=== PATIENT | male | born 1945 | race Caucasian/White ===

== ENCOUNTER → 2019-10-04 11:53 | Outpatient (BNVA) | payer OTHER, MEDICARE, SELFPAY | PROVIDERS: PCP Nurse Practitioner Family; Visit Provider Urology | DX: N39.3 Stress incontinence (female) (male) (principal); N52.31 Erectile dysfunction following radical prostatectomy | CPT/HCPCS: 81001 ==

== ENCOUNTER 2020-01-21 10:50 | Observation (INO) | payer OTHER, MEDICARE, SELFPAY ==
[2020-01-16 08:36] VITALS: BMI 35.4
--- NOTE | 2020-01-16 12:04 | ANES.PREANE2 ---
Pre-Anesthetic Assessment Pre-Anesthetic Assessment: Height/Weight: Height 1.7 m Weight 102.512 kg Preop Diagnosis: DJD right knee Proposed Procedure: Operation Date: 01/21/20 07:00 Proposed Procedures p Total Knee Arthroplasty w/ imageless computer navagation [id number] M17.0(Right) - Rocael Hinton DO Social: Social History: No alcohol and No tobacco Exam: Pre-Anes Outpt Exam: alert, oriented x 3, clear to auscultation bilaterally and regular rate & rhythm Airway: Submandibular: WNL Cervical ROM: WNL MP: 3 Dentition: Partials History/ROS: No significant history except as noted Pulmonary: Pulmonary: None reported CV/HEM: CV/HEM: HTN : : None reported Hepatic: Hepatic: None reported GI: GI: GERD Metabolic: Metabolic: DM Comments: borderline Musc/skel: Musc/skel: Lower Back Pain and OA/DJD Neuropsych: Neuropsych: None reported Anesthetic Plan: ASA status: 2 Anesthesia: Anesthesia Evaluation, Eval. for regional block, General and Regional (specify below) (adductor canal block) Risk of > 500 ml blood loss (7ml/kg in children): Yes, adequate IV access and fluids planned PFSH Anesthesia PFSH: Medical History (Updated 11/30/19 @ 14:36 by Rocael Hinton DO) Bladder neck stricture Erectile dysfunction Gross hematuria Male urinary stress incontinence Osteoarthritis of knees, bilateral Personal history of malignant neoplasm of prostate Surgical History H/O prostatectomy History of appendectomy History of carpal tunnel surgery BILATERAL History of lumbar laminectomy Social History Smoking and tobacco status: never smoked Alcohol intake: never Adopted: No Caregiver/support person: No Lives independently: No Household members: spouse Marital status: Current occupational status: retired Data Anesthesia Cardiac Studies: No Data to Display
[2020-01-16 13:05] LABS: Add Urine Microscopic? NO
[2020-01-16 13:08] LABS: Basophils % 0.5 %; Eosinophils # 0.2 10^3/uL (0.0-0.8); Eosinophils % 3.1 %; Hematocrit 39.6 % (42.0-52.0); Hemoglobin 12.9 g/dL (11.7-16.6); Lymphocytes % 16.9 %; Mean Corpuscular HGB Conc 32.6 g/dL (30.0-36.0); Mean Corpuscular Hemoglobin 30.7 pg (28.0-34.0); Mean Corpuscular Volume 94.3 fL (80-94); Mean Platelet Volume 10.2 fL (7.4-10.4); Monocytes # 0.5 10^3/uL (0.2-0.9); Monocytes % 8.3 %; Neutrophils # 4.3 10^3/uL (1.8-7.7); Neutrophils % 70.5 %; Nucleated Red Blood Cells % 0 %; Platelet Count 229 10^3/cmm (130-400); Red Cell Distribution Width 14.3 % (12.1-15.1); White Blood Count 6.2 10^3/uL (4.0-10.0)
[2020-01-16 13:24] LABS: Anion Gap 15.1 (5-19); Blood Urea Nitrogen 21 mg/dL (8-23); Calcium 9.1 mg/dL (8.5-10.5); Carbon Dioxide 25 mmol/L (22-29); Chloride 104 mmol/L (98-107); Creatinine Clr Calc Pharmacy 65.1837; Glucose 151 mg/dL (65-115); Osmolality Calculated 290 mOsm/kg (285-295); Potassium 4.1 mmol/L (3.5-5.1); Sodium 140 mmol/L (136-145)
[2020-01-16 13:28] LABS: Bilirubin Urine Neg (NEGATIVE); Blood Urine Neg (Negative); Glucose Urine UA Norm (Normal); Ketones Urine Negative (Negative); Leukocyte Esterase Urine Negative (Negative); Nitrate Urine Negative (Negative); Protein Urine Neg (Negative); Urine Appearance Clear (CLEAR); Urine Color Yellow (Yellow); Urobilinogen Urine Norm (Negative); pH Urine 5 (5-7)
[2020-01-21] VITALS (18 sets, daily range): BP systolic 89–172; BP diastolic 55–97; PULSE 70–80; RESP 14–19; TEMP 36.3–36.7; O2SAT 93–99
--- NOTE | 2020-01-21 05:44 | ECG_ITS ---
Measurements Intervals [place] Rate: 76 P: 64 NH: 179 QRS: 23 QRSD: 117 T: 36 QT: 401 QTc: 453 SINUS RHYTHM MODERATE INTRAVENTRICULAR CONDUCTION DELAY [110+ ms QRS DURATION] No previous ECG available for comparison Electronically Signed On 01-21-2020 19:47:50 CDT by Apirl Mcneil M.D. [email or web address]
[2020-01-21 06:09] LABS: Glucose Point of Care 144 mg/dL (70-110)
[2020-01-21] MEDS: gabapentin 300 mg Capsule PO ×3 (06:20→16:55)
[2020-01-21] MEDS: CELEcoxib 200 mg Capsule 400 MG PO (06:20)
[2020-01-21] MEDS: acetaminophen 500 mg Tablet 1000 MG PO ×3 (06:21→18:21)
[2020-01-21] MEDS: sodium chloride 0.9% 1,000 ML 30 ML IV (06:25)
--- NOTE | 2020-01-21 06:48 | W.PM.OPSUD ---
Surgery/Procedure H&P Update DATE OF PROCEDURE: January 21, 2020 DATE H&P PERFORMED: 01/16/20 H&P UPDATE INFORMATION: I have reviewed H&P completed within last 30 days, I have examined patient prior to procedure and No changes to prior documentation PREOP DIAGNOSIS: DJD right knee PRIMARY INDICATION FOR PROCEDURE: as above PLANNED PROCEDURE: Operation Date: 01/21/20 07:00 Proposed Procedures p Total Knee Arthroplasty w/ imageless computer navagation [id number] M17.0(Right) - Rocael Hinton DO
--- NOTE | 2020-01-21 06:49 | P.OP_ITS ---
Operative Report Date of procedure: January 21, 2020 Pre-op Diagnosis: DJD right knee Post-op diagnosis: same Procedure Done: Right total knee arthroplasty Imageless computer-assisted navigation Implants: [place] tri[employer]lon Specimens removed/disposition: Bone and cartilage right knee Surgeon: Rocael Hinton Anesthesia: General and Nerve Block (Preoperative single shot adductor canal block) Estimated blood loss (mL): 50 Tourniquet time (min): 120 IV fluids (mL): 1,500 Complications: No apparent complications Findings: Tricompartmental DJD Condition: stable Disposition: PACU Brief History: 74-year-old white male with progressive disabling right knee pain due to degenerative arthritis. At this time he's failed conservative treatment. He has attended the [facility] joint class. All of his questions and concerns were answered. He is aware of the risks of total knee arthroplasty surgery include aren't limited to: Infection, loosening about prosthesis, failure to relieve all pain, nerve/blood vessel/tendon injury, potential for fractures about the prosthesis that could lead to need for revision surgery. Medical complications can include blood clots, heart attack, stroke risks up to including . All questions are answered and the patient is agreeable to proceed with surgery Procedure: Patient identified. Surgical site signed. Surgical permit signed. Patient received 1.5 g of Vancomycin and 2 g of Ancef for antimicrobial prophylaxis. Anesthesia team performed an adductor canal block in the preoperative holding area. He was taken to the operating room. He was placed under general anesthesia. A gel bump was placed under the ipsilateral buttock. A tourniquet was placed about the upper aspect of the operative left limb. The operative limb was then sterilely prepped and draped usual fashion. The patient received 1 g of TXA IV prior to incision. The operative limb was exsanguinated using an Esmarch bandage and the tourniquet inflated to 300 mm Hg pressure. A 20 cm midline incision was made with a skin knife. Full-thickness skin flaps were made. Skin edge bleeders were coagulated with electrocautery. Using a second knife we perform a medial parapatellar arthrotomy. Soft tissues were released off the anteromedial aspect of the tibia to the posterior medial corner of the tibia with second knife and [place]gron elevator. The anterior horns of the medial and lateral menisci were released and resected. Partial fat pad resection was performed with sharp dissection. The anterior posterior cruciate ligaments were divided sharply. Using electrocautery the lateral patellofemoral ligament was divided. The knee was placed in full extension. The patella was everted. Marginal osteophytes were removed. Electrocautery was taken around the periphery of the patella. The patella measured 26 mm in thickness. I elected to resurface the patella. The patellar reamer was used to ream the patella to a residual thickness of 16 mm. The patella sized for a 35 mm oblong patella. We drilled the peg holes for the patellar button. The trial patellar button sat nicely on the parents surface. A partial lateral facetectomy was performed with an oscillating saw. The knee was flexed to 60?. A guidepin for the Contextbroker navigation device was inserted on the distal femur on Whitesides line. We measured for the anterior posterior offset and input the number. We attached the anterior reference unit. We entered the offset-3. We maneuvered the leg to register the femur. We then set the resection plane at 0? of varus/valgus from the mechanical axis and flexion at 4? for the femoral component. We set the distal femoral resection guide for 10 mm. Using an oscillating saw we performed the distal femoral cut. We then secured the tibial cutting jig on the tibia and held in place with a rubberized strap. The guide was put in place and the medial one third of the tibial tubercle and was secured with 3 pins. Tibial registration was performed by first reading and then adjust the distal offset to match 1.5 to the midline probe offset. The side levers were unlocked and we extended the distal probe to match offsets. We then registered the lateral followed by the medial malleolus. We set the varus/valgus angle to 0? and set the posterior slope to 0 degrees. We used the 2 mm stylus set our depth for tibial resection. We then used the oscillating saw to perform our proximal tibial cut. We now at checked our extension space and we were able to put a size 11 spacer and with good stability and to full extension. We sized the femur for a size 6 using the anterior referencing guide. Rotation was set at 3? of external rotation. The 4-in-1 cutting guide was put into place and an marielena wing was placed through the anterior cutting guide to assess for the potential of anterior notching. The marielena wing passed anterior to the femoral cortex. The 4-in-1 cutting block was pinned into place and the anterior and posterior as well as the chamfer cuts were then performed. The PS cutting block was pinned into place and the box cut was made with an oscillating saw. Lug holes were drilled. A size 6 femoral box cut component was then put on the distal femur. Box cut was then made with reciprocating saw. The knee was flexed to 110? and a PCL retractor was used to subluxate the tibia anteriorly with respect to the femur.The tibia was sized for a size6. With a 11 mm trial posterior stabilized tibial bearing surface in place the knee was placed through a range of motion the knee could flex to 105 degrees the knee came to near full extension. . We set the rotation by putting the knee through a range of motion and using electrocautery to carlos rotation on the tibia.The size 6 tibial plate was held in place using headed pins.We then drilled for the stem and punch for the keel. A trial reduction was performed with an 11 mm trial articular surface the knee was able to come to near full extension with a mild degree of effort flexion 110?. The patella tracked nicely with a no touch technique. All trial components were removed from the knee. The knee was irrigated with pulsatile lavage containing antibiotic solution and the joint was dried. We then mixed 2 bags of low viscosity cement with Tobramycin. Tobramycin for additional antimicrobial prophylaxis. The patellar component was cemented and held in place with a clamp. The Size 6 posterior stabilized femoral component component was cemented. Excess cement was removed using a [place] elevator. The size 6 tibial universal baseplate was cemented and was then impacted into place and the knee was reduced. The cement was allowed to harden. The actual size 6 x11 mm thickness posterior stabilized tibial articular surface was inserted and impacted into place. Components were reduced into position. The knee came to near full extension flexion easily to 110?. The knee was stable to varus valgus stress. The patella tracked nicely with a no touch technique. The knee was then irrigated with Betadine-containing saline solution and antibiotic containing saline solution. The knee tendons and capsular structures and joint line were injected with 120 mL of a solution containing Exparel 0.25% Marcaine and sterile saline.FloSeal was then placed in the wound for additional hemostasis within the joint was dried. Vancomycin powder was placed and ca psular closure was performed with permanent as well as absorbable barbed suture. The subcutaneous layer was irrigated with Betadine-containing saline solution and antibiotic containing saline solution. Vancomycin powder was also placed in this layer. The patient received 1 g of Tranexamic acid intravenously for additional hemostasis prior to closure The wound was then closed in layers with sharyn on skin. Skin glue was placed over the sharyn. Sterile dressings were then applied. A compressive Timmy wrap was applied from ankle to groin. The patient was aroused from general anesthesia. Patient was taken to recovery room. Patient tolerated the procedure well. All counts were correct.
[2020-01-21] MEDS: fentaNYL 50 mcg/mL INJ 2mL 100 MCG IVP (06:59)
[2020-01-21] MEDS: midazolam 1 mg/mL INJ 5 ML 5 MG IVP (06:59)
--- NOTE | 2020-01-21 07:14 | ANES.PROC ---
Anesthesia Procedures Procedure/Date: 01/21/20 Nerve Block ^: Nerve Block 1: Main Anesthesia: general anesthesia Time Out Performed: Yes Consent: requested by attending/covering physician, risks and benefits reviewed and patient agrees to proceed Nerve block location: adductor canal (right) Anesthesia monitors applied: pulse oximetry, EKG, BP cuff and oxygen Nerve block position: supine Anesthetic Used: ropivicaine 0.5% (30 ml) and with decadron (4mg) Amount of anesthesia used (mL): 30 Ultrasound used to: recognize landmarks Nerve Stimulator Used?: No Interscalene/Femoral BLK: 4 stimuplex 21 g needle used for position and inplane approach, visualize local anesthetic spread and no vascular puncture identified Injection: neg aspiration of heme and paresthesia +/- (neg) Patient Tolerated Procedure: well and no complications Complications: none
[2020-01-21] MEDS: vancomycin 1,000 MG SDV 1000 MG XX (07:48)
--- NOTE | 2020-01-21 07:51 | SUR.OPER ---
Family Notified Of Patient's Status Via Phone.
--- NOTE | 2020-01-21 09:00 | SUR.OPER ---
Family Notified Of Patient's Status Via Phone.
--- NOTE | 2020-01-21 10:39 | SUR.PHASEI ---
1039- ORAL AIRWAY OUT, SIMPLE MASK IN PLACE AT 6LPM, SAT 98%
--- NOTE | 2020-01-21 10:58 | XR_ITS ---
WS: [id number] RIGHT KNEE 2 VIEWS AP and cross table lateral imaging is submitted. HISTORY: POST OP. COMPARISON: 05/29/2019 Total knee replacement prosthetic devices are in good position and alignment. Normal position of the patella. Posterior patella resurfacing changes. Numerous postsurgical sutures are noted over the ant erior knee and there are normal postoperative changes in the soft tissues consistent with air, blood and edema. No complications are evident. XR/XR knee RT 1-2V 82431 IMPRESSION: Satisfactory appearance of the recent RIGHT knee arthroplasty.
[2020-01-21 11:50] LABS: Glucose Point of Care 201 mg/dL (70-110)
[2020-01-21] MEDS: calcium carbonate 500 mg Chew Tablet 1000 MG PO ×2 (12:51→16:54)
[2020-01-21] MEDS: montelukast sodium 10 mg Tablet PO (12:52)
[2020-01-21] MEDS: oxybutynin 5 mg Tablet 10 MG PO (12:52)
[2020-01-21] MEDS: multivitamin therapeutic Tablet 1 TAB PO (12:53)
[2020-01-21] MEDS: sennosides-docusate Tablet 2 TAB PO ×2 (12:53→16:56)
[2020-01-21] MEDS: TRAMadol 50 mg Tablet PO (12:53)
[2020-01-21] MEDS: cholecalciferol (vitamin D3) 1,000 unit Tablet 1000 UNIT PO (12:53)
[2020-01-21] MEDS: allopurinol 300 mg Tablet PO (12:55)
[2020-01-21] MEDS: FUROsemide 40 mg Tablet PO (12:55)
[2020-01-21] MEDS: pantoprazole DR 40 mg Tablet PO (12:55)
[2020-01-21] MEDS: iron polysaccharide complex 150 mg Capsule PO ×2 (12:56→16:55)
[2020-01-21] MEDS: chlorhexidine gluconate 0.12% Btl 473 mL 30 ML MUCOUS MEM ×3 (12:56→21:00)
[2020-01-21] MEDS: atorvastatin 40 mg Tablet 20 MG PO (12:56)
[2020-01-21] MEDS: sodium chloride 0.9% 1,000 ML 100 ML IV ×2 (12:56→23:36)
[2020-01-21] MEDS: ondansetron 2 mg/ML SDV 2 mL 4 MG IVP (12:57)
--- NOTE | 2020-01-21 13:44 | PC.SOCIAL ---
Patient received [employer] recipient letter from Medicare. Signed copy is in the chart.
[2020-01-21 16:59] LABS: Glucose Point of Care 287 mg/dL (70-110)
--- NOTE | 2020-01-21 18:11 | PM.CONSULT ---
Providers/Reason For Consult Consulting Physican/Specialty*: Frase/Hospitalist Reason for Consult*: diabetes, hypertension, other medical management Requesting Physcian: Dr Hinton Attending Physician: Rocael Hinton DO Primary Care Provider: Cary Sanders History of Present Illness History of Present Illness Ludwig Malloy JR is a 74 year old male who presented to [facility] for an elective total knee replacement on the day of admission. Postoperatively, he reports doing well. Pain is controlled currently with a block. He can move both of his feet. Denies chest pain, nausea, vomiting, shortness of breath. No significant issues perioperatively reported. Case was reviewed with Dr. Hinton. Hospitalists have been consulted for management of patient's diabetes, hypertension and other medical issues. Patient currently without questions or acute concerns. Review of Systems Const: Denies: fever, chills or change in appetite Eyes: Denies: change in vision ENMT: Denies: throat pain, dry mouth or nasal congestion Card: Denies: chest pain, palpitations or edema Resp: Denies: shortness of breath, productive cough or non-productive cough GI: Denies: abdominal pain, nausea, vomiting, diarrhea or constipation : Denies: difficulty urinating Musc: Reports: extremity pain Skin/Breast: Denies: rash or itching Neuro: Denies: headache, numbness in extremities, weakness in extremities or dizziness Psych: Denies: anxiety or depression George/Lymph: Denies: easy bruising or easy bleeding Meds/Allergies Home Medications and Allergies Home Medications Medication Instructions Recorded Confirmed Last Taken Type acetaminophen 500 mg tablet 500 mg PO BID tab 10/04/19 01/17/20 01/20/20 History allopurinol 300 mg tablet 300 mg PO DAILY 10/04/19 01/17/20 01/20/20 History amlodipine 10 mg tablet 10 mg PO DAILY 10/04/19 01/17/20 01/21/20 05:00 History dulaglutide 1.5 mg/0.5 mL 1.5 mg SUBCUT Q7D 10/04/19 01/17/20 01/15/20 History subcutaneous pen injector furosemide 40 mg tablet 40 mg PO DAILY 10/04/19 01/17/20 01/20/20 History gabapentin 300 mg capsule 300 mg PO BID 10/04/19 01/17/20 01/20/20 History lisinopril 40 mg tablet 40 mg PO DAILY 10/04/19 01/17/20 01/20/20 History meloxicam 15 mg tablet 15 mg PO DAILY 10/04/19 01/17/20 01/20/20 History metformin 500 mg tablet,extended 500 mg PO BID 10/04/19 01/17/20 01/20/20 History release 24 hr metoprolol succinate 100 mg 100 mg PO DAILY 10/04/19 01/17/20 01/21/20 05:00 History tablet,extended release 24 hr montelukast 10 mg tablet 10 mg PO DAILY 10/04/19 01/17/20 01/20/20 History omeprazole 20 mg capsule,delayed 20 mg PO DAILY 10/04/19 01/17/20 01/20/20 History release oxybutynin chloride 10 mg 10 mg PO DAILY 10/04/19 01/17/20 01/20/20 History tablet,extended release 24 hr simvastatin 40 mg tablet 40 mg PO DAILY 10/04/19 01/17/20 01/20/20 History tadalafil 20 mg PO DAILY PRN 01/16/20 01/17/20 Unknown History Allergies Allergy/AdvReac Type Severity Reaction Status Date / Time No Known Allergies Allergy Verified 01/17/20 08:00 Current Medications Current Medications Generic Name Dose Route Start Last Admin Trade Name Freq PRN Reason Stop Dose Admin Acetaminophen 1,000 mg 01/21/20 11:16 01/21/20 12:54 Tylenol PO 1,000 mg Q8H AUDREY Administration Allopurinol 300 mg 01/21/20 11:16 01/21/20 12:55 Zyloprim PO 300 mg DAILY ADUREY Administration Atorvastatin Calcium 20 mg 01/21/20 12:00 01/21/20 12:56 Lipitor PO 20 mg DAILY AUDREY Administration Calcium Carbonate 1,000 mg 01/21/20 11:16 01/21/20 16:54 Tums PO 1,000 mg BID AUDREY Administration Chlorhexidine Gluconate 30 ml 01/21/20 11:16 01/21/20 16:50 Perigard MUCOUS MEM 30 ml QID AUDREY Administration Furosemide 40 mg 01/21/20 11:16 01/21/20 12:55 Lasix PO 40 mg DAILY AUDREY Administration Gabapentin 300 mg 01/21/20 11:16 01/21/20 16:55 Neurontin PO 300 mg BID AUDREY Administration Sodium Chloride 1,000 mls @ 100 mls/hr 01/21/20 11:16 01/21/20 12:56 Sodium Chloride 0.9% IV 100 mls/hr .Q10H AUDREY Administration Cefazolin Sodium/Dextrose 2 gm in 50 mls @ 100 mls/hr 01/21/20 15:00 01/21/20 17:19 Kefzol IV 01/22/20 07:29 Infused Q8H AUDREY Infusion Protocol Insulin Aspart 0 unit 01/21/20 12:00 01/21/20 17:29 Novolog SUBCUT 8 unit TIDWM AUDREY Administration Protocol Metoprolol Succinate 100 mg 01/21/20 11:16 01/21/20 12:55 Toprol Xl PO Not Given DAILY AUDREY Montelukast Sodium 10 mg 01/21/20 11:16 01/21/20 12:52 Singulair PO 10 mg DAILY AUDREY Administration Multivitamins Therapeutic 1 tab 01/21/20 11:16 01/21/20 12:53 Multivitamin Tab PO 1 tab DAILY AUDREY Administration Mupirocin 1 applic 01/21/20 11:16 01/21/20 16:55 Bactroban NASAL 01/26/20 11:15 Not Given BID [facility] Protocol Ondansetron HCl 4 mg 01/21/20 11:16 01/21/20 12:57 Zofran IVP 4 mg Q6H PRN Administration NAUSEA AND VOMITING Oxybutynin Chloride 10 mg 01/21/20 12:00 01/21/20 12:52 Ditropan PO 10 mg DAILY AUDREY Administration Pantoprazole Sodium 40 mg 01/21/20 12:00 01/21/20 12:55 Protonix PO 40 mg DAILY AUDREY Administration Polysaccharide Iron Complex 150 mg 01/21/20 11:16 01/21/20 16:55 Ferrex PO 150 mg BIDWM AUDREY Administration Senna/Docusate Sodium 2 tab 01/21/20 11:16 01/21/20 16:56 Senna-S PO 2 tab BID AUDREY Administration Tramadol HCl 50 mg 01/21/20 11:16 01/21/20 12:53 Ultram PO 50 mg Q4H PRN Administration MILD TO MODERATE PAIN Vitamin D 1,000 unit 01/21/20 11:16 01/21/20 12:53 Vitamin D3 PO 1,000 unit DAILY AUDREY Administration PFSH Acute PFSH: Medical History (Updated 01/21/20 @ 20:38 by Catrachita Weathers MD) Bladder neck stricture Erectile dysfunction Gout Gross hematuria Hyperlipidemia Hypertension Male urinary stress incontinence Osteoarthritis of knees, bilateral Personal history of malignant neoplasm of prostate treated with radiation in 2010 Type 2 diabetes mellitus Surgical History (Updated 01/21/20 @ 18:20 by Catrachita Weathers MD) H/O nasal septoplasty H/O prostatectomy History of appendectomy History of carpal tunnel surgery BILATERAL History of lumbar laminectomy History of sinus surgery Family History Family/Other Cancer Lung disease Hypertension CAD (coronary artery disease) Stroke Social History Smoking and tobacco status: never smoked Alcohol intake: never Adopted: No Caregiver/support person: No Lives independently: No Household members: spouse Marital status: Current occupational status: retired Vitals/I&O/Wt Last Vital Signs Temp 97.8 F 01/21/20 16:00 Pulse 76 01/21/20 17:15 Resp 17 01/21/20 16:00 BP 149/73 01/21/20 17:15 Pulse Ox 94 01/21/20 17:15 01/21/20 01/21/20 01/21/20 06:59 14:59 22:59 Intake Total 2150 / 2150 50 / 2200 Output Total 50 / 50 100 / 150 Balance 2099 / 2099 -2049 Physical Exam Const: OTHER: Alert, oriented x3, cooperative HENMT: OTHER: Normocephalic atraumatic, moist mucus membranes Eye: OTHER: Pupils equally round and reactive to light Neck/C-Spine: OTHER: Supple Resp: OTHER: Clear to auscultation bilaterally no rales rhonchi or wheezes noted, no accessory muscle use noted Cardio: OTHER: Regular rate and rhythm, no murmurs gallops or rubs. Pulses euqal throughout. GI: OTHER: Abdomen soft, nontender, nondistended with positive bowel sounds : OTHER: Deferred Extremity: NARRATIVE EXTREMITY EXAM: Right lower extremity with postoperative dressings and ice pack in place Neuro: OTHER: Face symmetric, speech clear, moves toes of both feet Psych: OTHER: Normal affect Skin: OTHER: Skin without any lesions or rashes noted A&P Assessment and plan (1) Type 2 diabetes mellitus: Status: Acute Qualifiers: Diabetes mellitus complication status: without complication Diabetes mellitus custodial insulin use: without custodial use Qualified Code(s): E11.9 - Type 2 diabetes mellitus without complications (2) Hypertension: Status: Acute Qualifiers: Hypertension type: essential hypertension Qualified Code(s): I10 - Essential (primary) hypertension (3) Hyperlipidemia: Status: Acute Qualifiers: Hyperlipidemia type: unspecified Qualified Code(s): E78.5 - Hyperlipidemia, unspecified (4) Male urinary stress incontinence: Status: Chronic (5) Gout: Status: Chronic Qualifiers: Gout site: unspecified site Gout etiology: unspecified cause Chronicity: chronic Presence of tophus: without tophus Qualified Code(s): M1A.9XX0 - Chronic gout, unspecified, without tophus (tophi) (6) Status post total right knee replacement: POD zero Status: Acute Additional A&P Information Appreciate consultation Added sliding scale insulin as well as long-acting Held oral hypoglycemic agents as well as Trulicity Continue home metoprolol, amlodipine as well as Lasix for now but held lisinopril Continue home statin therapy Held home NSAIDs On home gabapentin Has laxative therapy Eliquis ordered providing DVT prophylaxis Continue oxybutynin there will need to watch for any evidence of retention Continue allopurinol Other care as per Dr. Hinton We will follow along while patient is here and address acute medical issues should they arise My participation in patient's care was discussed with him and he was given an opportunity to ask questions Full code Coding Level of Care Code Acute Jacquard Lace Weaver for Teres[facility] Fwd Diagnoses Type 2 diabetes mellitus E11.9 Diabetes mellitus complication status: without complication Diabetes mellitus custodial insulin use: without custodial use Hypertension I10 Hypertension type: essential hypertension Hyperlipidemia E78.5 Hyperlipidemia type: unspecified Male urinary stress incontinence N39.3 Gout M1A.9XX0 Gout site: unspecified site Gout etiology: unspecified cause Chronicity: chronic Presence of tophus: without tophus Status post total right knee replacement Z96.651
[2020-01-21] MEDS: apixaban 5 mg Tablet 2.5 MG PO (18:21)
[2020-01-21 21:16] LABS: Glucose Point of Care 282 mg/dL (70-110)
[2020-01-22] VITALS: BP 147/85; PULSE 82; RESP 20; TEMP 36.3; O2SAT 96
[2020-01-22 02:14] LABS: Basophils % 0.1 %; Hematocrit 36.1 % (42.0-52.0); Hemoglobin 11.4 g/dL (11.7-16.6); Lymphocytes # 0.6 10^3/uL (0.8-4.8); Lymphocytes % 4.6 %; Mean Corpuscular HGB Conc 31.6 g/dL (30.0-36.0); Mean Corpuscular Hemoglobin 29.5 pg (28.0-34.0); Mean Corpuscular Volume 93.5 fL (80-94); Monocytes # 0.9 10^3/uL (0.2-0.9); Monocytes % 7.3 %; Neutrophils # 11.1 10^3/uL (1.8-7.7); Neutrophils % 87.3 %; Nucleated Red Blood Cells % 0 %; Platelet Count 213 10^3/cmm (130-400); Red Blood Count 3.86 10^6/uL (4.1-5.3); White Blood Count 12.7 10^3/uL (4.0-10.0)
[2020-01-22 02:32] LABS: Anion Gap 15.4 (5-19); Blood Urea Nitrogen 27 mg/dL (8-23); Calcium 8.3 mg/dL (8.5-10.5); Carbon Dioxide 23 mmol/L (22-29); Chloride 104 mmol/L (98-107); Creatinine Clr Calc Pharmacy 59.7517; Glucose 257 mg/dL (65-115); Osmolality Calculated 292 mOsm/kg (285-295); Potassium 4.4 mmol/L (3.5-5.1); Sodium 138 mmol/L (136-145)
[2020-01-22] MEDS: acetaminophen 500 mg Tablet 1000 MG PO ×2 (02:53→11:48)
[2020-01-22 04:00] VITALS: BP 151/81; PULSE 80; RESP 20; TEMP 36.4; O2SAT 95
[2020-01-22 06:47] LABS: Glucose Point of Care 213 mg/dL (70-110)
[2020-01-22 08:00] VITALS: BP 141/82; PULSE 80; RESP 20; TEMP 36.6; O2SAT 96
[2020-01-22] MEDS: calcium carbonate 500 mg Chew Tablet 1000 MG PO ×2 (08:26→17:23)
[2020-01-22] MEDS: allopurinol 300 mg Tablet PO (08:26)
[2020-01-22] MEDS: gabapentin 300 mg Capsule PO ×2 (08:26→17:24)
[2020-01-22] MEDS: sennosides-docusate Tablet 2 TAB PO ×2 (08:27→17:26)
[2020-01-22] MEDS: cholecalciferol (vitamin D3) 1,000 unit Tablet 1000 UNIT PO (08:27)
[2020-01-22] MEDS: oxybutynin 5 mg Tablet 10 MG PO (08:27)
[2020-01-22] MEDS: amlodipine 10 mg Tablet PO (08:27)
[2020-01-22] MEDS: montelukast sodium 10 mg Tablet PO (08:27)
[2020-01-22] MEDS: iron polysaccharide complex 150 mg Capsule PO ×2 (08:28→17:24)
[2020-01-22] MEDS: apixaban 5 mg Tablet 2.5 MG PO ×2 (08:28→17:24)
[2020-01-22] MEDS: FUROsemide 40 mg Tablet PO (08:28)
[2020-01-22] MEDS: metoprolol succinate ER (24 HR) 100 mg Tablet PO (08:28)
[2020-01-22] MEDS: atorvastatin 40 mg Tablet 20 MG PO (08:28)
[2020-01-22] MEDS: multivitamin therapeutic Tablet 1 TAB PO (08:29)
[2020-01-22] MEDS: pantoprazole DR 40 mg Tablet PO (08:29)
[2020-01-22] MEDS: vancomycin 1,000 MG in sodium chloride 0.9% 250 ML 250 MG IV (09:14)
[2020-01-22] MEDS: mupirocin oint 22 gm 1 APPLIC NASAL (09:15)
[2020-01-22] MEDS: chlorhexidine gluconate 0.12% Btl 473 mL 30 ML MUCOUS MEM ×2 (09:15→13:37)
--- NOTE | 2020-01-22 10:14 | PC.CHAP ---
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 [] Patient/Family/Request visit [] Outpatient visit [] Follow-up visit [] Physician referral [] Code/Alert [x] Routine visit [] Staff referral [] Actively dying [] Patient sleeping [] Family support [] [] Out of room [] Palliative care [] [] Receiving care in room [] Pre-surgical visit [] Trauma [] Long length of stay [] ICU visit [] Other: Relational/Emotional Strength [] Patient feels connected with others/family/visitors/staff [] Distress [] Loneliness/isolation [] Abandonment Spirituality of Patient [] Person of Aleja [] Attends Synagogue of their Aleja [] Believes in Prayer [] Reads Bible or Pentecostalism materials [] There are Spiritual issues to be addressed Property Technician Interventions [x] Prayer [] Active listening [] Non-anxious presence [] Spiritual/emotional support [] Crisis/trauma care [] Spiritual counseling [] Bereavement support [] Provided bereavement packet [] Provided Bible/devotional materials [] Provided toy/stuffed animal, coloring book to patient or family member [] Provided Communion [] Anointing/[place] [] Salvation [x] Completed spiritual assessment [] Other: Impact on Illness or Injury [] Angry [] Fearful [] Anxious [] Often cries [] Exhaustion [] Unable to work [] Unable to attend scientologist [] Unable to walk/stand [] Unable to read [] Unable to drive [] Unable to eat/drink [] Unable to sleep [] Unable to be with family [] Patient intubated [] Other: Summary Patient finished breakfast, setting up in chair. Patient feeling much stronger Time spent with patient 10 min
[2020-01-22 11:02] LABS: Glucose Point of Care 317 mg/dL (70-110)
[2020-01-22 12:00] VITALS: BP 133/83; PULSE 85; RESP 18; TEMP 36.7; O2SAT 96
--- NOTE | 2020-01-22 13:33 | P.DS_ITS ---
Discharge Providers Date of Admission: 01/21/20 10:50 Date of Discharge: January 22, 2020 Attending Provider at Admission: Rocael Hinton DO Attending Provider at Discharge: Rocael Hinton DO Primary Care Provider: Cary Sanders Diagnoses at Discharge Discharge Diagnosis (1) Status post total right knee replacement: Status: Acute (2) Type 2 diabetes mellitus: Status: Chronic Qualifiers: Diabetes mellitus complication status: without complication Diabetes mellitus long term care pharmacist insulin use: without long term care pharmacist use Qualified Code(s): E11.9 - Type 2 diabetes mellitus without complications (3) Hypertension: Status: Chronic Qualifiers: Hypertension type: essential hypertension Qualified Code(s): I10 - Essential (primary) hypertension (4) Hyperlipidemia: Status: Chronic Qualifiers: Hyperlipidemia type: unspecified Qualified Code(s): E78.5 - Hyperlipidemia, unspecified (5) Male urinary stress incontinence: Status: Chronic (6) Gout: Status: Chronic Qualifiers: Chronicity: chronic Gout etiology: unspecified cause Gout site: unspecified site Presence of tophus: without tophus Qualified Code(s): M1A.9XX0 - Chronic gout, unspecified, without tophus (tophi) Reason for Visit Reason for Visit: Reason For Visit: Primary osteoarthritis of bilateral knee Brief History: 74-year-old white male with progressive disabling right knee pain due to degenerative arthritis. At this time he's failed conservative treatment. He has attended the [facility] joint class. All of his questions and concerns were answered. He is aware of the risks of total knee arthroplasty surgery include aren't limited to: Infection, loosening about prosthesis, failure to relieve all pain, nerve/blood vessel/tendon injury, potential for fractures about the prosthesis that could lead to need for revision surgery. Medical complications can include blood clots, heart attack, stroke risks up to including . All questions are answered and the patient is agreeable to proceed with surgery Hospital Course Hospital Course: The patient underwent right total knee arthroplasty under general anesthetic with preoperative single shot adductor canal block. He received antibiotic prophylaxis using Ancef and vancomycin. He was started on Eliquis for VTE prophylaxis. SCDs and mobilization were used also for VTE prophylaxisSurgery went well without any intraoperative complications. Postoperative x-ray show satisfactory placement of implants. No Watts catheter was placed because of his previous history of prostate surgery and concern for having voiding complications. The patient did exceptionally well following surgery. On postoperative day 1 the had minimal complaints of pain and was doing well with physical therapy. He was doing so well that he wanted to be discharged home. His postoperative dressing was clean and dry without any strikethrough. No calf tenderness bilaterally he was ambulating weightbearing as tolerated using walker. His pain was controlled oral pain medication Physical Exam Narrative: EXAM NARRATIVE: 74-year-old white male in no acute distress. He is alert and cooperative. His lungs are clear to auscultation. His heart is regular rate and rhythm abdomen soft nontender his right lower extremity dressing is clean dry and intact. He has no calf tenderness bilaterally. Discharge Data Data Completed and Pending: Completed Studies During Hospitalization Category Date Time Status XR knee RT 1-2V 7 3560 Routine Exams 01/21/20 10:58 Completed Pathology: Surgic al [PTH] Routine Pth 01/21/20 10:21 Completed Pending at discharge Category Date Time Status Complete Blood Co unt w/Auto AM LABS Lab 01/23/20 04:00 Ordered Complete Blood Co unt w/Auto AM LABS Lab 01/24/20 04:00 Ordered Labs from last 24 hours 01/22/20 01/22/20 01/22/20 10:58 06:23 01:50 WBC RBC Hgb Hct MCV MCH MCHC RDW Plt Count MPV Neut % (Auto) Lymph % (Auto) [place] % (Auto) Eos % (Auto) Baso % (Auto) Neut # (Auto) Lymph # (Auto) [place] # (Auto) Eos # (Auto) Baso # (Auto) Nucleated RBC % (a uto) Nucleated RBCs # Sodium 138 Potassium 4.4 Chloride 104 Carbon Dioxide 23 Anion Gap 15.4 BUN 27 H Creatinine 1.2 Glucose 257 H POC Glucose 317 213 Calculated Osmolal ity 292 Calcium 8.3 L 01/22/20 01/21/20 01/21/20 01:50 20:49 16:01 WBC 12.7 H RBC 3.86 L Hgb 11.4 L Hct 36.1 L MCV 93.5 MCH 29.5 MCHC 31.6 RDW 14.0 Plt Count 213 MPV 10.0 Neut % (Auto) 87.3 Lymph % (Auto) 4.6 [place] % (Auto) 7.3 Eos % (Auto) 0.0 Baso % (Auto) 0.1 Neut # (Auto) 11.1 H Lymph # (Auto) 0.6 L [place] # (Auto) 0.9 Eos # (Auto) 0.0 Baso # (Auto) 0.0 Nucleated RBC % (a uto) 0 Nucleated RBCs # 0.0 Sodium Potassium Chloride Carbon Dioxide Anion Gap BUN Creatinine Glucose POC Glucose 282 287 Calculated Osmolal ity Calcium Vitals: Last Vital Signs Temp 97.9 F 01/22/20 08:00 Pulse 80 01/22/20 08:00 Resp 20 H 01/22/20 08:00 BP 141/82 01/22/20 08:00 Pulse Ox 96 01/22/20 08:00 Discharge Plan Discharge Patient Disposition: Home Health Service Condition: Stable Prescriptions: New oxycodone-acetaminophen 5-325 mg tablet 1 tab PO Q4H PRN (Reason: pain) Qty: 40 RF: 0 cefuroxime axetil 500 mg tablet 500 mg PO BID 7 Days Qty: 14 RF: 0 Eliquis 2.5 mg tablet 2.5 mg PO Q12H Qty: 30 RF: 0 Continued gabapentin 300 mg capsule 300 mg PO BID RF: 0 acetaminophen [Tylenol Extra Strength] 500 mg tablet 500 mg PO BID RF: 0 omeprazole 20 mg capsule,delayed release(DR/EC) 20 mg PO DAILY RF: 0 Trulicity 1.5 mg/0.5 mL pen injector 1.5 mg SUBCUT Q7D RF: 0 furosemide 40 mg tablet 40 mg PO DAILY RF: 0 montelukast 10 mg tablet 10 mg PO DAILY RF: 0 meloxicam 15 mg tablet 15 mg PO DAILY RF: 0 metoprolol succinate 100 mg tablet extended release 24 hr 100 mg PO DAILY RF: 0 lisinopril 40 mg tablet 40 mg PO DAILY RF: 0 amlodipine 10 mg tablet 10 mg PO DAILY RF: 0 metformin 500 mg tablet extended release 24 hr 500 mg PO BID RF: 0 oxybutynin chloride 10 mg tablet extended release 24hr 10 mg PO DAILY RF: 0 simvastatin 40 mg tablet 40 mg PO DAILY RF: 0 allopurinol 300 mg tablet 300 mg PO DAILY RF: 0 tadalafil 20 mg tablet 20 mg PO DAILY PRN (Reason: sexual activity) RF: 0 Discharge Orders: Discharge Order (Routine); Ordered 01/22/20 Ordered By: Rocael Hinton Referrals: [facility] ([facility]) [Outside] Rocael Hinton DO [Physician] - 02/05/20 8:30 am Discharge Diet: Diabetic Discharge Activity: Limit activity as instructed and Use walker/crutches as instructed Patient Instructions: Cefuroxime (By mouth), Oxycodone/Acetaminophen (By mouth), Apixaban (By mouth), Revision Total Joint Arthroplasty (DC) Activity Restrictions/Additional Instructions: Weightbearing as tolerated on right knee Apply ice to right knee to decrease pain and swelling 20 minutes on 20 minutes off May take off Timmy wrap tomorrow May leave Tegaderm dressing in place and shower. Remove Tegaderm dressing on Monday leaving sharyn in place. Home nursing may apply Telfa island dressing. May coordinate with visiting nurse to remove your dressing and they can apply a new dressing as they do a wound check (Telfa island dressing) Home physical therapy total knee orders gait and transfer training begin with walker may progress to cane as tolerated Quad sets, active and passive range of motion. Do not attempt to progress beyond 90 degrees of flexion so as not to disrupt wound ankle pumps, calf/thigh isometrics and gluteal squeezes--25 reps 3-4 sets per day stairclimbing when appropriate Discharge Date/Time: 01/22/20 19:12 Discharge Attestations Time Spent in Discharge Care*: less than 30 min Specific Discharge Activities: Specific discharge activities: educating patient and documenting/other paperwork Quality Metrics Clinical Quality Measures During this hospital stay, did patient experience: None Coding Level of Care Code Established Pt Acute Digital Marketing Strategist for Ladan Fwd Patient Type Established Diagnoses Status post total right knee replacement Z96.651 Type 2 diabetes mellitus E11.9 Diabetes mellitus complication status: without complication Diabetes mellitus long term care pharmacist insulin use: without long term care pharmacist use Hypertension I10 Hypertension type: essential hypertension Hyperlipidemia E78.5 Hyperlipidemia type: unspecified Male urinary stress incontinence N39.3 Gout M1A.9XX0 Chronicity: chronic Gout etiology: unspecified cause Gout site: unspecified site Presence of tophus: without tophus
[2020-01-22 15:52] VITALS: BP 131/75; PULSE 79; RESP 18; TEMP 37.1; O2SAT 97
--- NOTE | 2020-01-22 16:03 | PM.PN ---
Subjective Subjective: Interval history: Patient seen earlier this morning walking with therapy and again earlier this afternoon. He looks great. He has done well throughout the day today also. Plan is for him to be discharged today I believe. He has no questions. Vitals/I&O/Wt Last Vital Signs Temp 98.7 F 01/22/20 15:52 Pulse 79 01/22/20 15:52 Resp 18 01/22/20 15:52 BP 131/75 01/22/20 15:52 Pulse Ox 97 01/22/20 15:52 01/22/20 01/22/20 01/22/20 06:59 14:59 22:59 Intake Total 150 / 3350 1010 / 1010 Output Total 400 / 1000 700 / 700 Balance -250 / 2350 310 / 310 Physical Exam Const: OTHER: Alert, oriented x3, cooperative, eager Resp: OTHER: Clear to auscultation bilaterally Cardio: OTHER: Regular Extremity: NARRATIVE EXTREMITY EXAM: Appropriate postoperative changes Neuro: OTHER: Face symmetric, speech clear, moves all extremities Data : 01/22/20 01:50 01/22/20 01:50 A&P Assessment and plan (1) Type 2 diabetes mellitus: Status: Chronic Qualifiers: Diabetes mellitus senior care insulin use: without senior care use Diabetes mellitus complication status: without complication Qualified Code(s): E11.9 - Type 2 diabetes mellitus without complications (2) Hypertension: Status: Chronic Qualifiers: Hypertension type: essential hypertension Qualified Code(s): I10 - Essential (primary) hypertension (3) Hyperlipidemia: Status: Chronic Qualifiers: Hyperlipidemia type: unspecified Qualified Code(s): E78.5 - Hyperlipidemia, unspecified (4) Male urinary stress incontinence: Status: Chronic (5) Gout: Status: Chronic Qualifiers: Gout site: unspecified site Gout etiology: unspecified cause Chronicity: chronic Presence of tophus: without tophus Qualified Code(s): M1A.9XX0 - Chronic gout, unspecified, without tophus (tophi) (6) Status post total right knee replacement: Status: Acute Additional A&P Information From discharge standpoint, patient can continue usual home medications. Eliquis is being utilized for DVT prophylaxis. Pain seems to be well controlled and he is doing well with therapy. Recommend follow-up with PCP as needed and monitoring for any issues with blood pressure, blood sugars incontinence or development of acute gout. 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
[2020-01-22 17:06] LABS: Glucose Point of Care 342 mg/dL (70-110)
[2020-01-22] MEDS: oxyCODONE 5 mg IR Tab/Cap PO (17:24)
[2020-01-22 19:12] VITALS: BP 131/75; PULSE 79; RESP 18; TEMP 37.1; O2SAT 97
== END 2020-01-22 19:12 | disposition home health service (06) ==
LOC: MEDSURG 20:58
PROVIDERS: Admitting Provider Orthopaedic Surgery; PCP Nurse Practitioner Family; Visit Provider Orthopaedic Surgery
PROC: (CPT 27447; principal; 2020-01-21 07:00)
DX: M17.11 Unilateral primary osteoarthritis, right knee (principal); E11.9 Type 2 diabetes mellitus without complications; I10 Essential (primary) hypertension; N39.3 Stress incontinence (female) (male); M1A.9XX0 Chronic gout, unspecified, without tophus (tophi); E78.5 Hyperlipidemia, unspecified; Z79.84 Long term (current) use of oral hypoglycemic drugs; Z82.49 Family history of ischemic heart disease and other diseases of the circulatory system; K21.9 Gastro-esophageal reflux disease without esophagitis
CPT/HCPCS: 27447; 12345; 36415; 36416; 73560; 80048; 81003; 82962; 85025; 86850; 86900; 88304; 93005; 96361; 96365; 96366; 96372; 96374; 96375; 97110; 97116; 97161; 97165; 97530; C1776; C9290; G0378; J0690; J1100; J1580; J1815; J1885; J2001; J2250; J2370; J2405; J2704; J2710; J2795; J3010; J3370; J3490; J7030; J7050

== ENCOUNTER 2020-01-23 11:13 | Outpatient (CLI) | payer OTHER, MEDICARE, SELFPAY ==
[2020-01-23 11:24] LABS: Basophils % 0.4 %; Eosinophils # 0.1 10^3/uL (0.0-0.8); Eosinophils % 1.3 %; Hematocrit 34.9 % (42.0-52.0); Hemoglobin 10.9 g/dL (11.7-16.6); Lymphocytes % 11.3 %; Mean Corpuscular HGB Conc 31.2 g/dL (30.0-36.0); Mean Corpuscular Hemoglobin 29.8 pg (28.0-34.0); Mean Corpuscular Volume 95.4 fL (80-94); Mean Platelet Volume 10.5 fL (7.4-10.4); Monocytes % 11.6 %; Neutrophils # 6.4 10^3/uL (1.8-7.7); Neutrophils % 74.5 %; Nucleated Red Blood Cells % 0 %; Platelet Count 196 10^3/cmm (130-400); Red Blood Count 3.66 10^6/uL (4.1-5.3); Red Cell Distribution Width 14.6 % (12.1-15.1); White Blood Count 8.6 10^3/uL (4.0-10.0)
[2020-01-23 11:38] LABS: Anion Gap 16.1 (5-19); Blood Urea Nitrogen 17 mg/dL (8-23); Calcium 8.8 mg/dL (8.5-10.5); Carbon Dioxide 26 mmol/L (22-29); Chloride 100 mmol/L (98-107); Glucose 236 mg/dL (65-115); Osmolality Calculated 290 mOsm/kg (285-295); Potassium 4.1 mmol/L (3.5-5.1); Sodium 138 mmol/L (136-145)
== END 2020-01-23 11:14 | disposition home or self-care (01) ==
LOC: LAB 11:14
PROVIDERS: PCP Nurse Practitioner Family; Visit Provider Orthopaedic Surgery
DX: M17.0 Bilateral primary osteoarthritis of knee (principal)
CPT/HCPCS: 80048; 85025

== ENCOUNTER 2020-01-29 12:45 | Outpatient (CLI) | payer OTHER, MEDICARE, SELFPAY ==
[2020-01-29 13:17] LABS: Basophils # 0.1 10^3/uL (0.0-0.1); Basophils % 0.6 %; Eosinophils # 0.3 10^3/uL (0.0-0.8); Eosinophils % 3.1 %; Hematocrit 37.3 % (42.0-52.0); Hemoglobin 11.5 g/dL (11.7-16.6); Lymphocytes % 12.3 %; Mean Corpuscular HGB Conc 30.8 g/dL (30.0-36.0); Mean Corpuscular Hemoglobin 29.9 pg (28.0-34.0); Mean Corpuscular Volume 96.9 fL (80-94); Mean Platelet Volume 10.3 fL (7.4-10.4); Monocytes # 0.7 10^3/uL (0.2-0.9); Monocytes % 8.5 %; Neutrophils # 6.1 10^3/uL (1.8-7.7); Neutrophils % 73.6 %; Nucleated Red Blood Cells % 0 %; Platelet Count 279 10^3/cmm (130-400); Red Blood Count 3.85 10^6/uL (4.1-5.3); Red Cell Distribution Width 14.5 % (12.1-15.1); White Blood Count 8.3 10^3/uL (4.0-10.0)
[2020-01-29 13:33] LABS: Anion Gap 18.5 (5-19); Blood Urea Nitrogen 36 mg/dL (8-23); Calcium 9.5 mg/dL (8.5-10.5); Carbon Dioxide 25 mmol/L (22-29); Chloride 102 mmol/L (98-107); Glucose 167 mg/dL (65-115); Osmolality Calculated 293 mOsm/kg (285-295); Potassium 4.5 mmol/L (3.5-5.1); Sodium 141 mmol/L (136-145)
== END 2020-01-29 12:46 | disposition home or self-care (01) ==
LOC: LAB 12:50
PROVIDERS: Visit Provider Orthopaedic Surgery
DX: Z47.1 Aftercare following joint replacement surgery (principal)
CPT/HCPCS: 80048; 85025

== ENCOUNTER 2020-02-05 09:36 | Outpatient (CLI) | payer OTHER, MEDICARE, SELFPAY ==
--- NOTE | 2020-02-05 10:15 | USCV_ITS ---
Ludwig Malloy Age: 74 Gender: M : 1945 Exam Date: 02/05/2020 10:08 Ordering Phys: Rocael Hinton DO Technologist: Niko Monaco Exam Location: [facility] [place] Indication: POST RT KNEE REPLACEMENT RT KNEE PAIN HISTORY: Lower extremity edema. Lower extremity pain. PROCEDURES: Venous duplex imaging was performed in only the right lower extremity. The following venous structures were evaluated: common femoral vein, profunda vein, proximal portion of the greater saphenous vein, superficial femoral vein, and the popliteal vein. In addition, the posterior tibial and peroneal trunk were evaluated. FINDINGS: Normal 2-D Doppler and augmentation and compressibility throughout the lower extremity venous structures. Additional imaging through the proximal calf veins also reveals no thrombus. Limited evaluation of the greater saphenous vein is patent with no thrombus. CONCLUSIONS No DVT right lower extremity. Dr. Norma Allred DO (Electronically Signed) Final Date: 06 Feb 2020 07:52 S
== END 2020-02-05 09:37 | disposition home or self-care (01) ==
LOC: RAD 09:44
PROVIDERS: PCP Nurse Practitioner Family; Visit Provider Orthopaedic Surgery
DX: Z96.651 Presence of right artificial knee joint (principal); M25.561 Pain in right knee
CPT/HCPCS: 93971

== ENCOUNTER 2020-02-13 06:00 | Outpatient (RCR) | payer OTHER, MEDICARE, SELFPAY | END 2020-03-05 13:36 | disposition home or self-care (01) | LOC: SPT 06:00 | PROVIDERS: PCP Nurse Practitioner Family; Referring Provider Orthopaedic Surgery; Visit Provider Orthopaedic Surgery | DX: Z47.1 Aftercare following joint replacement surgery (principal); Z96.651 Presence of right artificial knee joint | CPT/HCPCS: 97110; 97161 ==

== ENCOUNTER → 2020-04-01 08:03 | Outpatient (BNVA) | payer OTHER, MEDICARE, SELFPAY | PROVIDERS: PCP Nurse Practitioner Family; Visit Provider Orthopaedic Surgery | DX: Z96.651 Presence of right artificial knee joint (principal) | CPT/HCPCS: 73560; 73565 ==

== ENCOUNTER → 2020-04-09 13:07 | Outpatient (BNVA) | payer OTHER, MEDICARE, SELFPAY | PROVIDERS: PCP Nurse Practitioner Family; Visit Provider Dermatology | DX: L57.0 Actinic keratosis (principal); L82.1 Other seborrheic keratosis; D22.9 Melanocytic nevi, unspecified | CPT/HCPCS: 17000; 17003; 99203 ==

== ENCOUNTER → 2020-04-24 14:06 | Outpatient (BNVA) | payer OTHER, MEDICARE, SELFPAY | PROVIDERS: PCP Nurse Practitioner Family; Visit Provider Internal Medicine | DX: Z11.59 Encounter for screening for other viral diseases (principal) | CPT/HCPCS: 87635 ==

== ENCOUNTER 2020-04-27 09:12 | Observation (INO) | payer OTHER, MEDICARE, SELFPAY ==
--- NOTE | 2020-04-20 11:43 | ECG_ITS ---
[facility] Test Date: 2020-04-20 Pat Name: Ludwig Malloy Department: Room: Gender: Male Front Desk Admin: : 1945 Requested By: Phylicia Lobato Order Number: [id number] Riki MD: Dee Carney M.D. Measurements Intervals [place] Rate: 75 P: 5 MD: 165 QRS: -2 QRSD: 103 T: 18 QT: 373 QTc: 418 Interpretive Statements SINUS RHYTHM Compared to ECG 01/21/2020 06:30:02 Intraventricular conduction delay no longer present Electronically Signed On 04-20-2020 16:36:36 CDT by Dee Carney M.D. [id number]
[2020-04-20 12:26] LABS: Anion Gap 12.7 (5-19); Blood Urea Nitrogen 25 mg/dL (8-23); Calcium 8.8 mg/dL (8.5-10.5); Carbon Dioxide 24 mmol/L (22-29); Chloride 105 mmol/L (98-107); Glucose 159 mg/dL (65-115); Osmolality Calculated 284 mOsm/kg (285-295); Potassium 4.7 mmol/L (3.5-5.1); Sodium 137 mmol/L (136-145)
--- NOTE | 2020-04-20 12:44 | P.ANESASSM_ITS ---
Pre-Anesthetic Assessment Pre-Anesthetic Assessment: Height/Weight: Height 1.73 m Weight 100.698 kg Preop Diagnosis: Osteoarthritis left knee Proposed Procedure: Operation Date: 04/27/20 13:50 Proposed Procedures p Total Knee Arthroplasty 02798 M17.11(Left) - Luigi Yoder MD Social: Social History: No tobacco Exam: Pre-Anes Outpt Exam: oriented x 3, clear to auscultation bilaterally and regular rate & rhythm Airway: Submandibular: WNL Cervical ROM: WNL MP: 1 Pulmonary: Pulmonary: Sleep apnea CV/HEM: CV/HEM: HTN Anesthetic Plan: ASA status: 3 Other: does not use his CPAP PFSH Anesthesia PFSH: Medical History Bladder neck stricture Erectile dysfunction Gout Gross hematuria Hyperlipidemia Hypertension Male urinary stress incontinence Osteoarthritis of knees, bilateral Personal history of malignant neoplasm of prostate treated with radiation in 2010 Type 2 diabetes mellitus Surgical History H/O nasal septoplasty H/O prostatectomy History of appendectomy History of carpal tunnel surgery BILATERAL History of lumbar laminectomy History of sinus surgery Family History Family/Other Cancer Lung disease Hypertension CAD (coronary artery disease) Stroke Denies family history of Diabetes Social History Smoking and tobacco status: never smoked Alcohol intake: never Adopted: No Caregiver/support person: No Lives independently: No Household members: spouse Marital status: Current occupational status: retired History of recent travel: Yes (lives in [facility]) Data Anesthesia CBC & Chem 7: 04/20/20 11:55 Other Labs: Laboratory Results - last 48 hr 04/20/20 11:55 Sodium 137 Potassium 4.7 Chloride 105 Carbon Dioxide 24 Anion Gap 12.7 BUN 25 H Creatinine 1.1 GFR Calculation Not Reportable Glucose 159 H Calculated Osmolality 284 L Calcium 8.8 Cardiac Studies: No Data to Display
[2020-04-22 11:12] LABS: Coronavirus Lab Test PTC Negative
[2020-04-27] VITALS (20 sets, daily range): BP systolic 111–163; BP diastolic 65–89; PULSE 78–96; RESP 13–24; TEMP 36.3–37.3; O2SAT 94–98
[2020-04-27 05:58] LABS: Glucose Point of Care 128 mg/dL (70-110)
[2020-04-27] MEDS: sodium chloride 0.9% 1,000 ML 30 ML IV (06:03)
[2020-04-27] MEDS: midazolam 1 mg/mL INJ 2 mL 2 MG IVP (06:38)
--- NOTE | 2020-04-27 06:39 | ANES.PROC ---
Anesthesia Procedures Procedure/Date: 04/27/20 Nerve Block ^: Nerve Block 1: Main Anesthesia: general anesthesia Time Out Performed: Yes Consent: requested by attending/covering physician and risks and benefits reviewed Nerve block location: adductor canal (L) Anesthesia monitors applied: pulse oximetry and oxygen Nerve block position: supine Anesthetic Used: ropivicaine 0.5% and with decadron (4 mg) Amount of anesthesia used (mL): 30 Ultrasound used to: recognize landmarks Nerve Stimulator Used?: No Interscalene/Femoral BLK: 4 stimuplex 21 g needle used for position and inplane approach, visualize local anesthetic spread and no vascular puncture identified Injection: neg aspiration of heme Patient Tolerated Procedure: well and no complications Complications: none
--- NOTE | 2020-04-27 06:57 | P.HP_ITS ---
Same Day Surgery H&P Indication for Procedure/HPI DATE OF PROCEDURE: April 27, 2020 CHIEF COMPLAINT/INDICATIONFOR SURGICAL PROCEDURE: Left knee pain attributable to arthritis. Here for elective left total knee arthroplasty PREOP DIAGNOSIS: Osteoarthritis left knee PLANNED PROCEDRUE: Operation Date: 04/27/20 07:00 Proposed Procedures p Total Knee Arthroplasty 62035 M17.11(Left) - Luigi Yoder MD Medications/Allergies* Home Medications Medication Instructions Recorded Confirmed Type acetaminophen 500 mg tablet 500 mg PO BID tab 10/04/19 04/27/20 History allopurinol 300 mg tablet 300 mg PO DAILY 10/04/19 04/27/20 History amlodipine 10 mg tablet 10 mg PO DAILY 10/04/19 04/27/20 History dulaglutide 1.5 mg/0.5 mL 1.5 mg SUBCUT Q7D 10/04/19 04/27/20 History subcutaneous pen injector furosemide 40 mg tablet 60 mg PO DAILY 10/04/19 04/27/20 History gabapentin 300 mg capsule 300 mg PO BID 10/04/19 04/27/20 History lisinopril 40 mg tablet 40 mg PO DAILY 10/04/19 04/27/20 History meloxicam 15 mg tablet 15 mg PO DAILY 10/04/19 04/27/20 History metformin 500 mg tablet,extended 500 mg PO BID 10/04/19 04/27/20 History release 24 hr metoprolol succinate 100 mg 100 mg PO DAILY 10/04/19 04/27/20 History tablet,extended release 24 hr montelukast 10 mg tablet 10 mg PO DAILY 10/04/19 04/27/20 History omeprazole 20 mg capsule,delayed 20 mg PO DAILY 10/04/19 04/27/20 History release oxybutynin chloride 10 mg 10 mg PO DAILY 10/04/19 04/27/20 History tablet,extended release 24 hr simvastatin 40 mg tablet 40 mg PO DAILY 10/04/19 04/27/20 History Allergies/Adverse Reactions Allergy/AdvReac Type Severity Reaction Status Date / Time No Known Allergies Allergy Verified 04/27/20 05:49 Current Medications: Generic Name Dose Route Start Last Admin Trade Name Freq PRN Reason Stop Dose Admin Sodium Chloride 1,000 mls @ 30 mls/hr 04/27/20 05:45 04/27/20 06:03 Sodium Chloride 0.9% IV 04/28/20 05:44 30 mls/hr .Q24H AUDREY Administration Midazolam HCl 2 mg 04/27/20 05:31 04/27/20 06:38 Versed IVP 1 mg Q5M PRN Administration Preop Anxiety Pertinent History/Comorbid Conditions* Medical History (Updated 01/22/20 @ 16:11 by Catrachita Weathers MD) Bladder neck stricture Erectile dysfunction Gout Gross hematuria Hyperlipidemia Hypertension Male urinary stress incontinence Osteoarthritis of knees, bilateral Personal history of malignant neoplasm of prostate treated with radiation in 2010 Type 2 diabetes mellitus Surgical History (Updated 01/21/20 @ 18:20 by Catrachita Weathers MD) H/O nasal septoplasty H/O prostatectomy History of appendectomy History of carpal tunnel surgery BILATERAL History of lumbar laminectomy History of sinus surgery Family History (Updated 04/09/20 @ 13:36 by Maria G Bland LPN) CAD (coronary artery disease) Family/Other Lung disease Family/Other Cancer Family/Other Hypertension Family/Other Stroke Family/Other Denies family history of Diabetes Social History Smoking and tobacco status: never smoked Alcohol intake: never Adopted: No Caregiver/support person: No Lives independently: No Household members: spouse Marital status: Current occupational status: retired History of recent travel: Yes (lives in [facility]) Pertinent Exam Findings alert, oriented x 3, clear to auscultation bilaterally and regular rate & rhythm Recommendations Surgery/Procedure today Coding Level of Care Code Acute Factory Expert for Ladan De Jesus
--- NOTE | 2020-04-27 07:40 | SUR.OPER ---
Geovanni, pt's son, notified of surgery start via his cell phone
[2020-04-27] MEDS: ketorolac 30 mg/mL INJ XX (08:43)
[2020-04-27] MEDS: EPINEPHrine 1 mg/mL INJ XX (08:43)
[2020-04-27] MEDS: tranexamic acid 1,000 mg/10mL SDV 1000 MG IRRIGATION (08:45)
--- NOTE | 2020-04-27 08:48 | SUR.OPER ---
Geovanni updated on surgery progress and pt status
--- NOTE | 2020-04-27 09:26 | PM.OP ---
Operative Report Date of procedure: April 27, 2020 Pre-op Diagnosis: Osteoarthritis left knee Post-op diagnosis: same Post-op Findings: Same Procedure Done: Left total knee arthroplasty Implants: Karlie total knee arthroplasty components were used includin) Size 5 triathalon cruciate retaining femoral component 2) Size 5 Tritanium tibial component 3) 35 mm /10 mm thickness Tritanium asymetric patella 4) Size 5/9 mm thickness CR tibial bearing insert Pathology: none sent Anesthesia: General and Nerve Block (adductor canal) Estimated blood loss (mL): 150 Complications: None Findings: The patient had severe tricompartmental osteoarthritis of the left knee with large loose bodies in the suprapatellar pouch Condition: stable Disposition: PACU Procedure: The patient was taken to the operating room. Patient was given 1 g of tranexamic acid . The above anesthesia provided by the anesthesia service. A timeout was performed. The patient was prepped and draped in the usual fashion with the lower extremity exposed. A anterior incision was made, midline, from a point proximal to the patella to the distal tibial tubercle. The knee was entered through a medial parapatellar approach. The patella could be displaced laterally and the knee flexed. The patellar fat pad was resected to provide better visibility. Retractors were placed medially and laterally adjacent to the tibial plateau. The femoral canal was drilled in line with the longitudinal axis of the femur. Intramedullary femoral guide for used to make a distal femoral cut in 5 degrees of valgus, resecting 8 mm from the more prominent condyle. Next the extra medullary tibial guide was placed in alignment with the longitudinal axis of the tibia. The cutting guides were set to remove just over 9 mm from the high tibial plateau. The proximal tibia was then cut. The femoral measuring guide was then placed over the distal femur. Rotation was verified checking the relationship of the guide to the condyle and the trochlear groove. The femur was measured and cut for the desired femoral component. The desired tibial baseplate was then chosen. A trial reduction with the femur tibial baseplate and polyethylene was done, assuring that the knee was stable throughout full motion. Ligament balancing release the deep medial collateral ligament and removal of medial tibial osteophytes.The tibia was prepared for the tibial baseplate. Patellar thickness was then measured. The patella was cut removing articular cartilage and prepared for appropriate size patellar button. All surfaces were cleaned with pulsatile lavage. The femur tibia and patella were then press-fit into place. The posterior capsule and collateral ligaments were then injected with a solution of 100 mL of 0.2% ropivacaine, 1 mL of a 1:1000 epinephrine solution, and 30 mg of Toradol. Final polyethylene component was then snapped into place into the tibia. 2 grams of tranexamic acid were applied to the wound. The tourniquet was deflated. The tranxanemic acid was left contact with the knee for 5 minutes before the knee was irrigated with saline. The extensor retinaculum was closed with 1 Ethibond. The subcutaneous tissues were closed with 2-0 Vicryl and the skin was closed with skin sharyn. A compressive dressing was applied. The patient was taken to recovery room in stable condition.
--- NOTE | 2020-04-27 09:45 | XR_ITS ---
WS: [id number] EXAM: LEFT KNEE: 2 VIEWS DATE OF EXAMINATION: 04/27/2020, 0953 hours COMPARISON: Left knee examination from 04/01/2020 and 05/29/2019. HISTORY: Patient is 74 years old with new left knee arthroplasty FINDINGS: Since the earlier examination there has been interval placement of a 3 component noncemented knee art hroplasty. No hardware complication or bony malalignment. Overall bone density is decreased. Air in t he soft tissues correlates with open procedure. Skin sharyn seen anteriorly. XR/XR knee LT 1-2V 19683 IMPRESSION: New 3 component noncemented left knee arthroplasty without acute abnormality.
--- NOTE | 2020-04-27 09:54 | PM.PACU ---
PACU note PACU note: VSS, good pain control. Post-Anesthesia Exam: awake Disposition: admitted
[2020-04-27 10:56] LABS: Glucose Point of Care 219 mg/dL (70-110)
[2020-04-27] MEDS: sodium chloride 0.9% 1,000 ML 100 ML IV ×2 (11:07→21:20)
[2020-04-27] MEDS: CELEcoxib 200 mg Capsule PO ×2 (11:07→21:21)
[2020-04-27] MEDS: morphine 4 mg/mL SDV 1 mL 2 MG IVP (11:19)
[2020-04-27 11:44] LABS: Hemoglobin 11.7 g/dL (11.7-16.6)
[2020-04-27] MEDS: chlorhexidine gluconate 0.12% Btl 473 mL 30 ML MUCOUS MEM ×3 (13:15→21:19)
[2020-04-27 16:50] LABS: Glucose Point of Care 285 mg/dL (70-110)
[2020-04-27] MEDS: sennosides-docusate Tablet 2 TAB PO (17:03)
[2020-04-27] MEDS: mupirocin oint 22 gm 1 APPLIC NASAL (17:03)
[2020-04-27] MEDS: gabapentin 300 mg Capsule PO (17:03)
[2020-04-27] MEDS: acetaminophen 500 mg Tablet PO (17:03)
[2020-04-27 21:23] LABS: Glucose Point of Care 264 mg/dL (70-110)
[2020-04-28 04:00] VITALS: BP 131/62; PULSE 81; RESP 20; TEMP 36.7; O2SAT 94
[2020-04-28 05:03] LABS: Hematocrit 33.7 % (42.0-52.0); Hemoglobin 10.8 g/dL (11.7-16.6)
[2020-04-28 05:25] LABS: Anion Gap 14.5 (5-19); Blood Urea Nitrogen 27 mg/dL (8-23); Calcium 8.2 mg/dL (8.5-10.5); Carbon Dioxide 22 mmol/L (22-29); Chloride 107 mmol/L (98-107); Glucose 195 mg/dL (65-115); Osmolality Calculated 290 mOsm/kg (285-295); Potassium 4.5 mmol/L (3.5-5.1); Sodium 139 mmol/L (136-145)
[2020-04-28 06:34] LABS: Glucose Point of Care 183 mg/dL (70-110)
[2020-04-28 07:45] VITALS: BP 152/75; PULSE 79; RESP 16; TEMP 36.7; O2SAT 95
[2020-04-28] MEDS: sodium chloride 0.9% 1,000 ML 100 ML IV (07:47)
[2020-04-28] MEDS: sennosides-docusate Tablet 2 TAB PO ×2 (09:24→17:18)
[2020-04-28] MEDS: atorvastatin 40 mg Tablet 20 MG PO (09:24)
[2020-04-28] MEDS: amlodipine 10 mg Tablet PO (09:25)
[2020-04-28] MEDS: CELEcoxib 200 mg Capsule PO (09:25)
[2020-04-28] MEDS: oxybutynin chloride XL 5 MG TABLET 10 MG PO (09:25)
[2020-04-28] MEDS: FUROsemide 40 mg Tablet 60 MG PO (09:25)
[2020-04-28] MEDS: montelukast sodium 10 mg Tablet PO (09:25)
[2020-04-28] MEDS: lisinopril 20 mg Tablet 40 MG PO (09:25)
[2020-04-28] MEDS: gabapentin 300 mg Capsule PO ×2 (09:25→17:17)
[2020-04-28] MEDS: acetaminophen 500 mg Tablet PO ×2 (09:26→17:17)
[2020-04-28] MEDS: pantoprazole DR 40 mg Tablet PO (09:26)
[2020-04-28] MEDS: metoprolol succinate ER (24 HR) 100 mg Tablet PO (09:26)
[2020-04-28] MEDS: apixaban 5 mg Tablet 2.5 MG PO ×2 (09:26→17:16)
[2020-04-28] MEDS: allopurinol 300 mg Tablet PO (09:26)
[2020-04-28] MEDS: chlorhexidine gluconate 0.12% Btl 473 mL 30 ML MUCOUS MEM (09:27)
--- NOTE | 2020-04-28 11:11 | PC.CHAP ---
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 [] Patient/Family/Request visit [] Outpatient visit [] Follow-up visit [] Physician referral [] Code/Alert [x] Routine visit [] Staff referral [] Actively dying [] Patient sleeping [] Family support [] [] Out of room [] Palliative care [] [x] Receiving care in room [] Pre-surgical visit [] Trauma [] Long length of stay [] ICU visit [] Other: Relational/Emotional Strength [x] Patient feels connected with others/family/visitors/staff [] Distress [] Loneliness/isolation [] Abandonment Spirituality of Patient [x] Person of Aleja [] Attends Catholic of their Aleja [x] Believes in Prayer [] Reads Bible or Buddhism materials [] There are Spiritual issues to be addressed Cloth B[employer] Header Interventions [x] Prayer [x] Active listening [x] Non-anxious presence [x] Spiritual/emotional support [] Crisis/trauma care [x] Spiritual counseling [] Bereavement support [] Provided bereavement packet [] Provided Bible/devotional materials [] Provided toy/stuffed animal, coloring book to patient or family member [] Provided Communion [] Anointing/Redmon [] Salvation [x] Completed spiritual assessment [] Other: Impact on Illness or Injury [] Angry [] Fearful [] Anxious [] Often cries [] Exhaustion [] Unable to work [] Unable to attend scientology [] Unable to walk/stand [] Unable to read [] Unable to drive [] Unable to eat/drink [] Unable to sleep [] Unable to be with family [] Patient intubated [] Other: Summary Had surgery went well going home for recovery, feels good has a good attitude Time spent with patient 10 mins
[2020-04-28 11:19] VITALS: BP 121/74; PULSE 84; RESP 16; TEMP 36.7; O2SAT 95
[2020-04-28 11:24] LABS: Glucose Point of Care 272 mg/dL (70-110)
--- NOTE | 2020-04-28 12:55 | ANE.PACU2 ---
Inpatient post-anesthesia follow up: Airway intact: Yes Vital signs: Temperature 98.1 F Pulse Rate 84 Respiratory Rate 16 Blood Pressure 121/74 Pulse Oximetry 95 Oxygen Delivery Me thod Room Air Oxygen Flow Rate 2 Fraction of Inspir ed Oxygen Hydration adequate: Yes Nausea and vomiting: No Pain level: 1 Mental status: Baseline
--- NOTE | 2020-04-28 13:12 | P.DS_ITS ---
Discharge Providers Date of Admission: 04/27/20 09:12 Date of Discharge: April 28, 2020 Attending Provider at Admission: Luigi Yoder MD Attending Provider at Discharge: Luigi Yoder MD Primary Care Provider: LIZZETH Stoll Diagnoses at Discharge Discharge Diagnosis (1) Status post total left knee replacement: Status: Acute (2) Osteoarthritis of knees, bilateral: Status: Resolved Qualifiers: Osteoarthritis type: primary Qualified Code(s): M17.0 - Bilateral primary osteoarthritis of knee Reason for Visit Reason for Visit: primary osteoarthritis of left knee Hospital Course Hospital Course: Mr. Malloy underwent left total knee arthroplasty and tolerated the procedure well. By the first postoperative day he had little pain. He was independent with his walker and progressing with his range of motion of his knee. He was managed with foot pumps and Eliquis for DVT prophylaxis. By the first postoperative day he had adequate mobility and control of pain and was thought stable for discharge Physical Exam Narrative: EXAM NARRATIVE: On the day of discharge his incision was clean and free of drainage. He had minimal swelling peer Urinary Catheter Management^: Watts: Cath Placed During This Visit: yes Urinary Catheter Date of Insertion: 04/27/20 Urinary Catheter Time of Insertion: 07:20 Discharge Data Data Completed and Pending: Completed Studies During Hospitalization Category Date Time Status XR knee LT 1-2V 7 [id number] Routine Exams 04/27/20 09:45 Completed Labs from last 24 hours 04/28/20 04/28/20 04/28/20 11:20 06:28 03:50 Hgb Hct Sodium 139 Potassium 4.5 Chloride 107 Carbon Dioxide 22 Anion Gap 14.5 BUN 27 H Creatinine 1.1 GFR Calculation Not Reportable Glucose 195 H POC Glucose 272 183 Calculated Osmolal ity 290 Calcium 8.2 L 04/28/20 04/27/20 04/27/20 03:50 20:37 16:44 Hgb 10.8 L Hct 33.7 L Sodium Potassium Chloride Carbon Dioxide Anion Gap BUN Creatinine GFR Calculation Glucose POC Glucose 264 285 Calculated Osmolal ity Calcium Vitals: Last Vital Signs Temp 98.1 F 04/28/20 11:19 Pulse 84 04/28/20 11:19 Resp 16 04/28/20 11:19 BP 121/74 04/28/20 11:19 Pulse Ox 95 04/28/20 11:19 Discharge Plan Discharge Patient Disposition: Home Condition: Stable Prescriptions: New oxycodone 5 mg Tablet 5 mg PO Q4H PRN (Reason: Moderate Pain) 7 Days Qty: 30 RF: 0 celecoxib 200 mg Capsule 200 mg PO Q12H 15 Days Qty: 30 RF: 0 Eliquis 5 mg Tablet 2.5 mg PO BID Qty: 20 RF: 0 Continued gabapentin 300 mg capsule 300 mg PO BID RF: 0 acetaminophen [Tylenol Extra Strength] 500 mg tablet 500 mg PO BID RF: 0 omeprazole 20 mg capsule,delayed release(DR/EC) 20 mg PO DAILY RF: 0 Trulicity 1.5 mg/0.5 mL pen injector 1.5 mg SUBCUT Q7D RF: 0 furosemide 40 mg tablet 60 mg PO DAILY RF: 0 montelukast 10 mg tablet 10 mg PO DAILY RF: 0 metoprolol succinate 100 mg tablet extended release 24 hr 100 mg PO DAILY RF: 0 lisinopril 40 mg tablet 40 mg PO DAILY RF: 0 amlodipine 10 mg tablet 10 mg PO DAILY RF: 0 metformin 500 mg tablet extended release 24 hr 500 mg PO BID RF: 0 oxybutynin chloride 10 mg tablet extended release 24hr 10 mg PO DAILY RF: 0 simvastatin 40 mg tablet 40 mg PO DAILY RF: 0 allopurinol 300 mg tablet 300 mg PO DAILY RF: 0 Held meloxicam 15 mg tablet 15 mg PO DAILY RF: 0 Hold Instructions: Resume on 05/13/20. Discharge Orders: Discharge Order (Routine); Ordered 04/28/20 Ordered By: Luigi Yoder Referrals: [facility] [place] [facility] ([facility]) [Outside] Luigi Yoder MD [Physician] - 05/12/20 3:15 pm Discharge Diet: Advance as tolerated Discharge Activity: Limit activity as instructed Activity Restrictions/Additional Instructions: May shower once incisions completely free of drainage. Discontinue knee dressing in 24-48 hours. Replaced dressings as needed. Take Celebrex twice a day for the next 15 days for pain , discontinue other anti-inflammatories take oxycodone for breakthrough pain. Exercises per physical therapy. 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
[2020-04-28 14:23] VITALS: BP 121/74; PULSE 84; RESP 16; TEMP 36.7; O2SAT 95
[2020-04-28 15:40] VITALS: BP 130/79; PULSE 73; RESP 18; TEMP 36.6; O2SAT 97
[2020-04-28 17:48] LABS: Glucose Point of Care 274 mg/dL (70-110)
== END 2020-04-28 18:01 | disposition home or self-care (01) ==
LOC: MEDSURG 09:13
PROVIDERS: Anesthesiology; Admitting Provider Orthopaedic Surgery; PCP Nurse Practitioner Family; Visit Provider Orthopaedic Surgery
PROC: (CPT 27447; principal; 2020-04-27 07:00)
DX: M17.12 Unilateral primary osteoarthritis, left knee (principal); M23.42 Loose body in knee, left knee; I10 Essential (primary) hypertension; E78.5 Hyperlipidemia, unspecified; E11.9 Type 2 diabetes mellitus without complications; G47.30 Sleep apnea, unspecified; Z79.84 Long term (current) use of oral hypoglycemic drugs
CPT/HCPCS: 27447; 12345; 36415; 36416; 36592; 51702; 73560; 80048; 82962; 85014; 85018; 87635; 93005; 96361; 96365; 96366; 96372; 96375; 97116; 97161; 97165; 97530; C1776; G0378; J0171; J0690; J1100; J1580; J1815; J1885; J2250; J2270; J2704; J2795; J3010; J3490; J7030

== ENCOUNTER 2020-05-12 22:17 | Inpatient (IN) | payer OTHER, MEDICARE, SELFPAY ==
[2020-05-12 22:22] VITALS: BP 126/74; PULSE 123; RESP 19; TEMP 39.6; O2SAT 94; BMI 34.2
--- NOTE | 2020-05-12 22:45 | ECG_ITS ---
[facility] Test Date: 2020-05-12 Pat Name: Ludwig Malloy Department: Room: Gender: Male Chassis Wirer: : 1945 Requested By: Thom Barrera Order Number: [id number] Riki MD: April Mcneil M.D. Measurements Intervals [place] Rate: 116 P: 48 MN: 170 QRS: 14 QRSD: 109 T: 41 QT: 311 QTc: 434 Interpretive Statements SINUS TACHYCARDIA ABNORMAL RHYTHM ECG Compared to ECG 04/20/2020 12:10:43 Sinus rhythm no longer present Electronically Signed On 05-13-2020 18:50:02 CDT by April Mcneil M.D. [id number]
--- NOTE | 2020-05-12 22:45 | XRR_ITS ---
PROCEDURE INFORMATION: Exam: XR Chest, 1 View Exam date and time: 05/12/2020 11:00 PM Age: 74 years old Clinical indication: Fever and shortness of breath; Patient HX: C/O shortness of breath, fever, dizziness TECHNIQUE: Imaging protocol: XR of the chest Views: 1 view. COMPARISON: CR Chest 2 views* [id number] 02/24/2015 2:53 PM FINDINGS: Lungs: Lungs are well aerated without a focal area of consolidation. Subtle opacity in the right suprahilar region likely summation of structures. Follow-up two view chest suggested. Pleural space: Unremarkable. No pleural effusion. No pneumothorax. Heart/Mediastinum: The cardiac silhouette appears enlarged, some of which is magnification related to the AP projection. Bones/joints: Unremarkable. XR/XR chest 1V portable [id number] IMPRESSION: 1. Lungs are well aerated without a focal area of consolidation. 2. Subtle opacity in the right suprahilar region likely summation of structures. Follow-up two view chest suggested.
--- NOTE | 2020-05-12 22:51 | W.ED.FALL ---
HPI - Fall General: Chief Complaint: Fall Stated Complaint: dizzy/sob Time Seen by Provider: 05/12/20 22:46 Source: patient and family Mode of arrival: ambulatory Limitations: no limitations History of Present Illness: HPI Narrative: 74-year-old male who had a left knee replacement 2 weeks ago. Patient's family here states that he has had erythema that knee is very warm to touch with drainage for the last 2 days and has had a fever of 102 today. Patient has had confusion today as well. Patient here is able answer my questions and is febrile. He states he had pain in that knee. Associated symptoms-after fall: Reports confusion; Denies abdominal pain, chest pain or neck pain Review of Systems Const: Reports: fever(s) Eyes: Denies: blurry vision or eye discomfort ENMT: Denies: throat pain or dental pain Card: Denies: chest pain Resp: Denies: dyspnea GI: Denies: abdominal pain, nausea, vomiting or diarrhea : Denies: dysuria Musc: Denies: neck pain or back pain Skin/Breast: Denies: rash Neuro: Reports: confusion Psych: Denies: depression George/Lymph: Denies: easy bruising All/Imm: Denies: urticaria PFSH ED PFSH: Medical History Bladder neck stricture Erectile dysfunction Gout Gross hematuria Hyperlipidemia Hypertension Male urinary stress incontinence Osteoarthritis of knees, bilateral Personal history of malignant neoplasm of prostate treated with radiation in 2010 Type 2 diabetes mellitus Surgical History H/O nasal septoplasty H/O prostatectomy History of appendectomy History of carpal tunnel surgery BILATERAL History of lumbar laminectomy History of sinus surgery Family History Family/Other Cancer Lung disease Hypertension CAD (coronary artery disease) Stroke Denies family history of Diabetes Social History Smoking and tobacco status: never smoked Alcohol intake: never Adopted: No Caregiver/support person: No Lives independently: No Household members: spouse Marital status: Current occupational status: retired History of recent travel: Yes (lives in [facility]) Physical Exam Const: COMMON NORMALS: no acute distress, patient oriented x3 and healthy appearing HENMT: COMMON NORMALS: normocephalic and atraumatic HEAD & SCALP: normocephalic and atraumatic Eye: COMMON NORMALS: Equal, round and reactive pupils present and EOMs intact bilaterally PUPIL: Yes Equal, round and reactive pupils present Neck/C-Spine: COMMON NORMALS: full ROM and supple Chest: COMMONS NORMALS: normal inspection of the chest and normal palpation of entire chest wall Resp: COMMON NORMALS: normal respiratory effort, No retractions, No use of accessory muscles and clear to auscultation bilaterally AUSCULTATION: clear to auscultation bilaterally Cardio: COMMON NORMALS: regular rate, regular rhythm and No murmurs present (Cardio) RATE: regular rate and tachycardic RHYTHM: regular rhythm GI: COMMON NORMALS: Normal to inspection, nondistended, normoactive bowel sounds present, Soft to palpation, non-tender and no masses PALPATION: Yes Soft to palpation Extremity: COMMON NORMALS: normal to inspection and full ROM Neuro: COMMON NORMALS: patient oriented x3, moves all extremities and no focal motor deficits Psych: COMMON NORMALS: mental status grossly normal, Normal thought process present and cooperative THOUGHT PROCESS: Normal thought process present Skin: COMMON NORMALS: no wounds NARRATIVE SKIN EXAM: erythema very warm to touch over left knee with cellulitis Course Vital Signs: Vital signs: Vital Signs Temperature 99.3 F 05/13/20 01:12 Pulse Rate 110 H 05/13/20 01:12 Respiratory Rate 16 05/13/20 01:12 Blood Pressure 151/72 05/13/20 01:12 Pulse Oximetry 92 05/13/20 01:12 MDM - Fall MDM Narrative: Medical decision making narrative: Patient presents here with cellulitis to his left knee is quite warm to touch. Patient was febrile here and had elevated white count consistent with sepsis. Patient's blood pressures here been stable. I spoke to orthopedic surgeon who is consulted and I spoke to hospitalist as well. Patient given IV antibiotics in the ER. And will admit at this time. Patient has been stable while in the ER. Lab Data: Labs: Lab Results 05/12/20 05/12/20 05/12/20 Range/Units 23:20 23:20 23:20 WBC 16.6 H (4.0-10.0) 10^3/ uL RBC 3.84 L (4.1-5.3) 10^6/u L Hgb 11.3 L (11.7-16.6) g/dL Hct 36.4 L (42.0-52.0) % MCV 94.8 H (80-94) fL MCH 29.4 (28.0-34.0) pg MCHC 31.0 (30.0-36.0) g/dL RDW 14.3 (12.1-15.1) % Plt Count 380 (130-400) 10^3/c mm MPV 9.6 (7.4-10.4) fL Neut % (Auto) 89.0 % Lymph % (Auto) 2.5 % [place] % (Auto) 7.4 % Eos % (Auto) 0.1 % Baso % (Auto) 0.2 % Neut # (Auto) 14.74 H (1.8-7.7) 10^3/u L Lymph # (Auto) 0.4 L (0.8-4.8) 10^3/u L [place] # (Auto) 1.2 H (0.2-0.9) 10^3/u L Eos # (Auto) 0.0 (0.0-0.8) 10^3/u L Baso # (Auto) 0.0 (0.0-0.1) 10^3/u L Nucleated RBC % (a uto) 0 % Nucleated RBCs # 0.0 /100WBC PT 13.90 (12.1-14.9) SECO NDS INR 1.04 (0.8-1.2) Sodium 138 (136-145) mmol/L Potassium 4.7 (3.5-5.1) mmol/L Chloride 101 (98-107) mmol/L Carbon Dioxide 22 (22-29) mmol/L Anion Gap 19.7 H (5-19) BUN 27 H (8-23) mg/dL Creatinine 1.4 H (0.7-1.2) mg/dL GFR Calculation Not Reportable Glucose 218 H (65-115) mg/dL Calculated Osmolal ity 290 (285-295) mOsm/k g Lactate (0.5-2.2) mmol/L Calcium 8.8 (8.5-10.5) mg/dL Total Bilirubin 0.4 (0.15-1.2) mg/dL AST 17 (0-40) U/L ALT 11 (0-41) U/L Alkaline Phosphata se 123 (40-130) IU/L C-Reactive Protein 79.6 H (0.0-4.9) mg/L Total Protein 7.3 (6.6-8.7) g/dL Albumin 4.2 (3.5-5.2) g/dL Globulin 3.1 (1.3-4.6) g/dL Urine Color (Yellow) Urine Appearance (CLEAR) Urine pH (5-7) Ur Specific Gravit y (1.005-1.030) Urine Protein (Negative) Urine Glucose (UA) (Normal) Urine Ketones (Negative) Urine Blood (Negative) Urine Nitrate (Negative) Urine Bilirubin (NEGATIVE) Urine Urobilinogen (Negative) mg/dL Ur Leukocyte Yohana ase (Negative) SARS-CoV-2 Ag (Rap id) (Negative) 05/12/20 05/13/20 05/13/20 Range/Units 23:20 00:45 01:00 WBC (4.0-10.0) 10^3/ uL RBC (4.1-5.3) 10^6/u L Hgb (11.7-16.6) g/dL Hct (42.0-52.0) % MCV (80-94) fL MCH (28.0-34.0) pg MCHC (30.0-36.0) g/dL RDW (12.1-15.1) % Plt Count (130-400) 10^3/c mm MPV (7.4-10.4) fL Neut % (Auto) % Lymph % (Auto) % [place] % (Auto) % Eos % (Auto) % Baso % (Auto) % Neut # (Auto) (1.8-7.7) 10^3/u L Lymph # (Auto) (0.8-4.8) 10^3/u L [place] # (Auto) (0.2-0.9) 10^3/u L Eos # (Auto) (0.0-0.8) 10^3/u L Baso # (Auto) (0.0-0.1) 10^3/u L Nucleated RBC % (a uto) % Nucleated RBCs # /100WBC PT (12.1-14.9) SECO NDS INR (0.8-1.2) Sodium (136-145) mmol/L Potassium (3.5-5.1) mmol/L Chloride (98-107) mmol/L Carbon Dioxide (22-29) mmol/L Anion Gap (5-19) BUN (8-23) mg/dL Creatinine (0.7-1.2) mg/dL GFR Calculation Glucose (65-115) mg/dL Calculated Osmolal ity (285-295) mOsm/k g Lactate 1.9 (0.5-2.2) mmol/L Calcium (8.5-10.5) mg/dL Total Bilirubin (0.15-1.2) mg/dL AST (0-40) U/L ALT (0-41) U/L Alkaline Phosphata se (40-130) IU/L C-Reactive Protein (0.0-4.9) mg/L Total Protein (6.6-8.7) g/dL Albumin (3.5-5.2) g/dL Globulin (1.3-4.6) g/dL Urine Color Yellow (Yellow) Urine Appearance Clear (CLEAR) Urine pH 7 (5-7) Ur Specific Gravit y 1.005 (1.005-1.030) Urine Protein Neg (Negative) Urine Glucose (UA) Norm (Normal) Urine Ketones Negative (Negative) Urine Blood Neg (Negative) Urine Nitrate Negative (Negative) Urine Bilirubin Neg (NEGATIVE) Urine Urobilinogen Norm (Negative) mg/dL Ur Leukocyte Yohana ase Negative (Negative) SARS-CoV-2 Ag (Rap id) Negative (Negative) Imaging Data^: CXR: Attestation: I personally reviewed and interpreted this imaging study as follows: My impression: no pneumonia EKG Data^: EKG 1: Attestation: I personally reviewed and interpreted this EKG as follows: EKG interpretation date: 05/12/20 EKG interpretation time: 23:11 Interpretation: sinus tach hr [address] or t wave abnormalities qrs 109 qtc 380 Discharge Plan Discharge Patient Disposition: Admitted As Inpatient Admit Provider: Kush Castañeda Clinical Impression: Cellulitis Qualifiers: Site of cellulitis: extremity Site of cellulitis of extremity: lower extremity Laterality: left Qualified Code(s): L03.116 - Cellulitis of left lower limb Sepsis Qualifiers: Sepsis type: sepsis due to unspecified organism Severe sepsis acute organ dysfunction type: unspecified Severe sepsis shock status: without septic shock Condition: Stable Coding Level of Care Code ED General Manager Land [employer] for Ladan Fwd Exam Comprehensive
[2020-05-12] MEDS: acetaminophen 325 mg Tablet 650 MG PO (23:21)
[2020-05-12] MEDS: vancomycin 1,000 MG in sodium chloride 0.9% 250 ML 250 MG IV (23:21)
[2020-05-12] MEDS: sodium chloride 0.9% 1,000 ML 999 ML IV (23:22)
--- NOTE | 2020-05-12 23:22 | XRR_ITS ---
PROCEDURE INFORMATION: Exam: XR Left Knee Exam date and time: 05/12/2020 11:51 PM Age: 74 years old Clinical indication: Edema and other: Fever, drainage; Location not specified; Prior surgery; Surgery date: <1 month; Surgery type: Knee replacement 2 weeks ago; Patient HX: C/O pain left knee , erythema and drainage x 2 days TECHNIQUE: Imaging protocol: XR Left knee. Views: 3 views. COMPARISON: CR XR knee LT 1-2V [id number] 04/27/2020 9:52 AM FINDINGS: Bones/joints: Patient is status post knee arthroplasty with near anatomical alignment of the prosthesis. No paralleling lucencies about the femoral or tibial component to suggest loosening. No acute fracture or dislocation. 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 Other findings: Spacer. XR/XR knee LT 3V* [id number] IMPRESSION: 1. Status post knee arthroplasty. 2. No paralleling lucencies about the femoral or tibial component to suggest loosening. 3. No acute fracture or dislocation.
[2020-05-12 23:39] LABS: Basophils % 0.2 %; Eosinophils % 0.1 %; Hematocrit 36.4 % (42.0-52.0); Hemoglobin 11.3 g/dL (11.7-16.6); Lymphocytes # 0.4 10^3/uL (0.8-4.8); Lymphocytes % 2.5 %; Mean Corpuscular Hemoglobin 29.4 pg (28.0-34.0); Mean Corpuscular Volume 94.8 fL (80-94); Mean Platelet Volume 9.6 fL (7.4-10.4); Monocytes # 1.2 10^3/uL (0.2-0.9); Monocytes % 7.4 %; Neutrophils # 14.74 10^3/uL (1.8-7.7); Nucleated Red Blood Cells % 0 %; Platelet Count 380 10^3/cmm (130-400); Red Blood Count 3.84 10^6/uL (4.1-5.3); Red Cell Distribution Width 14.3 % (12.1-15.1); White Blood Count 16.6 10^3/uL (4.0-10.0)
[2020-05-12 23:46] LABS: INR 1.04 (0.8-1.2)
[2020-05-12 23:50] LABS: Lactate (Lactic Acid level) 1.9 mmol/L (0.5-2.2)
[2020-05-12 23:51] LABS: Alanine Aminotransferase 11 U/L (0-41); Albumin Level 4.2 g/dL (3.5-5.2); Alkaline Phosphatase 123 IU/L (40-130); Anion Gap 19.7 (5-19); Aspartate Amino Transferase 17 U/L (0-40); Blood Urea Nitrogen 27 mg/dL (8-23); C Reactive Protein 79.6 mg/L (0.0-4.9); Calcium 8.8 mg/dL (8.5-10.5); Carbon Dioxide 22 mmol/L (22-29); Chloride 101 mmol/L (98-107); Creatinine Clr Calc Pharmacy 51.9766; Globulin 3.1 g/dL (1.3-4.6); Glucose 218 mg/dL (65-115); Osmolality Calculated 290 mOsm/kg (285-295); Potassium 4.7 mmol/L (3.5-5.1); Sodium 138 mmol/L (136-145); Total Bilirubin 0.4 mg/dL (0.15-1.2); Total Protein 7.3 g/dL (6.6-8.7)
[2020-05-13] VITALS (25 sets, daily range): BP systolic 116–183; BP diastolic 66–118; PULSE 70–111; RESP 14–26; TEMP 36.7–39.2; O2SAT 90–100
[2020-05-13 01:17] LABS: Add Urine Microscopic? NO
[2020-05-13 01:26] LABS: Bilirubin Urine Neg (NEGATIVE); Blood Urine Neg (Negative); Glucose Urine UA Norm (Normal); Ketones Urine Negative (Negative); Leukocyte Esterase Urine Negative (Negative); Nitrate Urine Negative (Negative); Protein Urine Neg (Negative); Specific Gravity, Urine 1.005 (1.005-1.030); Urine Appearance Clear (CLEAR); Urine Color Yellow (Yellow); Urobilinogen Urine Norm (Negative); pH Urine 7 (5-7)
[2020-05-13 01:41] LABS: SARS Covid-2 Antigen Negative (Negative)
--- NOTE | 2020-05-13 02:10 | PM.HP ---
Providers/Chief Complaint Primary Care Provider: LIZZETH Stoll Chief Complaint: dizzy/sob History of Present Illness Ludwig Malloy JR is a 74 year old male that presents to the emergency department with fever, confusion, and his left knee draining. He recently had a left knee replacement for degenerative joint disease on April 27. He initially did well, had early mobility, and was able to go home. For the last 5 days or so he has had some temperature elevations and fever although family cannot be specific about the temperature. was concerned about the appearance of his incision site secondary to erythema and drainage. She reports she went into the clinic, and part of the sharyn were removed. She reports she did not see the physician. She reports that since that time he was seen in clinic 4 to 5 days ago the left knee appearance has worsened and become more erythematous, with significant drainage. The patient reports pain has been significant in the lower portion of his incision area. He also cannot walk on the leg as well as he could and mobility has been significantly reduced. In the emergency department tonight, his temperature was 103.3, and abnormal vital signs of tachycardia were noted that were concerning for sepsis. Patient also reports that he fell today. reports he was confused earlier, which is not his baseline, fell and spent about 40 minutes before he was found. She reports he is acting normal currently, and she does not believe he hit his head. He does not have a headache, nausea or vomiting. He was on Eliquis postoperative for DVT prevention but stopped this about a week ago after he completed his course. Review of Systems General: Reports: 10 or more systems reviewed and unremarkable except in HPI and below Const: Reports: fever(s), chills and malaise Eyes: Denies: change in vision ENMT: Denies: throat pain Card: Denies: chest pain Resp: Denies: dyspnea GI: Denies: abdominal pain : Denies: flank pain Musc: Reports: extremity pain, extremity swelling, joint pain, joint swelling, joint redness, joint warmth, joint stiffness and limited range of motion; Denies: neck pain Skin/Breast: Reports: rash Neuro: Reports: confusion; Denies: headache(s) Psych: Denies: anxiety Endo: Denies: polyuria George/Lymph: Denies: easy bruising All/Imm: Denies: urticaria Medications/Allergies Home Medications Medication Instructions Recorded Confirmed Last Taken Type acetaminophen 500 mg tablet 500 mg PO BID tab 10/04/19 04/27/20 04/26/20 History allopurinol 300 mg tablet 300 mg PO DAILY 10/04/19 04/27/20 04/26/20 History amlodipine 10 mg tablet 10 mg PO DAILY 10/04/19 04/27/20 04/27/20 History dulaglutide 1.5 mg/0.5 mL 1.5 mg SUBCUT Q7D 10/04/19 04/27/20 04/22/20 History subcutaneous pen injector furosemide 40 mg tablet 60 mg PO DAILY 10/04/19 04/27/20 04/26/20 History gabapentin 300 mg capsule 300 mg PO BID 10/04/19 04/27/20 04/26/20 History lisinopril 40 mg tablet 40 mg PO DAILY 10/04/19 04/27/20 04/26/20 History meloxicam 15 mg tablet 15 mg PO DAILY 10/04/19 04/27/20 04/26/20 History metformin 500 mg tablet,extended 500 mg PO BID 10/04/19 04/27/20 04/26/20 History release 24 hr metoprolol succinate 100 mg 100 mg PO DAILY 10/04/19 04/27/20 04/27/20 05:00 History tablet,extended release 24 hr montelukast 10 mg tablet 10 mg PO DAILY 10/04/19 04/27/20 04/26/20 History omeprazole 20 mg capsule,delayed 20 mg PO DAILY 10/04/19 04/27/20 04/26/20 History release oxybutynin chloride 10 mg 10 mg PO DAILY 10/04/19 04/27/20 04/26/20 History tablet,extended release 24 hr simvastatin 40 mg tablet 40 mg PO DAILY 10/04/19 04/27/20 04/26/20 History apixaban [Eliquis] 2.5 mg PO BID #20 tab 04/28/20 Unknown Rx celecoxib 200 mg PO Q12H 15 Days #30 cap 04/28/20 Unknown Rx Allergies Allergy/AdvReac Type Severity Reaction Status Date / Time No Known Allergies Allergy Verified 05/12/20 22:26 PFSH Acute PFSH: Medical History (Updated 05/13/20 @ 02:21 by Kush Castañeda MD) Bladder neck stricture Erectile dysfunction GERD (gastroesophageal reflux disease) Gout Gross hematuria Hyperlipidemia Hypertension Male urinary stress incontinence Osteoarthritis of knees, bilateral Personal history of malignant neoplasm of prostate treated with radiation in 2010 Type 2 diabetes mellitus Surgical History H/O nasal septoplasty H/O prostatectomy History of appendectomy History of carpal tunnel surgery BILATERAL History of lumbar laminectomy History of sinus surgery Family History Family/Other Cancer Lung disease Hypertension CAD (coronary artery disease) Stroke Denies family history of Diabetes Social History Smoking and tobacco status: never smoked Alcohol intake: never Adopted: No Caregiver/support person: No Lives independently: No Household members: spouse Marital status: Current occupational status: retired History of recent travel: Yes (lives in [facility]) Vitals/I&O/Wt Last Vital Signs Temp 99.3 F 05/13/20 01:12 Pulse 110 H 05/13/20 01:12 Resp 16 05/13/20 01:12 BP 151/72 05/13/20 01:12 Pulse Ox 92 05/13/20 01:12 Weight last 48 hrs Weight 102.058 kg Physical Exam Narrative: EXAM NARRATIVE: General exam is a white male, who appears somewhat uncomfortable, who can converse and reports he is back to his normal baseline mental status. He is noted to be tachycardic. HEENT: Pupils equally round. Oropharynx clear. Neck is supple no lymphadenopathy or thyromegaly Cardiovascular tachycardia without murmur. No S3 or S4 Lungs clear no wheezing or crackles Abdomen is soft nontender with positive bowel sounds. was deferred Extremities no cyanosis or clubbing. Left leg edema is noted. Significant erythema noted overlying incision site for left knee replacement, most significant inferior portion of wound with blood-tinged drainage. Distal pulses intact. Significant increase in warmth is noted and pain to his lower extremity, inferior portion of his incision site. Neuro no obvious focal deficits Skin see findings above Data : 05/12/20 23:20 05/12/20 23:20 Micro: Microbiology 05/12/20 23:25 Blood Culture - Preliminary Blood SPECIMEN COLLECTED 09/01/20 23:20 Blood Culture - Preliminary Blood SPECIMEN COLLECTED Other data: CRP 79.6 Urinalysis negative Rapid COVID negative Liver function tests normal Chest x-ray by my read no obvious infiltrate. Old granulomatous disease is noted. Overall poor inspiration. Knee x-ray hardware noted but no obvious free air. A&P Assessment and plan (1) Cellulitis: IV antibiotics consisting of vancomycin and Zosyn Blood cultures Surgical consult secondary to recent left total knee arthroplasty CRP elevated. Check sedimentation rate as well Venous duplex left lower extremity Status: Acute Qualifiers: Laterality: left Site of cellulitis: extremity Site of cellulitis of extremity: lower extremity Qualified Code(s): L03.116 - Cellulitis of left lower limb (2) Sepsis: IV antibiotics as noted above Await cultures Continue fluids Status: Acute Qualifiers: Sepsis type: sepsis due to unspecified organism Severe sepsis acute organ dysfunction type: unspecified Severe sepsis shock status: without septic shock (3) Acute kidney injury: Check CK, secondary to fall Hydration Avoid anti-inflammatories, renal toxic medication Status: Acute Additional A&P Information Hypertension Hyperlipidemia. Continue home medications, unless CK elevated Type 2 diabetes. Sliding scale insulin History of prostate cancer History of gout. Check uric acid level Obesity Full code Heparin for DVT prophylaxis Attestations Medical Necessity Statement*: Will need greater than 2 midnight stay for evaluation and treatment of sepsis, left lower extremity cellulitis. 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
--- NOTE | 2020-05-13 02:29 | USCV_ITS ---
Gama [place] Age: 74 Gender: M : 1945 Exam Date: 05/13/2020 06:15 Ordering Phys: Kush Castañeda MD Technologist: Peri Cornejo Exam Location: [facility] Indication: Swelling HISTORY: Lower extremity swelling. PROCEDURES: Venous duplex imaging was performed in only the left lower extremity. The following venous structures were evaluated: common femoral vein, profunda vein, proximal portion of the greater saphenous vein, superficial femoral vein, and the popliteal vein. In addition, the posterior tibial and peroneal trunk were evaluated. Serial compression, augmentation maneuvers, and spectral Doppler flow evaluation were performed. FINDINGS: Normal 2-D Doppler and augmentation and compressibility throughout the lower extremity venous structures. Additional imaging through the proximal calf veins also reveals no thrombus. Limited evaluation of the greater saphenous vein is patent with no thrombus. CONCLUSIONS No DVT left lower extremity. Dr. Norma Allred DO (Electronically Signed) Final Date: 13 May 2020 08:36 S
[2020-05-13 02:50] LABS: Creatine Phosphokinase 204 U/L (39-308); Uric Acid 5.7 mg/dL (3.4-7.0)
[2020-05-13 03:49] LABS: Erythrocyte Sedimentation Rate 57 mm/hr (0-10)
[2020-05-13] MEDS: piperacillin-tazobactam 3.375 GM in sodium chloride 0.9% (plus) 50 ML IV ×3 (03:54→19:38)
[2020-05-13] MEDS: heparin 5,000 unit/mL INJ 1 mL 5000 UNIT SUBCUT ×2 (03:54→16:27)
[2020-05-13] MEDS: sodium chloride 0.9% 1,000 ML 100 ML IV ×4 (03:54→19:41)
[2020-05-13 07:00] LABS: Glucose Point of Care 196 mg/dL (70-110)
[2020-05-13 07:13] LABS: Basophils % 0.2 %; Hematocrit 31.6 % (42.0-52.0); Lymphocytes # 0.6 10^3/uL (0.8-4.8); Lymphocytes % 3.4 %; Mean Corpuscular HGB Conc 31.6 g/dL (30.0-36.0); Mean Corpuscular Hemoglobin 29.4 pg (28.0-34.0); Mean Corpuscular Volume 92.9 fL (80-94); Mean Platelet Volume 9.5 fL (7.4-10.4); Monocytes # 1.7 10^3/uL (0.2-0.9); Monocytes % 8.9 %; Neutrophils # 16.21 10^3/uL (1.8-7.7); Neutrophils % 86.6 %; Nucleated Red Blood Cells % 0 %; Platelet Count 336 10^3/cmm (130-400); Red Cell Distribution Width 14.4 % (12.1-15.1); White Blood Count 18.7 10^3/uL (4.0-10.0)
--- NOTE | 2020-05-13 07:34 | PM.CONSULT ---
Providers/Reason For Consult Consulting Physican/Specialty*: Luigi Yoder MD orthopedic surgery Reason for Consult*: Deep infection left knee Attending Physician: Alicia Ocampo DO Primary Care Provider: LIZZETH Stoll History of Present Illness History of Present Illness Ludwig Malloy JR is a 74 year old male known to me after an elective left total knee replacement on 04/27/2020. He progressed very well postoperatively and was discharged after a routine overnight stay. Apparently he was doing quite well. He states he was able to get out of the house and care for his chickens. He stated over the past 5 days he may have had some slight fevers although the family is not specific. He apparently seen in my clinic on Monday by my nurse and stitches were removed. The patient reports that yesterday he fell over when outside going down the incline and laid in his yard for several hours before he was taken to the emergency room. The family notes progressive a worsening appearance of his knee incision and increasing pain. Seen in the emergency room with a temperature of 103.3 and tachycardia and concerns were raised with for a sepsis. He was given vancomycin but unfortunately no aspiration of the knee was attempted. They did obtain blood cultures. He is admitted to medicine for a possible deep infection of his knee. Meds/Allergies Home Medications and Allergies Home Medications Medication Instructions Recorded Confirmed Last Taken Type acetaminophen 500 mg tablet 500 mg PO BID tab 10/04/19 04/27/20 04/26/20 History allopurinol 300 mg tablet 300 mg PO DAILY 10/04/19 04/27/20 04/26/20 History amlodipine 10 mg tablet 10 mg PO DAILY 10/04/19 04/27/20 04/27/20 History dulaglutide 1.5 mg/0.5 mL 1.5 mg SUBCUT Q7D 10/04/19 04/27/20 04/22/20 History subcutaneous pen injector furosemide 40 mg tablet 60 mg PO DAILY 10/04/19 04/27/20 04/26/20 History gabapentin 300 mg capsule 300 mg PO BID 10/04/19 04/27/20 04/26/20 History lisinopril 40 mg tablet 40 mg PO DAILY 10/04/19 04/27/20 04/26/20 History meloxicam 15 mg tablet 15 mg PO DAILY 10/04/19 04/27/20 04/26/20 History metformin 500 mg tablet,extended 500 mg PO BID 10/04/19 04/27/20 04/26/20 History release 24 hr metoprolol succinate 100 mg 100 mg PO DAILY 10/04/19 04/27/20 04/27/20 05:00 History tablet,extended release 24 hr montelukast 10 mg tablet 10 mg PO DAILY 10/04/19 04/27/20 04/26/20 History omeprazole 20 mg capsule,delayed 20 mg PO DAILY 10/04/19 04/27/20 04/26/20 History release oxybutynin chloride 10 mg 10 mg PO DAILY 10/04/19 04/27/20 04/26/20 History tablet,extended release 24 hr simvastatin 40 mg tablet 40 mg PO DAILY 10/04/19 04/27/20 04/26/20 History apixaban [Eliquis] 2.5 mg PO BID #20 tab 04/28/20 Unknown Rx celecoxib 200 mg PO Q12H 15 Days #30 cap 04/28/20 Unknown Rx Allergies Allergy/AdvReac Type Severity Reaction Status Date / Time No Known Allergies Allergy Verified 05/12/20 22:26 Current Medications Current Medications Generic Name Dose Route Start Last Admin Trade Name Freq PRN Reason Stop Dose Admin Heparin Sodium (Beef Lung) 5,000 unit 05/13/20 04:00 05/13/20 03:54 Heparin SUBCUT 5,000 unit Q12H AUDREY Administration Sodium Chloride 1,000 mls @ 100 mls/hr 05/13/20 03:01 05/13/20 03:54 Sodium Chloride 0.9% IV 100 mls/hr .Q10H AUDREY Administration Piperacillin Sod/Tazobactam 50 mls @ 12.5 mls/hr 05/13/20 04:00 05/13/20 07:02 Sod 3.375 gm/ Sodium Chloride IV Infused Q8H AUDREY Infusion Protocol As Directed PFSH Acute PFSH: Medical History (Updated 05/13/20 @ 07:39 by Luigi Yoder MD) Bladder neck stricture Erectile dysfunction GERD (gastroesophageal reflux disease) Gout Gross hematuria Hyperlipidemia Hypertension Male urinary stress incontinence Osteoarthritis of knees, bilateral Personal history of malignant neoplasm of prostate treated with radiation in 2010 Type 2 diabetes mellitus Surgical History H/O nasal septoplasty H/O prostatectomy History of appendectomy History of carpal tunnel surgery BILATERAL History of lumbar laminectomy History of sinus surgery Family History Family/Other Cancer Lung disease Hypertension CAD (coronary artery disease) Stroke Denies family history of Diabetes Social History Smoking and tobacco status: never smoked Alcohol intake: never Adopted: No Caregiver/support person: No Lives independently: No Household members: spouse Marital status: Current occupational status: retired History of recent travel: Yes (lives in [facility]) Vitals/I&O/Wt Last Vital Signs Temp 99.6 F 05/13/20 03:06 Pulse 88 05/13/20 05:39 Resp 24 H 05/13/20 03:06 BP 149/71 05/13/20 03:06 Pulse Ox 94 05/13/20 05:39 05/12/20 05/13/20 05/13/20 22:59 06:59 14:59 Intake Total 50 / 50 Balance 50 / 50 Weight last 48 hrs Weight 225 lb Physical Exam Narrative: EXAM NARRATIVE: On examination of patient's left knee there is a small dehiscence about the inferior portion of the incision that is draining small amount of purulent fluid. There is surrounding erythema about that area and some swelling extending into his leg. There is only modest proximal swelling about the left knee. He is unable to perform a straight leg raise. He holds his knee bent 15 degrees and will not allow me to bend it past 45 degrees. He has a palpable right dorsalis pedis pulse. Flexes extend his toes and his ankle without any motor deficits. Data Micro: Micro: Microbiology 05/12/20 23:25 Blood Culture - Pr eliminary Blood SPECIMEN [facility] 05/12/20 23:20 Blood Culture - Pr eliminary Blood SPECIMEN [facility] Imaging^: Xray Ortho: My impression: The patient has a press-fit total knee arthroplasty in excellent position. There is no evidence of loosening or destructive processes at the bone prosthesis interface. There is no free gas I can appreciate. A&P Assessment and plan (1) Infection of total left knee replacement: I told the patient I concerns about infection in the left the. I discussed options with him. I think a aspiration is vital to rule out deep infection in the knee. I certainly have concerns that IV vancomycin was given before the aspiration. Hopefully if an infection is present we can still grow an organism. The left knee was prepped laterally with Betadine. A 14-gauge spinal needle was introduced and approximately 6 cc of a purulent fluid aspirated from the knee joint. This was sent for routine culture. I told the patient that the appearance is highly consistent with a deep infection. Fortunately her only just over 2 weeks since surgery. I think there is some opportunity for salvage in the knee with aggressive irrigation and debridement. We will proceed to the operating room today for aggressive irrigation debridement of the knee. I would dissipate 6 weeks of IV antibiotics and possibly long-term suppressive antibiotics. I told the patient that even with aggressive early treatment there is still a chance of failure that could result in loss of the knee replacement and multiple subsequent procedures. They understand that and agree to proceed. Status: Acute Coding Level of Care Code Acute Print Color Operator for [facility] Diagnoses Infection of total left knee replacement T84.54XA
[2020-05-13 07:43] LABS: Alanine Aminotransferase 10 U/L (0-41); Albumin Level 3.5 g/dL (3.5-5.2); Alkaline Phosphatase 111 IU/L (40-130); Anion Gap 16.6 (5-19); Aspartate Amino Transferase 19 U/L (0-40); Blood Urea Nitrogen 21 mg/dL (8-23); Calcium 8.4 mg/dL (8.5-10.5); Carbon Dioxide 23 mmol/L (22-29); Chloride 106 mmol/L (98-107); Globulin 2.6 g/dL (1.3-4.6); Glucose 201 mg/dL (65-115); Osmolality Calculated 294 mOsm/kg (285-295); Potassium 4.6 mmol/L (3.5-5.1); Sodium 141 mmol/L (136-145); Total Bilirubin 0.5 mg/dL (0.15-1.2); Total Protein 6.1 g/dL (6.6-8.7)
[2020-05-13] MEDS: metoprolol succinate ER (24 HR) 100 mg Tablet PO (09:58)
[2020-05-13] MEDS: sodium chloride 0.9% 1,000 ML 30 ML IV (11:21)
--- NOTE | 2020-05-13 11:29 | ANES.PREANE2 ---
Pre-Anesthetic Assessment Pre-Anesthetic Assessment: Height/Weight: Height 1.73 m Weight 102.058 kg Temp Pulse Resp BP Pulse Ox 102.6 F H 111 H 18 183/98 95 05/13/20 11:04 05/13/20 11:04 05/13/20 11:04 05/13/20 11:04 05/13/20 11:04 Preop Diagnosis: Osteoarthritis left knee Proposed Procedure: Operation Date: 05/13/20 12:15 Proposed Procedures p Incision & Drainage left knee with polyethylene exchange(Left) - Luigi Yoder MD Familial anesthetic complications: None Was Beta Blayne taken within 24 hours: N/A Last intake: NPO > 8 hrs Social: Social History: No alcohol and No tobacco Exam: Pre-Anes Outpt Exam: alert, oriented x 3, clear to auscultation bilaterally and regular rate & rhythm Additional Exam Findings (including area of procedure): sinus tachy Airway: Cervical ROM: WNL MP: 2 Dentition: False and Partials Additional comments: large neck and tongue dry mouth Hx nasal septoplasty Pulmonary: Pulmonary: Sleep apnea CV/HEM: CV/HEM: HTN Metabolic: Metabolic: DM and Morbid obesity Anesthetic Plan: ASA status: 3 Anesthesia: General Risk of > 500 ml blood loss (7ml/kg in children): No Meds/Allergies Current Medications: Current Medications Generic Name Dose Route Start Last Admin Trade Name Freq PRN Reason Stop Dose Admin Allopurinol 300 mg 05/13/20 09:00 05/13/20 09:48 Zyloprim PO Not Given DAILY AUDREY Atorvastatin Calci um 20 mg 05/13/20 09:00 05/13/20 09:48 Lipitor PO Not Given DAILY AUDREY Heparin Sodium (Be ef Lung) 5,000 unit 05/13/20 04:00 05/13/20 03:54 Heparin SUBCUT 5,000 unit Q12H AUDREY Administration Sodium Chloride 1,000 mls @ 100 m ls/hr 05/13/20 03:01 05/13/20 11:19 Sodium Chloride 0.9% IV Infused .Q10H AUDREY Infusion Piperacillin Sod/T azobactam 50 mls @ 12.5 mls /hr 05/13/20 04:00 05/13/20 10:40 Sod 3.375 gm/ So dium Chloride IV 12.5 mls/hr Q8H AUDREY Administration Protocol As Directed Sodium Chloride 1,000 mls @ 30 ml s/hr 05/13/20 11:15 05/13/20 11:21 Sodium Chloride 0.9% IV 05/14/20 11:14 30 mls/hr .Q24H AUDREY Administration Insulin Aspart 0 unit 05/13/20 08:00 05/13/20 07:44 Novolog SUBCUT 4 unit WM&BEDTIME AUDREY Administration Protocol Metoprolol Succina te 100 mg 05/13/20 09:00 05/13/20 09:58 Toprol Xl PO 100 mg DAILY AUDREY Administration Pantoprazole Sodiu m 40 mg 05/13/20 09:00 05/13/20 09:48 Protonix PO Not Given DAILY AUDREY PFSH Anesthesia PFSH: Medical History (Updated 05/13/20 @ 07:39 by Luigi Yoder MD) Bladder neck stricture Erectile dysfunction GERD (gastroesophageal reflux disease) Gout Gross hematuria Hyperlipidemia Hypertension Male urinary stress incontinence Osteoarthritis of knees, bilateral Personal history of malignant neoplasm of prostate treated with radiation in 2010 Type 2 diabetes mellitus Surgical History H/O nasal septoplasty H/O prostatectomy History of appendectomy History of carpal tunnel surgery BILATERAL History of lumbar laminectomy History of sinus surgery Family History Family/Other Cancer Lung disease Hypertension CAD (coronary artery disease) Stroke Denies family history of Diabetes Social History Smoking and tobacco status: never smoked Alcohol intake: never Adopted: No Caregiver/support person: No Lives independently: No Household members: spouse Marital status: Current occupational status: retired History of recent travel: Yes (lives in [facility]) Data Anesthesia CBC & Chem 7: 05/13/20 06:49 05/13/20 06:49 Other Labs: Laboratory Results - last 48 hr 05/12/20 05/12/20 05/12/20 23:20 23:20 23:20 WBC 16.6 H RBC 3.84 L Hgb 11.3 L Hct 36.4 L MCV 94.8 H MCH 29.4 MCHC 31.0 RDW 14.3 Plt Count 380 MPV 9.6 Neut % (Auto) 89.0 Lymph % (Auto) 2.5 [place] % (Auto) 7.4 Eos % (Auto) 0.1 Baso % (Auto) 0.2 Neut # (Auto) 14.74 H Lymph # (Auto) 0.4 L [place] # (Auto) 1.2 H Eos # (Auto) 0.0 Baso # (Auto) 0.0 Nucleated RBC % (auto) 0 Nucleated RBCs # 0.0 ESR PT 13.90 INR 1.04 Sodium 138 Potassium 4.7 Chloride 101 Carbon Dioxide 22 Anion Gap 19.7 H BUN 27 H Creatinine 1.4 H GFR Calculation Not Reportable Glucose 218 H POC Glucose Calculated Osmolality 290 Lactate Uric Acid Calcium 8.8 Total Bilirubin 0.4 AST 17 ALT 11 Alkaline Phosphatase 123 Creatine Kinase C-Reactive Protein 79.6 H Total Protein 7.3 Albumin 4.2 Globulin 3.1 Urine Color Urine Appearance Urine pH Ur Specific [place] Urine Protein Urine Glucose (UA) Urine Ketones Urine Blood Urine Nitrate Urine Bilirubin Urine Urobilinogen Ur Leukocyte Esterase SARS-CoV-2 Ag (Rapid) 05/12/20 05/12/20 05/12/20 23:20 23:20 23:20 WBC RBC Hgb Hct MCV MCH MCHC RDW Plt Count MPV Neut % (Auto) Lymph % (Auto) [place] % (Auto) Eos % (Auto) Baso % (Auto) Neut # (Auto) Lymph # (Auto) [place] # (Auto) Eos # (Auto) Baso # (Auto) Nucleated RBC % (auto) Nucleated RBCs # ESR PT INR Sodium Potassium Chloride Carbon Dioxide Anion Gap BUN Creatinine GFR Calculation Glucose POC Glucose Calculated Osmolality Lactate 1.9 Uric Acid 5.7 Calcium Total Bilirubin AST ALT Alkaline Phosphatase Creatine Kinase 204 C-Reactive Protein Total Protein Albumin Globulin Urine Color Urine Appearance Urine pH Ur Specific [place] Urine Protein Urine Glucose (UA) Urine Ketones Urine Blood Urine Nitrate Urine Bilirubin Urine Urobilinogen Ur Leukocyte Esterase SARS-CoV-2 Ag (Rapid) 05/13/20 05/13/20 05/13/20 00:45 01:00 02:21 WBC RBC Hgb Hct MCV MCH MCHC RDW Plt Count MPV Neut % (Auto) Lymph % (Auto) [place] % (Auto) Eos % (Auto) Baso % (Auto) Neut # (Auto) Lymph # (Auto) [place] # (Auto) Eos # (Auto) Baso # (Auto) Nucleated RBC % (auto) Nucleated RBCs # ESR 57 H PT INR Sodium Potassium Chloride Carbon Dioxide Anion Gap BUN Creatinine GFR Calculation Glucose POC Glucose Calculated Osmolality Lactate Uric Acid Calcium Total Bilirubin AST ALT Alkaline Phosphatase Creatine Kinase C-Reactive Protein Total Protein Albumin Globulin Urine Color Yellow Urine Appearance Clear Urine pH 7 Ur Specific [place] 1.005 Urine Protein Neg Urine Glucose (UA) Norm Urine Ketones Negative Urine Blood Neg Urine Nitrate Negative Urine Bilirubin Neg Urine Urobilinogen Norm Ur Leukocyte Esterase Negative SARS-CoV-2 Ag (Rapid) Negative 05/13/20 05/13/20 05/13/20 06:45 06:49 06:49 WBC 18.7 H RBC 3.40 L Hgb 10.0 L Hct 31.6 L MCV 92.9 MCH 29.4 MCHC 31.6 RDW 14.4 Plt Count 336 MPV 9.5 Neut % (Auto) 86.6 Lymph % (Auto) 3.4 [place] % (Auto) 8.9 Eos % (Auto) 0.0 Baso % (Auto) 0.2 Neut # (Auto) 16.21 H Lymph # (Auto) 0.6 L [place] # (Auto) 1.7 H Eos # (Auto) 0.0 Baso # (Auto) 0.0 Nucleated RBC % (auto) 0 Nucleated RBCs # 0.0 ESR PT INR Sodium 141 Potassium 4.6 Chloride 106 Carbon Dioxide 23 Anion Gap 16.6 BUN 21 Creatinine 1.5 H GFR Calculation Not Reportable Glucose 201 H POC Glucose 196 Calculated Osmolality 294 Lactate Uric Acid Calcium 8.4 L Total Bilirubin 0.5 AST 19 ALT 10 Alkaline Phosphatase 111 Creatine Kinase C-Reactive Protein Total Protein 6.1 L Albumin 3.5 Globulin 2.6 Urine Color Urine Appearance Urine pH Ur Specific [place] Urine Protein Urine Glucose (UA) Urine Ketones Urine Blood Urine Nitrate Urine Bilirubin Urine Urobilinogen Ur Leukocyte Esterase SARS-CoV-2 Ag (Rapid) Micro: Microbiology 05/12/20 23:25 Blood Culture - Preliminary Blood SPECIMEN COLLECTED 05/12/20 23:20 Blood Culture - Preliminary Blood SPECIMEN COLLECTED Cardiac Studies: No Data to Display
--- NOTE | 2020-05-13 12:59 | PC.RESP ---
PATIENT DOES NOT HAVE A QUALIFYING HX OF LUNG DISEASE AND DOES NOT QUALIFY FOR PULMONARY REHAB AT THIS TIME.
--- NOTE | 2020-05-13 14:06 | SUR.OPER ---
1320 - Pt's Carlie notified of surgery start.
--- NOTE | 2020-05-13 14:48 | P.OP_ITS ---
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 Components appeared well fixed. No necrotic material bony destruction was identified Condition: stable Disposition: PACU Procedure: The patient was taken to the operating room and given a general anest hesia. No antibiotics were given other than the vancomycin and Rocephin he was previously receiving. He was prepped and draped in the supine position with a tourniquet on the left thigh. Initially the previous skin incision was excised and dissection carried down to the extensor retinaculum. Previously placed sutures were removed and the patella displaced laterally. Swabs of purulent fluid were sent for routine and anaerobic culture.. Next aggressive debridement was accomplished to remove all abnormal appearing capsule. Beginning proximally in the suprapatellar pouch with a scalpel and rondure capsular and fibronecrotic tissue were removed. Dissection was carried out into the medial and lateral gutters. Next tibial insert was removed allowing better exploration of the gutters and access to the posterior knee which was debrided with a rondure. The knee was then irrigated with 6 L of saline and a gentamicin antibiotic. A new 9mm tibial insert was placed. A Hemovac drain was placed exiting the suprapatellar pouch medially running tubing into the lateral gutter. The extensor retinaculum was closed with 1 Vicryl. The skin incisions were closed with interrupted 1 and 0 Prolene suture. Xeroflo gauze, 4 x 4's, web roll were applied. The tourniquet was deflated after 60 minutes. The patient was taken to recovery room in stable condition..
[2020-05-13] MEDS: morphine 4 mg/mL SDV 1 mL 2 MG IVP ×3 (14:51→22:54)
[2020-05-13] MEDS: ondansetron 2 mg/ML SDV 2 mL 4 MG IVP (14:57)
--- NOTE | 2020-05-13 15:06 | PM.PACU ---
PACU note PACU note: Patient disoriented to place - states he's struthers. Able answer who is president and who was prior president Post-Anesthesia Exam: awake and vital signs stable Disposition: back to floor
--- NOTE | 2020-05-13 15:49 | SUR.PHASEI ---
1511 PT TO FLOOR PER BED PT ON 3LNC SATS 97% PT CONFUSED TO ALL BUT NAME AND PRESIDENT, PT PLEASANT AND FOLLOWS COMMANDS LT KNEE DRESSING D/I JESUS DRAIN COMPRESSSED WITH SMALL AMT RED DRAINAGE TO DRAIN, DISTAL FOOT PINK WARM WITH STRONG REGULAR PULSE NOTED . PT RESTLESS VSS DR MAGDALENO AT BEDSIDE SEE EARLIER MEDS GIVEN PT FOR C/O OF PAIN OFF AND ON AND NAUSEA. PT DENIES PAIN AND NAUSEA NOW BUT ON ARRIVAL TO FLOOR PT MOVED TO BED PT ALERT TALKATIVE WITH STAFF AND AT BEDSIDE, PT NOW C/O OF (LITTLE BIT ) PAIN TO LT KNEE. BP 141/86, HRE 96 , RESP 18, SATS 97%
[2020-05-13] MEDS: sennosides-docusate Tablet 2 TAB PO (16:26)
[2020-05-13] MEDS: calcium carbonate 500 mg Chew Tablet 1000 MG PO (16:27)
[2020-05-13] MEDS: chlorhexidine gluconate 0.12% Btl 473 mL 30 ML MUCOUS MEM ×2 (16:27→21:36)
[2020-05-13] MEDS: iron polysaccharide complex 150 mg Capsule PO (16:27)
[2020-05-13] MEDS: oxyCODONE 5 mg IR Tab/Cap PO ×2 (16:36→21:48)
--- NOTE | 2020-05-13 16:49 | PM.PN ---
Subjective Subjective: Interval history: Patient seen this afternoon in the postoperative setting. Somewhat sleepy due to anesthesia. He denied any chest pain or shortness of breath at time of exam. RN and at bedside during exam Vitals/I&O/Wt Last Vital Signs Temp 99.6 F 05/13/20 14:36 Pulse 84 05/13/20 15:41 Resp 18 05/13/20 16:36 BP 152/76 05/13/20 15:00 Pulse Ox 97 05/13/20 16:36 05/13/20 05/13/20 05/13/20 06:59 14:59 22:59 Intake Total 2326.667 / 2326.667 109.5 / 2436.167 Output Total 600 / 600 Balance 1726.667 / 1726.667 109.5 / 1836.167 Weight last 48 hrs Weight 102.058 kg Physical Exam Const: COMMON NORMALS: alert GENERAL APPEARANCE: cooperative ORIENTATION/CONSCIOUSNESS: Yes awake, Yes oriented to person, Yes oriented to place and Yes oriented to time HENMT: COMMON NORMALS: normocephalic and atraumatic HEAD & SCALP: normocephalic and atraumatic Eye: COMMON NORMALS: Equal, round and reactive pupils present PUPIL: Yes Equal, round and reactive pupils present Neck/C-Spine: COMMON NORMALS: supple GENERAL: Yes normal visual inspection Resp: COMMON NORMALS: normal respiratory effort and clear to auscultation bilaterally EFFORT & INSPECTION: Yes able to speak in complete sentences AUSCULTATION: clear to auscultation bilaterally, no rhonchi and no wheezes Cardio: COMMON NORMALS: regular rate, regular rhythm and No murmurs present (Cardio) RATE: regular rate RHYTHM: regular rhythm GI: COMMON NORMALS: Soft to palpation and non-tender INSPECTION: No abdominal distension AUSCULTATION: Yes normoactive bowel sounds PALPATION: Yes Soft to palpation Extremity: NARRATIVE EXTREMITY EXAM: Postoperative dressing in place in the left lower extremity Neuro: COMMON NORMALS: CN's II-XII intact bilaterally, moves all extremities and no focal motor deficits SENSORIUM/ORIENTATION: Yes alert, Yes oriented to person, Yes oriented to place and Yes oriented to time SPEECH: speech normal Psych: COMMON NORMALS: mental status grossly normal and cooperative Skin: NARRATIVE SKIN EXAM: Postoperative dressing in place in the left lower extremity Urinary Catheter Management^: Watts: Cath Placed During This Visit: yes Urinary Catheter Date of Insertion: 05/13/20 Urinary Catheter Time of Insertion: 13:00 Data : 05/13/20 06:49 05/13/20 06:49 Micro: Microbiology 05/13/20 13:20 Gram Stain - Final Knee - #1 05/13/20 07:35 Gram Stain - Final Knee - Aspirate 05/12/20 23:25 Blood Culture - Preliminary Blood SPECIMEN COLLECTED 05/12/20 23:20 Blood Culture - Preliminary Blood SPECIMEN COLLECTED A&P Assessment and plan (1) Cellulitis: Continue with broad-spectrum IV antibiotics vancomycin and Zosyn Orthopedic surgeon, Dr. Yoder consulted, patient taken to the OR today for irrigation of the left knee due to recent total knee arthroplasty Cultures ordered and pending Will likely require 6 weeks of IV antibiotics Status: Acute Qualifiers: Laterality: left Site of cellulitis: extremity Site of cellulitis of extremity: lower extremity Qualified Code(s): L03.116 - Cellulitis of left lower limb (2) Sepsis: Secondary to cellulitis and infected left total knee arthroplasty status post irrigation debridement Continue with broad-spectrum IV antibiotics Status: Acute Qualifiers: Sepsis type: sepsis due to unspecified organism Severe sepsis acute organ dysfunction type: unspecified Severe sepsis shock status: without septic shock (3) Acute kidney injury: Continue to avoid any nephrotoxic agents Likely secondary to sepsis BUN improved today, creatinine appears stable from admission, will continue to monitor closely Status: Acute Additional A&P Information Hypertension Hyperlipidemia. Continue statin Type 2 diabetes. Sliding scale insulin as needed History of prostate cancer History of gout. 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
[2020-05-13 17:15] LABS: Glucose Point of Care 185 mg/dL (70-110)
[2020-05-13 21:15] LABS: Glucose Point of Care 162 mg/dL (70-110)
[2020-05-13] MEDS: acetaminophen 325 mg Tablet 650 MG PO (21:48)
[2020-05-14] VITALS (13 sets, daily range): BP systolic 112–136; BP diastolic 67–80; PULSE 75–102; RESP 16–18; TEMP 37.1–37.6; O2SAT 91–97
[2020-05-14] MEDS: sodium chloride 0.9% 1,000 ML 100 ML IV ×3 (00:03→20:49)
[2020-05-14] MEDS: heparin 5,000 unit/mL INJ 1 mL 5000 UNIT SUBCUT ×2 (03:50→16:18)
[2020-05-14] MEDS: piperacillin-tazobactam 3.375 GM in sodium chloride 0.9% (plus) 50 ML IV ×3 (03:50→20:55)
[2020-05-14] MEDS: oxyCODONE 5 mg IR Tab/Cap PO ×3 (03:52→11:42)
[2020-05-14 04:59] LABS: Basophils % 0.3 %; Eosinophils % 0.1 %; Hematocrit 31.1 % (42.0-52.0); Hemoglobin 9.3 g/dL (11.7-16.6); Lymphocytes # 0.7 10^3/uL (0.8-4.8); Lymphocytes % 5.6 %; Mean Corpuscular HGB Conc 29.9 g/dL (30.0-36.0); Mean Corpuscular Hemoglobin 29.2 pg (28.0-34.0); Mean Corpuscular Volume 97.8 fL (80-94); Monocytes # 0.9 10^3/uL (0.2-0.9); Neutrophils # 10.61 10^3/uL (1.8-7.7); Neutrophils % 86.7 %; Nucleated Red Blood Cells % 0 %; Platelet Count 268 10^3/cmm (130-400); Red Blood Count 3.18 10^6/uL (4.1-5.3); Red Cell Distribution Width 14.8 % (12.1-15.1); White Blood Count 12.3 10^3/uL (4.0-10.0)
[2020-05-14 05:29] LABS: Anion Gap 14.4 (5-19); Blood Urea Nitrogen 16 mg/dL (8-23); Calcium 8.1 mg/dL (8.5-10.5); Carbon Dioxide 23 mmol/L (22-29); Chloride 108 mmol/L (98-107); Creatinine Clr Calc Pharmacy 51.9766; Glucose 168 mg/dL (65-115); Osmolality Calculated 292 mOsm/kg (285-295); Potassium 4.4 mmol/L (3.5-5.1); Sodium 141 mmol/L (136-145)
[2020-05-14] MEDS: morphine 4 mg/mL SDV 1 mL 2 MG IVP (05:51)
--- NOTE | 2020-05-14 06:00 | XR_ITS ---
WS: [id number] Chest AP and lateral views, 05/14/2020 Clinical Data: SOB Comparison: Portable chest, 05/12/2020. Findings: No nodules, masses or effusions are seen. The heart is enlarged The pulmonary vascularity i s not increased. No pneumonia or pneumothorax is seen. There is a density in the right suprahilar reg ion which may represent soft tissue or a lesion of the medial superior right scapula. Monitor leads a re on the chest wall. XR/XR chest 2V* [id number] Impression: 1. Cardiomegaly. 2. Recommend right scapula x-ray to evaluate soft tissue density in right supra clavicular region.
[2020-05-14 07:31] LABS: Glucose Point of Care 181 mg/dL (70-110)
[2020-05-14] MEDS: iron polysaccharide complex 150 mg Capsule PO ×2 (07:39→17:20)
--- NOTE | 2020-05-14 08:21 | ANE.PACU2 ---
Inpatient post-anesthesia follow up: Airway intact: Yes Vital signs: Temperature 98.9 F Pulse Rate [Monito r] 123 Pulse Rate 97 Respiratory Rate 18 Blood Pressure [Le ft Arm] 126/74 Blood Pressure 132/72 Pulse Oximetry 95 Oxygen Delivery Me thod [ Nasal Cannula Current Rate & Del gayla] Oxygen Delivery Me thod Nasal Cannula Oxygen Flow Rate [ Current Rate 2 & Delivery] Oxygen Flow Rate 2 Fraction of Inspir ed Oxygen Hydration adequate: Yes Nausea and vomiting: No Pain level: 2 Mental status: Baseline
[2020-05-14] MEDS: multivitamin therapeutic Tablet 1 TAB PO (08:27)
[2020-05-14] MEDS: sennosides-docusate Tablet 2 TAB PO ×2 (08:27→17:19)
[2020-05-14] MEDS: calcium carbonate 500 mg Chew Tablet 1000 MG PO ×2 (08:27→17:20)
[2020-05-14] MEDS: allopurinol 300 mg Tablet PO (08:27)
[2020-05-14] MEDS: atorvastatin 40 mg Tablet 20 MG PO (08:27)
[2020-05-14] MEDS: cholecalciferol (vitamin D3) 1,000 unit Tablet 1000 UNIT PO (08:27)
[2020-05-14] MEDS: metoprolol succinate ER (24 HR) 100 mg Tablet PO (08:28)
[2020-05-14] MEDS: pantoprazole DR 40 mg Tablet PO (08:28)
[2020-05-14] MEDS: mupirocin oint 22 gm 1 APPLIC NASAL ×2 (08:32→17:20)
[2020-05-14] MEDS: chlorhexidine gluconate 0.12% Btl 473 mL 30 ML MUCOUS MEM ×4 (08:32→20:48)
[2020-05-14] MEDS: TRAMadol 50 mg Tablet PO ×2 (10:03→23:35)
--- NOTE | 2020-05-14 10:04 | PM.PN ---
Subjective Subjective: Interval history: Patient awake working with occupational therapy at time of exam today. Sitting at the side of the bed reported that he continues to have some pain in the left knee. He denies any chest pain or shortness of breath. Reports no fevers or chills since last night. Discussed with patient plan for long-term IV antibiotics but will need to await PICC line placement until blood cultures return negative, he verbalized understanding and agreed with plan. Vitals/I&O/Wt Last Vital Signs Temp 98.9 F 05/14/20 07:38 Pulse 97 05/14/20 07:38 Resp 18 05/14/20 07:39 BP 132/72 05/14/20 07:38 Pulse Ox 95 05/14/20 07:39 05/13/20 05/14/20 05/14/20 22:59 06:59 14:59 Intake Total 169.5 / 2546.167 290 / 2836.167 2160 / 2160 Output Total 190 / 790 815 / 1605 Balance -20.5 / 1756.167 -525 / 5167.991 9174 / 2160 Weight last 48 hrs Weight 102.058 kg Physical Exam Const: COMMON NORMALS: alert GENERAL APPEARANCE: cooperative ORIENTATION/CONSCIOUSNESS: Yes awake, Yes oriented to person, Yes oriented to place and Yes oriented to time HENMT: COMMON NORMALS: normocephalic and atraumatic HEAD & SCALP: normocephalic and atraumatic Eye: COMMON NORMALS: Equal, round and reactive pupils present PUPIL: Yes Equal, round and reactive pupils present Neck/C-Spine: COMMON NORMALS: supple GENERAL: Yes normal visual inspection Resp: COMMON NORMALS: normal respiratory effort and clear to auscultation bilaterally EFFORT & INSPECTION: Yes able to speak in complete sentences AUSCULTATION: clear to auscultation bilaterally, no rhonchi and no wheezes Cardio: COMMON NORMALS: regular rate, regular rhythm and No murmurs present (Cardio) RATE: regular rate RHYTHM: regular rhythm Extremity: NARRATIVE EXTREMITY EXAM: Postoperative dressing in place in the left lower extremity Neuro: COMMON NORMALS: CN's II-XII intact bilaterally, moves all extremities and no focal motor deficits SENSORIUM/ORIENTATION: Yes alert, Yes oriented to person, Yes oriented to place and Yes oriented to time SPEECH: speech normal Psych: COMMON NORMALS: mental status grossly normal and cooperative Skin: NARRATIVE SKIN EXAM: Postoperative dressing in place in the left lower extremity Urinary Catheter Management^: Watts: Cath Placed During This Visit: yes, but has since been removed by the nurse Reason for Continuing Indwelling Catheter: Decision to DC Catheter Urinary Catheter Date of Insertion: 05/13/20 Urinary Catheter Time of Insertion: 13:00 Date Urinary Catheter Removed: 05/14/20 Time Urinary Catheter Discontinued: 06:00 Data : 05/14/20 04:20 05/14/20 04:20 Micro: Microbiology 05/14/20 08:41 Blood Culture - Preliminary Blood SPECIMEN COLLECTED 05/14/20 08:41 Blood Culture - Preliminary Blood SPECIMEN COLLECTED 05/12/20 23:25 Blood Culture - Preliminary Blood Gram positive cocci 05/12/20 23:20 Blood Culture - Preliminary Blood Gram positive cocci 05/13/20 13:20 Gram Stain - Final Knee - #1 05/13/20 07:35 Gram Stain - Final Knee - Aspirate A&P Assessment and plan (1) Cellulitis: Continue with broad-spectrum IV antibiotics vancomycin and Zosyn Orthopedic surgeon, Dr. Yoder consulted, patient taken to the OR today for irrigation of the left knee due to recent total knee arthroplasty Cultures ordered and pending Blood cultures returned overnight with gram-positive cocci, repeat blood cultures ordered and pending Will await PICC line placement until blood cultures returned with no growth Will require 6 weeks of IV antibiotics Status: Acute Qualifiers: Laterality: left Site of cellulitis: extremity Site of cellulitis of extremity: lower extremity Qualified Code(s): L03.116 - Cellulitis of left lower limb (2) Sepsis: Secondary to cellulitis and infected left total knee arthroplasty status post irrigation debridement Continue with broad-spectrum IV antibiotics Status: Acute Qualifiers: Sepsis type: sepsis due to unspecified organism Severe sepsis acute organ dysfunction type: unspecified Severe sepsis shock status: without septic shock (3) Acute kidney injury: Hold nephrotoxic agents Likely secondary to sepsis BUN and creatinine improving Status: Acute Additional A&P Information Bacteremia: Patient's blood cultures returned with gram-positive cocci in clusters, likely secondary to septic arthritis with recent joint prosthesis. Plan for long-term IV antibiotics for 6 weeks. Awaiting repeat blood cultures then will place PICC line. Hypertension: Blood pressure improved today, will continue to monitor closely Hyperlipidemia. Continue statin Type 2 diabetes. Sliding scale insulin as needed History of prostate cancer History of gout. 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
--- NOTE | 2020-05-14 10:08 | XR_ITS ---
WS: [id number] Right scapula, 3 views, 05/14/2020 Clinical Data: R soft tissue density in R supraclavicular region Comparison: Portable chest, 05/14/2020 Findings: The supraclavicular density on the right appears to be the superior border of the medial clavicle. Th is superior border is intact with no evidence of any abnormalities. No soft tissue masses are seen. XR/[place] [id number] Impression: Negative right scapula and no abnormal right supraclavicular masses are seen.
[2020-05-14 11:32] LABS: Glucose Point of Care 199 mg/dL (70-110)
--- NOTE | 2020-05-14 12:40 | P.PN_ITS ---
Subjective Subjective: Interval history: Some pain but controlled with medications. Feeling much better. Vitals/I&O/Wt Last Vital Signs Temp 98.9 F 05/14/20 07:38 Pulse 92 05/14/20 11:00 Resp 16 05/14/20 11:42 BP 120/76 05/14/20 11:00 Pulse Ox 94 05/14/20 11:42 05/13/20 05/14/20 05/14/20 22:59 06:59 14:59 Intake Total 169.5 / 2546.167 290 / 2836.167 3520 / 3520 Output Total 190 / 790 815 / 1605 Balance -20.5 / 1756.167 -525 / 6820.572 7917 / 3520 Weight last 48 hrs Weight 225 lb Physical Exam Narrative: EXAM NARRATIVE: Right knee dressing clean and dry. Drain patent. Only 65 cc of drainage last 24 hours Urinary Catheter Management^: Watts: Cath Placed During This Visit: yes, but has since been removed by the nurse Reason for Continuing Indwelling Catheter: Decision to DC Catheter Urinary Catheter Date of Insertion: 05/13/20 Urinary Catheter Time of Insertion: 13:00 Date Urinary Catheter Removed: 05/14/20 Time Urinary Catheter Discontinued: 06:00 Data : 05/14/20 04:20 05/14/20 04:20 Micro: Microbiology 05/13/20 07:35 Gram Stain - Final Knee - Aspirate Wound Culture - Preliminary Staphylococcus aureus 05/13/20 13:20 Gram Stain - Final Knee - #1 Wound Culture - Preliminary Staphylococcus aureus 05/13/20 01:00 Urine Culture - Preliminary Urine,Clean Catch 05/14/20 08:41 Blood Culture - Preliminary Blood SPECIMEN COLLECTED 05/14/20 08:41 Blood Culture - Preliminary Blood SPECIMEN COLLECTED 05/12/20 23:25 Blood Culture - Preliminary Blood Gram positive cocci 05/12/20 23:20 Blood Culture - Preliminary Blood Gram positive cocci A&P Assessment and plan (1) Infection of total left knee replacement: Limited cultures with staph aureus. Memory antibiotic coverage reasonable. To be defined by medicine once sensitivities available. I discussed the outcome with the patient. This will need 6 weeks of IV antibiotics and ideally I would like to keep him on a oral suppressive antibiotics. I told him that even with aggressive debridement and appropriate antibiotics there is still a possibility of losing his knee components. His is very supportive and available to help him through the postoperative process. Hopefully we can arrange outpatient antibiotics where he can be discharged home. 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
--- NOTE | 2020-05-14 16:00 | USCV_ITS ---
Ludwig Malloy Age: 74 Gender: M : 1945 Exam Date: 05/14/2020 15:47 Ordering Phys: Alicia Ocampo DO Technologist: Peri Cornejo Exam Location: [facility] [place] Indication: BACTEREMIA BP: 142 / 74 HR: 90 Rhythm: Sinus Technical Quality: TDS MEASUREMENTS (Male / Female) Normal Values 2D ECHO LV Diastolic Diameter PLAX 3.9 cm 4.2 - 5.9 / 3.9 - 5.3 cm LV Systolic Diameter PLAX 2.7 cm LV Chamber Size 4.2 cm IVS Diastolic Thickness 1.4 cm 0.6 - 1.0 / 0.6 - 0.9 cm IVS Systolic Thickness 2.0 cm LVPW Diastolic Thickness 1.3 cm 0.6 - 1.0 / 0.6 - 0.9 cm LVPW Systolic Thickness 1.5 cm RV Chamber Size 4.2 cm LVOT Diameter 2.0 cm LV Ejection Fraction 2D Teich 59.4 % LV Ejection Fraction MOD 2C 56.5 % LV Ejection Fraction 2C AL 55.8 % LA Diameter 3.9 cm LA Width 3.4 cm LA Height 3.7 cm RA Width 3.7 cm RA Height 4.2 cm Aorta at Sinotubular Diameter 3.1 cm M-MODE LV Diastolic Diameter MM 4.9 cm 4.2 - 5.9 / 3.9 - 5.3 cm LV Systolic Diameter MM 2.9 cm LV Ejection Fraction MM Teich 70.2 % IVS Diastolic Thickness MM 1.3 cm 0.6 - 1.0 / 0.6 - 0.9 cm IVS Systolic Thickness MM 1.9 cm LVPW Diastolic Thickness MM 1.3 cm 0.6 - 1.0 / 0.6 - 0.9 cm LVPW Systolic Thickness MM 1.7 cm RV Diastolic Diameter MM 1.5 cm Aortic Annulus Diameter 3.4 cm LA Ao Ratio MM 1.1 MV E Point Septal Separation 0.4 cm DOPPLER AV Peak Velocity 184.0 cm/s LVOT Peak Velocity 111.0 cm/s AV Area Cont Eq vti 2.3 cm squared AV Area Cont Eq pk 1.9 cm squared MV Area PHT 5.0 cm squared Mitral E to A Ratio 1.0 MV E' Velocity 6.0 cm/s Mitral E to MV E' Ratio 16.5 Mitral E to LV E' Lateral Ratio 16.5 Mitral E to LV E' Septal Ratio 16.7 TR Peak Velocity 133.3 cm/s TR Peak Gradient 7.1 mmHg TR Mean Velocity 88.0 cm/s TR Mean Gradient 3.5 mmHg TR Velocity Time Integral 27.5 cm TV Peak E Velocity 76.0 cm/s Right Atrial Pressure 3.0 mmHg Pulmonary Artery Systolic Pressu 10.1 mmHg PV Peak Velocity 78.0 cm/s FINDINGS Left Ventricle Normal left ventricular cavity size. Normal left ventricular systolic function. Left ventricular ejection fraction is estimated at 65 %. Grade I/IV diastolic dysfunction (abnormal relaxation filling pattern), normal to mildly elevated filling pressures. Right Ventricle The right ventricle is normal in size and function. Right Atrium The right atrium is normal in size. Left Atrium The left atrium is normal in size. Mitral Valve Moderately thickened mitral valve. Severe mitral annular calcification. No mitral valve stenosis. No mitral valve regurgitation. Aortic Valve Moderate aortic valve calcification. No aortic valve stenosis. No aortic valve regurgitation. Tricuspid Valve Structurally normal tricuspid valve without significant stenosis or regurgitation. Pulmonary artery systolic pressure is normal. Pulmonic Valve Structurally normal pulmonic valve without significant stenosis. There is no pulmonic regurgitation. Pericardium Normal pericardium without effusion. Aorta Normal ascending aorta dimension. CONCLUSIONS 1-Normal left ventricular cavity size. Normal left ventricular systolic function. Left ventricular ejection fraction is estimated at 65 %. Grade I/IV diastolic dysfunction (abnormal relaxation filling pattern), normal to mildly elevated filling pressures. 2-Moderately thickened mitral valve. Severe mitral annular calcification. No mitral valve stenosis. No mitral valve regurgitation. 3-Moderate aortic valve calcification. No aortic valve stenosis. No aortic valve regurgitation. 4-There is no pericardial effusion. 5-Pulmonary artery systolic pressure is within normal limits. 6-Right atrial pressure is around 5 mm of mercury. 7-If clinically indicated transesophageal echocardiogram may be better modality to assess vegetation or source for bacteremia 8-There are no prior echocardiogram studies to compare. April Mcneil MD (Electronically Signed) Final Date: 15 May 2020 16:47 S
[2020-05-14 17:02] LABS: Glucose Point of Care 146 mg/dL (70-110)
--- NOTE | 2020-05-14 18:20 | PC.NURSE ---
END OF SHIFT SUMMARY pt able to take morning po meds well. after gonzalez removal of evening or night nurse supervisor nurse, pt has not voided. got an order from Dr. Ocampo to bladder scan and straight cath. bladder scan showed around 500mL and after straight cath, 500mL of clear, dark yellow urine was charted. pt has been able to rest well all throughout the day and his pain has been controlled well with oxy IR and tramodol.
[2020-05-14 20:33] LABS: Glucose Point of Care 180 mg/dL (70-110)
[2020-05-15] VITALS (8 sets, daily range): BP systolic 144–170; BP diastolic 74–82; PULSE 77–102; RESP 18–20; TEMP 36.8–37.7; O2SAT 90–94
[2020-05-15] MEDS: piperacillin-tazobactam 3.375 GM in sodium chloride 0.9% (plus) 50 ML IV ×3 (04:00→20:48)
[2020-05-15] MEDS: TRAMadol 50 mg Tablet PO ×2 (04:00→08:12)
[2020-05-15] MEDS: heparin 5,000 unit/mL INJ 1 mL 5000 UNIT SUBCUT ×2 (04:00→16:55)
[2020-05-15 05:25] LABS: Basophils % 0.4 %; Eosinophils # 0.1 10^3/uL (0.0-0.8); Eosinophils % 1.2 %; Hematocrit 28.8 % (42.0-52.0); Hemoglobin 8.6 g/dL (11.7-16.6); Lymphocytes # 0.7 10^3/uL (0.8-4.8); Lymphocytes % 7.1 %; Mean Corpuscular HGB Conc 29.9 g/dL (30.0-36.0); Mean Platelet Volume 10.4 fL (7.4-10.4); Monocytes # 0.5 10^3/uL (0.2-0.9); Monocytes % 4.8 %; Neutrophils # 8.71 10^3/uL (1.8-7.7); Nucleated Red Blood Cells % 0 %; Platelet Count 260 10^3/cmm (130-400); Red Blood Count 2.97 10^6/uL (4.1-5.3); Red Cell Distribution Width 14.5 % (12.1-15.1); White Blood Count 10.1 10^3/uL (4.0-10.0)
[2020-05-15 05:42] LABS: Anion Gap 14.2 (5-19); Blood Urea Nitrogen 18 mg/dL (8-23); Carbon Dioxide 22 mmol/L (22-29); Chloride 107 mmol/L (98-107); Creatinine Clr Calc Pharmacy 60.6394; Glucose 148 mg/dL (65-115); Osmolality Calculated 287 mOsm/kg (285-295); Potassium 4.2 mmol/L (3.5-5.1); Sodium 139 mmol/L (136-145)
[2020-05-15 06:45] LABS: Glucose Point of Care 138 mg/dL (70-110)
[2020-05-15] MEDS: sodium chloride 0.9% 1,000 ML 100 ML IV ×2 (08:12→18:00)
[2020-05-15] MEDS: calcium carbonate 500 mg Chew Tablet 1000 MG PO ×2 (08:14→17:08)
[2020-05-15] MEDS: chlorhexidine gluconate 0.12% Btl 473 mL 30 ML MUCOUS MEM ×4 (08:14→20:48)
[2020-05-15] MEDS: multivitamin therapeutic Tablet 1 TAB PO (08:14)
[2020-05-15] MEDS: mupirocin oint 22 gm 1 APPLIC NASAL ×2 (08:14→17:08)
[2020-05-15] MEDS: atorvastatin 40 mg Tablet 20 MG PO (08:15)
[2020-05-15] MEDS: allopurinol 300 mg Tablet PO (08:15)
[2020-05-15] MEDS: cholecalciferol (vitamin D3) 1,000 unit Tablet 1000 UNIT PO (08:15)
[2020-05-15] MEDS: metoprolol succinate ER (24 HR) 100 mg Tablet PO (08:16)
[2020-05-15] MEDS: pantoprazole DR 40 mg Tablet PO (08:16)
[2020-05-15] MEDS: iron polysaccharide complex 150 mg Capsule PO ×2 (08:16→17:08)
[2020-05-15] MEDS: sennosides-docusate Tablet 2 TAB PO ×2 (08:16→17:07)
[2020-05-15] MEDS: ondansetron 2 mg/ML SDV 2 mL 4 MG IVP (09:26)
[2020-05-15] MEDS: oxyCODONE 5 mg IR Tab/Cap PO ×2 (11:51→17:07)
[2020-05-15 12:08] LABS: Glucose Point of Care 187 mg/dL (70-110)
[2020-05-15] MEDS: polyethylene glycol 3350 Pkt 17 gm PO (14:24)
--- NOTE | 2020-05-15 14:24 | P.PN_ITS ---
Subjective Subjective: Interval history: Patient awake and sitting in the chair at time of exam this morning. He reported that he continues to have some occasional sharp pain in his left knee. He denies any chest pain, no shortness of breath. Discussed with patient need for 6 weeks of IV antibiotics, he verbalizes understanding Vitals/I&O/Wt Last Vital Signs Temp 98.3 F 05/15/20 11:44 Pulse 77 05/15/20 11:44 Resp 18 05/15/20 11:51 BP 144/74 05/15/20 11:44 Pulse Ox 94 05/15/20 11:44 05/14/20 05/15/20 05/15/20 22:59 06:59 14:59 Intake Total 1256.667 / 5016.667 1850 / 6866.667 770 / 770 Output Total 740 / 740 400 / 1140 625 / 625 Balance 516.667 / 4276.667 1450 / 5726.667 145 / 145 Physical Exam Const: COMMON NORMALS: alert GENERAL APPEARANCE: cooperative ORIENTATION/CONSCIOUSNESS: Yes awake, Yes oriented to person, Yes oriented to place and Yes oriented to time HENMT: COMMON NORMALS: normocephalic and atraumatic HEAD & SCALP: normocephalic and atraumatic Eye: COMMON NORMALS: Equal, round and reactive pupils present PUPIL: Yes Equal, round and reactive pupils present Neck/C-Spine: COMMON NORMALS: supple GENERAL: Yes normal visual inspection Resp: COMMON NORMALS: normal respiratory effort and clear to auscultation bilaterally EFFORT & INSPECTION: Yes able to speak in complete sentences AUSCULTATION: clear to auscultation bilaterally, no rhonchi and no wheezes Cardio: COMMON NORMALS: regular rate, regular rhythm and No murmurs present (Cardio) RATE: regular rate RHYTHM: regular rhythm GI: COMMON NORMALS: Soft to palpation and non-tender INSPECTION: No abdominal distension AUSCULTATION: Yes normoactive bowel sounds PALPATION: Yes Soft to palpation Extremity: NARRATIVE EXTREMITY EXAM: Postoperative dressing in place in the left lower extremity Neuro: COMMON NORMALS: CN's II-XII intact bilaterally, moves all extremities and no focal motor deficits SENSORIUM/ORIENTATION: Yes alert, Yes oriented to person, Yes oriented to place and Yes oriented to time SPEECH: speech normal Psych: COMMON NORMALS: mental status grossly normal and cooperative Skin: NARRATIVE SKIN EXAM: Postoperative dressing in place in the left lower extremity Urinary Catheter Management^: Watts: Cath Placed During This Visit: yes, but has since been removed by the nurse Reason for Continuing Indwelling Catheter: Decision to DC Catheter Urinary Catheter Date of Insertion: 05/13/20 Urinary Catheter Time of Insertion: 13:00 Date Urinary Catheter Removed: 05/14/20 Time Urinary Catheter Discontinued: 06:00 Data : 05/15/20 04:25 05/15/20 04:25 Micro: Microbiology 05/13/20 01:00 Urine Culture - Final Urine,Clean Catch 05/14/20 08:41 Blood Culture - Preliminary Blood NEGATIVE TO DATE 05/14/20 08:41 Blood Culture - Preliminary Blood NEGATIVE TO DATE 05/13/20 13:20 Gram Stain - Final Knee - #1 Anaerobic Culture - Preliminary Wound Culture - Preliminary Staphylococcus aureus 05/13/20 07:35 Anaerobic Culture - Preliminary Aspirate 05/13/20 07:35 Gram Stain - Final Knee - Aspirate Wound Culture - Preliminary Staphylococcus aureus A&P Assessment and plan (1) Cellulitis: Continue with broad-spectrum IV antibiotics vancomycin and Zosyn Orthopedic surgeon, Dr. Yoder consulted Culture showing staph aureus, no further sensitivities available at this time therefore we will continue on broad-spectrum antibiotics Will require 6 weeks of IV antibiotics Status: Acute Qualifiers: Laterality: left Site of cellulitis: extremity Site of cellulitis of extremity: lower extremity Qualified Code(s): L03.116 - Cellulitis of left lower limb (2) Sepsis: Secondary to cellulitis and infected left total knee arthroplasty status post irrigation debridement Continue with broad-spectrum IV antibiotics Status: Acute Qualifiers: Sepsis type: sepsis due to unspecified organism Severe sepsis acute organ dysfunction type: unspecified Severe sepsis shock status: without septic shock (3) Acute kidney injury: Resolved Status: Acute Additional A&P Information Staph bacteremia: Blood culture showing staph aureus, further susceptibilities pending. Once blood cultures returned with no growth to date will need PICC line placement and 6 weeks of IV antibiotics Hypertension: Blood pressure improved today, will continue to monitor closely Hyperlipidemia. Continue statin Type 2 diabetes. Sliding scale insulin as needed History of prostate cancer History of gout. Uric acid level at 5.7 Obesity Disposition planning: Plan for discharge to home with home health with 6 weeks of IV antibiotics Full code [facility] for D[facility] Patient requires further hospitalization due to septic arthritis with bacteremia Coding Level of Care Code Acute Power Plant Manager for g Fwd Diagnoses Cellulitis L03.116 Laterality: left Site of cellulitis: extremity Site of cellulitis of extremity: lower extremity Sepsis A41.9 Sepsis type: sepsis due to unspecified organism Severe sepsis acute organ dysfunction type: unspecified Severe sepsis shock status: without septic shock Acute kidney injury N17.9
[2020-05-15 17:16] LABS: Glucose Point of Care 153 mg/dL (70-110)
--- NOTE | 2020-05-15 18:15 | P.PN_ITS ---
Subjective Subjective: Interval history: Pain better. Feeling better. Vitals/I&O/Wt Last Vital Signs Temp 98.3 F 05/15/20 15:44 Pulse 84 05/15/20 15:44 Resp 18 05/15/20 17:07 BP 158/77 05/15/20 15:44 Pulse Ox 93 05/15/20 15:44 05/15/20 05/15/20 05/15/20 06:59 14:59 22:59 Intake Total 1850 / 6866.667 770 / 770 50 / 820 Output Total 400 / 1140 625 / 625 Balance 1450 / 5726.667 145 / 145 50 / 195 Physical Exam Narrative: EXAM NARRATIVE: Left knee dressing discontinued. No drainage. 40 cc drainage Hemovac since midnight Urinary Catheter Management^: Watts: Cath Placed During This Visit: yes, but has since been removed by the nurse Reason for Continuing Indwelling Catheter: Decision to DC Catheter Urinary Catheter Date of Insertion: 05/13/20 Urinary Catheter Time of Insertion: 13:00 Date Urinary Catheter Removed: 05/14/20 Time Urinary Catheter Discontinued: 06:00 Data : 05/15/20 04:25 05/15/20 04:25 Micro: Microbiology 05/13/20 13:20 Gram Stain - Final Knee - #1 Anaerobic Culture - Preliminary Wound Culture - Final Staphylococcus aureus 05/13/20 07:35 Anaerobic Culture - Preliminary Aspirate 05/13/20 07:35 Gram Stain - Final Knee - Aspirate Wound Culture - Final Staphylococcus aureus 05/12/20 23:20 Blood Culture - Preliminary Blood Staphylococcus aureus 05/12/20 23:25 Blood Culture - Preliminary Blood Staphylococcus aureus 05/13/20 01:00 Urine Culture - Final Urine,Clean Catch 05/14/20 08:41 Blood Culture - Preliminary Blood NEGATIVE TO DATE 05/14/20 08:41 Blood Culture - Preliminary Blood NEGATIVE TO DATE A&P Assessment and plan (1) Infection of total left knee replacement: Incision clinically looks good. Will need 6 weeks of IV antibiotics per internal medicine and I would like to see him placed on chronic suppressive therapy thereafter with Bactrim DS. Tick placement and antibiotics per medicine. Status: Acute Attestations Medical Necessity Statement*: As per medicine Coding Level of Care Code Acute Administrative Nursing Supervisor for [facility] De [facility] Diagnoses Infection of total left knee replacement T84.54XA
[2020-05-15 21:55] LABS: Glucose Point of Care 135 mg/dL (70-110)
[2020-05-16] VITALS (7 sets, daily range): BP systolic 144–177; BP diastolic 78–89; PULSE 86–98; RESP 18; TEMP 37.1–37.8; O2SAT 92–95
[2020-05-16] MEDS: oxyCODONE 5 mg IR Tab/Cap PO (00:24)
[2020-05-16] MEDS: sodium chloride 0.9% 1,000 ML 100 ML IV (03:50)
[2020-05-16] MEDS: heparin 5,000 unit/mL INJ 1 mL 5000 UNIT SUBCUT ×3 (03:50→17:38)
[2020-05-16] MEDS: piperacillin-tazobactam 3.375 GM in sodium chloride 0.9% (plus) 50 ML IV ×2 (03:50→12:26)
[2020-05-16 04:34] LABS: Basophils % 0.3 %; Eosinophils # 0.2 10^3/uL (0.0-0.8); Eosinophils % 1.7 %; Hematocrit 29.7 % (42.0-52.0); Hemoglobin 9.3 g/dL (11.7-16.6); Lymphocytes # 0.8 10^3/uL (0.8-4.8); Lymphocytes % 8.4 %; Mean Corpuscular HGB Conc 31.3 g/dL (30.0-36.0); Mean Corpuscular Hemoglobin 29.6 pg (28.0-34.0); Mean Corpuscular Volume 94.6 fL (80-94); Mean Platelet Volume 9.9 fL (7.4-10.4); Monocytes # 0.6 10^3/uL (0.2-0.9); Monocytes % 6.5 %; Neutrophils # 7.34 10^3/uL (1.8-7.7); Neutrophils % 81.9 %; Nucleated Red Blood Cells % 0 %; Platelet Count 269 10^3/cmm (130-400); Red Blood Count 3.14 10^6/uL (4.1-5.3); Red Cell Distribution Width 14.5 % (12.1-15.1)
[2020-05-16 04:58] LABS: Anion Gap 14.1 (5-19); Blood Urea Nitrogen 14 mg/dL (8-23); Calcium 8.4 mg/dL (8.5-10.5); Carbon Dioxide 23 mmol/L (22-29); Chloride 105 mmol/L (98-107); Glucose 145 mg/dL (65-115); Osmolality Calculated 285 mOsm/kg (285-295); Potassium 4.1 mmol/L (3.5-5.1); Sodium 138 mmol/L (136-145)
[2020-05-16] MEDS: acetaminophen 325 mg Tablet 650 MG PO ×2 (05:44→12:25)
[2020-05-16 07:08] LABS: Glucose Point of Care 137 mg/dL (70-110)
[2020-05-16] MEDS: polyethylene glycol 3350 Pkt 17 gm PO (08:51)
[2020-05-16] MEDS: calcium carbonate 500 mg Chew Tablet 1000 MG PO ×2 (08:52→17:37)
[2020-05-16] MEDS: atorvastatin 40 mg Tablet 20 MG PO (08:52)
[2020-05-16] MEDS: cholecalciferol (vitamin D3) 1,000 unit Tablet 1000 UNIT PO (08:52)
[2020-05-16] MEDS: metoprolol succinate ER (24 HR) 100 mg Tablet PO (08:52)
[2020-05-16] MEDS: multivitamin therapeutic Tablet 1 TAB PO (08:52)
[2020-05-16] MEDS: iron polysaccharide complex 150 mg Capsule PO ×2 (08:52→17:38)
[2020-05-16] MEDS: allopurinol 300 mg Tablet PO (08:52)
[2020-05-16] MEDS: sennosides-docusate Tablet 2 TAB PO ×2 (08:52→17:38)
[2020-05-16] MEDS: chlorhexidine gluconate 0.12% Btl 473 mL 30 ML MUCOUS MEM ×4 (08:53→22:00)
[2020-05-16] MEDS: pantoprazole DR 40 mg Tablet PO (08:55)
--- NOTE | 2020-05-16 09:00 | PM.PN ---
Subjective Subjective: Interval history: Patient a bit confused last night. Still complains of some pain relief with p.o. meds Vitals/I&O/Wt Last Vital Signs Temp 98.7 F 05/16/20 07:37 Pulse 92 05/16/20 07:37 Resp 18 05/16/20 07:37 BP 177/84 05/16/20 07:37 Pulse Ox 94 05/16/20 07:37 05/15/20 05/16/20 05/16/20 22:59 06:59 14:59 Intake Total 1430 / 2200 1033.333 / 3233.333 250 / 250 Output Total 375 / 1000 550 / 550 Balance 1430 / 1575 658.333 / 2233.333 -300 / -300 Physical Exam Narrative: EXAM NARRATIVE: Left knee dressing with slight sanguinous staining. Decreasing erythema left knee. Expected swelling left calf and thigh Urinary Catheter Management^: Watts: Cath Placed During This Visit: yes, but has since been removed by the nurse Reason for Continuing Indwelling Catheter: Decision to DC Catheter Urinary Catheter Date of Insertion: 05/13/20 Urinary Catheter Time of Insertion: 13:00 Date Urinary Catheter Removed: 05/14/20 Time Urinary Catheter Discontinued: 06:00 Data : 05/16/20 03:52 05/16/20 03:52 Micro: Microbiology 05/13/20 13:20 Gram Stain - Final Knee - #1 Anaerobic Culture - Preliminary Wound Culture - Final Staphylococcus aureus 05/13/20 07:35 Anaerobic Culture - Preliminary Aspirate 05/13/20 07:35 Gram Stain - Final Knee - Aspirate Wound Culture - Final Staphylococcus aureus 05/12/20 23:20 Blood Culture - Preliminary Blood Staphylococcus aureus 05/12/20 23:25 Blood Culture - Preliminary Blood Staphylococcus aureus 05/13/20 01:00 Urine Culture - Final Urine,Clean Catch 05/14/20 08:41 Blood Culture - Preliminary Blood NEGATIVE TO DATE 05/14/20 08:41 Blood Culture - Preliminary Blood NEGATIVE TO DATE A&P Assessment and plan (1) Infection of total left knee replacement: White blood cell count decreasing and wound appearance improved. Appears to be responding to aggressive debridement and antibiotics. Will need PICC line and 6 weeks targeted IV antibiotics before converted to oral suppressive therapy. Status: Acute Attestations Medical Necessity Statement*: As per medicine Coding Level of Care Code Acute Executive Talent Acquisition Consultant for [facility] Fwd Diagnoses Infection of total left knee replacement T84.54XA
[2020-05-16] MEDS: TRAMadol 50 mg Tablet PO ×2 (09:20→17:50)
[2020-05-16 10:53] LABS: Glucose Point of Care 203 mg/dL (70-110)
--- NOTE | 2020-05-16 11:41 | PC.SOCIAL ---
Pg 2 IMM. Explained to pt Pg 2 IMM. Provided pt a copy. Pt verbally understands. No questions voiced. Signed, dated, & timed a copy & placed in chart.
--- NOTE | 2020-05-16 13:51 | P.PN_ITS ---
Subjective Subjective: Interval history: Hospital stay and labs reviewed. Reportedly mildly confused last night. Denies having any nausea, vomiting and sitting comfortably in bed on examination. Have a complete conversation and is AO x3 at present. States pain is well controlled. He denies any chest pain, no shortness of breath. Vitals/I&O/Wt Last Vital Signs Temp 99.0 F 05/16/20 11:22 Pulse 90 05/16/20 11:22 Resp 18 05/16/20 11:22 BP 175/86 05/16/20 11:22 Pulse Ox 93 05/16/20 11:22 05/15/20 05/16/20 05/16/20 22:59 06:59 14:59 Intake Total 1430 / 2200 1033.333 / 3233.333 540 / 540 Output Total 375 / 1000 550 / 550 Balance 1430 / 1575 658.333 / 2233.333 -10 / -10 Physical Exam Narrative: EXAM NARRATIVE: General exam is a white male, who appears somewhat uncomfortable, who can converse and reports he is back to his normal baseline mental status. He is noted to be tachycardic. HEENT: Pupils equally round. Oropharynx clear. Neck is supple no lymphadenopathy or thyromegaly Cardiovascular tachycardia without murmur. No S3 or S4 Lungs clear no wheezing or crackles Abdomen is soft nontender with positive bowel sounds. was deferred Extremities no cyanosis or clubbing. Surgical dressing present on the left knee. Clean, without any soakage. Distal pulses intact. Neuro no obvious focal deficits Skin see findings above Urinary Catheter Management^: Watts: Cath Placed During This Visit: yes, but has since been removed by the nurse Reason for Continuing Indwelling Catheter: Decision to DC Catheter Urinary Catheter Date of Insertion: 05/13/20 Urinary Catheter Time of Insertion: 13:00 Date Urinary Catheter Removed: 05/14/20 Time Urinary Catheter Discontinued: 06:00 Data : 05/16/20 03:52 05/16/20 03:52 Micro: Microbiology 05/12/20 23:20 Blood Culture - Preliminary Blood Staphylococcus aureus 05/12/20 23:25 Blood Culture - Preliminary Blood Staphylococcus aureus 05/13/20 07:35 Anaerobic Culture - Preliminary Aspirate 05/13/20 13:20 Gram Stain - Final Knee - #1 Anaerobic Culture - Preliminary Wound Culture - Final Staphylococcus aureus 05/13/20 07:35 Gram Stain - Final Knee - Aspirate Wound Culture - Final Staphylococcus aureus 05/13/20 01:00 Urine Culture - Final Urine,Clean Catch A&P Assessment and plan (1) Staphylococcus aureus bacteremia: Status: Acute (2) Status post total left knee replacement: Status: Acute (3) Sepsis: Secondary to cellulitis and infected left total knee arthroplasty status post irrigation debridement Continue with broad-spectrum IV antibiotics Status: Acute Qualifiers: Sepsis type: sepsis due to unspecified organism Severe sepsis acute organ dysfunction type: unspecified Severe sepsis shock status: without septic shock (4) Acute kidney injury: Resolved Status: Acute (5) Infection of total left knee replacement: Status: Acute Additional A&P Information Sepsis: Infection of hardware of total knee replacement. Status post knee replacement 3 weeks ago. Staph bacteremia: Blood culture showing staph aureus from the day of admission. Repeat blood cultures have remained negative. We will change Zosyn to ceftriaxone as per the culture results. Once repeat blood cultures continue to remain negative patient will most likely require PICC line and antibiotics for 6 weeks. We will consult ID as patient wi ll most likely need to follow-up with ID as an outpatient. Hypertension: Blood pressure elevated. Will start on home dose of amlodipine, lisinopril. Continue home dose of metoprolol. Goal blood pressure less than 140/90 mmHg. Hyperlipidemia. Continue statin Type 2 diabetes. Sliding scale insulin as needed. Sugars well controlled. History of prostate cancer History of gout. Uric acid level at 5.7 Obesity Disposition planning: Plan for discharge to home with home health with 6 weeks of IV antibiotics Full code Heparin for DVT prophylaxis. As the kidney functions have resolved will i ncrease the dose to 5000 every 8 hourly. Patient was mildly confused last night after pain medications. Will avoid narcotics. Tramadol and Tylenol for pain. Attestations Medical Necessity Statement*: Staph bacteremia, knee hardware infection. Time Spent in Patient Care: Greater than 35 minutes (>than 50% of time spent in counselling and/or direct pt care on unit) . Coding Level of Care Code Acute Informatics Nurse for [facility] Fwd Diagnoses Staphylococcus aureus bacteremia R78.81; B95.61 Status post total left knee replacement Z96.652 Sepsis A41.9 Sepsis type: sepsis due to unspecified organism Severe sepsis acute organ dysfunction type: unspecified Severe sepsis shock status: without septic shock Acute kidney injury N17.9 Infection of total left knee replacement T84.54XA
[2020-05-16] MEDS: lisinopril 20 mg Tablet 40 MG PO (14:11)
[2020-05-16] MEDS: amlodipine 10 mg Tablet PO (14:12)
[2020-05-16] MEDS: cefTRIAXone 1,000 MG in sodium chloride 0.9% (plus) 50 ML 100 MG IV (14:13)
--- NOTE | 2020-05-16 14:46 | PC.CHAP ---
Pastoral Care Encounter/Spiritual Assessment Type of Contact [] Declined continuous drier operator visit [] Patient/Family/Request visit [] Outpatient visit [] Follow-up visit [] Physician referral [] Code/Alert [] Routine visit [] Staff referral [] Actively dying [xx] Patient sleeping [] Family support [] [] Out of room [] Palliative care [] [] Receiving care in room [] Pre-surgical visit [] Trauma [] Long length of stay [] ICU visit [] Other: Relational/Emotional Strength [] Patient feels connected with others/family/visitors/staff [] Distress [] Loneliness/isolation [] Abandonment Spirituality of Patient [] Person of Aleja [] Attends Hoahaoism of their Aleja [] Believes in Prayer [] Reads Bible or Buddhism materials [] There are Spiritual issues to be addressed Podiatric Surgeon Interventions [] Prayer [] Active listening [] Non-anxious presence [] Spiritual/emotional support [] Crisis/trauma care [] Spiritual counseling [] Bereavement support [] Provided bereavement packet [] Provided Bible/devotional materials [] Provided toy/stuffed animal, coloring book to patient or family member [] Provided Communion [] Anointing/Yachats [] Salvation [] Completed spiritual assessment [] Other: Impact on Illness or Injury [] Angry [] Fearful [] Anxious [] Often cries [] Exhaustion [] Unable to work [] Unable to attend yarsanism [] Unable to walk/stand [] Unable to read [] Unable to drive [] Unable to eat/drink [] Unable to sleep [] Unable to be with family [] Patient intubated [] Other: Summary Time spent with patient
[2020-05-16 16:44] LABS: Glucose Point of Care 188 mg/dL (70-110)
--- NOTE | 2020-05-16 18:45 | PC.NURSE ---
SHIFT SUMMARY PT HAS HAD MODERATE PAIN THROUGHOUT THE DAY. PAIN HAS BEEN CONTROLLED WELL WITH TYLENOL, TRAMADOL GIVEN X1. PT IS UP WITH ASSIST, WEIGHT BEARING TOLERATED. PT HAS BEEN UP TO THE BEDSIDE CHAIR MULTIPLE TIMES THROUGHOUT THE DAY. TOLERATED WELL. NO DRAINAGE AT INCISION SITE. B/P ELEVATED. DR. CORLEY ORDERED NEW B/P MEDICATIONS. B/P DECREASED. ABX CHANGED TO ROCEPHIN. CONTINUE TO MONITOR.
[2020-05-16 21:25] LABS: Glucose Point of Care 155 mg/dL (70-110)
[2020-05-17] VITALS (7 sets, daily range): BP systolic 122–166; BP diastolic 73–82; PULSE 66–95; RESP 17–24; TEMP 36.6–37.4; O2SAT 91–97
[2020-05-17] MEDS: TRAMadol 50 mg Tablet PO ×3 (01:03→23:04)
[2020-05-17] MEDS: heparin 5,000 unit/mL INJ 1 mL 5000 UNIT SUBCUT ×3 (01:03→18:17)
[2020-05-17 04:24] LABS: Basophils % 0.4 %; Eosinophils # 0.1 10^3/uL (0.0-0.8); Eosinophils % 1.1 %; Hematocrit 29.8 % (42.0-52.0); Hemoglobin 9.2 g/dL (11.7-16.6); Lymphocytes # 0.8 10^3/uL (0.8-4.8); Lymphocytes % 7.9 %; Mean Corpuscular HGB Conc 30.9 g/dL (30.0-36.0); Mean Corpuscular Hemoglobin 28.7 pg (28.0-34.0); Mean Corpuscular Volume 92.8 fL (80-94); Monocytes # 0.9 10^3/uL (0.2-0.9); Monocytes % 9.3 %; Neutrophils # 7.95 10^3/uL (1.8-7.7); Neutrophils % 78.7 %; Nucleated Red Blood Cells % 0 %; Platelet Count 265 10^3/cmm (130-400); Red Blood Count 3.21 10^6/uL (4.1-5.3); Red Cell Distribution Width 14.2 % (12.1-15.1); White Blood Count 10.1 10^3/uL (4.0-10.0)
[2020-05-17 04:46] LABS: Alanine Aminotransferase 22 U/L (0-41); Alkaline Phosphatase 109 IU/L (40-130); Anion Gap 13.8 (5-19); Aspartate Amino Transferase 15 U/L (0-40); Blood Urea Nitrogen 9 mg/dL (8-23); Calcium 8.5 mg/dL (8.5-10.5); Carbon Dioxide 23 mmol/L (22-29); Chloride 103 mmol/L (98-107); Globulin 3.1 g/dL (1.3-4.6); Glucose 148 mg/dL (65-115); Osmolality Calculated 281 mOsm/kg (285-295); Potassium 3.8 mmol/L (3.5-5.1); Sodium 136 mmol/L (136-145); Total Bilirubin 0.3 mg/dL (0.15-1.2); Total Protein 6.1 g/dL (6.6-8.7)
[2020-05-17 06:57] LABS: Glucose Point of Care 133 mg/dL (70-110)
[2020-05-17] MEDS: calcium carbonate 500 mg Chew Tablet 1000 MG PO ×2 (09:13→18:17)
[2020-05-17] MEDS: sennosides-docusate Tablet 2 TAB PO (09:14)
[2020-05-17] MEDS: atorvastatin 40 mg Tablet 20 MG PO (09:14)
[2020-05-17] MEDS: lisinopril 20 mg Tablet 40 MG PO (09:14)
[2020-05-17] MEDS: pantoprazole DR 40 mg Tablet PO (09:15)
[2020-05-17] MEDS: iron polysaccharide complex 150 mg Capsule PO ×2 (09:15→18:17)
[2020-05-17] MEDS: allopurinol 300 mg Tablet PO (09:15)
[2020-05-17] MEDS: metoprolol succinate ER (24 HR) 100 mg Tablet PO (09:15)
[2020-05-17] MEDS: amlodipine 10 mg Tablet PO (09:15)
[2020-05-17] MEDS: cholecalciferol (vitamin D3) 1,000 unit Tablet 1000 UNIT PO (09:15)
[2020-05-17] MEDS: mupirocin oint 22 gm 1 APPLIC NASAL ×2 (09:25→18:18)
[2020-05-17] MEDS: multivitamin therapeutic Tablet 1 TAB PO (09:25)
[2020-05-17] MEDS: chlorhexidine gluconate 0.12% Btl 473 mL 30 ML MUCOUS MEM ×4 (09:26→21:27)
[2020-05-17] MEDS: polyethylene glycol 3350 Pkt 17 gm PO (09:27)
[2020-05-17 10:47] LABS: Glucose Point of Care 225 mg/dL (70-110)
--- NOTE | 2020-05-17 12:55 | PM.PN ---
Subjective Subjective: Interval history: No acute events overnight. Denies of any nausea, vomiting, headache, dizziness. Patient on examination sitting comfortably in bed having his food. Apparently patient was fairly weak while working with physical therapy today morning. He is in fair pain during the physical therapy as well. Vitals/I&O/Wt Last Vital Signs Temp 97.9 F 05/17/20 12:00 Pulse 66 05/17/20 12:00 Resp 18 05/17/20 12:00 BP 122/76 05/17/20 12:00 Pulse Ox 97 05/17/20 12:00 05/16/20 05/17/20 05/17/20 22:59 06:59 14:59 Intake Total 120 / 660 340 / 1000 360 / 360 Output Total 160 / 710 Balance 120 / 110 180 / 290 360 / 360 Physical Exam Narrative: EXAM NARRATIVE: General exam is a white male, who appears somewhat uncomfortable, who can converse and reports he is back to his normal baseline mental status. He is noted to be tachycardic. HEENT: Pupils equally round. Oropharynx clear. Neck is supple no lymphadenopathy or thyromegaly Cardiovascular tachycardia without murmur. No S3 or S4 Lungs clear no wheezing or crackles Abdomen is soft nontender with positive bowel sounds. was deferred Extremities no cyanosis or clubbing. Surgical dressing present on the left knee. Clean, without any soakage. Distal pulses intact. Neuro no obvious focal deficits Skin see findings above Urinary Catheter Management^: Watts: Cath Placed During This Visit: yes, but has since been removed by the nurse Reason for Continuing Indwelling Catheter: Decision to DC Catheter Urinary Catheter Date of Insertion: 05/13/20 Urinary Catheter Time of Insertion: 13:00 Date Urinary Catheter Removed: 05/14/20 Time Urinary Catheter Discontinued: 06:00 Data : 05/17/20 04:05 05/17/20 04:05 Micro: Microbiology 05/12/20 23:20 Blood Culture - Preliminary Blood Staphylococcus aureus 05/12/20 23:25 Blood Culture - Preliminary Blood Staphylococcus aureus 05/13/20 07:35 Anaerobic Culture - Preliminary Aspirate 05/13/20 13:20 Gram Stain - Final Knee - #1 Anaerobic Culture - Preliminary Wound Culture - Final Staphylococcus aureus A&P Assessment and plan (1) Staphylococcus aureus bacteremia: Status: Acute (2) Status post total left knee replacement: Status: Acute (3) Sepsis: Secondary to cellulitis and infected left total knee arthroplasty status post irrigation debridement Continue with broad-spectrum IV antibiotics Status: Acute Qualifiers: Sepsis type: sepsis due to unspecified organism Severe sepsis acute organ dysfunction type: unspecified Severe sepsis shock status: without septic shock (4) Acute kidney injury: Resolved Status: Acute (5) Infection of total left knee replacement: Status: Acute Additional A&P Information Sepsis: Infection of hardware of total knee replacement. Status post knee replacement 3 weeks ago. Staph bacteremia: Blood culture showing staph aureus from the day of admission. Repeat blood cultures have remained negative. Discussed with ID. Plan to change antibiotics to cefazolin which will be better coverage for MSSA. Patient would most likely need to follow-up with ID as an outpatient for chronic suppression as prosthesis has not been changed. PICC line insertion antibiotics for next 6 weeks. Tramadol for pain. Hypertension: Blood pressures better now. Continue home dose of amlodipine, lisinopril, metoprolol. Goal blood pressure less than 140/90 allergy. Hyperlipidemia. Continue statin Type 2 diabetes. Sliding scale insulin as needed. Sugars well controlled. History of prostate cancer History of gout. Uric acid level at 5.7 Obesity Disposition planning: Plan for discharge to home with home health with 6 weeks of IV antibiotics Full code Heparin for DVT prophylaxis. As the kidney functions have resolved will increase the dose to 5000 every 8 hourly. Patient was mildly confused last night after pain medications. Will avoid narcotics. Tramadol and Tylenol for pain. Attestations Medical Necessity Statement*: MSSA bacteremia, MSSA prosthetic infection. Coding Level of Care Code Acute Carbon Paper Interleafer for [facility] Richard Diagnoses Staphylococcus aureus bacteremia R78.81; B95.61 Status post total left knee replacement Z96.652 Sepsis A41.9 Sepsis type: sepsis due to unspecified organism Severe sepsis acute organ dysfunction type: unspecified Severe sepsis shock status: without septic shock Acute kidney injury N17.9 Infection of total left knee replacement T84.54XA
--- NOTE | 2020-05-17 15:44 | P.CONIM_ITS ---
Providers/Reason For Consult Consulting Physican/Specialty*: Rosalba Shell MD Reason for Consult*: prosthetic joint infection Attending Physician: Bryson Horn MD Primary Care Provider: LIZZETH Stoll History of Present Illness History of Present Illness Ludwig Malloy JR is a 74 year old male with a past medical history of osteoarthritis, prostate cancer status post radiation 2010, type 2 diabetes mellitus, hypertension who underwent a left total knee arthroplasty on April [id number] electively for severe osteoarthritis. He has a prior total knee replacement on the right side in January of this year. Proximately 5-10 days after the surgery, he states that staple site started to look a little inflamed with some puslike discharge. Eventually he presented to the ER on the second with fever confusion and drainage from the left knee. Noted to be grossly swollen in appearance at the time. His T-max upon arrival was 103.3 tachycardia and signs of sepsis. Irrigation debridement of the nail insert exchange noted presence of bloody purulent fluid in the left knee joint. No surrounding necrotic material or bony destruction. His tibial insert was also exchange for a new one at this time. the femoral insert is still in place. Since this is still an early infection, plan is to salvage the knee prosthesis. significant culture results include blood culture positive for staph aureus, identified as MSSA on May 12. Follow-up blood culture from May 14 is negative to date. OR cultures have also returned with presence of MSSA. Transthoracic echocardiogram performed on 05 14 shows normal LVEF grade 1 diastolic dysfunction, moderately thickened mitral valve, no evidence of vegetation. He was initially on treatment with Zosyn and vancomycin, changed to IV cefazolin today per my recommendation after recovery of MSSA. Review of Systems General: Reports: 10 or more systems reviewed and unremarkable except in HPI and below Const: Denies: fever(s), chills or body aches Eyes: Denies: change in vision, blurry vision or photophobia ENMT: Reports: hoarseness; Denies: throat pain, enlarged tonsils, odynophagia or nasal congestion Card: Denies: chest pain, palpitations, irregular heart rhythm, edema, swelling of feet/ankles, lightheadedness, pre-syncope, dyspnea on exertion or orthopnea Resp: Denies: dyspnea, productive cough, non-productive cough, wheezing, stridor, pain on inspiration, change in phlegm color, hemoptysis or chest congestion GI: Denies: abdominal pain, nausea, vomiting, hematemesis, coffee ground emesis, dysphagia, heartburn, diarrhea, constipation, GI cramping, change in stool character, hematochezia or melena : Denies: flank pain, dysuria, urinary frequency, urinary urgency, urinary hesitancy or hematuria Musc: Denies: neck pain, back pain, extremity pain, joint swelling, joint warmth or deformity Neuro: Denies: headache(s), numbness in extremities, weakness in extremities, sensory changes, difficulty walking, frequent falls, dizziness, vertigo, behavioral changes, Slurred speech present or seizure-like activity Psych: Denies: anxiety, depression, suicidal ideation or homicidal ideation Endo: Denies: polyuria, polydipsia, tired all the time, cold intolerance or hot flashes George/Lymph: Denies: easy bruising or easy bleeding Meds/Allergies Home Medications and Allergies Home Medications Medication Instructions Recorded Confirmed Last Taken Type allopurinol 300 mg tablet 300 mg PO DAILY 10/04/19 05/13/20 04/26/20 History amlodipine 10 mg tablet 10 mg PO DAILY 10/04/19 05/13/20 04/27/20 History dulaglutide 1.5 mg/0.5 mL 1.5 mg SUBCUT Q7D 10/04/19 05/13/20 04/22/20 History subcutaneous pen injector furosemide 40 mg tablet 40 mg PO DAILY 10/04/19 05/13/20 04/26/20 History gabapentin 300 mg capsule 300 mg PO BID 10/04/19 05/13/20 04/26/20 History lisinopril 40 mg tablet 40 mg PO DAILY 10/04/19 05/13/20 04/26/20 History meloxicam 15 mg tablet 15 mg PO DAILY 10/04/19 05/13/20 04/26/20 History metoprolol succinate 100 mg 100 mg PO DAILY 10/04/19 05/13/20 04/27/20 05:00 History tablet,extended release 24 hr montelukast 10 mg tablet 10 mg PO DAILY 10/04/19 05/13/20 04/26/20 History omeprazole 20 mg capsule,delayed 20 mg PO DAILY 10/04/19 05/13/20 04/26/20 History release oxybutynin chloride 10 mg 10 mg PO DAILY 10/04/19 05/13/20 04/26/20 History tablet,extended release 24 hr simvastatin 40 mg tablet 40 mg PO DAILY 10/04/19 05/13/20 04/26/20 History apixaban [Eliquis] 2.5 mg PO BID #20 tab 04/28/20 05/13/20 Unknown Rx celecoxib 200 mg PO Q12H 15 Days #30 cap 04/28/20 05/13/20 Unknown Rx metformin 500 mg PO BID 05/13/20 05/13/20 Unknown History oxycodone 5 mg PO Q4H PRN 05/13/20 05/13/20 Unknown History Allergies Allergy/AdvReac Type Severity Reaction Status Date / Time No Known Allergies Allergy Verified 05/12/20 22:26 Current Medications Current Medications Generic Name Dose Route Start Last Admin Trade Name Freq PRN Reason Stop Dose Admin Acetaminophen 650 mg 05/13/20 03:01 05/16/20 12:25 Tylenol PO 650 mg Q6H PRN Administration Mild/Mod Pain Or Temp >/= 101 Allopurinol 300 mg 05/13/20 09:00 05/17/20 09:15 Zyloprim PO 300 mg DAILY AUDREY Administration Amlodipine Besylate 10 mg 05/16/20 13:50 05/17/20 09:15 Norvasc PO 10 mg DAILY AUDREY Administration Atorvastatin Calcium 20 mg 05/13/20 09:00 05/17/20 09:14 Lipitor PO 20 mg DAILY AUDREY Administration Calcium Carbonate 1,000 mg 05/13/20 18:00 05/17/20 09:13 Tums PO 1,000 mg BID AUDREY Administration Chlorhexidine Gluconate 30 ml 05/13/20 17:00 05/17/20 12:55 Perigard MUCOUS MEM 30 ml QID AUDREY Administration Heparin Sodium (Beef Lung) 5,000 unit 05/16/20 09:30 05/17/20 09:13 Heparin SUBCUT 5,000 unit Q8H AUDREY Administration Cefazolin Sodium/Dextrose 2 gm in 50 mls @ 100 mls/hr 05/17/20 13:30 05/17/20 14:55 Kefzol IV 100 mls/hr Q8H AUDREY Administration Protocol Insulin Aspart 0 unit 05/13/20 08:00 05/17/20 12:55 Novolog SUBCUT 6 unit WM&BEDTIME AUDREY Administration Protocol Lisinopril 40 mg 05/16/20 14:00 05/17/20 09:14 Prinivil PO 40 mg DAILY AUDREY Administration Metoprolol Succinate 100 mg 05/13/20 09:00 05/17/20 09:15 Toprol Xl PO 100 mg DAILY AUDREY Administration Multivitamins Therapeutic 1 tab 05/14/20 09:00 05/17/20 09:25 Multivitamin Tab PO 1 tab DAILY AUDREY Administration Mupirocin 1 applic 05/13/20 18:00 05/17/20 09:25 Bactroban NASAL 05/18/20 17:59 1 applic BID AUDREY Administration Protocol Ondansetron HCl 4 mg 05/13/20 03:01 05/15/20 09:26 Zofran IVP 4 mg Q6H PRN Administration vomiting, or N/V if npo Pantoprazole Sodium 40 mg 05/13/20 09:00 05/17/20 09:15 Protonix PO 40 mg DAILY AUDREY Administration Polyethylene Glycol 17 gm 05/15/20 13:25 05/17/20 09:27 Miralax PO 17 gm DAILY AUDREY Administration Polysaccharide Iron Complex 150 mg 05/13/20 18:00 05/17/20 09:15 Ferrex PO 150 mg BIDWM AUDREY Administration Senna/Docusate Sodium 2 tab 05/13/20 18:00 05/17/20 09:14 Senna-S PO 2 tab BID AUDREY Administration Tramadol HCl 50 mg 05/16/20 14:00 05/17/20 09:13 Ultram PO 50 mg Q6H PRN Administration MODERATE PAIN Vitamin D 1,000 unit 05/14/20 09:00 05/17/20 09:15 Vitamin D3 PO 1,000 unit DAILY AUDREY Administration PFSH Acute PFSH: Medical History Bladder neck stricture Erectile dysfunction GERD (gastroesophageal reflux disease) Gout Gross hematuria Hyperlipidemia Hypertension Male urinary stress incontinence Osteoarthritis of knees, bilateral Personal history of malignant neoplasm of prostate treated with radiation in 2010 Type 2 diabetes mellitus Surgical History H/O nasal septoplasty H/O prostatectomy History of appendectomy History of carpal tunnel surgery BILATERAL History of lumbar laminectomy History of sinus surgery Family History Family/Other Cancer Lung disease Hypertension CAD (coronary artery disease) Stroke Denies family history of Diabetes Social History Smoking and tobacco status: never smoked Alcohol intake: never Adopted: No Caregiver/support person: No Lives independently: No Household members: spouse Marital status: Current occupational status: retired History of recent travel: Yes (lives in [facility]) Vitals/I&O/Wt Last Vital Signs Temp 97.9 F 05/17/20 12:00 Pulse 66 05/17/20 12:00 Resp 18 05/17/20 12:00 BP 122/76 05/17/20 12:00 Pulse Ox 97 05/17/20 12:00 05/17/20 05/17/20 05/17/20 06:59 14:59 22:59 Intake Total 340 / 1000 360 / 360 Output Total 160 / 710 Balance 180 / 290 360 / 360 Physical Exam Narrative: EXAM NARRATIVE: General exam is a white male, who appears somewhat uncomfortable, who can converse and reports he is back to his normal baseline mental status. He is noted to be tachycardic. HEENT: Pupils equally round. Oropharynx clear. Neck is supple no lymphadenopathy or thyromegaly Cardiovascular tachycardia without murmur. No S3 or S4 Lungs clear no wheezing or crackles Abdomen is soft nontender with positive bowel sounds. was deferred Extremities no cyanosis or clubbing. Surgical dressing present on the left knee. Clean, without any soakage. Distal pulses intact. Neuro no obvious focal deficits Skin see findings above Urinary Catheter Management^: Watts: Cath Placed During This Visit: yes, but has since been removed by the nurse Reason for Continuing Indwelling Catheter: Decision to DC Catheter Urinary Catheter Date of Insertion: 05/13/20 Urinary Catheter Time of Insertion: 13:00 Date Urinary Catheter Removed: 05/14/20 Time Urinary Catheter Discontinued: 06:00 Data Micro: Micro: Microbiology 05/12/20 23:20 Blood Culture - Pr eliminary Blood Staphylococcus aureus 05/12/20 23:25 Blood Culture - Pr eliminary Blood Staphylococcus aureus 05/13/20 07:35 Anaerobic Culture - Preliminary Aspirate 05/13/20 13:20 Gram Stain - Final Knee - #1 Anaerobic Culture - Preliminary Wound Culture - Fi nal Staphylococcus aureus A&P Assessment and plan (1) Staphylococcus aureus bacteremia: Status: Acute (2) Infection of total left knee replacement: Status: Acute (3) Acute kidney injury: Status: Acute (4) Sepsis: Status: Acute Qualifiers: Sepsis type: sepsis due to unspecified organism Severe sepsis acute organ dysfunction type: unspecified Severe sepsis shock status: without septic shock (5) Status post total left knee replacement: Status: Acute (6) Hyperlipidemia: Status: Chronic Qualifiers: Hyperlipidemia type: unspecified Qualified Code(s): E78.5 - Hyperlipidemia, unspecified (7) Hypertension: Status: Chronic Qualifiers: Hypertension type: essential hypertension Qualified Code(s): I10 - Essential (primary) hypertension (8) Type 2 diabetes mellitus: Status: Chronic Qualifiers: Diabetes mellitus shelter insulin use: without exterminator helper termite use Diabetes mellitus complication status: without complication Qualified Code(s): E11.9 - Type 2 diabetes mellitus without complications (9) Osteoarthritis of knees, bilateral: Status: Resolved Qualifiers: Osteoarthritis type: primary Qualified Code(s): M17.0 - Bilateral pr imary osteoarthritis of knee Additional A&P Information 74-year-old male with past medical history as outlined above status post recent left total knee replacement on April 27 presented currently with sepsis, joint pain swelling and inflammation and found to have MSSA bacteremia. Status post I&D of the infected joint with retention of hardware. #MSSA septicemia Source is most likely to be the infected knee joint Now status post debridement by orthopedics. Purulent discharge was encountered in the OR. Initially on treatment with Zosyn and vancomycin, now narrowed down to cefazolin 2 g IV every 8 hours after staph isolate identified as MSSA. #Prosthetic joint infection Given early joint infection which is less than 1 months from surgery, attempts have been made to salvage the joint as much as possible. He has already undergone debridement by orthopedics on arrival. Continue cefazolin 2 g IV every 8 hours as organism directed therapy for MSSA. This will need to be continued for a minimum. Of 6 weeks of IV, followed by an additional 6 to 8 weeks of directed oral treatment, assuming patient continues to improve. Will additionally consider initiation of rifampin given that the hardware is being retained. Patient's home medication list includes Eliquis which is contraindicated alongside of rifampin. Will attempt to get more information ab out Eliquis, if it needs to be continued and if it does if potentially possible to switch to Xarelto. Will make further recommendations after these assessments. Continue to monitor vital signs, fever. Recommend blood culture with any further fevers. Currently pain appears to be well controlled #Sepsis, resolved at this time. Continue IV antibiotics as above #Management of hypertension, hyperlipidemia, type 2 diabetes per admitting medicine team. Coding Level of Care Code Acute Claims Clerk for [facility] Fwd Diagnoses Staphylococcus aureus bacteremia R78.81; B95.61 Infection of total left knee replacement T84.54XA Acute kidney injury N17.9 Sepsis A41.9 Sepsis type: sepsis due to unspecified organism Severe sepsis acute organ dysfunction type: unspecified Severe sepsis shock status: without septic shock Status post total left knee replacement Z96.652 Hyperlipidemia E78.5 Hyperlipidemia type: unspecified Hypertension I10 Hypertension type: essential hypertension Type 2 diabetes mellitus E11.9 Diabetes mellitus exterminator helper termite insulin use: without shelter use Diabetes mellitus complication status: without complication Osteoarthritis of knees, bilateral M17.0 Osteoarthritis type: primary
[2020-05-17 16:59] LABS: Glucose Point of Care 176 mg/dL (70-110)
[2020-05-17 20:50] LABS: Glucose Point of Care 185 mg/dL (70-110)
[2020-05-18] MEDS: heparin 5,000 unit/mL INJ 1 mL 5000 UNIT SUBCUT ×3 (00:55→17:11)
[2020-05-18 04:00] VITALS: BP 169/84; PULSE 87; RESP 19; TEMP 37.3; O2SAT 95
[2020-05-18] MEDS: TRAMadol 50 mg Tablet PO ×2 (05:30→17:11)
[2020-05-18 06:36] LABS: Glucose Point of Care 163 mg/dL (70-110)
[2020-05-18] MEDS: iron polysaccharide complex 150 mg Capsule PO ×2 (07:56→17:11)
[2020-05-18 08:00] VITALS: BP 143/86; PULSE 92; RESP 16; TEMP 37.1; O2SAT 94
[2020-05-18] MEDS: chlorhexidine gluconate 0.12% Btl 473 mL 30 ML MUCOUS MEM ×4 (09:01→22:36)
[2020-05-18] MEDS: mupirocin oint 22 gm 1 APPLIC NASAL (09:02)
[2020-05-18] MEDS: atorvastatin 40 mg Tablet 20 MG PO (09:03)
[2020-05-18] MEDS: allopurinol 300 mg Tablet PO (09:05)
[2020-05-18] MEDS: pantoprazole DR 40 mg Tablet PO (09:05)
[2020-05-18] MEDS: multivitamin therapeutic Tablet 1 TAB PO (09:05)
[2020-05-18] MEDS: metoprolol succinate ER (24 HR) 100 mg Tablet PO (09:05)
[2020-05-18] MEDS: lisinopril 20 mg Tablet 40 MG PO (09:05)
[2020-05-18] MEDS: cholecalciferol (vitamin D3) 1,000 unit Tablet 1000 UNIT PO (09:05)
[2020-05-18] MEDS: amlodipine 10 mg Tablet PO (09:05)
[2020-05-18] MEDS: sennosides-docusate Tablet 2 TAB PO (09:06)
[2020-05-18] MEDS: calcium carbonate 500 mg Chew Tablet 1000 MG PO ×2 (09:06→17:11)
[2020-05-18] MEDS: acetaminophen 325 mg Tablet 650 MG PO ×2 (09:17→20:10)
--- NOTE | 2020-05-18 10:11 | USCV_ITS ---
Gama Ludwig Age: 74 Gender: M : 1945 Exam Date: 05/18/2020 13:56 Ordering Phys: Rj Chanel MD Technologist: Niko Monaco Exam Location: [facility] [place] Indication: LT LEG PAIN AND EDEMA POST KNEE SURG INFECTION HISTORY: Lower extremity swelling. PROCEDURES: Venous duplex imaging was performed in only the left lower extremity. The following venous structures were evaluated: common femoral vein, profunda vein, proximal portion of the greater saphenous vein, superficial femoral vein, and the popliteal vein. In addition, the posterior tibial and peroneal trunk were evaluated. FINDINGS: Normal 2-D Doppler and augmentation and compressibility throughout the lower extremity venous structures. Additional imaging through the proximal calf veins also reveals no thrombus. Limited evaluation of the greater saphenous vein is patent with no thrombus.. The veins were found to be easily compressible with spontaneous blood flow. Non pulsatile flow pattern. CONCLUSIONS No evidence of DVT in the above-mentioned identifiable veins. Corrected copy of the report from 05/18/2020 Dr Saranya Hutchison MD [facility] (Electronically Signed) Final Date: 19 May 2020 16:06 Amended: 20 May 2020 13:58 C
[2020-05-18] MEDS: FUROsemide 10 mg/mL SDV 4mL 40 MG IVP (10:31)
--- NOTE | 2020-05-18 10:31 | P.PN_ITS ---
Subjective Subjective: Interval history: Still complains of left knee pain. Good appetite and feeling better Vitals/I&O/Wt Last Vital Signs Temp 98.7 F 05/18/20 08:00 Pulse 92 05/18/20 08:00 Resp 16 05/18/20 08:00 BP 143/86 05/18/20 08:00 Pulse Ox 94 05/18/20 08:00 05/17/20 05/18/20 05/18/20 22:59 06:59 14:59 Intake Total 820 / 1180 120 / 1300 360 / 360 Output Total 600 / 600 315 / 915 Balance 220 / 580 -195 / 385 360 / 360 Physical Exam Narrative: EXAM NARRATIVE: Left knee with less swelling and erythema. Urinary Catheter Management^: Watts: Cath Placed During This Visit: yes, but has since been removed by the nurse Reason for Continuing Indwelling Catheter: Decision to DC Catheter Urinary Catheter Date of Insertion: 05/13/20 Urinary Catheter Time of Insertion: 13:00 Date Urinary Catheter Removed: 05/14/20 Time Urinary Catheter Discontinued: 06:00 Data : 05/19/20 02:30 05/19/20 02:30 Micro: Microbiology 05/12/20 23:25 Blood Culture - Final Blood Staphylococcus aureus 05/12/20 23:20 Blood Culture - Final Blood Staphylococcus aureus 05/13/20 13:20 Gram Stain - Final Knee - #1 Anaerobic Culture - Preliminary Wound Culture - Final Staphylococcus aureus 05/13/20 07:35 Anaerobic Culture - Preliminary Aspirate A&P Assessment and plan (1) Infection of total left knee replacement: PICC line to be placed. Discharge when home antibiotics arranged. Status: Acute Attestations Medical Necessity Statement*: As per medicine Coding Level of Care Code Acute [employer] Director for [employer] [facility] Diagnoses Infection of total left knee replacement T84.54XA
[2020-05-18] MEDS: HYDROcodone-acetaminophen 5-325 mg Tablet 1 TAB PO ×2 (10:36→20:10)
--- NOTE | 2020-05-18 10:50 | PC.SOCIAL ---
IMM Updated Page 2 of IMM updated and given to patient/spouse. Initialed, dated, and timed and placed back in chart.
[2020-05-18 11:05] LABS: Basophils % 0.4 %; Eosinophils # 0.2 10^3/uL (0.0-0.8); Eosinophils % 1.4 %; Hematocrit 31.2 % (42.0-52.0); Lymphocytes # 0.7 10^3/uL (0.8-4.8); Lymphocytes % 6.6 %; Mean Corpuscular HGB Conc 32.1 g/dL (30.0-36.0); Mean Corpuscular Hemoglobin 28.9 pg (28.0-34.0); Mean Corpuscular Volume 90.2 fL (80-94); Mean Platelet Volume 10.3 fL (7.4-10.4); Monocytes # 0.9 10^3/uL (0.2-0.9); Neutrophils # 8.81 10^3/uL (1.8-7.7); Neutrophils % 78.6 %; Nucleated Red Blood Cells % 0 %; Platelet Count 322 10^3/cmm (130-400); Red Blood Count 3.46 10^6/uL (4.1-5.3); Red Cell Distribution Width 14.2 % (12.1-15.1); White Blood Count 11.2 10^3/uL (4.0-10.0)
[2020-05-18 11:13] LABS: Glucose Point of Care 225 mg/dL (70-110)
[2020-05-18 11:26] LABS: Alanine Aminotransferase 15 U/L (0-41); Albumin Level 3.2 g/dL (3.5-5.2); Alkaline Phosphatase 113 IU/L (40-130); Anion Gap 13.7 (5-19); Aspartate Amino Transferase 13 U/L (0-40); Blood Urea Nitrogen 12 mg/dL (8-23); Calcium 8.6 mg/dL (8.5-10.5); Carbon Dioxide 25 mmol/L (22-29); Chloride 98 mmol/L (98-107); Glucose 239 mg/dL (65-115); Osmolality Calculated 280 mOsm/kg (285-295); Potassium 3.7 mmol/L (3.5-5.1); Sodium 133 mmol/L (136-145); Total Bilirubin 0.2 mg/dL (0.15-1.2); Total Protein 6.2 g/dL (6.6-8.7)
[2020-05-18 12:00] VITALS: BP 104/70; PULSE 89; RESP 16; TEMP 36.4; O2SAT 92
--- NOTE | 2020-05-18 12:05 | PM.PN ---
Subjective Subjective: Interval history: Tmax 100.7F last evening, leukocytosis stable, c/o pain at left knee Medications: Reviewed: Yes Vitals/I&O/Wt Last Vital Signs Temp 98.1 F 05/19/20 07:35 Pulse 82 05/19/20 07:35 Resp 20 H 05/19/20 07:35 BP 163/73 05/19/20 07:35 Pulse Ox 95 05/19/20 07:35 05/18/20 05/19/20 05/19/20 22:59 06:59 14:59 Intake Total 287 / 697 50 / 747 Output Total 550 / 1150 Balance -263 / -453 50 / -403 Physical Exam Narrative: EXAM NARRATIVE: GEN: Awake, alert and oriented, no acute distress CVS: S1S2 N RS: CTA B/L Abd: Soft, nt/nd , bs+ CHILD CARE GROUP LEADER: no focal neuro deficits EXT: left knee swelling, mild erythema, tender to palpation Urinary Catheter Management^: Watts: Cath Placed During This Visit: yes, but has since been removed by the nurse Reason for Continuing Indwelling Catheter: Decision to DC Catheter Urinary Catheter Date of Insertion: 05/13/20 Urinary Catheter Time of Insertion: 13:00 Date Urinary Catheter Removed: 05/14/20 Time Urinary Catheter Discontinued: 06:00 Data : 05/19/20 02:30 05/19/20 02:30 Micro: Microbiology 05/19/20 08:54 Blood Culture - Preliminary Blood SPECIMEN COLLECTED 05/19/20 08:57 Blood Culture - Preliminary Blood SPECIMEN COLLECTED 05/14/20 08:41 Blood Culture - Final Blood NO GROWTH AFTER 5 DAYS 05/14/20 08:41 Blood Culture - Final Blood NO GROWTH AFTER 5 DAYS 05/13/20 13:20 Gram Stain - Final Knee - #1 Anaerobic Culture - Preliminary Wound Culture - Final Staphylococcus aureus 05/13/20 07:35 Anaerobic Culture - Preliminary Aspirate 05/12/20 23:25 Blood Culture - Final Blood Staphylococcus aureus 05/12/20 23:20 Blood Culture - Final Blood Staphylococcus aureus A&P Assessment and plan (1) Staphylococcus aureus bacteremia: Status: Acute (2) Infection of total left knee replacement: Status: Acute (3) Acute kidney injury: Status: Acute (4) Sepsis: Status: Acute Qualifiers: Sepsis type: sepsis due to unspecified organism Severe sepsis acute organ dysfunction type: unspecified Severe sepsis shock status: without septic shock (5) Status post total left knee replacement: Status: Acute (6) Hyperlipidemia: Status: Chronic Qualifiers: Hyperlipidemia type: unspecified Qualified Code(s): E78.5 - Hyperlipidemia, unspecified (7) Hypertension: Status: Chronic Qualifiers: Hypertension type: essential hypertension Qualified Code(s): I10 - Essential (primary) hypertension (8) Type 2 diabetes mellitus: Status: Chronic Qualifiers: Diabetes mellitus terminal worker insulin use: without terminal worker use Diabetes mellitus complication status: without complication Qualified Code(s): E11.9 - Type 2 diabetes mellitus without complications (9) Osteoarthritis of knees, bilateral: Status: Resolved Qualifiers: Osteoarthritis type: primary Qualified Code(s): M17.0 - Bilateral primary osteoarthritis of knee Additional A&P Information 74-year-old male with past medical history as outlined above status post recent left total knee replacement on April 27 presented currently with sepsis, joint pain swelling and inflammation and found to have MSSA bacteremia. Status post I&D of the infected joint with retention of hardware. #MSSA septicemia Source is most likely to be the infected knee joint Now status post debridement by orthopedics on 05/13. Purulent discharge was encountered in the OR. OR cx with MSSA Initially on treatment with Zosyn and vancomycin, now narrowed down to cefazolin 2 g IV every 8 hours after staph isolate identified as MSSA. Check blood cx given fever #Prosthetic joint infection Given early joint infection which is less than 1 months from surgery, attempts have been made to salvage the joint as far as possible. s/p debridement by orthopedics on 05/13. Start rifampin 300mg po BID Continue cefazolin 2 g IV every 8 hours as organism directed therapy for MSSA. Planned for pathogen-specific intravenous antimicrobial therapy in combination with rifampin 300 orally twice daily followed by rifampin plus a pasteurizer helper oral drug for a total of 3 months. Indefinite chronic oral antimicrobial suppression may follow the above regimen. baseline liver function WNL, check hepatitis screen Patient educated about side effects of Rifampin, incl but not limited to GI intolerance, hepatic dysfunction, orange discoloration of body fluids. While on above combination abx, he will need weekly CBC. CMP, ESR and CRP, please fax over to ID clinic for review. #Sepsis, resolved at this time. Continue IV antibiotics as above #Management of hypertension, hyperlipidemia, type 2 diabetes per admitting medicine team. Attestations Medical Necessity Statement*: PJI, need for iv abx, repeat blood cx, per admitting team Coding Level of Care Code Acute Pastry Supervisor for g Fwd Diagnoses Staphylococcus aureus bacteremia R78.81; B95.61 Infection of total left knee replacement T84.54XA Acute kidney injury N17.9 Sepsis A41.9 Sepsis type: sepsis due to unspecified organism Severe sepsis acute organ dysfunction type: unspecified Severe sepsis shock status: without septic shock Status post total left knee replacement Z96.652 Hyperlipidemia E78.5 Hyperlipidemia type: unspecified Hypertension I10 Hypertension type: essential hypertension Type 2 diabetes mellitus E11.9 Diabetes mellitus group home insulin use: without terminal worker use Diabetes mellitus complication status: without complication Osteoarthritis of knees, bilateral M17.0 Osteoarthritis type: primary
--- NOTE | 2020-05-18 14:19 | PM.PN ---
Subjective Subjective: Interval history: This morning patient was examined, his is at bedside, complaining of left lower extremity swelling, pain with ambulation, no fevers, no chills, no nausea, no vomiting Vitals/I&O/Wt Last Vital Signs Temp 97.6 F 05/18/20 12:00 Pulse 89 05/18/20 12:00 Resp 16 05/18/20 12:00 BP 104/70 05/18/20 12:00 Pulse Ox 92 05/18/20 12:00 05/17/20 05/18/20 05/18/20 22:59 06:59 14:59 Intake Total 820 / 1180 170 / 1350 360 / 360 Output Total 600 / 600 315 / 915 600 / 600 Balance 220 / 580 -145 / 435 -240 / -240 Physical Exam Const: COMMON NORMALS: no acute distress and patient oriented x3 GENERAL APPEARANCE: cooperative and comfortable HENMT: COMMON NORMALS: normocephalic HEAD & SCALP: normocephalic Eye: COMMON NORMALS: Equal, round and reactive pupils present, EOMs intact bilaterally and no papilledema GENERAL EYE: appearance normal, both eyes and all related structures PUPIL: Yes Equal, round and reactive pupils present DIRECT OPHTHALMOSCOPY: Yes no papilledema Neck/C-Spine: COMMON NORMALS: full ROM, no lymphadenopathy, no JVD and Thyroid normal THYROID: Thyroid normal Lymph: LYMPHATIC: no lymphadenopathy noted Resp: COMMON NORMALS: normal respiratory effort, No retractions, No use of accessory muscles and clear to auscultation bilaterally AUSCULTATION: clear to auscultation bilaterally Cardio: COMMON NORMALS: no JVD, regular rate, regular rhythm, S1 normal heart sound present, S2 normal heart sound present, No gallops present (Cardio), No clicks present (Cardio) and No murmurs present (Cardio) RATE: regular rate RHYTHM: regular rhythm HEART SOUNDS: S1 normal heart sound present and S2 normal heart sound present GI: COMMON NORMALS: Normal to inspection, nondistended, normoactive bowel sounds present, Soft to palpation, non-tender and No hepatosplenomegaly present PALPATION: Yes Soft to palpation and Yes No hepatosplenomegaly present Extremity: COMMON NORMALS: normal to inspection and full ROM NARRATIVE EXTREMITY EXAM: Left lower extremity, knee, sutures in place, clean and dry, minimal erythema, 1+ pitting edema throughout left lower extremity, has calf swelling Neuro: COMMON NORMALS: patient oriented x3, CN's II-XII intact bilaterally, moves all extremities and no focal motor deficits Psych: COMMON NORMALS: mental status grossly normal, Normal thought process present and cooperative THOUGHT PROCESS: Normal thought process present Urinary Catheter Management^: Watts: Cath Placed During This Visit: yes, but has since been removed by the nurse Reason for Continuing Indwelling Catheter: Decision to DC Catheter Urinary Catheter Date of Insertion: 05/13/20 Urinary Catheter Time of Insertion: 13:00 Date Urinary Catheter Removed: 05/14/20 Time Urinary Catheter Discontinued: 06:00 Data : 05/18/20 10:49 05/18/20 10:49 Micro: Microbiology 05/13/20 13:20 Gram Stain - Final Knee - #1 Anaerobic Culture - Preliminary Wound Culture - Final Staphylococcus aureus 05/13/20 07:35 Anaerobic Culture - Preliminary Aspirate 05/12/20 23:25 Blood Culture - Final Blood Staphylococcus aureus 05/12/20 23:20 Blood Culture - Final Blood Staphylococcus aureus A&P Assessment and plan (1) Staphylococcus aureus bacteremia: Status: Acute (2) Status post total left knee replacement: Status: Acute (3) Sepsis: Secondary to cellulitis and infected left total knee arthroplasty status post irrigation debridement Continue with broad-spectrum IV antibiotics Status: Acute Qualifiers: Sepsis type: sepsis due to unspecified organism Severe sepsis acute organ dysfunction type: unspecified Severe sepsis shock status: without septic shock (4) Acute kidney injury: Resolved Status: Acute (5) Infection of total left knee replacement: Status: Acute Additional A&P Information Sepsis: Infection of hardware of total knee replacement. Status post knee replacement 3 weeks ago. Staph bacteremia: Blood culture showing staph aureus from the day of admission. Repeat blood cultures have remained negative. Discussed with ID. Plan to change antibiotics to cefazolin which will be better coverage for MSSA. Patient would most likely need to follow-up with ID as an outpatient for chronic suppression as prosthesis has not been changed. PICC line to be placed tomorrow, 6 weeks of IV antibiotics, cefazolin Tramadol and [place] For left lower extremity swelling, Lasix 40 mg IV once, will order a left lower extremity ultrasound to rule out DVT, encourage ambulation, Hypertension: Blood pressures better now. Continue home dose of amlodipine, lisinopril, metoprolol. Goal blood pressure less than 140/90 allergy. Hyperlipidemia. Continue statin Type 2 diabetes. Sliding scale insulin as needed. Sugars well controlled. History of prostate cancer History of gout. Uric acid level at 5.7 Obesity Disposition planning: Plan for discharge to home with home health with 6 weeks of IV antibiotics Full code Heparin for DVT prophylaxis. As the kidney functions have resolved will increase the dose to 5000 every 8 hourly. Patient was mildly confused last night after pain medications. Will avoid narcotics. Tramadol and Tylenol for pain. Attestations Medical Necessity Statement*: Patient requires hospitalization for staph aureus bacteremia, with left knee septic joint Coding Level of Care Code Acute Loss Prevention Coordinator for [facility] Diagnoses Staphylococcus aureus bacteremia R78.81; B95.61 Status post total left knee replacement Z96.652 Sepsis A41.9 Sepsis type: sepsis due to unspecified organism Severe sepsis acute organ dysfunction type: unspecified Severe sepsis shock status: without septic shock Acute kidney injury N17.9 Infection of total left knee replacement T84.54XA
[2020-05-18 15:58] VITALS: BP 147/81; PULSE 80; RESP 17; TEMP 37; O2SAT 95
[2020-05-18 17:19] LABS: Glucose Point of Care 235 mg/dL (70-110)
--- NOTE | 2020-05-18 18:22 | PC.NURSE ---
SHIFT SUMMARY PATIENT HAS DONE BETTER TODAY. HE WAS ABLE TO WALK FARTHER AND BEND HIS KNEE MORE. MINIMAL DRAINAGE FROM INCISION SITE. PAIN MORE CONTROLLED TODAY. GOOD PO INTAKE AND URINE OUTPUT. PLAN IS FOR PICC PLACEMENT TOMORROW. NO COMPLAINTS AT THIS TIME.
[2020-05-18 19:45] VITALS: BP 160/85; PULSE 83; RESP 18; TEMP 38.2; O2SAT 96
[2020-05-18 20:24] LABS: Glucose Point of Care 193 mg/dL (70-110)
[2020-05-19] VITALS: BP 145/76; PULSE 80; RESP 20; TEMP 37.1; O2SAT 94
[2020-05-19] MEDS: heparin 5,000 unit/mL INJ 1 mL 5000 UNIT SUBCUT ×3 (01:19→17:43)
[2020-05-19] MEDS: TRAMadol 50 mg Tablet PO ×2 (01:20→09:39)
[2020-05-19 03:01] LABS: Basophils # 0.1 10^3/uL (0.0-0.1); Basophils % 0.5 %; Eosinophils # 0.2 10^3/uL (0.0-0.8); Eosinophils % 2.2 %; Hematocrit 30.4 % (42.0-52.0); Hemoglobin 9.6 g/dL (11.7-16.6); Lymphocytes # 1.4 10^3/uL (0.8-4.8); Lymphocytes % 13.7 %; Mean Corpuscular HGB Conc 31.6 g/dL (30.0-36.0); Mean Corpuscular Hemoglobin 28.7 pg (28.0-34.0); Mean Corpuscular Volume 90.7 fL (80-94); Mean Platelet Volume 10.2 fL (7.4-10.4); Monocytes # 0.9 10^3/uL (0.2-0.9); Monocytes % 8.4 %; Neutrophils # 7.11 10^3/uL (1.8-7.7); Nucleated Red Blood Cells % 0 %; Platelet Count 372 10^3/cmm (130-400); Red Blood Count 3.35 10^6/uL (4.1-5.3); Red Cell Distribution Width 14.3 % (12.1-15.1); White Blood Count 10.5 10^3/uL (4.0-10.0)
[2020-05-19 03:19] LABS: Alanine Aminotransferase 17 U/L (0-41); Alkaline Phosphatase 120 IU/L (40-130); Anion Gap 14.6 (5-19); Aspartate Amino Transferase 14 U/L (0-40); Blood Urea Nitrogen 14 mg/dL (8-23); Calcium 8.6 mg/dL (8.5-10.5); Carbon Dioxide 27 mmol/L (22-29); Chloride 102 mmol/L (98-107); Globulin 3.3 g/dL (1.3-4.6); Glucose 148 mg/dL (65-115); Magnesium 1.9 mg/dL (1.7-2.3); Osmolality Calculated 289 mOsm/kg (285-295); Phosphorus 3.3 mg/dL (2.5-4.5); Potassium 3.6 mmol/L (3.5-5.1); Sodium 140 mmol/L (136-145); Total Bilirubin 0.2 mg/dL (0.15-1.2); Total Protein 6.3 g/dL (6.6-8.7)
[2020-05-19 03:55] LABS: Slide Review Slide Review Perform
[2020-05-19 04:00] VITALS: BP 145/75; PULSE 81; RESP 18; TEMP 37; O2SAT 95
[2020-05-19 06:37] LABS: Glucose Point of Care 182 mg/dL (70-110)
[2020-05-19 07:35] VITALS: BP 163/73; PULSE 82; RESP 20; TEMP 36.7; O2SAT 95
[2020-05-19] MEDS: allopurinol 300 mg Tablet PO (07:52)
[2020-05-19] MEDS: lisinopril 20 mg Tablet 40 MG PO (07:52)
[2020-05-19] MEDS: atorvastatin 40 mg Tablet 20 MG PO (07:52)
[2020-05-19] MEDS: HYDROcodone-acetaminophen 5-325 mg Tablet 1 TAB PO (07:52)
[2020-05-19] MEDS: iron polysaccharide complex 150 mg Capsule PO ×2 (07:52→17:44)
[2020-05-19] MEDS: cholecalciferol (vitamin D3) 1,000 unit Tablet 1000 UNIT PO (07:53)
[2020-05-19] MEDS: pantoprazole DR 40 mg Tablet PO (07:53)
[2020-05-19] MEDS: multivitamin therapeutic Tablet 1 TAB PO (07:53)
[2020-05-19] MEDS: calcium carbonate 500 mg Chew Tablet 1000 MG PO ×2 (07:53→17:44)
[2020-05-19] MEDS: amlodipine 10 mg Tablet PO (07:53)
[2020-05-19] MEDS: metoprolol succinate ER (24 HR) 100 mg Tablet PO (07:53)
[2020-05-19] MEDS: sennosides-docusate Tablet 2 TAB PO ×2 (07:53→17:43)
[2020-05-19] MEDS: chlorhexidine gluconate 0.12% Btl 473 mL 30 ML MUCOUS MEM ×4 (07:54→21:42)
[2020-05-19] MEDS: spironolactone 25 mg Tablet PO (09:00)
[2020-05-19] MEDS: rifAMPin 300 mg Capsule PO ×2 (09:00→17:43)
[2020-05-19 10:02] LABS: Hepatitis A Antibody IgM Non-Reactive (Nonreactive); Hepatitis B Core AB, Total Non-Reactive (Nonreactive); Hepatitis B Surface AB 3.5 (0-8.5); Hepatitis B Surface Antigen Non-Reactive (Nonreactive); Hepatitis C Virus Antibody Non-Reactive (Nonreactive)
--- NOTE | 2020-05-19 10:05 | XR_ITS ---
WS: [id number] CHEST XRAY TECHNIQUE: Portable chest. CLINICAL INFORMATION: verify PICC placement COMPARISON: May 14, 2020 FINDINGS: Right PICC with tip in distal SVC Heart: Stable cardiomegaly Lungs: Lungs are clear. No consolidation or pleural effusion. Bones: Normal visualized bony structures. XR/XR chest 1V portable [id number] IMPRESSION: Right PICC with tip in distal SVC
[2020-05-19 11:21] LABS: Glucose Point of Care 195 mg/dL (70-110)
--- NOTE | 2020-05-19 11:47 | P.PN_ITS ---
Subjective Subjective: Interval history: c/o pain over left knee, however appears to be improving overall. Some swelling noted at joint without pus. Tmax 99.3, WBC count continues to be stable at ~11. 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 EXT: left knee joint with overlying sutures, some erythema, no gross pus drainage or discharge Urinary Catheter Management^: Watts: Cath Placed During This Visit: yes, but has since been removed by the nurse Reason for Continuing Indwelling Catheter: Decision to DC Catheter Urinary Catheter Date of Insertion: 05/13/20 Urinary Catheter Time of Insertion: 13:00 Date Urinary Catheter Removed: 05/14/20 Time Urinary Catheter Discontinued: 06:00 Data : 05/19/20 02:30 05/19/20 02:30 Micro: Microbiology 05/19/20 08:54 Blood Culture - Preliminary Blood SPECIMEN COLLECTED 05/19/20 08:57 Blood Culture - Preliminary Blood SPECIMEN COLLECTED 05/14/20 08:41 Blood Culture - Final Blood NO GROWTH AFTER 5 DAYS 05/14/20 08:41 Blood Culture - Final Blood NO GROWTH AFTER 5 DAYS 05/13/20 13:20 Gram Stain - Final Knee - #1 Anaerobic Culture - Preliminary Wound Culture - Final Staphylococcus aureus 05/13/20 07:35 Anaerobic Culture - Preliminary Aspirate 05/12/20 23:25 Blood Culture - Final Blood Staphylococcus aureus 05/12/20 23:20 Blood Culture - Final Blood Staphylococcus aureus A&P Assessment and plan (1) Staphylococcus aureus bacteremia: Status: Acute (2) Infection of total left knee replacement: Status: Acute (3) Acute kidney injury: Status: Acute (4) Sepsis: Status: Acute Qualifiers: Sepsis type: sepsis due to unspecified organism Severe sepsis acute organ dysfunction type: unspecified Severe sepsis shock status: without septic shock (5) Status post total left knee replacement: Status: Acute (6) Hyperlipidemia: Status: Chronic Qualifiers: Hyperlipidemia type: unspecified Qualified Code(s): E78.5 - Hyperlipidemia, unspecified (7) Hypertension: Status: Chronic Qualifiers: Hypertension type: essential hypertension Qualified Code(s): I10 - Essential (primary) hypertension (8) Type 2 diabetes mellitus: Status: Chronic Qualifiers: Diabetes mellitus fdc insulin use: without intermediate card tender use Diabetes mellitus complication status: without complication Qualified Code(s): E11.9 - Type 2 diabetes mellitus without complications (9) Osteoarthritis of knees, bilateral: Status: Resolved Qualifiers: Osteoarthritis type: primary Qualified Code(s): M17.0 - Bilateral primary osteoarthritis of knee Additional A&P Information 74-year-old male with past medical history as outlined above status post recent left total knee replacement on April 27 presented currently with sepsis, joint pain swelling and inflammation and found to have MSSA bacteremia. Status post I&D of the infected joint with retention of hardware. #MSSA septicemia Source is most likely to be the infected knee joint Now status post debridement by orthopedics. Purulent discharge was encountered in the OR. Initially on treatment with Zosyn and vancomycin, now narrowed down to cefazolin 2 g IV every 8 hours after staph isolate identified as MSSA. #Prosthetic joint infection Given early joint infection which is less than 1 months from surgery, attempts have been made to salvage the joint as far as possible. s/p debridement by orthopedics on 05/13. Continue cefazolin 2 g IV every 8 hours as organism directed therapy for MSSA. Planned for pathogen-specific intravenous antimicrobial therapy in combination with rifampin 300 orally twice daily followed by rifampin plus a machine maintenance oral drug for a total of 3 months. Indefinite chronic oral antimicrobial suppression may follow the above regimen. It appears patient was on Eliquis for DVT ppx after 1st surgery on 04/27. If it is planned to continue DVT ppx with anticoagulants currently, will recommend avoiding Eliquis as it is contraindicated with Rifampin. baseline liver function WNL, check hepatitis screen #Sepsis, resolved at this time. Continue IV antibiotics as above #Management of hypertension, hyperlipidemia, type 2 diabetes per admitting medicine team. 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 [facility] Diagnoses Staphylococcus aureus bacteremia R78.81; B95.61 Infection of total left knee replacement T84.54XA Acute kidney injury N17.9 Sepsis A41.9 Sepsis type: sepsis due to unspecified organism Severe sepsis acute organ dysfunction type: unspecified Severe sepsis shock status: without septic shock Status post total left knee replacement Z96.652 Hyperlipidemia E78.5 Hyperlipidemia type: unspecified Hypertension I10 Hypertension type: essential hypertension Type 2 diabetes mellitus E11.9 Diabetes mellitus fdc insulin use: without fdc use Diabetes mellitus complication status: without complication Osteoarthritis of knees, bilateral M17.0 Osteoarthritis type: primary
[2020-05-19] MEDS: potassium chloride ER 10 mEq Tablet 40 MEQ PO (11:51)
[2020-05-19] MEDS: FUROsemide 10 mg/mL SDV 4mL 40 MG IVP (11:52)
[2020-05-19 12:00] VITALS: BP 121/70; PULSE 79; RESP 18; TEMP 36.8
--- NOTE | 2020-05-19 12:48 | PM.PN ---
Subjective Subjective: Interval history: Slow with therapy. Still some pain Vitals/I&O/Wt Last Vital Signs Temp 98.3 F 05/19/20 12:00 Pulse 79 05/19/20 12:00 Resp 18 05/19/20 12:00 BP 121/70 05/19/20 12:00 Pulse Ox 95 05/19/20 07:35 05/18/20 05/19/20 05/19/20 22:59 06:59 14:59 Intake Total 287 / 697 50 / 747 Output Total 550 / 1150 Balance -263 / -453 50 / -403 Physical Exam Narrative: EXAM NARRATIVE: Left knee with trace serous drainage inferiorly. Still some swelling knee, calf and thigh Urinary Catheter Management^: Watts: Cath Placed During This Visit: yes, but has since been removed by the nurse Reason for Continuing Indwelling Catheter: Decision to DC Catheter Urinary Catheter Date of Insertion: 05/13/20 Urinary Catheter Time of Insertion: 13:00 Date Urinary Catheter Removed: 05/14/20 Time Urinary Catheter Discontinued: 06:00 Data : 05/19/20 02:30 05/19/20 02:30 Micro: Microbiology 05/19/20 08:54 Blood Culture - Preliminary Blood SPECIMEN COLLECTED 05/19/20 08:57 Blood Culture - Preliminary Blood SPECIMEN COLLECTED 05/14/20 08:41 Blood Culture - Final Blood NO GROWTH AFTER 5 DAYS 05/14/20 08:41 Blood Culture - Final Blood NO GROWTH AFTER 5 DAYS 05/13/20 13:20 Gram Stain - Final Knee - #1 Anaerobic Culture - Preliminary Wound Culture - Final Staphylococcus aureus 05/13/20 07:35 Anaerobic Culture - Preliminary Aspirate 05/12/20 23:25 Blood Culture - Final Blood Staphylococcus aureus 05/12/20 23:20 Blood Culture - Final Blood Staphylococcus aureus A&P Assessment and plan (1) Infection of total left knee replacement: Plan for discharge with 6 weeks IV antibiotics. Will need home Physical therapy. 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
[2020-05-19] MEDS: acetaminophen 325 mg Tablet 650 MG PO (13:50)
[2020-05-19 17:08] LABS: Glucose Point of Care 287 mg/dL (70-110)
[2020-05-19 17:08] LABS: Glucose Point of Care 162 mg/dL (70-110)
--- NOTE | 2020-05-19 18:03 | P.PN_ITS ---
Subjective Subjective: Interval history: Overnight patient had a low-grade temperature 100.7, white blood cell count 10.5, patient's left knee is less erythematous, no significant warmth, no significant discharge from surgical site, continues to have pain with ambulation, generalized fatigue, feels like he is not ready to go home today Medications: Reviewed: Yes Vitals/I&O/Wt Last Vital Signs Temp 98.3 F 05/19/20 12:00 Pulse 79 05/19/20 12:00 Resp 18 05/19/20 12:00 BP 121/70 05/19/20 12:00 Pulse Ox 95 05/19/20 07:35 05/19/20 05/19/20 05/19/20 06:59 14:59 22:59 Intake Total 50 / 747 50 / 50 Balance 50 / -403 50 / 50 Physical Exam Const: COMMON NORMALS: no acute distress and patient oriented x3 GENERAL APPEARANCE: cooperative and comfortable HENMT: COMMON NORMALS: normocephalic HEAD & SCALP: normocephalic Neck/C-Spine: COMMON NORMALS: full ROM, no lymphadenopathy, no JVD and Thyroid normal THYROID: Thyroid normal Lymph: LYMPHATIC: no lymphadenopathy noted Resp: COMMON NORMALS: normal respiratory effort, No retractions, No use of accessory muscles and clear to auscultation bilaterally AUSCULTATION: clear to auscultation bilaterally Cardio: COMMON NORMALS: no JVD, regular rate, regular rhythm, S1 normal heart sound present, S2 normal heart sound present, No gallops present (Cardio), No clicks present (Cardio) and No murmurs present (Cardio) RATE: regular rate RHYTHM: regular rhythm HEART SOUNDS: S1 normal heart sound present and S2 normal heart sound present GI: COMMON NORMALS: Normal to inspection, nondistended, normoactive bowel sounds present, Soft to palpation, non-tender and No hepatosplenomegaly present PALPATION: Yes Soft to palpation and Yes No hepatosplenomegaly present Extremity: COMMON NORMALS: normal to inspection and full ROM NARRATIVE EXTREMITY EXAM: Left lower extremity, knee, sutures in place, clean and dry, minimal erythema, 1+ pitting edema throughout left lower extremity, has calf swelling Neuro: COMMON NORMALS: patient oriented x3 Urinary Catheter Management^: Watts: Cath Placed During This Visit: yes, but has since been removed by the nurse Reason for Continuing Indwelling Catheter: Decision to DC Catheter Urinary Catheter Date of Insertion: 05/13/20 Urinary Catheter Time of Insertion: 13:00 Date Urinary Catheter Removed: 05/14/20 Time Urinary Catheter Discontinued: 06:00 Data : 05/19/20 02:30 05/19/20 02:30 Micro: Microbiology 05/13/20 13:20 Gram Stain - Final Knee - #1 Anaerobic Culture - Preliminary Wound Culture - Final Staphylococcus aureus 05/13/20 07:35 Anaerobic Culture - Preliminary Aspirate 05/19/20 08:54 Blood Culture - Preliminary Blood SPECIMEN COLLECTED 05/19/20 08:57 Blood Culture - Preliminary Blood SPECIMEN COLLECTED 05/14/20 08:41 Blood Culture - Final Blood NO GROWTH AFTER 5 DAYS 05/14/20 08:41 Blood Culture - Final Blood NO GROWTH AFTER 5 DAYS A&P Assessment and plan (1) Staphylococcus aureus bacteremia: Status: Acute (2) Infection of total left knee replacement: Status: Acute (3) Acute kidney injury: Resolved Status: Acute (4) Sepsis: Secondary to cellulitis and infected left total knee arthroplasty status post irrigation debridement Continue with broad-spectrum IV antibiotics Status: Acute Qualifiers: Sepsis type: sepsis due to unspecified organism Severe sepsis acute organ dysfunction type: unspecified Severe sepsis shock status: without septic shock (5) Status post total left knee replacement: Status: Acute (6) Hyperlipidemia: Status: Chronic Qualifiers: Hyperlipidemia type: unspecified Qualified Code(s): E78.5 - Hyperlipidemia, unspecified (7) Hypertension: Status: Chronic Qualifiers: Hypertension type: essential hypertension Qualified Code(s): I10 - Essential (primary) hypertension (8) Type 2 diabetes mellitus: -Insulin sliding scale, Levemir 5 units at bedtime Status: Chronic Qualifiers: 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 use: without intermodal owner operator truck driver use Diabetes mellitus complication status: without complication Qualified Code(s): E11.9 - Type 2 diabetes mellitus without complications (9) Osteoarthritis of knees, bilateral: Status: Resolved Qualifiers: Osteoarthritis type: primary Qualified Code(s): M17.0 - Bilateral primary osteoarthritis of knee Additional A&P Information 74-year-old male with past medical history as outlined above status post recent left total knee replacement on April 27 presented currently with sepsis, joint pain swelling and inflammation and found to have MSSA bacteremia. Status post I&D of the infected joint with retention of hardware. #MSSA septicemia Source is most likely to be the infected knee joint Now status post debridement by orthopedics on 05/13. Purulent discharge was encountered in the OR. OR cx with MSSA Initially on treatment with Zosyn and vancomycin, now narrowed down to cefazolin 2 g IV every 8 hours after staph isolate identified as MSSA. PICC line successfully placed today Plan on cefazolin 2 g IV every 8 hours for 6 weeks, Rifampin 300 mg twice daily for 6 weeks Given low-grade temperature overnight, will redraw blood cultures, monitor for next 3 4 hours Likely discharge in the next 24 hours Left lower extremity swelling, ultrasound negative for DVT, likely dependent edema, will give Lasix 40 mg IV, encourage ambulation #Prosthetic joint infection Given early joint infection which is less than 1 months from surgery, attempts have been made to salvage the joint as far as possible. s/p debridement by orthopedics on 05/13. Continue cefazolin 2 g IV every 8 hours as organism directed therapy for MSSA. Planned for pathogen-specific intravenous antimicrobial therapy in combination with rifampin 300 orally twice daily Indefinite chronic oral antimicrobial suppression may follow the above regimen. Continue [place] every 6 hours as needed, and before physical therapy Attestations Medical Necessity Statement*: Patient requires hospitalization due to septicemia, with septic arthritis, likely discharge the next 24 hours Coding Level of Care Code Acute Quality Compliance Consultant for [facility] Diagnoses Staphylococcus aureus bacteremia R78.81; B95.61 Infection of total left knee replacement T84.54XA Acute kidney injury N17.9 Sepsis A41.9 Sepsis type: sepsis due to unspecified organism Severe sepsis acute organ dysfunction type: unspecified Severe sepsis shock status: without septic shock Status post total left knee replacement Z96.652 Hyperlipidemia E78.5 Hyperlipidemia type: unspecified Hypertension I10 Hypertension type: essential hypertension Type 2 diabetes mellitus E11.9 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
--- NOTE | 2020-05-19 18:15 | NUR.SHIFT ---
SHIFT SUMMARY PTS PAIN APPEARED TO BE OUT OF CONTROL AT THE START OF SHIFT. PAIN WAS NOT BEING CONTROLLED WITH HYDROCODONE AND PT SAID TYLENOL WAS ONLY GOOD FOR HIS FEVER LAST NIGHT. TRAMADOL WAS GIVEN AND PAIN SEEMED TO BE TOLERABLE. PT WAS UP TO THE CHAIR SEVERAL TIMES TODAY WITH THIS NURSE, ANOTHER NURSE, AND PHYSICAL THERAPY. TYLENOL WAS ADMINISTERED THIS AFTERNOON AND PAIN HAS BEEN UNDER CONTROL EVER SINCE. ICE PACKS WERE ALSO PLACED ON THE PTS KNEE AND PT TOLERATED THIS WELL. A PICC LINE WAS PLACED IN THE RIGHT ARM OF THIS PT AND HAS HAD CEFAZOLIN RUNNING THROUGH IT. PT TOLERATED THE INSERTION WELL AND NO TROUBLE WAS NOTED WHEN RUNNING THE ABX THROUGH THE PICC LINE. PT IS NOW RESTING IN BED WITH MINIMAL PAIN. PT HOPES TO GO HOME TOMORROW. CONTINUING TO MONITOR.
[2020-05-19 20:00] VITALS: BP 149/79; PULSE 84; RESP 24; TEMP 37.6; O2SAT 96
[2020-05-19 21:35] LABS: Glucose Point of Care 181 mg/dL (70-110)
[2020-05-19 23:42] VITALS: BP 160/80; PULSE 90; RESP 24; TEMP 37.6; O2SAT 94
[2020-05-20] MEDS: heparin 5,000 unit/mL INJ 1 mL 5000 UNIT SUBCUT ×2 (01:59→09:27)
[2020-05-20 02:50] LABS: Basophils # 0.1 10^3/uL (0.0-0.1); Basophils % 0.5 %; Eosinophils # 0.3 10^3/uL (0.0-0.8); Eosinophils % 3.1 %; Hematocrit 30.5 % (42.0-52.0); Hemoglobin 9.6 g/dL (11.7-16.6); Lymphocytes # 1.1 10^3/uL (0.8-4.8); Lymphocytes % 11.6 %; Mean Corpuscular HGB Conc 31.5 g/dL (30.0-36.0); Mean Corpuscular Hemoglobin 28.5 pg (28.0-34.0); Mean Corpuscular Volume 90.5 fL (80-94); Mean Platelet Volume 10.1 fL (7.4-10.4); Monocytes # 0.8 10^3/uL (0.2-0.9); Monocytes % 8.4 %; Neutrophils # 6.58 10^3/uL (1.8-7.7); Neutrophils % 70.3 %; Nucleated Red Blood Cells % 0 %; Platelet Count 400 10^3/cmm (130-400); Red Blood Count 3.37 10^6/uL (4.1-5.3); Red Cell Distribution Width 14.5 % (12.1-15.1); White Blood Count 9.4 10^3/uL (4.0-10.0)
[2020-05-20 03:07] LABS: Alanine Aminotransferase 6 U/L (0-41); Albumin Level 3.1 g/dL (3.5-5.2); Alkaline Phosphatase 95 IU/L (40-130); Anion Gap 14.8 (5-19); Aspartate Amino Transferase 12 U/L (0-40); Blood Urea Nitrogen 16 mg/dL (8-23); C Reactive Protein 137.7 mg/L (0.0-4.9); Carbon Dioxide 25 mmol/L (22-29); Chloride 102 mmol/L (98-107); Creatine Phosphokinase 18 U/L (39-308); Globulin 3.1 g/dL (1.3-4.6); Glucose 150 mg/dL (65-115); Magnesium 1.8 mg/dL (1.7-2.3); Osmolality Calculated 285 mOsm/kg (285-295); Phosphorus 2.9 mg/dL (2.5-4.5); Potassium 3.8 mmol/L (3.5-5.1); Sodium 138 mmol/L (136-145); Total Bilirubin 0.4 mg/dL (0.15-1.2); Total Protein 6.2 g/dL (6.6-8.7)
[2020-05-20 04:00] VITALS: BP 163/80; PULSE 94; RESP 20; TEMP 37.1; O2SAT 97
[2020-05-20 04:59] LABS: Slide Review Slide Review Perform
[2020-05-20 07:00] LABS: Glucose Point of Care 145 mg/dL (70-110)
[2020-05-20] MEDS: iron polysaccharide complex 150 mg Capsule PO (07:49)
[2020-05-20] MEDS: HYDROcodone-acetaminophen 5-325 mg Tablet 1 TAB PO (07:49)
[2020-05-20 07:55] VITALS: BP 168/84; PULSE 100; RESP 20; TEMP 37.3; O2SAT 95
[2020-05-20] MEDS: chlorhexidine gluconate 0.12% Btl 473 mL 30 ML MUCOUS MEM ×2 (09:00→13:46)
--- NOTE | 2020-05-20 09:10 | PC.SOCIAL ---
IMM Updated Page 2 of IMM updated and given to patient. Initialed, dated, and timed and placed back in chart.
[2020-05-20] MEDS: FUROsemide 10 mg/mL SDV 4mL 40 MG IVP (09:27)
[2020-05-20] MEDS: polyethylene glycol 3350 Pkt 17 gm PO (09:27)
[2020-05-20] MEDS: lisinopril 20 mg Tablet 40 MG PO (09:28)
[2020-05-20] MEDS: sennosides-docusate Tablet 2 TAB PO (09:28)
[2020-05-20] MEDS: atorvastatin 40 mg Tablet 20 MG PO (09:28)
[2020-05-20] MEDS: rifAMPin 300 mg Capsule PO (09:28)
[2020-05-20] MEDS: calcium carbonate 500 mg Chew Tablet 1000 MG PO (09:28)
[2020-05-20] MEDS: metoprolol succinate ER (24 HR) 100 mg Tablet PO (09:29)
[2020-05-20] MEDS: cholecalciferol (vitamin D3) 1,000 unit Tablet 1000 UNIT PO (09:29)
[2020-05-20] MEDS: multivitamin therapeutic Tablet 1 TAB PO (09:29)
[2020-05-20] MEDS: pantoprazole DR 40 mg Tablet PO (09:29)
[2020-05-20] MEDS: amlodipine 10 mg Tablet PO (09:29)
[2020-05-20] MEDS: spironolactone 25 mg Tablet PO (09:29)
[2020-05-20] MEDS: allopurinol 300 mg Tablet PO (09:29)
[2020-05-20 11:14] LABS: Glucose Point of Care 265 mg/dL (70-110)
[2020-05-20 11:33] VITALS: BP 150/79; PULSE 85; RESP 18; TEMP 36.8; O2SAT 94
--- NOTE | 2020-05-20 13:24 | USCV_ITS ---
Ludwig Malloy Age: 74 Gender: M : 1945 Exam Date: 05/20/2020 13:40 Ordering Phys: Rj Chanel MD Technologist: Taisha Moran Exam Location: [facility] [place] Indication: LT LEG PAIN AND SWELLING HISTORY: Lower extremity swelling. PROCEDURES: Venous duplex imaging was performed in only the left lower extremity. The following venous structures were evaluated: common femoral vein, profunda vein, proximal portion of the greater saphenous vein, superficial femoral vein, and the popliteal vein. In addition, the posterior tibial and peroneal trunk were evaluated. FINDINGS: Normal 2-D Doppler and augmentation and compressibility throughout the lower extremity venous structures. Additional imaging through the proximal calf veins also reveals no thrombus. Limited evaluation of the greater saphenous vein is patent with no thrombus.. The veins were found to be easily compressible with spontaneous blood flow. Non pulsatile flow pattern. CONCLUSIONS No evidence of venous thrombosis in the left lower extremity veins identified as above. Dr Saranya Hutchison MD FACC (Electronically Signed) Final Date: 21 May 2020 08:59 S
--- NOTE | 2020-05-20 14:57 | PM.DCS ---
Discharge Providers Date of Admission: 05/13/20 01:55 Date of Discharge: May 20, 2020 Attending Provider at Admission: Kush Castañeda MD Attending Provider at Discharge: Rj Chanel MD Primary Care Provider: LIZZETH Stoll Diagnoses at Discharge Discharge Diagnosis (1) Staphylococcus aureus bacteremia: Status: Acute (2) Infection of total left knee replacement: Status: Acute (3) Acute kidney injury: Status: Acute (4) Sepsis: Status: Acute Qualifiers: Sepsis type: sepsis due to unspecified organism Severe sepsis acute organ dysfunction type: unspecified Severe sepsis shock status: without septic shock (5) Status post total left knee replacement: Status: Acute (6) Hyperlipidemia: Status: Chronic Qualifiers: Hyperlipidemia type: unspecified Qualified Code(s): E78.5 - Hyperlipidemia, unspecified (7) Hypertension: Status: Chronic Qualifiers: Hypertension type: essential hypertension Qualified Code(s): I10 - Essential (primary) hypertension (8) Type 2 diabetes mellitus: Status: Chronic Qualifiers: Diabetes mellitus half-way insulin use: without half-way use Diabetes mellitus complication status: without complication Qualified Code(s): E11.9 - Type 2 diabetes mellitus without complications (9) Osteoarthritis of knees, bilateral: Status: Resolved Qualifiers: Osteoarthritis type: primary Qualified Code(s): M17.0 - Bilateral primary osteoarthritis of knee Reason for Visit Reason for Visit: dizzy/sob Hospital Course Discharge Summary: This is a 74-year-old male with a recent history of left knee replacement, who presents to [facility] due to fever, confusion, and increased swelling of left knee Patient was admitted to [facility] for sepsis and encephalopathy secondary to infection of total left knee replacement. Patient was admitted to [facility], started on broad-spectrum antibiotics, Dr. Yoder from orthopedics was consulted, status post irrigation and debridement of infected left total knee with tibial insert exchange. Blood cultures were positive for staph aureus, wound cultures positive for staph aureus, penicillin sensitive. Infectious disease was consulted, patient was transitioned to cefazolin and rifampin. Patient clinically improved, remained afebrile 48 hours prior to discharge, repeat blood culture so far have been remain unremarkable, on 05/18/2020 he did have a T-max of 100.7 however repeat blood cultures drawn on the eighth have remained unremarkable so far, and has been remained afebrile since then. Of note patient continues to have left knee pain, left knee pain with ambulation, needs aggressive physical therapy, needs daily physical therapy, pain control. -PICC line placed 05/19/2020 -Patient will be discharged on cefazolin 2 g every 8 hours for 6 weeks -Repeat CBC, CMP, ESR, CRP -Rifampin 300 mg twice daily for 6 weeks -Follow-up with infectious disease in 2 weeks - follow-up with Dr. Yoder in 2 weeks -Patient was encouraged to continue ambulation, continue range of motion movement of the left knee joint, if he does not he could develop significant fibrosis and muscle wasting -Patient was advised if he were to develop fevers, confusion, worsening left knee swelling come to the emergency room -Patients left calf remains swollen, 2 venous ultrasounds remain unremarkable for DVT, I have reviewed the last ultrasound with Dr. Aviles on 05/18/2020 and there is no significant evidence of DVT, just before discharge I have reordered a venous ultrasound, will follow-up results. I did give the patient Lasix 40 mg daily, he did diurese well, but left calf remained swollen, he remains 10 L positive, continue Lasix 40 mg daily. Physical Exam Const: COMMON NORMALS: no acute distress and patient oriented x3 HENMT: COMMON NORMALS: normocephalic HEAD & SCALP: normocephalic Neck/C-Spine: COMMON NORMALS: no JVD Resp: COMMON NORMALS: normal respiratory effort, No retractions, No use of accessory muscles and clear to auscultation bilaterally AUSCULTATION: clear to auscultation bilaterally Cardio: COMMON NORMALS: no JVD, regular rate, regular rhythm, S1 normal heart sound present and S2 normal heart sound present RATE: regular rate RHYTHM: regular rhythm HEART SOUNDS: S1 normal heart sound present and S2 normal heart sound present GI: COMMON NORMALS: Normal to inspection, nondistended, normoactive bowel sounds present, Soft to palpation, non-tender, No hepatosplenomegaly present, no masses and no bruits PALPATION: Yes Soft to palpation and Yes No hepatosplenomegaly present Extremity: COMMON NORMALS: capillary refill normal, no clubbing, cyanosis or edema, no calf tenderness and no pedal edema NARRATIVE EXTREMITY EXAM: Left lower extremity, knee, sutures in place, clean and dry, minimal erythema, 1+ pitting edema throughout left lower extremity, has calf swelling Neuro: COMMON NORMALS: patient oriented x3 Psych: COMMON NORMALS: mental status grossly normal Urinary Catheter Management^: Watts: Cath Placed During This Visit: yes, but has since been removed by the nurse Reason for Continuing Indwelling Catheter: Decision to DC Catheter Urinary Catheter Date of Insertion: 05/13/20 Urinary Catheter Time of Insertion: 13:00 Date Urinary Catheter Removed: 05/14/20 Time Urinary Catheter Discontinued: 06:00 Discharge Data Data Completed and Pending: Completed Studies During Hospitalization Category Date Time Status XR chest 1V zoë ble 53151 Routine Exams 05/19/20 10:05 Completed XR chest 1V zoë ble 03170 Urgent Exams 05/12/20 22:45 Completed XR chest 2V* 7104 6 Routine Exams 05/14/20 06:00 Completed XR knee LT 3V* 73 562 Stat Exams 05/12/20 23:22 Completed XR scapula RT 730 10 Routine Exams 05/14/20 10:08 Completed CV echo complete* 53079 Routine Ultrasound 05/14/20 16:00 [place] [address] Routin e Ultrasound 05/13/20 02:29 [place] [address] Routin e Ultrasound 05/18/20 10:11 Completed Pending at discharge Category Date Time Status Anaerobic Culture Routine Lab 05/13/20 07:35 Results Anaerobic Culture Stat Lab 05/13/20 13:20 Results Blood Culture Sta t Lab 05/19/20 08:54 Results Complete Blood Co unt w/Auto AM LABS Lab 05/21/20 04:00 Ordered Comprehensive Met abolic Panel AM LA BS Lab 05/21/20 04:00 Ordered Magnesium AM LABS Lab 05/21/20 04:00 Ordered Phosphorus AM LAB S Lab 05/21/20 04:00 Ordered Wound Culture and Gram Stain Stat Lab 05/13/20 13:20 [place] [address] Stat Ultrasound 05/20/20 13:24 Taken Labs from last 24 hours 05/20/20 05/20/20 05/20/20 10:45 06:27 02:16 WBC RBC Hgb Hct MCV MCH MCHC RDW Plt Count MPV Neut % (Auto) Lymph % (Auto) [place] % (Auto) Eos % (Auto) Baso % (Auto) Neut # (Auto) Lymph # (Auto) [place] # (Auto) Eos # (Auto) Baso # (Auto) Nucleated RBC % (a uto) Nucleated RBCs # Sodium Potassium Chloride Carbon Dioxide Anion Gap BUN Creatinine GFR Calculation Glucose POC Glucose 265 145 Calculated Osmolal ity Calcium Phosphorus Magnesium Total Bilirubin AST ALT Alkaline Phosphata se Creatine Kinase 18 L C-Reactive Protein 137.7 H Total Protein Albumin Globulin 05/20/20 05/20/20 05/19/20 02:16 02:16 19:49 WBC 9.4 RBC 3.37 L Hgb 9.6 L Hct 30.5 L MCV 90.5 MCH 28.5 MCHC 31.5 RDW 14.5 Plt Count 400 MPV 10.1 Neut % (Auto) 70.3 Lymph % (Auto) 11.6 [place] % (Auto) 8.4 Eos % (Auto) 3.1 Baso % (Auto) 0.5 Neut # (Auto) 6.58 Lymph # (Auto) 1.1 [place] # (Auto) 0.8 Eos # (Auto) 0.3 Baso # (Auto) 0.1 Nucleated RBC % (a uto) 0 Nucleated RBCs # 0.0 Sodium 138 Potassium 3.8 Chloride 102 Carbon Dioxide 25 Anion Gap 14.8 BUN 16 Creatinine 0.9 GFR Calculation Not Reportable Glucose 150 H POC Glucose 181 Calculated Osmolal ity 285 Calcium 8.0 L Phosphorus 2.9 Magnesium 1.8 Total Bilirubin 0.4 AST 12 ALT 6 Alkaline Phosphata se 95 Creatine Kinase C-Reactive Protein Total Protein 6.2 L Albumin 3.1 L Globulin 3.1 05/19/20 05/19/20 17:02 16:58 WBC RBC Hgb Hct MCV MCH MCHC RDW Plt Count MPV Neut % (Auto) Lymph % (Auto) [place] % (Auto) Eos % (Auto) Baso % (Auto) Neut # (Auto) Lymph # (Auto) [place] # (Auto) Eos # (Auto) Baso # (Auto) Nucleated RBC % (a uto) Nucleated RBCs # Sodium Potassium Chloride Carbon Dioxide Anion Gap BUN Creatinine GFR Calculation Glucose POC Glucose 287 162 Calculated Osmolal ity Calcium Phosphorus Magnesium Total Bilirubin AST ALT Alkaline Phosphata se Creatine Kinase C-Reactive Protein Total Protein Albumin Globulin Vitals: Last Vital Signs Temp 98.3 F 05/20/20 11:33 Pulse 85 05/20/20 11:33 Resp 18 05/20/20 11:33 BP 150/79 05/20/20 11:33 Pulse Ox 94 05/20/20 11:33 Discharge Plan Discharge Patient Disposition: Home Health Service Condition: Stable Prescriptions: New polyethylene glycol 3350 17 gram Powder In Packet 17 g PO DAILY 30 Days Qty: 30 RF: 0 hydrocodone-acetaminophen 5-325 mg Tablet 1 tab PO Q6H PRN (Reason: Moderate Pain) 7 Days Qty: 32 RF: 0 Ferrex 150 150 mg iron Capsule 150 mg PO BIDWM 30 Days Qty: 30 RF: 0 rifampin 300 mg Capsule 300 mg PO BID 42 Days Qty: 84 RF: 0 cholecalciferol (vitamin D3) 25 mcg (1,000 unit) Tablet 1,000 unit PO DAILY 30 Days Qty: 30 RF: 0 Thera 400 mcg Tablet 1 tab PO DAILY 30 Days Qty: 30 RF: 0 sennosides-docusate sodium 8.6-50 mg Tablet 2 tab PO BID 30 Days Qty: 120 RF: 0 spironolactone 25 mg Tablet 25 mg PO DAILY 30 Days Qty: 30 RF: 0 Levemir U-100 Insulin 100 unit/mL solution 8 unit SUBCUT QPM 30 Days Qty: 10 RF: 0 Novolog Flexpen U-100 Insulin 100 unit/mL (3 mL) insulin pen See Rx Instructions .ROUTE .COMPLEX Qty: 15 RF: 0 aspirin 81 mg tablet,delayed release (DR/EC) 81 mg PO DAILY 30 Days Qty: 30 RF: 0 cefazolin in dextrose (iso-os) 2 gram/50 mL Piggyback 2 g continuous IV infusion Q8H 42 Days Qty: 6300 RF: 0 chlorhexidine gluconate 0.12 % Mouthwash 30 ml mucous membrane QID PRN (Reason: mouth irritation) Qty: 118 RF: 0 Continued gabapentin 300 mg capsule 300 mg PO BID RF: 0 omeprazole 20 mg capsule,delayed release(DR/EC) 20 mg PO DAILY RF: 0 Trulicity 1.5 mg/0.5 mL pen injector 1.5 mg SUBCUT Q7D RF: 0 furosemide 40 mg tablet 40 mg PO DAILY RF: 0 montelukast 10 mg tablet 10 mg PO DAILY RF: 0 meloxicam 15 mg tablet 15 mg PO DAILY RF: 0 Hold Instructions: Resume on 05/13/20. metoprolol succinate 100 mg tablet extended release 24 hr 100 mg PO DAILY RF: 0 lisinopril 40 mg tablet 40 mg PO DAILY RF: 0 amlodipine 10 mg tablet 10 mg PO DAILY RF: 0 oxybutynin chloride 10 mg tablet extended release 24hr 10 mg PO DAILY RF: 0 simvastatin 40 mg tablet 40 mg PO DAILY RF: 0 allopurinol 300 mg tablet 300 mg PO DAILY RF: 0 celecoxib 200 mg Capsule 200 mg PO Q12H 15 Days Qty: 30 RF: 0 metformin 500 mg tablet 500 mg PO BID RF: 0 Discontinued Eliquis 5 mg Tablet 2.5 mg PO BID Qty: 20 RF: 0 oxycodone 5 mg tablet 5 mg PO Q4H PRN (Reason: Pain) RF: 0 Discharge Orders: Discharge Order (Routine); Ordered 05/20/20 Ordered By: Rj Escobar Ambulatory Orders: Complete Blood Count w/Auto (WEEKLY) Timeframe: 20200526 Location: Determined by Patient Ordered By: Rosalba Kathuria Complete Blood Count w/Auto (WEEKLY) Timeframe: 20200527 Location: Determined by Patient Ordered By: Rosalba Kathuria Complete Blood Count w/Auto (WEEKLY) Timeframe: 20200528 Location: Determined by Patient Ordered By: Rosalba Kathuria Complete Blood Count w/Auto (WEEKLY) Timeframe: 20200529 Location: Determined by Patient Ordered By: Rosalba Kathuria Complete Blood Count w/Auto (WEEKLY) Timeframe: 20200530 Location: Determined by Patient Ordered By: Rosalba Kathuria Complete Blood Count w/Auto (WEEKLY) Timeframe: 20200531 Location: Determined by Patient Ordered By: Rosalba Floodhuria Creatine Phosphokinase (WEEKLY) Timeframe: 20200526 Facility: [facility] - Location: Lab - Main Lab Ordered By: Rosalba Moratayaria Creatine Phosphokinase (WEEKLY) Timeframe: 20200527 Facility: [facility] - Location: Lab - Main Lab Ordered By: Rosalba Moratayaria Creatine Phosphokinase (WEEKLY) Timeframe: 20200528 Facility: [facility] - Location: Lab - Main Lab Ordered By: Rosalba Moratayarijonathan Creatine Phosphokinase (WEEKLY) Timeframe: 20200529 Facility: [facility] - Location: Lab - Main Lab Ordered By: Rosalba Moratayaria Creatine Phosphokinase (WEEKLY) Timeframe: 20200530 Facility: [facility] - Location: Lab - Main Lab Ordered By: Rosalba Kathuria Creatine Phosphokinase (WEEKLY) Timeframe: 20200531 Facility: [facility] - Location: Lab - Main Lab Ordered By: Rosalba Kathuria Comprehensive Metabolic Panel (WEEKLY) Timeframe: 20200526 Facility: [facility] - Location: Lab - Main Lab Ordered By: Rosalba Kathuria Comprehensive Metabolic Panel (WEEKLY) Timeframe: 20200527 Facility: [facility] - Location: Lab - Main Lab Ordered By: Rosalba Kathuria Comprehensive Metabolic Panel (WEEKLY) Timeframe: 20200528 Facility: [facility] - Location: Lab - Main Lab Ordered By: Rosalba Kathuria Comprehensive Metabolic Panel (WEEKLY) Timeframe: 20200529 Facility: [facility] - Location: Lab - Main Lab Ordered By: Rosalba Kathuria Comprehensive Metabolic Panel (WEEKLY) Timeframe: 20200530 Facility: [facility] - Location: Lab - Main Lab Ordered By: Rosalba Kathuria Comprehensive Metabolic Panel (WEEKLY) Timeframe: 20200531 Facility: [facility] - Location: Lab - Main Lab Ordered By: Rosalba Kathuria C Reactive Protein (WEEKLY) Timeframe: 20200526 Facility: [facility] - Location: Lab - Main Lab Ordered By: Rosalba Kathuria C Reactive Protein (WEEKLY) Timeframe: 20200527 Facility: [facility] - Location: Lab - Main Lab Ordered By: Rosalba Kathuria C Reactive Protein (WEEKLY) Timeframe: 20200528 Facility: [facility] - Location: Lab - Main Lab Ordered By: Rosalba Kathuria C Reactive Protein (WEEKLY) Timeframe: 20200529 Facility: [facility] - Location: Lab - Main Lab Ordered By: Rosalba Kathuria C Reactive Protein (WEEKLY) Timeframe: 20200530 Facility: [facility] - Location: Lab - Main Lab Ordered By: Rosalba Kathuria C Reactive Protein (WEEKLY) Timeframe: 20200531 Facility: [facility] - Location: Lab - Main Lab Ordered By: Rosalba Kathuria Erythrocyte Sedimentation Rate (WEEKLY) Timeframe: 20200526 Facility: [facility] - Location: Lab - Main Lab Ordered By: Rosalba Kathuria Erythrocyte Sedimentation Rate (WEEKLY) Timeframe: 20200527 Facility: [facility] - Location: Lab - Main Lab Ordered By: Rosalba Shell Erythrocyte Sedimentation Rate (WEEKLY) Timeframe: 20200528 Facility: [facility] - Location: Lab - Main Lab Ordered By: Rosalba Shell Erythrocyte Sedimentation Rate (WEEKLY) Timeframe: 20200529 Facility: [facility] - Location: Lab - Main Lab Ordered By: Rosalba Shell Erythrocyte Sedimentation Rate (WEEKLY) Timeframe: 20200530 Facility: [facility] - Location: Lab - Main Lab Ordered By: Rosalba Shell Erythrocyte Sedimentation Rate (WEEKLY) Timeframe: 20200531 Facility: [facility] - Location: Lab - Main Lab Ordered By: Rosalba Shell DME: [employer] (Order) Location: None Selected Ordered By: Bryson Horn Referrals: [facility] [Other] (This is the IV pharmacy that will be providing your IV medication. If you have any questions regarding delivery/etc., you may call them at the phone number provided.) [facility] [Outside] Rosalba Shell MD [Hospitalist] - 06/02/20 3:30 pm Luigi Yoder MD [Physician] - 06/03/20 10:30 am Discharge Diet: Cardiac Discharge Activity: Resume usual activity Activity Restrictions/Additional Instructions: Exercises per home health therapy Change dressing as needed with dry 4 x 4's Okay to shower -If you have fevers, chills, worsening left knee swelling come back to the emergency room -PICC line placed 05/19/2020 -Cefazolin 2 g every 8 hours, for 6 weeks -Rifampin 300 mg twice daily for 6 weeks -Repeat blood work as prescribed -Follow-up with Dr. Shell in 2 weeks -Follow-up with Dr. Yoder in 2 weeks -Please continue to ambulate well, Lasix for left lower extremity swelling -Continue [place] for pain, physical therapy -Aspirin 81 mg for DVT prophylaxis -For your blood sugars, check blood sugars 3 times daily -If blood sugar greater than 500 call primary care if blood sugar less than 60 drink or juice and call primary care -Inject Levemir 8 units at bedtime -Inject NovoLog sliding scale, based on blood sugars, with meals, do not inject NovoLog insulin if you do not eat -Bring blood sugar logs to her primary care physician's office in 1 week Discharge Attestations Time Spent in Discharge Care*: less than 30 min Quality Metrics Clinical Quality Measures During this hospital stay, did patient experience: None Coding Level of Care Code Acute Screen Door Maker for g Fwd Diagnoses Staphylococcus aureus bacteremia R78.81; B95.61 Infection of total left knee replacement T84.54XA Acute kidney injury N17.9 Sepsis A41.9 Sepsis type: sepsis due to unspecified organism Severe sepsis acute organ dysfunction type: unspecified Severe sepsis shock status: without septic shock Status post total left knee replacement Z96.652 Hyperlipidemia E78.5 Hyperlipidemia type: unspecified Hypertension I10 Hypertension type: essential hypertension Type 2 diabetes mellitus E11.9 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
[2020-05-20 15:25] VITALS: BP 163/82; PULSE 91; RESP 16; TEMP 36.9; O2SAT 95
[2020-05-20 16:46] VITALS: BP 163/82; PULSE 91; RESP 16; TEMP 36.9; O2SAT 95
== END 2020-05-20 16:46 | disposition home health service (06) | DRG 854 ==
LOC: ER 05-13 01:37 → MEDSURG 05-13 01:58
PROVIDERS: Emergency Medicine; Family Medicine; Orthopaedic Surgery; Student in an Organized Health Care Education/Training Program; Admitting Provider Internal Medicine; PCP Nurse Practitioner Family; Visit Provider Family Medicine
PROC: 0SPD09Z Removal of Liner from Left Knee Joint, Open Approach (ICD-10-PCS; principal; 2020-05-13 12:15)
PROC: 0SPD09Z Removal of Liner from Left Knee Joint, Open Approach (ICD-10-PCS; 2020-05-13 12:15)
DX: A41.9 Sepsis, unspecified organism (principal); T84.54XA Infection and inflammatory reaction due to internal left knee prosthesis, initial encounter; T81.44XA Sepsis following a procedure, initial encounter; L03.116 Cellulitis of left lower limb; N17.9 Acute kidney failure, unspecified; G93.40 Encephalopathy, unspecified; R65.20 Severe sepsis without septic shock; Y79.2 Prosthetic and other implants, materials and accessory orthopedic devices associated with adverse incidents; Z96.652 Presence of left artificial knee joint; W19.XXXA Unspecified fall, initial encounter; N32.0 Bladder-neck obstruction; N52.9 Male erectile dysfunction, unspecified; K21.9 Gastro-esophageal reflux disease without esophagitis; M10.9 Gout, unspecified; E78.5 Hyperlipidemia, unspecified; I10 Essential (primary) hypertension; N39.3 Stress incontinence (female) (male); Z85.46 Personal history of malignant neoplasm of prostate; Z92.3 Personal history of irradiation; E11.9 Type 2 diabetes mellitus without complications; Z90.79 Acquired absence of other genital organ(s); Z98.1 Arthrodesis status; E66.9 Obesity, unspecified; Z68.34 Body mass index [BMI] 34.0-34.9, adult; M79.89 Other specified soft tissue disorders; Z79.891 Long term (current) use of opiate analgesic; Z79.4 Long term (current) use of insulin; B95.61 Methicillin susceptible Staphylococcus aureus infection as the cause of diseases classified elsewhere
CPT/HCPCS: 12345; 36415; 36416; 36569; 51702; 51798; 71045; 71046; 73010; 73562; 80048; 80053; 81003; 82550; 82962; 83605; 83735; 84100; 84550; 85025; 85610; 85651; 86140; 86705; 86706; 86709; 86803; 87040; 87070; 87075; 87077; 87086; 87186; 87205; 87340; 87426; 93005; 93306; 93971; 96372; 96375; 97110; 97116; 97162; 97166; 97530; 97535; 99283; C1776; J0690; J0696; J1580; J1644; J1815; J1940; J2250; J2270; J2405; J2543; J2704; J3010; J3370; J3490; J7030; J7050

== ENCOUNTER 2020-05-26 15:40 | Outpatient (CLI) | payer OTHER, MEDICARE, SELFPAY ==
[2020-05-26 16:18] LABS: Basophils # 0.1 10^3/uL (0.0-0.1); Basophils % 0.7 %; Eosinophils # 0.3 10^3/uL (0.0-0.8); Eosinophils % 4.6 %; Hematocrit 30.5 % (42.0-52.0); Lymphocytes # 0.9 10^3/uL (0.8-4.8); Lymphocytes % 12.2 %; Mean Corpuscular HGB Conc 29.5 g/dL (30.0-36.0); Mean Corpuscular Hemoglobin 28.5 pg (28.0-34.0); Mean Corpuscular Volume 96.5 fL (80-94); Mean Platelet Volume 9.8 fL (7.4-10.4); Monocytes # 0.6 10^3/uL (0.2-0.9); Monocytes % 7.7 %; Neutrophils # 5.29 10^3/uL (1.8-7.7); Nucleated Red Blood Cells % 0 %; Platelet Count 402 10^3/cmm (130-400); Red Blood Count 3.16 10^6/uL (4.1-5.3); Red Cell Distribution Width 14.8 % (12.1-15.1); White Blood Count 7.2 10^3/uL (4.0-10.0)
[2020-05-26 17:43] LABS: Erythrocyte Sedimentation Rate 94 mm/hr (0-10)
[2020-05-26 18:10] LABS: Alanine Aminotransferase < 5 U/L (0-41); Albumin Level 3.2 g/dL (3.5-5.2); Alkaline Phosphatase 100 IU/L (40-130); Anion Gap 17.6 (5-19); Aspartate Amino Transferase 19 U/L (0-40); Blood Urea Nitrogen 9 mg/dL (8-23); C Reactive Protein 43.7 mg/L (0.0-4.9); Calcium 8.1 mg/dL (8.5-10.5); Carbon Dioxide 25 mmol/L (22-29); Chloride 97 mmol/L (98-107); Globulin 2.9 g/dL (1.3-4.6); Glucose 148 mg/dL (65-115); Osmolality Calculated 281 mOsm/kg (285-295); Potassium 3.6 mmol/L (3.5-5.1); Sodium 136 mmol/L (136-145); Total Bilirubin 0.2 mg/dL (0.15-1.2); Total Protein 6.1 g/dL (6.6-8.7)
== END 2020-05-26 15:41 | disposition home or self-care (01) ==
LOC: LAB 15:43
PROVIDERS: PCP Nurse Practitioner Family; Visit Provider Internal Medicine
DX: A49.01 Methicillin susceptible Staphylococcus aureus infection, unspecified site (principal)
CPT/HCPCS: 80053; 85025; 85651; 86140

== ENCOUNTER 2020-05-27 11:20 | Inpatient (IN) | payer OTHER, MEDICARE, SELFPAY ==
[2020-05-27] VITALS (38 sets, daily range): BP systolic 106–180; BP diastolic 75–94; PULSE 70–98; RESP 12–20; TEMP 36.6–37.8; O2SAT 90–100
--- NOTE | 2020-05-27 06:27 | ANES.PREANE2 ---
Pre-Anesthetic Assessment Pre-Anesthetic Assessment: Height/Weight: Height 1.73 m Weight 99.79 kg Preop Diagnosis: Infection left total Proposed Procedure: Operation Date: 05/27/20 07:20 Proposed Procedures p Debridement left knee And Irrigation, infected left total knee arthroplasty /65921/83030/z48.89(Left) - Luigi Yoder MD Familial anesthetic complications: None Was Beta Blayne taken within 24 hours: Yes Last intake: npo > 8 hrs Social: Social History: No alcohol and No tobacco Airway: Cervical ROM: WNL MP: 2 Dentition: False and Partials Additional comments: large neck and tongue Pulmonary: Pulmonary: Sleep apnea Comments: nasal septoplasty CV/HEM: CV/HEM: HTN Metabolic: Metabolic: DM and Hyperlipidemia Musc/skel: Musc/skel: OA/DJD Anesthetic Plan: ASA status: 2 Anesthesia: General Risk of > 500 ml blood loss (7ml/kg in children): No PFSH Anesthesia PFSH: Medical History Bladder neck stricture Erectile dysfunction GERD (gastroesophageal reflux disease) Gout Gross hematuria Hyperlipidemia Hypertension Male urinary stress incontinence Osteoarthritis of knees, bilateral Personal history of malignant neoplasm of prostate treated with radiation in 2010 Type 2 diabetes mellitus Surgical History H/O nasal septoplasty H/O prostatectomy History of appendectomy History of carpal tunnel surgery BILATERAL History of lumbar laminectomy History of sinus surgery Family History Family/Other Cancer Lung disease Hypertension CAD (coronary artery disease) Stroke Denies family history of Diabetes Social History Smoking and tobacco status: never smoked Alcohol intake: never Adopted: No Caregiver/support person: No Lives independently: No Household members: spouse Marital status: Current occupational status: retired History of recent travel: Yes (lives in [facility]) Data Anesthesia Cardiac Studies: No Data to Display
--- NOTE | 2020-05-27 06:46 | W.PM.OPSUD ---
Surgery/Procedure H&P Update DATE OF PROCEDURE: May 27, 2020 DATE H&P PERFORMED: 05/26/20 PREOP DIAGNOSIS: Infection left total PLANNED PROCEDURE: Operation Date: 05/27/20 07:20 Proposed Procedures p Debridement left knee And Irrigation, infected left total knee arthroplasty /70330/13342/z48.89(Left) - Luigi Yoder MD
--- NOTE | 2020-05-27 08:35 | SUR.OPER ---
Family Notified Of Patient's Status Via Phone.
[2020-05-27] MEDS: vancomycin 1,000 MG SDV 6000 MG XX (08:37)
[2020-05-27] MEDS: tranexamic acid 1,000 mg/10mL SDV 1000 MG IRRIGATION (08:37)
--- NOTE | 2020-05-27 08:50 | SUR.OPER ---
DR JOHNSON MADE ANTIBIOTIC BEADS USING TOBRAMYCIN CEMENT AND 6GM VANC POWDER. THEY ARE ATTACHED WITH ULRATAPE. THERE ARE A TOTAL OF 14 BEADS PLACED IN THE LEFT KNEE.
[2020-05-27] MEDS: fentaNYL 50 mcg/mL INJ 2mL IVP ×2 (09:34→10:55)
[2020-05-27] MEDS: morphine 4 mg/mL SDV 1 mL 2 MG IVP ×7 (09:47→22:53)
--- NOTE | 2020-05-27 10:11 | SUR.PHASEI ---
0927 PT TO PACU AWAKE ALERT RESTLESS, MOANING, LT KNEE DRESSING WITH BLEEDINGNOTED TO DRESSING, OR NURSE AT BEDSIDE AND DR JOHNSON AT BEDSIDE, WILL REDRESS IN PACU AND PLACE KNEE IMMOBILIZER TECHS AT BEDSIDE DRESSING REDRESSED BY DR JOHNSON AND OR STAFF IN PACU. SOFT DRESSSING AND KIA WITH KNEE IMMOBILIZER IN PLACE DISTAL FOOT IS PINK WARM WITH STRONG REGULAR PULSE NOTED.. BERNABE CATHETER PLACED IN PACU, STATLOCK TO RT THIGH YELLOW URINE NOTED IN TUBING AND BAG., FOOT PUMP TO LT FOOT AND SCD TO RT LEG.
--- NOTE | 2020-05-27 10:22 | SUR.PHASEI ---
1022 PT NOW IN HOLDING, PT LIANE UPDATED PT MOVED TO OPS 10 HOLDING AREA AT BEDSIDE, PT NOW OUT OF PHASE 1 AND WAITING FOR FLOOR BED .
--- NOTE | 2020-05-27 10:42 | SUR.PHASEI ---
PT AWAKE ALERT NOW RATES PAIN TO LT KNEE AT 10 , ORDER PLACED TO PHARMACY TO GIVEN IN PACU HOLDING IS ORDERED IN DR SCHMIDT TRANSFER ORDERS.
[2020-05-27] MEDS: oxyCODONE 5 mg IR Tab/Cap 10 MG PO ×2 (10:50→16:55)
--- NOTE | 2020-05-27 11:10 | ANE.PACU2 ---
Inpatient post-anesthesia follow up: Airway intact: Yes Vital signs: Temperature 100.1 F Pulse Rate 86 Respiratory Rate 16 Blood Pressure 150/80 Pulse Oximetry 91 Oxygen Delivery Me thod Room Air Oxygen Flow Rate 8 Fraction of Inspir ed Oxygen Hydration adequate: Yes Nausea and vomiting: No Pain level: 7 Mental status: Baseline
--- NOTE | 2020-05-27 11:21 | SUR.PHASEI ---
PT STATES PAIN IS BETTER BUT STILL THERE, PT SLEEPS IF NOT DISTURBED PT ROOM READY REPORT CALLED TO FLOOR NURSE.
--- NOTE | 2020-05-27 11:47 | SUR.PHASEI ---
1135 PT TO FLOOR ASSISTED WITH TRANSFER PT SLID TO BED WITH ASSIST OF 3 NURSES DRESSING TO LT KNEE D/I BERNABE PATENT OF YELLOW URINE NOT EMPTED IN PACU.APPROX 100ML IN BAG. HANDOFF WITH FLOOR NURSE AT BEDSIDE. VSS
[2020-05-27] MEDS: acetaminophen 325 mg Tablet 650 MG PO ×2 (14:26→22:50)
--- NOTE | 2020-05-27 15:15 | PM.OP ---
Operative Report Date of procedure: May 27, 2020 Pre-op Diagnosis: Infection left total knee incision, possible deep infection Post-op Diagnosis: Deep infection left total knee arthroplasty Post-op Findings: Patient had purulent cloudy fluid within the left knee joint draining from his inferior incision Procedure Done: Removal infected left total knee arthroplasty and placement antibiotic spacer Implants: Anabiotic spacers consisting of tobramycin cement, 2 bags, with 6 total additional grams of vancomycin added Pathology: Deep routine and anaerobic cultures were sent from the knee Anesthesia: General Estimated blood loss (mL): 50 Tourniquet time (min): 90 Findings: The patient was found to have purulent material about the components of his left knee draining through a sinus at the inferior portion of his incision. There was some mild necrosis of the medial rec Along the medial patellar tendon which was excised. Condition: stable Disposition: PACU Brief History: Mr. Malloy is a 74-year-old diabetic male who underwent elective left total knee arthroplasty on 04/27/2020 with a fairly unremarkable hospital course. He was seen in the clinic and stitches were removed but thereafter began developing fevers and drainage from his knee. He admitted to the hospital where a deep knee aspirate and wound cultures were obtained consistent with a septic left total knee. He was taken to the operating room on 05/13/2020 where he underwent aggressive irrigation and debridement. He was managed with IV cefazolin however he was seen in my clinic yesterday with a drainage from his inferior knee and complaints again of a low-grade fevers. He is taken to the operating room today for exploration of his medial wound and a suspected deep infection about his left total knee arthroplasty Procedure: The patient was taken to the operating room and given an additional 2 g of Ancef. He was positioned in the supine position with regard left thigh. Tourniquet was inflated 275 mmHg. Initially the inferior third of his incision was open. Fibronecrotic material deep in the wound extending down into the medial retinaculum along the medial patella was excised sharply with a scalpel blade. Probing of the wound revealed a communication with the knee joint after removal of the necrotic tissue cloudy purulent material was released from the knee joint. The incision was asked then extended proximally in the knee entered through a medial parapatellar approach revealing more cloudy and mucinous material within the knee joint. Initially using a osteotome the previously placed tibial insert was removed. That same osteotome could be used to separate the patella from the patellar component. Synovium was removed from the medial lateral aspect of the femoral component. Utilizing a metallic tamp on the anterior aspect of the component the femoral component was slowly elevated and removed with minimal bone loss of. Put finally the tibial component was circumferentially exposed and utilizing the insertion guide could be related free as a saw and osteotomes were placed between the implant interface and bone. Next a thoroughly aggressive debridement was accomplished of all questionable synovial tissues about the knee. 2 bags of tobramycin cement were mixed with 6 g of vancomycin. A spacer block was made between the tibia and femur. A small block was placed between the patella and superior retinaculum and the anterior femur. A string of 1614 cement beads were placed on ultra tape suture and passed from the medial to the lateral gutter. The retinaculum was loosely closed with 1 Ethibond. The skin was closed with interrupted 3-0 Prolene. A compressive dressing was applied and the tourniquet was deflated. The patient be taken back to the operating Monday for a second debridement and placement of an articulated diffuse knee with antibiotic cement as a reticulated spacer
[2020-05-27 15:28] LABS: Glucose Point of Care 143 mg/dL (70-110)
[2020-05-27 15:28] LABS: Glucose Point of Care 129 mg/dL (70-110)
--- NOTE | 2020-05-27 15:52 | P.CONIM_ITS ---
Providers/Reason For Consult Consulting Physican/Specialty*: Rosalba Shell MD /Infectious Disease Reason for Consult*: PJI Attending Physician: Luigi Yoder MD Primary Care Provider: LIZZETH Stoll History of Present Illness History of Present Illness Ludwig Malloy JR is a 74 year old male recently admitted to the hospital between 05/13-05/20 for sepsis, MSSA septicemia and prosthetic joint infection after a recent lft knee replacement approx 3 weeks [employer]ISSARY [employer]. For details please see consult note dated 05/17/20. He was discharged with 6 weeks of iv cefazolin as organism directed therapy and rifampin since hardware was retained at the time. He returned to see Dr. Yoder from orthopedics in follow up and was noted to still be having low grade fever and some persisting swelling around the joint. He is taken to the operating room today for exploration of his medial wound and a suspected deep infection about his left total knee arthroplasty. Intraoperatively probing of the wound revealed a communication with the knee joint after removal of the necrotic tissue, cloudy purulent material was released from the knee joint. all of the existing hardware has now been removed and he has a vancomycin impregnated spacer in place at this time with plan for a 2- stage exchange of hardware appoximately 6 weeks down the line. ID is consulted to assist with abx management Review of Systems General: Reports: 10 or more systems reviewed and unremarkable except in HPI and below Const: Denies: fever(s), chills or body aches Eyes: Denies: change in vision, blurry vision or photophobia ENMT: Reports: hoarseness; Denies: throat pain, enlarged tonsils, odynophagia or nasal congestion Card: Denies: chest pain, palpitations, irregular heart rhythm, edema, swelling of feet/ankles, lightheadedness, pre-syncope, dyspnea on exertion or orthopnea Resp: Denies: dyspnea, productive cough, non-productive cough, wheezing, stridor, pain on inspiration, change in phlegm color, hemoptysis or chest congestion GI: Denies: abdominal pain, nausea, vomiting, hematemesis, coffee ground emesis, dysphagia, heartburn, diarrhea, constipation, GI cramping, change in stool character, hematochezia or melena : Denies: flank pain, dysuria, urinary frequency, urinary urgency, urinary hesitancy or hematuria Musc: Denies: neck pain, back pain, extremity pain, joint swelling, joint warmth or deformity Neuro: Denies: headache(s), numbness in extremities, weakness in extremities, sensory changes, difficulty walking, frequent falls, dizziness, vertigo, behavioral changes, Slurred speech present or seizure-like activity Psych: Denies: anxiety, depression, suicidal ideation or homicidal ideation Endo: Denies: polyuria, polydipsia, tired all the time, cold intolerance or hot flashes George/Lymph: Denies: easy bruising or easy bleeding Meds/Allergies Home Medications and Allergies Home Medications Medication Instructions Recorded Confirmed Last Taken Type allopurinol 300 mg tablet 300 mg PO DAILY 10/04/19 05/27/20 05/26/20 08:00 History amlodipine 10 mg tablet 10 mg PO DAILY 10/04/19 05/27/20 05/26/20 08:00 History dulaglutide 1.5 mg/0.5 mL 1.5 mg SUBCUT Q7D 10/04/19 05/27/20 05/20/20 History subcutaneous pen injector furosemide 40 mg tablet 60 mg PO DAILY 10/04/19 05/27/20 05/26/20 08:00 History gabapentin 300 mg capsule 300 mg PO BID 10/04/19 05/27/20 05/26/20 08:00 History lisinopril 40 mg tablet 40 mg PO DAILY 10/04/19 05/27/20 05/27/20 05:00 History meloxicam 15 mg tablet 15 mg PO DAILY 10/04/19 05/27/20 05/26/20 08:00 History metoprolol succinate 100 mg 100 mg PO DAILY 10/04/19 05/27/20 05/27/20 05:00 History tablet,extended release 24 hr montelukast 10 mg tablet 10 mg PO DAILY 10/04/19 05/27/20 05/26/20 History omeprazole 20 mg capsule,delayed 20 mg PO DAILY 10/04/19 05/27/20 05/26/20 History release oxybutynin chloride 10 mg 10 mg PO DAILY 10/04/19 05/27/20 05/26/20 History tablet,extended release 24 hr simvastatin 40 mg tablet 40 mg PO DAILY 10/04/19 05/27/20 05/26/20 History cefazolin in dextrose (iso-os) 2 g CONTINUOUS IV INFUSION Q8H 42 05/20/20 05/27/20 05/26/20 21:30 Rx Days #6300 each chlorhexidine gluconate 30 ml MUCOUS MEMBRANE QID PRN #118 05/20/20 05/27/20 05/26/20 20:00 Rx ml cholecalciferol (vitamin D3) 1,000 unit PO DAILY 30 Days #30 tab 05/20/20 05/27/20 05/26/20 08:00 Rx insulin aspart U-100 [Novolog See Rx Instructions .ROUTE 05/20/20 05/26/20 Unknown Rx Flexpen U-100 Insulin] .COMPLEX #15 ml insulin detemir U-100 [Levemir 8 unit SUBCUT QPM 30 Days #10 ml 05/20/20 05/27/20 05/26/20 20:00 Rx U-100 Insulin] multivitamin with folic acid 1 tab PO DAILY 30 Days #30 tab 05/20/20 05/27/20 05/26/20 Rx [Thera] polyethylene glycol 3350 17 g PO DAILY 30 Days #30 each 05/20/20 05/27/20 Unknown Rx polysaccharide iron complex 150 mg PO BIDWM 30 Days #30 cap 05/20/20 05/27/20 05/26/20 Rx [Ferrex 150] rifampin 300 mg PO BID 42 Days #84 cap 05/20/20 05/27/20 05/26/20 Rx sennosides-docusate sodium 2 tab PO BID 30 Days #120 tab 05/20/20 05/27/20 Unknown Rx spironolactone 25 mg PO DAILY 30 Days #30 tab 05/20/20 05/27/20 05/26/20 Rx Allergies Allergy/AdvReac Type Severity Reaction Status Date / Time No Known Allergies Allergy Verified 05/27/20 06:34 Current Medications Current Medications Generic Name Dose Route Start Last Admin Trade Name Freq PRN Reason Stop Dose Admin Acetaminophen 650 mg 05/27/20 14:18 05/27/20 14:26 Tylenol PO 650 mg Q6H PRN Administration MILD PAIN Chlorhexidine Gluconate 30 ml 05/27/20 13:00 05/27/20 12:08 Perigard MUCOUS MEM Not Given QID AUDREY Cefazolin Sodium/Dextrose 2 gm in 50 mls @ 100 mls/hr 05/27/20 15:00 05/27/20 14:04 Kefzol IV 100 mls/hr Q8H AUDREY Administration Insulin Aspart 0 unit 05/27/20 12:00 05/27/20 12:08 Novolog SUBCUT Not Given WM&BEDTIME AUDREY Protocol Morphine Sulfate 2 mg 05/27/20 11:45 05/27/20 13:12 Morphine IVP 2 mg Q1H PRN Administration BREAKTHROUGH PAIN PFSH Acute 2 PFSH: Medical History Bladder neck stricture Erectile dysfunction GERD (gastroesophageal reflux disease) Gout Gross hematuria Hyperlipidemia Hypertension Male urinary stress incontinence Osteoarthritis of knees, bilateral Personal history of malignant neoplasm of prostate treated with radiation in 2010 Type 2 diabetes mellitus Surgical History H/O nasal septoplasty H/O prostatectomy History of appendectomy History of carpal tunnel surgery BILATERAL History of lumbar laminectomy History of sinus surgery Family History Family/Other Cancer Lung disease Hypertension CAD (coronary artery disease) Stroke Denies family history of Diabetes Social History Smoking and tobacco status: never smoked Alcohol intake: never Adopted: No Caregiver/support person: No Lives independently: No Household members: spouse Marital status: Current occupational status: retired History of recent travel: Yes (lives in [facility] [place]) Vitals/I&O/Wt Last Vital Signs Temp 100.1 F H 05/27/20 12:35 Pulse 86 05/27/20 14:46 Resp 16 05/27/20 14:46 BP 150/80 05/27/20 12:35 Pulse Ox 91 05/27/20 14:46 05/27/20 05/27/20 05/27/20 06:59 14:59 22:59 Intake Total 780 / 780 Output Total 200 / 200 Balance 580 / 580 Weight last 48 hrs Weight 99.79 kg Physical Exam Const: COMMON NORMALS: no acute distress, average body habitus, patient oriented x3, no limitations, healthy appearing, alert and well nourished HENMT: COMMON NORMALS: normocephalic and atraumatic HEAD & SCALP: normocephalic and atraumatic Eye: COMMON NORMALS: Equal, round and reactive pupils present, EOMs intact bilaterally, conjunctivae normal and no scleral icterus CONJUNCTIVA: Yes conjunctivae normal PUPIL: Yes Equal, round and reactive pupils present Neck/C-Spine: COMMON NORMALS: no JVD Resp: COMMON NORMALS: normal respiratory effort, No retractions, No use of accessory muscles, clear to auscultation bilaterally and percussion normal AUSCULTATION: clear to auscultation bilaterally PERCUSSION: percussion normal Cardio: COMMON NORMALS: no JVD, regular rate, regular rhythm, S1 normal heart sound present, S2 normal heart sound present, No gallops present (Cardio), No clicks present (Cardio), No murmurs present (Cardio), No rub (Cardio) and Peripheral pulses 2+ throughout RATE: regular rate RHYTHM: regular rhythm HEART SOUNDS: S1 normal heart sound present and S2 normal heart sound present PERIPHERAL PULSES: Peripheral pulses 2+ throughout GI: COMMON NORMALS: Normal to inspection, nondistended, normoactive bowel sounds present, Soft to palpation, non-tender, No hepatosplenomegaly present, no masses and no bruits PALPATION: Yes Soft to palpation and Yes No hepatosplenomegaly present Extremity: COMMON NORMALS: normal to inspection, full ROM, capillary refill normal, no joint enlargement, no clubbing, cyanosis or edema, no calf tenderness and no pedal edema Neuro: COMMON NORMALS: patient oriented x3, CN's II-XII intact bilaterally, moves all extremities, no focal motor deficits, no sensory deficits noted, deep tendon reflexes 2+ bilaterally and gait normal SENSORIUM/ORIENTATION: Yes alert Psych: COMMON NORMALS: mental status grossly normal, Normal thought process present, cooperative, normal affect, speech normal, activity/motor behavior normal, denies hallucinations, denies homicidal ideation and denies suicidal ideation SPEECH: Yes normal speech THOUGHT PROCESS: Normal thought process present Skin: COMMON NORMALS: no rashes or lesions noted, no wounds, turgor normal, no jaundice, no petechiae and no mottling GENERAL SKIN EXAM: no rashes or lesions noted and turgor normal Urinary Catheter Management^: F: Cath Placed During This Visit: yes Urinary Catheter Date of Insertion: 05/27/20 Urinary Catheter Time of Insertion: 07:25 Data Micro: Micro: Microbiology 05/27/20 08:00 Gram Stain - Final Knee - Left Other Data: Other data: 05/27: OR wound cx: rare WBC, no roganisms 05/14 and 05/19: Blood cx : no growth to date 05/12/20 23:20 Blood Culture - Pr eliminary Blood Staphylococcus aureus MSSA 05/12/20 23:25 Blood Culture - Pr eliminary Blood Staphylococcus aureus MSSA 05/13/20 07:35 Anaerobic Culture - Preliminary Aspirate 05/13/20 13:20 Gram Stain - Final Knee - #1 Anaerobic Culture - Preliminary Wound Culture - Fi nal Staphylococcus aureus MSSA A&P Assessment and plan (1) Infection of total left knee replacement: Status: Acute Qualifiers: Encounter type: subsequent encounter Qualified Code(s): T84.54XD - Infection and inflammatory reaction due to internal left knee prosthesis, subsequent encounter (2) Status post total left knee replacement: Status: Acute (3) Hyperlipidemia: Status: Chronic Qualifiers: Hyperlipidemia type: unspecified Qualified Code(s): E78.5 - Hyperlipidemia, unspecified (4) Hypertension: Status: Chronic Qualifiers: Hypertension type: essential hypertension Qualified Code(s): I10 - Essential (primary) hypertension (5) Type 2 diabetes mellitus: Status: Chronic Qualifiers: Diabetes mellitus correction insulin use: without terminal computer operator use Diabetes mellitus complication status: without complication Qualified Code(s): E11.9 - Type 2 diabetes mellitus without complications (6) Osteoarthritis of knees, bilateral: Status: Resolved Qualifiers: Osteoarthritis type: primary Qualified Code(s): M17.0 - Bilateral primary osteoarthritis of knee Additional A&P Information 74-year-old male with past medical history as outlined above status post recent left total knee replacement on April 27, then readmitted 05/13-/05/20 for sepsis, PJI of left knee and MSSA bacteremia. Status post I&D of the infected joint with retention of hardware on 05/13. Discharged on May 20 after clearance of bacteremia and improvement around the knee joint. Followed up in outpatient with orthopedics and found to have a remnant swelling around the knee joint, and purulent discharge. Taken back to the OR today and found to have sinus tract and communication with the hardware. He is now undergoing a two-stage exchange. All of his existing hardware has been removed today and a antibiotic impregnated spacer device has been placed with plan for reimplantation of hardware about 6 weeks down the line. 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 - Status post removal of all hardware today. - Continue cefazolin 2 g IV every 8 hours for organism directed therapy Over the next 6 weeks (05/27-07/08) - Culture from the OR today is with no organisms on Gram stain so far. Will await final culture results. -Rifampin can now be discontinued since existing hardware has all been removed. - Check blood cultures as recently patient had MSSA septicemia in association with the hardware infection. T-max today is noted to be at 100.1. We will continue to follow fever curve closely. Leukocytosis that was present on last admission remains resolved. Last ESR from 05/26 is at 94. Continue to monitor every 2 weeks. # Hypertension: Continue home dose of amlodipine, lisinopril, metoprolol. #Hyperlipidemia. Continue statin # Type 2 diabetes. Sliding scale insulin as needed. History of prostate cancer History of gout. Obesity Coding Level of Care Code Acute Graduate Assistant for [facility] F[facility] Diagnoses Infection of total left knee replacement T84.54XD Encounter type: subsequent encounter Status post total left knee replacement Z96.652 Hyperlipidemia E78.5 Hyperlipidemia type: unspecified Hypertension I10 Hypertension type: essential hypertension Type 2 diabetes mellitus E11.9 Diabetes mellitus correction insulin use: without terminal computer operator use Diabetes mellitus complication status: without complication Osteoarthritis of knees, bilateral M17.0 Osteoarthritis type: primary
[2020-05-27] MEDS: iron polysaccharide complex 150 mg Capsule PO (16:54)
[2020-05-27] MEDS: sennosides-docusate Tablet 2 TAB PO (16:54)
[2020-05-27] MEDS: gabapentin 300 mg Capsule PO (16:55)
[2020-05-27] MEDS: chlorhexidine gluconate 0.12% Btl 473 mL 30 ML MUCOUS MEM ×2 (16:55→21:28)
[2020-05-27 16:58] LABS: Glucose Point of Care 143 mg/dL (70-110)
[2020-05-27] MEDS: mupirocin oint 22 gm 1 APPLIC NASAL (17:07)
--- NOTE | 2020-05-27 17:41 | PC.NURSE ---
SHIFT SUMMARY PATIENT ARRIVED TO THE FLOOR FROM THE OR THIS MORNING AROUND 1130. PATIENT'S PAIN HAS BEEN CONTROLLED SINCE ARRIVING TO FLOOR. PATIENT WAS ABLE TO REST THIS AFTERNOON. SURGICAL DRESSING IS C/D/I. GOOD NEUROVASCULAR CHECKS. BP ELEVATED THIS EVENING. PAIN MEDICATIONS ADMINISTERED. PATIENT HAD A TEMP THIS AFTERNOON. THIS NURSE ADMINISTERED TYLENOL. CURRENTLY RESTING IN BED. NO COMPLAINTS AT THIS TIME.
[2020-05-27 20:54] LABS: Glucose Point of Care 167 mg/dL (70-110)
[2020-05-28] VITALS (17 sets, daily range): BP systolic 134–178; BP diastolic 69–80; PULSE 83–99; RESP 12–20; TEMP 36.9–38.5; O2SAT 93–97
[2020-05-28] MEDS: oxyCODONE 5 mg IR Tab/Cap 10 MG PO ×3 (00:31→11:34)
[2020-05-28] MEDS: morphine 4 mg/mL SDV 1 mL 2 MG IVP ×4 (02:22→15:44)
[2020-05-28 02:33] LABS: Basophils # 0.1 10^3/uL (0.0-0.1); Basophils % 0.6 %; Eosinophils # 0.2 10^3/uL (0.0-0.8); Eosinophils % 2.1 %; Hematocrit 28.2 % (42.0-52.0); Hemoglobin 8.4 g/dL (11.7-16.6); Lymphocytes # 1.1 10^3/uL (0.8-4.8); Lymphocytes % 12.2 %; Mean Corpuscular HGB Conc 29.8 g/dL (30.0-36.0); Mean Corpuscular Hemoglobin 28.3 pg (28.0-34.0); Mean Corpuscular Volume 94.9 fL (80-94); Mean Platelet Volume 9.4 fL (7.4-10.4); Monocytes # 1.1 10^3/uL (0.2-0.9); Monocytes % 12.4 %; Neutrophils # 6.14 10^3/uL (1.8-7.7); Neutrophils % 71.3 %; Nucleated Red Blood Cells % 0 %; Platelet Count 366 10^3/cmm (130-400); Red Blood Count 2.97 10^6/uL (4.1-5.3); White Blood Count 8.6 10^3/uL (4.0-10.0)
[2020-05-28 03:00] LABS: Anion Gap 13.2 (5-19); Blood Urea Nitrogen 8 mg/dL (8-23); Calcium 7.9 mg/dL (8.5-10.5); Carbon Dioxide 24 mmol/L (22-29); Chloride 102 mmol/L (98-107); Glucose 119 mg/dL (65-115); Osmolality Calculated 279 mOsm/kg (285-295); Potassium 4.2 mmol/L (3.5-5.1); Sodium 135 mmol/L (136-145)
--- NOTE | 2020-05-28 06:12 | PC.NURSE ---
SHIFT SUMMARY Has rested between pain meds tonight. Have alternated IV Morphine and po OXYIR. Bulky dressing/jennifer wrap/immobilizer to left leg. Good neurovascular checks through night. No bleeding noted. Good urine output via [place]. Had fever up to 101.3 during night. Brought down with po Tylenol and this am has been 99.7 & 99.4 with checks. Pt is voicing frustration with prolonged infection I wish Id never had anything done
[2020-05-28 06:55] LABS: Glucose Point of Care 131 mg/dL (70-110)
[2020-05-28] MEDS: acetaminophen 325 mg Tablet 650 MG PO ×2 (08:02→17:29)
[2020-05-28] MEDS: iron polysaccharide complex 150 mg Capsule PO ×2 (08:02→17:29)
--- NOTE | 2020-05-28 08:09 | ANE.PACU2 ---
Inpatient post-anesthesia follow up: Airway intact: Yes Vital signs: Temperature 99.4 F Pulse Rate 91 Respiratory Rate 18 Blood Pressure 177/79 Pulse Oximetry 96 Oxygen Delivery Me thod Room Air Oxygen Flow Rate 8 Fraction of Inspir ed Oxygen Hydration adequate: Yes Nausea and vomiting: No Pain level: 8 Mental status: Baseline Additional Comments: Will have surgery tomorrow and will do nerve block for pain
[2020-05-28] MEDS: sennosides-docusate Tablet 2 TAB PO ×2 (09:57→17:29)
[2020-05-28] MEDS: FUROsemide 40 mg Tablet 60 MG PO (09:58)
[2020-05-28] MEDS: gabapentin 300 mg Capsule PO ×2 (09:58→17:30)
[2020-05-28] MEDS: pantoprazole DR 40 mg Tablet PO (09:58)
[2020-05-28] MEDS: atorvastatin 40 mg Tablet 20 MG PO (09:59)
[2020-05-28] MEDS: metoprolol succinate ER (24 HR) 100 mg Tablet PO (09:59)
[2020-05-28] MEDS: multivitamin therapeutic Tablet 1 TAB PO (09:59)
[2020-05-28] MEDS: montelukast sodium 10 mg Tablet PO (09:59)
[2020-05-28] MEDS: amlodipine 10 mg Tablet PO (10:00)
[2020-05-28] MEDS: spironolactone 25 mg Tablet PO (10:00)
[2020-05-28] MEDS: lisinopril 20 mg Tablet 40 MG PO (10:00)
[2020-05-28] MEDS: allopurinol 300 mg Tablet PO (10:01)
[2020-05-28] MEDS: chlorhexidine gluconate 0.12% Btl 473 mL 30 ML MUCOUS MEM ×4 (10:01→21:37)
[2020-05-28] MEDS: cholecalciferol (vitamin D3) 1,000 unit Tablet 1000 UNIT PO (10:02)
[2020-05-28] MEDS: polyethylene glycol 3350 Pkt 17 gm PO (10:02)
[2020-05-28] MEDS: oxybutynin chloride XL 5 MG TABLET 10 MG PO (10:16)
[2020-05-28] MEDS: mupirocin oint 22 gm 1 APPLIC NASAL ×2 (10:16→17:31)
--- NOTE | 2020-05-28 11:56 | PM.PN ---
Subjective Subjective: Interval history: Pain better today. Tolerating oral intake Vitals/I&O/Wt Last Vital Signs Temp 99.3 F 05/28/20 08:00 Pulse 95 05/28/20 09:49 Resp 16 05/28/20 11:34 BP 156/78 05/28/20 08:00 Pulse Ox 94 05/28/20 09:47 05/27/20 05/28/20 05/28/20 22:59 06:59 14:59 Intake Total 120 / 950 290 / 1240 360 / 360 Output Total 550 / 750 900 / 1650 Balance -430 / 200 -610 / -410 360 / 360 Weight last 48 hrs Weight 220 lb Physical Exam Narrative: EXAM NARRATIVE: Left knee in immobilizer. Dressing clean and dry. Urinary Catheter Management^: F: Cath Placed During This Visit: yes Urinary Catheter Date of Insertion: 05/27/20 Urinary Catheter Time of Insertion: 07:25 Data : 05/28/20 02:05 05/28/20 02:05 Micro: Microbiology 05/27/20 08:00 Gram Stain - Final Knee - Left Anaerobic Culture - Preliminary 05/27/20 16:24 Blood Culture - Preliminary Blood SPECIMEN COLLECTED 05/27/20 16:20 Blood Culture - Preliminary Blood SPECIMEN COLLECTED A&P Assessment and plan (1) Infection of total left knee replacement: We will proceed with placement of articulating antibiotic spacers tomorrow. This typically will be a temporizing measure until infection is eradicated and we will put permanent implants in after completion of IV antibiotics and confirmation the infection is eradicated. I discussed this procedure with the patient and his . They understand the plan. They still no continued infection is a risk. Overall two-stage exchange such as this, however, carries a very high likelihood of success. We will proceed with surgery tomorrow as scheduled. Status: Acute Qualifiers: Encounter type: subsequent encounter Qualified Code(s): T84.54XD - Infection and inflammatory reaction due to internal left knee prosthesis, subsequent encounter Attestations Medical Necessity Statement*: Continue hospitalization for revision antibiotic spacers tomorrow. Coding Level of Care Code Acute Tactical Air Control Party for [facility] [employer] [facility] Diagnoses Infection of total left knee replacement T84.54XD Encounter type: subsequent encounter
[2020-05-28 13:07] LABS: Glucose Point of Care 169 mg/dL (70-110)
--- NOTE | 2020-05-28 15:04 | PC.CHAP ---
Pastoral Care Encounter/Spiritual Assessment Type of Contact [] Declined timber hand visit [] Patient/Family/Request visit [] Outpatient visit [] Follow-up visit [] Physician referral [] Code/Alert [] Routine visit [] Staff referral [] Actively dying [] Patient sleeping [] Family support [] [] Out of room [] Palliative care [] [] Receiving care in room [] Pre-surgical visit [] Trauma [] Long length of stay [] ICU visit [x] Other: Patient intubated Relational/Emotional Strength [] Patient feels connected with others/family/visitors/staff [] Distress [] Loneliness/isolation [] Abandonment Spirituality of Patient [] Person of Aleja [] Attends Hinduism of their Aleja [] Believes in Prayer [] Reads Bible or Cheondoism materials [] There are Spiritual issues to be addressed Admitting Representative Interventions [] Prayer [] Active listening [] Non-anxious presence [] Spiritual/emotional support [] Crisis/trauma care [] Spiritual counseling [] Bereavement support [] Provided bereavement packet [] Provided Bible/devotional materials [] Provided toy/stuffed animal, coloring book to patient or family member [] Provided Communion [] Anointing/[place] [] Salvation [] Completed spiritual assessment [] Other: Impact on Illness or Injury [] Angry [] Fearful [] Anxious [] Often cries [] Exhaustion [] Unable to work [] Unable to attend baptist [] Unable to walk/stand [] Unable to read [] Unable to drive [] Unable to eat/drink [] Unable to sleep [] Unable to be with family [x] Patient intubated [] Other: Summary Time spent with patient 5 mins
--- NOTE | 2020-05-28 17:07 | P.PN_ITS ---
Subjective Subjective: Interval history: Patient had some pain postoperatively but more comfortable after getting pain medication. Plan for revision of antibiotic spacers tomorrow. Continues to have fever up to 101F overnight. Plan to get back to the OR tomorrow for revision of spacers Medications: Reviewed: Yes Vitals/I&O/Wt Last Vital Signs Temp 100.0 F H 05/28/20 16:00 Pulse 91 05/28/20 16:00 Resp 17 05/28/20 16:00 BP 178/76 05/28/20 16:00 Pulse Ox 97 05/28/20 16:00 05/28/20 05/28/20 05/28/20 06:59 14:59 22:59 Intake Total 290 / 1240 650 / 650 Output Total 900 / 1650 1750 / 1750 Balance -610 / -410 650 / 650 -1750 / -1100 Weight last 48 hrs Weight 99.79 kg Physical Exam Narrative: EXAM NARRATIVE: GEN: Awake, alert and oriented, no acute distress CVS: S1S2 N RS: CTA B/L Abd: Soft, nt/nd , bs+ CLAY BURNER: no focal neuro deficits Urinary Catheter Management^: F: Cath Placed During This Visit: yes Urinary Catheter Date of Insertion: 05/27/20 Urinary Catheter Time of Insertion: 07:25 Data : 05/28/20 02:05 05/28/20 02:05 Micro: Microbiology 05/27/20 16:24 Blood Culture - Preliminary Blood NEGATIVE TO DATE 05/27/20 16:20 Blood Culture - Preliminary Blood NEGATIVE TO DATE 05/27/20 08:00 Gram Stain - Final Knee - Left Anaerobic Culture - Preliminary Wound Culture - Preliminary A&P Assessment and plan (1) Infection of total left knee replacement: Status: Acute Qualifiers: Encounter type: subsequent encounter Qualified Code(s): T84.54XD - Infection and inflammatory reaction due to internal left knee prosthesis, subsequent encounter (2) Status post total left knee replacement: Status: Acute (3) Hyperlipidemia: Status: Chronic Qualifiers: Hyperlipidemia type: unspecified Qualified Code(s): E78.5 - Hyperlipidemia, unspecified (4) Hypertension: Status: Chronic Qualifiers: Hypertension type: essential hypertension Qualified Code(s): I10 - Ess ential (primary) hypertension (5) Type 2 diabetes mellitus: Status: Chronic Qualifiers: Diabetes mellitus exterminator helper termite insulin use: without exterminator helper termite use Diabetes mellitus complication status: without complication Qualified Code(s): E11.9 - Type 2 diabetes mellitus without complications (6) Osteoarthritis of knees, bilateral: Status: Resolved Qualifiers: Osteoarthritis type: primary Qualified Code(s): M17.0 - Bilateral primary osteoarthritis of knee Additional A&P Information 74-year-old male status post recent left total knee replacement on April 27, then readmitted 05/13-/05/20 for sepsis, PJI of left knee and MSSA bacteremia. Status post I&D of the infected joint with retention of hardware on 05/13. Discharged on May 20 after clearance of bacteremia and improvement around the knee joint. Followed up in outpatient with orthopedics and found to have a remnant swelling around the knee joint, and purulent discharge along with fever. Taken back to the OR 05/27 and found to have sinus tract and communication with the hardware. He is now undergoing a two-stage exchange. All of his existing hardware has been removed today and a antibiotic impregnated spacer device has been placed with plan for reimplantation of definitive hardware about 6 weeks down the line. 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 - Status post removal of all existing hardware - Continue cefazolin 2 g IV every 8 hours for organism directed therapy Over the next 6 weeks (05/27-07/08) - Culture from the OR 05/27 is with no organisms on Gram stain so far. Will await final culture results. -Rifampin has been discontinued since existing hardware has all been removed. - Check blood cultures as recently patient had MSSA septicemia in association with the hardware infection. T-max still at 101F, We will continue to follow fever curve closely. Leukocytosis that was present on last admission remains resolved. Last ESR from 05/26 is at 94. Continue to monitor every 2 weeks. Check CXR Of note, patient has other hardware by way of R TKR and spinal hardware per history # Hypertension: Continue home dose of amlodipine, lisinopril, metoprolol. Added hydralazine prn for SBP >180 #Hyperlipidemia. Continue statin # Type 2 diabetes. Sliding scale insulin as needed. History of prostate cancer History of gout. Obesity Attestations Medical Necessity Statement*: PJI, planned for OR tomorrow, ongoing fever Coding Level of Care Code [facility] [employer] [employer] [facility] Diagn[facility] Infection of total left knee replacement T84.54XD Encounter type: subsequent encounter Status post total left knee replacement Z96.652 Hyperlipidemia E78.5 Hyperlipidemia type: unspecified Hypertension I10 Hypertension type: essential hypertension Type 2 diabetes mellitus E11.9 Diabetes mellitus fpc insulin use: without fpc use Diabetes mellitus complication status: without complication Osteoarthritis of knees, bilateral M17.0 Osteoarthritis type: primary
--- NOTE | 2020-05-28 17:09 | XRR_ITS ---
PROCEDURE INFORMATION: Exam: XR Chest, 1 View Exam date and time: 05/28/2020 5:24 PM Age: 74 years old Clinical indication: Condition or disease; Lung condition and disease; Pneumonia; Other: Not specified; Additional info: Evalute for pneumonia TECHNIQUE: Imaging protocol: XR of the chest Views: 1 view. COMPARISON: CR XR chest 1V portable [id number] 05/19/2020 10:33 AM FINDINGS: Tubes, catheters and devices: Central vascular catheter tip remains at the superior vena cava. Lungs: There is increased density and opacity in the retrocardiac left lower lung which could reflect summation of vasculature. Limited assessment for the presence of infiltrate not entirely excluded. Scattered small hyperdense nodules bilaterally suspicious for calcified granuloma. Pleural space: Minor blunting of the left costophrenic angle. Heart/Mediastinum: Stable heart size. Vasculature: Tortuous thoracic aorta. Bones/joints: Degenerative change of the spine. XR/XR chest 1V portable [id number] IMPRESSION: 1. Minor blunting left costophrenic angle reflecting pleural effusion or pleural thickening. 2. Opacity retrocardiac left lower lung is not excluded with predominant likely summation of vasculature.
[2020-05-28 18:14] LABS: Glucose Point of Care 166 mg/dL (70-110)
[2020-05-28 21:25] LABS: Glucose Point of Care 136 mg/dL (70-110)
[2020-05-29] VITALS (21 sets, daily range): BP systolic 117–162; BP diastolic 60–99; PULSE 83–114; RESP 12–24; TEMP 36.2–37.7; O2SAT 87–97
[2020-05-29 02:28] LABS: Basophils % 0.5 %; Eosinophils # 0.2 10^3/uL (0.0-0.8); Eosinophils % 2.1 %; Hematocrit 28.4 % (42.0-52.0); Hemoglobin 8.6 g/dL (11.7-16.6); Lymphocytes # 0.9 10^3/uL (0.8-4.8); Lymphocytes % 11.6 %; Mean Corpuscular HGB Conc 30.3 g/dL (30.0-36.0); Mean Corpuscular Hemoglobin 27.9 pg (28.0-34.0); Mean Corpuscular Volume 92.2 fL (80-94); Mean Platelet Volume 9.4 fL (7.4-10.4); Monocytes # 0.9 10^3/uL (0.2-0.9); Monocytes % 11.1 %; Neutrophils # 5.91 10^3/uL (1.8-7.7); Neutrophils % 72.9 %; Nucleated Red Blood Cells % 0 %; Platelet Count 375 10^3/cmm (130-400); Red Blood Count 3.08 10^6/uL (4.1-5.3); Red Cell Distribution Width 14.8 % (12.1-15.1); White Blood Count 8.1 10^3/uL (4.0-10.0)
[2020-05-29 03:16] LABS: Alanine Aminotransferase < 5 U/L (0-41); Albumin Level 2.8 g/dL (3.5-5.2); Alkaline Phosphatase 101 IU/L (40-130); Anion Gap 16.3 (5-19); Aspartate Amino Transferase 16 U/L (0-40); Blood Urea Nitrogen 10 mg/dL (8-23); Carbon Dioxide 25 mmol/L (22-29); Chloride 99 mmol/L (98-107); Creatinine Clr Calc Pharmacy 89.9511; Globulin 3.5 g/dL (1.3-4.6); Glucose 132 mg/dL (65-115); Osmolality Calculated 283 mOsm/kg (285-295); Potassium 4.3 mmol/L (3.5-5.1); Sodium 136 mmol/L (136-145); Total Bilirubin 0.2 mg/dL (0.15-1.2); Total Protein 6.3 g/dL (6.6-8.7)
[2020-05-29] MEDS: morphine 4 mg/mL SDV 1 mL 2 MG IVP ×3 (05:46→12:15)
--- NOTE | 2020-05-29 06:46 | P.ANESASSM_ITS ---
Pre-Anesthetic Assessment Pre-Anesthetic Assessment: Height/Weight: Height 1.73 m Weight 99.79 kg Temp Pulse Resp BP Pulse Ox 98.4 F 86 18 156/99 93 05/29/20 06:32 05/29/20 06:32 05/29/20 06:32 05/29/20 06:32 05/29/20 06:32 Preop Diagnosis: Infection left total knee incision, possible deep infection Proposed Procedure: Operation Date: 05/27/20 07:20 Proposed Procedures p Debridement left knee And Irrigation, infected left total knee arthroplasty /[id number]/z48.89(Left) - Luigi Yoder MD Operation Date: 05/29/20 07:00 Proposed Procedures p Total Knee Arthroplasty Revision(Left) - Luigi Yoder MD Familial anesthetic complications: None Was Beta Blayne taken within 24 hours: Yes Last intake: Intake Last Liquid Date 05/28/20 Last Liquid Time 23:00 Last Solid Date 05/28/20 Last Solid Time 19:00 Social: Social History: No alcohol and No tobacco Exam: Pre-Anes Outpt Exam: alert, oriented x 3, clear to auscultation bilaterally and regular rate & rhythm Airway: Cervical ROM: WNL MP: 2 Dentition: Partials Pulmonary: Pulmonary: Sleep apnea Comments: nasal septoplasty CV/HEM: CV/HEM: HTN Metabolic: Metabolic: DM and Hyperlipidemia Musc/skel: Musc/skel: OA/DJD Anesthetic Plan: ASA status: 2 Risk of > 500 ml blood loss (7ml/kg in child thalia): No Meds/Allergies Current Medications: Current Medications Generic Name Dose Route Start Last Admin Trade Name Bruce PRN Reason Stop Dose Admin Acetaminophen 650 mg 05/27/20 14:18 05/28/20 17:29 Tylenol PO 650 mg Q6H PRN Administration MILD PAIN Allopurinol 300 mg 05/28/20 09:00 05/28/20 10:01 Zyloprim PO 300 mg DAILY AUDREY Administration Amlodipine Besylat e 10 mg 05/28/20 09:00 05/28/20 10:00 Norvasc PO 10 mg DAILY AUDREY Administration Atorvastatin Calci um 20 mg 05/28/20 09:00 05/28/20 09:59 Lipitor PO 20 mg DAILY AUDREY Administration Chlorhexidine Gluc sandhya 30 ml 05/27/20 13:00 05/28/20 21:37 Perigard MUCOUS MEM 30 ml QID AUDREY Administration Furosemide 60 mg 05/28/20 09:00 05/28/20 09:58 Lasix PO 60 mg DAILY AUDREY Administration Gabapentin 300 mg 05/27/20 18:00 05/28/20 17:30 Neurontin PO 300 mg BID AUDREY Administration Cefazolin Sodium/D extrose 2 gm in 50 mls @ 100 mls/hr 05/27/20 15:00 05/28/20 22:53 Kefzol IV 100 mls/hr Q8H AUDREY Administration Insulin Aspart 0 unit 05/27/20 12:00 05/28/20 21:29 Novolog SUBCUT Not Given WM&BEDTIME AUDREY Protocol Insulin Detemir 8 unit 05/27/20 18:00 05/28/20 17:31 Levemir SUBCUT 8 unit QPM AUDREY Administration Lisinopril 40 mg 05/28/20 09:00 05/28/20 10:00 Prinivil PO 40 mg DAILY AUDREY Administration Metoprolol Succina te 100 mg 05/28/20 09:00 05/28/20 09:59 Toprol Xl PO 100 mg DAILY AUDREY Administration Montelukast Sodium 10 mg 05/28/20 09:00 05/28/20 09:59 Singulair PO 10 mg DAILY AUDREY Administration Morphine Sulfate 2 mg 05/27/20 11:45 05/29/20 05:46 Morphine IVP 2 mg Q1H PRN Administration BREAKTHROUGH PAIN Multivitamins Ther apeutic 1 tab 05/28/20 09:00 05/28/20 09:59 Multivitamin Tab PO 1 tab DAILY AUDREY Administration Mupirocin 1 applic 05/27/20 18:00 05/28/20 17:31 Bactroban NASAL 06/01/20 17:59 1 tub BID AUDREY Administration Protocol Oxybutynin Chlorid e 10 mg 05/28/20 09:00 05/28/20 10:16 Ditropan Xl PO 10 mg DAILY AUDREY Administration Oxycodone HCl 10 mg 05/27/20 14:30 05/28/20 11:34 Oxycodone Ir PO 10 mg Q4H PRN Administration SEVERE PAIN Pantoprazole Sodiu m 40 mg 05/28/20 09:00 05/28/20 09:58 Protonix PO 40 mg DAILY AUDREY Administration Polyethylene Glyco l 17 gm 05/28/20 09:00 05/28/20 10:02 Miralax PO 17 gm DAILY AUDREY Administration Polysaccharide Iro n Complex 150 mg 05/27/20 18:00 05/28/20 17:29 Ferrex PO 150 mg BIDWM AUDREY Administration Senna/Docusate Sod ium 2 tab 05/27/20 18:00 05/28/20 17:29 Senna-S PO 2 tab BID AUDREY Administration Spironolactone 25 mg 05/28/20 09:00 05/28/20 10:00 Aldactone PO 25 mg DAILY AUDREY Administration Vitamin D 1,000 unit 05/28/20 09:00 05/28/20 10:02 Vitamin D3 PO 1,000 unit DAILY AUDREY Administration PFSH Anesthesia PFSH: Medical History Bladder neck stricture Erectile dysfunction GERD (gastroesophageal reflux disease) Gout Gross hematuria Hyperlipidemia Hypertension Male urinary stress incontinence Osteoarthritis of knees, bilateral Personal history of malignant neoplasm of prostate treated with radiation in 2010 Type 2 diabetes mellitus Surgical History H/O nasal septoplasty H/O prostatectomy History of appendectomy History of carpal tunnel surgery BILATERAL History of lumbar laminectomy History of sinus surgery Family History Family/Other Cancer Lung disease Hypertension CAD (coronary artery disease) Stroke Denies family history of Diabetes Social History Smoking and tobacco status: never smoked Alcohol intake: never Adopted: No Caregiver/support person: No Lives independently: No Household members: spouse Marital status: Current occupational status: retired History of recent travel: Yes (lives in [facility]) Data Anesthesia CBC & Chem 7: 05/29/20 01:40 05/29/20 01:40 Other Labs: Laboratory Results - last 48 hr 05/27/20 05/27/20 05/27/20 06:52 09:33 16:39 WBC RBC Hgb Hct MCV MCH MCHC RDW Plt Count MPV Neut % (Auto) Lymph % (Auto) [place] % (Auto) Eos % (Auto) Baso % (Auto) Neut # (Auto) Lymph # (Auto) [place] # (Auto) Eos # (Auto) Baso # (Auto) Nucleated RBC % (auto) Nucleated RBCs # Sodium Potassium Chloride Carbon Dioxide Anion Gap BUN Creatinine GFR Calculation Glucose POC Glucose 129 143 143 Calculated Osmolality Calcium Total Bilirubin AST ALT Alkaline Phosphatase Total Protein Albumin Globulin Blood Type Rho(D) Type Antibody Screen 05/27/20 05/28/20 05/28/20 20:43 02:05 02:05 WBC 8.6 RBC 2.97 L Hgb 8.4 L Hct 28.2 L MCV 94.9 H MCH 28.3 MCHC 29.8 L RDW 15.0 Plt Count 366 MPV 9.4 Neut % (Auto) 71.3 Lymph % (Auto) 12.2 [place] % (Auto) 12.4 Eos % (Auto) 2.1 Baso % (Auto) 0.6 Neut # (Auto) 6.14 Lymph # (Auto) 1.1 [place] # (Auto) 1.1 H Eos # (Auto) 0.2 Baso # (Auto) 0.1 Nucleated RBC % (auto) 0 Nucleated RBCs # 0.0 Sodium 135 L Potassium 4.2 Chloride 102 Carbon Dioxide 24 Anion Gap 13.2 BUN 8 Creatinine 0.9 GFR Calculation Not Reportable Glucose 119 H POC Glucose 167 Calculated Osmolality 279 L Calcium 7.9 L Total Bilirubin AST ALT Alkaline Phosphatase Total Protein Albumin Globulin Blood Type Rho(D) Type Antibody Screen 05/28/20 05/28/20 05/28/20 06:47 10:30 12:33 WBC RBC Hgb Hct MCV MCH MCHC RDW Plt Count MPV Neut % (Auto) Lymph % (Auto) [place] % (Auto) Eos % (Auto) Baso % (Auto) Neut # (Auto) Lymph # (Auto) [place] # (Auto) Eos # (Auto) Baso # (Auto) Nucleated RBC % (auto) Nucleated RBCs # Sodium Potassium Chloride Carbon Dioxide Anion Gap BUN Creatinine GFR Calculation Glucose POC Glucose 131 169 Calculated Osmolality Calcium Total Bilirubin AST ALT Alkaline Phosphatase Total Protein Albumin Globulin Blood Type A Positive Rho(D) Type Positive Antibody Screen Negative 05/28/20 05/28/20 05/29/20 16:52 21:15 01:40 WBC 8.1 RBC 3.08 L Hgb 8.6 L Hct 28.4 L MCV 92.2 MCH 27.9 L MCHC 30.3 RDW 14.8 Plt Count 375 MPV 9.4 Neut % (Auto) 72.9 Lymph % (Auto) 11.6 [place] % (Auto) 11.1 Eos % (Auto) 2.1 Baso % (Auto) 0.5 Neut # (Auto) 5.91 Lymph # (Auto) 0.9 [place] # (Auto) 0.9 Eos # (Auto) 0.2 Baso # (Auto) 0.0 Nucleated RBC % (auto) 0 Nucleated RBCs # 0.0 Sodium Potassium Chloride Carbon Dioxide Anion Gap BUN Creatinine GFR Calculation Glucose POC Glucose 166 136 Calculated Osmolality Calcium Total Bilirubin AST ALT Alkaline Phosphatase Total Protein Albumin Globulin Blood Type Rho(D) Type Antibody Screen 05/29/20 01:40 WBC RBC Hgb Hct MCV MCH MCHC RDW Plt Count MPV Neut % (Auto) Lymph % (Auto) [place] % (Auto) Eos % (Auto) Baso % (Auto) Neut # (Auto) Lymph # (Auto) [place] # (Auto) Eos # (Auto) Baso # (Auto) Nucleated RBC % (auto) Nucleated RBCs # Sodium 136 Potassium 4.3 Chloride 99 Carbon Dioxide 25 Anion Gap 16.3 BUN 10 Creatinine 0.8 GFR Calculation Not Reportable Glucose 132 H POC Glucose Calculated Osmolality 283 L Calcium 8.0 L Total Bilirubin 0.2 AST 16 ALT < 5 Alkaline Phosphatase 101 Total Protein 6.3 L Albumin 2.8 L Globulin 3.5 Blood Type Rho(D) Type Antibody Screen Micro: Microbiology 05/29/20 01:41 Blood Culture - Preliminary Blood SPECIMEN COLLECTED 05/29/20 01:40 Blood Culture - Preliminary Blood SPECIMEN COLLECTED 05/27/20 16:24 Blood Culture - Preliminary Blood NEGATIVE TO DATE 05/27/20 16:20 Blood Culture - Preliminary Blood NEGATIVE TO DATE 05/27/20 08:00 Gram Stain - Final Knee - Left Anaerobic Culture - Preliminary Wound Culture - Preliminary Cardiac Studies: No Data to Display
[2020-05-29] MEDS: sodium chloride 0.9% 1,000 ML 30 ML IV (07:08)
--- NOTE | 2020-05-29 07:10 | ANES.PROC ---
Anesthesia Procedures Procedure/Date: 05/29/20 Nerve Block ^: Nerve Block 1: Main Anesthesia: general anesthesia Time Out Performed: Yes Consent: requested by attending/covering physician, from patient, risks and benefits reviewed and patient agrees to proceed Nerve block location: adductor canal (L) Anesthesia monitors applied: pulse oximetry, EKG, BP cuff and oxygen Nerve block position: supine Anesthetic Used: ropivicaine 0.5% and with decadron (4 mg) Amount of anesthesia used (mL): 30 Ultrasound used to: recognize landmarks Nerve Stimulator Used?: No Interscalene/Femoral BLK: 4 stimuplex 21 g needle used for position and inplane approach, visualize local anesthetic spread and no vascular puncture identified Injection: neg aspiration of heme and paresthesia +/- Patient Tolerated Procedure: well and no complications Complications: none
[2020-05-29] MEDS: vancomycin 1,000 MG SDV 3000 MG XX (08:22)
[2020-05-29] MEDS: vancomycin 1,000 MG SDV 1000 MG XX (08:23)
[2020-05-29] MEDS: tranexamic acid 1,000 mg/10mL SDV 1000 MG IRRIGATION (08:25)
--- NOTE | 2020-05-29 10:10 | PM.PACU ---
PACU note Post-Anesthesia Exam: awake and vital signs stable Disposition: back to floor
--- NOTE | 2020-05-29 10:19 | PM.OP ---
Operative Report Date of procedure: May 29, 2020 Pre-op Diagnosis: Infection left total knee, status post component removal Post-op diagnosis: same Post-op Findings: The patient had healthy appearing soft tissues. No purulent or necrotic tissue was identified Procedure Done: Irrigation and excisional debridement left knee and vision to reticulating knee replacement spacers Implants: Depuy size 5 Sigma LPS femur, size 5/10 mm thickness posterior stabilized rotating platform tibial insert. 5 cc Stimulan antibiotic beads with 1 g vancomycin powder added Pathology: none sent Surgeon: Luigi Yoder Anesthesia: General and Nerve Block (Adductor canal block) Estimated blood loss (mL): 50 Complications: None Findings: Patient had no purulent or significant necrotic tissue identified. Bone surfaces appeared healthy and free of destructive processes Condition: stable Procedure: The patient was taken to the operating room after a adductor canal block was provided. He was given 2 g additional grams of Ancef. He was prepped and draped in the supine position. A timeout was performed. Initially all superficial stitches from the skin and deep Ethibond from the extensor retinaculum were removed on complete access to the knee joint. Previously placed antibiotic cement beads and spacers were removed. The knee was then irrigated with 3 L of saline removing old hematoma. The Leo notch cutting block was then placed resecting the tibial notch. Some fairly dysvascular remnants of the post posterior cruciate were removed sharply with electrocautery. The area over the medial patellar tendon was lightly debrided with a scalpel blade removing any questionably viable tissue in that area. Incision was a rongeur was used to remove potentially compromised tissue from the medial and lateral gutters and posterior knee. On the back table 3 g of vancomycin were added to 1 pack of tobramycin cement the cement was allowed to nearly completely cure and the Depuy femur and rotating tibial platform were then cemented into place with the cement nearly cured to prevent substantial ingrowth. The Stimulan beads were then placed in the medial and lateral gutters and along the medial tibia. Hemostasis was abided with electrocautery. The extensor retinaculum could be repaired proximally down to the level of the inferior pole of the patella. Her distal retinaculum was of up all of the poor quality. Skin edges were then approximated from proximal to distal with 1 and 2 Prolene suture. The distal incision skin could be approximated with multiple sutures under a reasonable tension but this area was thought to be of concern. A wound VAC was then placed over the incision to aid healing and the patient placed in a knee immobilizer.
[2020-05-29 10:45] LABS: Glucose Point of Care 134 mg/dL (70-110)
[2020-05-29] MEDS: lisinopril 20 mg Tablet 40 MG PO (10:46)
[2020-05-29] MEDS: sodium chloride 0.9% 1,000 ML 75 ML IV ×2 (10:47→16:26)
[2020-05-29] MEDS: chlorhexidine gluconate 0.12% Btl 473 mL 30 ML MUCOUS MEM ×3 (10:48→21:03)
--- NOTE | 2020-05-29 11:02 | XRR_ITS ---
PROCEDURE INFORMATION: Exam: XR Left Knee Exam date and time: 05/29/2020 11:17 AM Age: 74 years old Clinical indication: Device placement; Joint replacement hardware; Prior surgery; Surgery date: Post-operative (0-2 days); Additional info: Status post revision left knee TECHNIQUE: Imaging protocol: XR Left knee. Views: 1 or 2 views. COMPARISON: CR XR knee LT 3V* [id number] 05/12/2020 11:35 PM FINDINGS: Bones/joints: Prior knee arthroplasty with removal of the tibial component with antibiotic impregnated intra-articular device. XR/XR knee LT 1-2V [id number] IMPRESSION: Prior knee arthroplasty with removal of the tibial component with antibiotic impregnated intra-articular device. The femoral component appears normal.
--- NOTE | 2020-05-29 16:34 | P.PN_ITS ---
Subjective Subjective: Interval history: T-max 100 Fahrenheit last evening at 4 PM. Patient went back to the OR this morning for irrigation and debridement of the left knee. No purulence or significant necrotic tissue was identified. Bone surfaces appeared overall healthy and free of destructive processes. He is seen postoperatively and currently has no specific complaints. He is using the spirometer. Blood culture from this current admission remain negative to date, as is OR specimen from 916. 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 Urinary Catheter Management^: F: Cath Placed During This Visit: yes Urinary Catheter Date of Insertion: 05/27/20 Urinary Catheter Time of Insertion: 07:25 Data : 05/29/20 01:40 05/29/20 01:40 Micro: Microbiology 05/27/20 08:00 Gram Stain - Final Knee - Left Anaerobic Culture - Preliminary Wound Culture - Preliminary 05/29/20 01:41 Blood Culture - Preliminary Blood SPECIMEN COLLECTED 05/29/20 01:40 Blood Culture - Preliminary Blood SPECIMEN COLLECTED 05/27/20 16:24 Blood Culture - Preliminary Blood NEGATIVE TO DATE 05/27/20 16:20 Blood Culture - Preliminary Blood NEGATIVE TO DATE A&P Assessment and plan (1) Infection of total left knee replacement: Status: Acute Qualifiers: Encounter type: subsequent encounter Qualified Code(s): T84.54XD - Infection and inflammatory reaction due to internal left knee prosthesis, subsequent encounter (2) Status post total left knee replacement: Status: Acute (3) Hyperlipidemia: Status: Chronic Qualifiers: Hyperlipidemia type: unspecified Qualified Code(s): E78.5 - Hyperlipidemia, unspecified (4) Hypertension: Status: Chronic Qualifiers: Hypertension type: essential hypertension Qualified Code(s): I10 - Essential (primary) hypertension (5) Type 2 diabetes mellitus: Status: Chronic Qualifiers: Diabetes mellitus detention insulin use: without detention use Diabetes mellitus complication status: without complication Qualified Code(s): E11.9 - Type 2 diabetes mellitus without complications (6) Osteoarthritis of knees, bilateral: Status: Resolved Qualifiers: Osteoarthritis type: primary Qualified Code(s): M17.0 - Bilateral primary osteoarthritis of knee Additional A&P Information 74-year-old male status post recent left total knee replacement on April 27, then readmitted 05/13- for sepsis, PJI of left knee and MSSA bacteremia. Status post I&D of the infected joint with retention of hardware on 05/13. Discharged on May 20 after clearance of bacteremia and improvement around the knee joint. Followed up in outpatient with orthopedics and found to have a remnant swelling around the knee joint, and purulent discharge along with fever. Taken back to the OR 05/27 and found to have sinus tract and communication with the hardware. He is now undergoing a two-stage exchange. All of his existing hardware has been removed and a antibiotic impregnated spacer device has been placed with plan for reimplantation of definitive hardware about 6 weeks down the line. 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 - Status post removal of all existing hardware - Continue cefazolin 2 g IV every 8 hours for organism directed therapy Over the next 6 weeks (05/27-07/08) - Culture from the OR 05/27 is with no organisms on Gram stain so far. -Rifampin has been discontinued since existing hardware has all been removed. - blood cultures from current admission remain negative to date. Appears to be improving. Last ESR from 05/26 is at 94. Continue to monitor every 2 weeks. - CXR with minor blunting of the left costophrenic angle reflecting pleural effusion or pleural thickening. O2 sat transient drop to 87%, may represent atelectasis. 20 mg IV Lasix x1 for noted right pleural effusion on chest x-ray. Of note, patient has other hardware by way of R TKR and spinal hardware per history # Hypertension: Continue home dose of amlodipine, lisinopril, metoprolol. Added hydralazine prn for SBP >180 #Hyperlipidemia. Continue statin # Type 2 diabetes. Sliding scale insulin as needed. Blood sugars are currently well controlled. History of prostate cancer History of gout. Obesity Attestations Medical Necessity Statement*: Monitor fever curve, status post OR today, per admitting team Coding Level of Care Code Acute [place] [employer] for [facility] Fwd Diagnoses Infection of total left knee replacement T84.54XD Encounter type: subsequent encounter Status post total left knee replacement Z96.652 Hyperlipidemia E78.5 Hyperlipidemia type: unspecified Hypertension I10 Hypertension type: essential hypertension Type 2 diabetes mellitus E11.9 Diabetes mellitus detention insulin use: without long term care social worker use Diabetes mellitus complication status: without complication Osteoarthritis of knees, bilateral M17.0 Osteoarthritis type: primary
[2020-05-29] MEDS: calcium carbonate 500 mg Chew Tablet 1000 MG PO (18:24)
[2020-05-29] MEDS: sennosides-docusate Tablet 2 TAB PO (18:24)
[2020-05-29] MEDS: iron polysaccharide complex 150 mg Capsule PO (18:24)
[2020-05-29] MEDS: gabapentin 300 mg Capsule PO (18:24)
[2020-05-29] MEDS: mupirocin oint 22 gm 1 APPLIC NASAL (18:25)
[2020-05-29] MEDS: FUROsemide 10 mg/mL SDV 2mL 20 MG IVP (18:59)
[2020-05-29 20:20] LABS: Glucose Point of Care 165 mg/dL (70-110)
[2020-05-30] VITALS (9 sets, daily range): BP systolic 128–166; BP diastolic 73–78; PULSE 79–87; RESP 16–92; TEMP 36.7–37.6; O2SAT 91–98
[2020-05-30] MEDS: oxyCODONE 5 mg IR Tab/Cap 10 MG PO ×3 (05:57→21:13)
[2020-05-30] MEDS: sodium chloride 0.9% 1,000 ML 75 ML IV ×2 (05:59→23:26)
[2020-05-30 06:13] LABS: Basophils % 0.6 %; Eosinophils # 0.2 10^3/uL (0.0-0.8); Eosinophils % 2.8 %; Hematocrit 25.2 % (42.0-52.0); Hemoglobin 7.6 g/dL (11.7-16.6); Lymphocytes # 1.2 10^3/uL (0.8-4.8); Lymphocytes % 17.4 %; Mean Corpuscular HGB Conc 30.2 g/dL (30.0-36.0); Mean Corpuscular Hemoglobin 27.9 pg (28.0-34.0); Mean Corpuscular Volume 92.6 fL (80-94); Mean Platelet Volume 9.7 fL (7.4-10.4); Monocytes # 0.9 10^3/uL (0.2-0.9); Monocytes % 12.2 %; Neutrophils # 4.67 10^3/uL (1.8-7.7); Neutrophils % 65.3 %; Nucleated Red Blood Cells % 0 %; Platelet Count 364 10^3/cmm (130-400); Red Blood Count 2.72 10^6/uL (4.1-5.3); Red Cell Distribution Width 14.9 % (12.1-15.1); White Blood Count 7.1 10^3/uL (4.0-10.0)
[2020-05-30 06:41] LABS: Glucose Point of Care 120 mg/dL (70-110)
--- NOTE | 2020-05-30 07:00 | PC.NURSE ---
RN discussed with charge nurse and decided to leave gonzalez catheter in due to having no order to remove and how traumatic his surgery was.
[2020-05-30 07:01] LABS: Anion Gap 13.2 (5-19); Blood Urea Nitrogen 13 mg/dL (8-23); Calcium 7.8 mg/dL (8.5-10.5); Carbon Dioxide 26 mmol/L (22-29); Chloride 102 mmol/L (98-107); Glucose 116 mg/dL (65-115); NT Pro B Type Natriuretic Pept 100 pg/mL (0-450); Osmolality Calculated 285 mOsm/kg (285-295); Potassium 4.2 mmol/L (3.5-5.1); Sodium 137 mmol/L (136-145)
[2020-05-30] MEDS: cholecalciferol (vitamin D3) 1,000 unit Tablet 1000 UNIT PO (07:55)
[2020-05-30] MEDS: multivitamin therapeutic Tablet 1 TAB PO (07:55)
[2020-05-30] MEDS: atorvastatin 40 mg Tablet 20 MG PO (07:55)
[2020-05-30] MEDS: oxybutynin chloride XL 5 MG TABLET 10 MG PO (07:55)
[2020-05-30] MEDS: spironolactone 25 mg Tablet PO (07:55)
[2020-05-30] MEDS: metoprolol succinate ER (24 HR) 100 mg Tablet PO (07:56)
[2020-05-30] MEDS: allopurinol 300 mg Tablet PO (07:56)
[2020-05-30] MEDS: iron polysaccharide complex 150 mg Capsule PO ×2 (07:56→17:18)
[2020-05-30] MEDS: FUROsemide 40 mg Tablet 60 MG PO (07:56)
[2020-05-30] MEDS: amlodipine 10 mg Tablet PO (07:57)
[2020-05-30] MEDS: polyethylene glycol 3350 Pkt 17 gm PO (07:57)
[2020-05-30] MEDS: calcium carbonate 500 mg Chew Tablet 1000 MG PO ×2 (07:57→17:18)
[2020-05-30] MEDS: gabapentin 300 mg Capsule PO ×2 (07:57→17:18)
[2020-05-30] MEDS: montelukast sodium 10 mg Tablet PO (07:57)
[2020-05-30] MEDS: pantoprazole DR 40 mg Tablet PO (07:57)
[2020-05-30] MEDS: sennosides-docusate Tablet 2 TAB PO ×2 (07:57→17:17)
[2020-05-30] MEDS: chlorhexidine gluconate 0.12% Btl 473 mL 30 ML MUCOUS MEM ×4 (07:58→21:12)
[2020-05-30] MEDS: mupirocin oint 22 gm 1 APPLIC NASAL ×2 (07:58→17:19)
--- NOTE | 2020-05-30 08:18 | ANE.PACU2 ---
Inpatient post-anesthesia follow up: Airway intact: Yes Vital signs: Temperature 98.0 F Pulse Rate 79 Respiratory Rate 18 Blood Pressure 161/78 Pulse Oximetry 95 Oxygen Delivery Me thod Room Air Oxygen Flow Rate 6 Fraction of Inspir ed Oxygen Hydration adequate: Yes Nausea and vomiting: No Pain level: 3 Mental status: Baseline
--- NOTE | 2020-05-30 10:25 | PC.SOCIAL ---
Pg 2 IMM Explained to pt & his , Pg 2 IMM. They verbally understand. No questions voiced. Provided a copy to . Signed, dated, & timed a copy & placed in chart.
[2020-05-30 11:48] LABS: Glucose Point of Care 186 mg/dL (70-110)
--- NOTE | 2020-05-30 12:56 | PM.PN ---
Subjective Subjective: Interval history: Patient is seen for Dr. Yoder today. He is doing well. According to nursing, his spirits are much better than normal. Is in the bathroom at the time of my visit, but he notes he feels he is doing well. Vitals/I&O/Wt Last Vital Signs Temp 98.7 F 05/30/20 11:21 Pulse 83 05/30/20 11:21 Resp 18 05/30/20 11:21 BP 128/73 05/30/20 11:21 Pulse Ox 93 05/30/20 11:21 05/29/20 05/30/20 05/30/20 22:59 06:59 14:59 Intake Total 523.75 / 803.75 1000 / 1803.75 360 / 360 Output Total 500 / 650 900 / 1550 500 / 500 Balance 23.75 / 153.75 100 / 253.75 -140 / -140 Physical Exam Narrative: EXAM NARRATIVE: Patient is seen while he is in the bathroom. He seems in good spirits. His foot is not swollen. He is neurologically intact. His knee immobilizer and wound VAC are in place. Urinary Catheter Management^: F: Cath Placed During This Visit: yes, but has since been removed by the nurse Reason for Continuing Indwelling Catheter: Decision to DC Catheter Urinary Catheter Date of Insertion: 05/27/20 Urinary Catheter Time of Insertion: 07:25 Date Urinary Catheter Removed: 05/30/20 Time Urinary Catheter Discontinued: 10:13 Data : 05/30/20 05:52 05/30/20 05:52 Micro: Microbiology 05/29/20 01:41 Blood Culture - Preliminary Blood NEGATIVE TO DATE 05/29/20 01:40 Blood Culture - Preliminary Blood NEGATIVE TO DATE 05/27/20 08:00 Gram Stain - Final Knee - Left Anaerobic Culture - Preliminary Wound Culture - Preliminary A&P Assessment and plan (1) Infection of total left knee replacement: Patient has a wound VAC in place after implantation of temporary knee spacer for infected total knee arthroplasty. His dressing is intact. He is in a knee immobilizer. The wound VAC appears to be functioning. He is neurologically intact. Status: Acute Qualifiers: Encounter type: subsequent encounter Qualified Code(s): T84.54XD - Infection and inflammatory reaction due to internal left knee prosthesis, subsequent encounter Attestations Medical Necessity Statement*: Per hospitalist team. Coding Level of Care Code Acute Directory Assistance Operator for [facility] Fwd Diagnoses Infection of total left knee replacement T84.54XD Encounter type: subsequent encounter
[2020-05-30 16:37] LABS: Glucose Point of Care 231 mg/dL (70-110)
--- NOTE | 2020-05-30 18:16 | PC.NURSE ---
SHIFT SUMMARY PATIENT HAS DONE WELL TODAY. PATIENT WAS ABLE TO AMBULATE WITH ONE PERSON ASSIST TO THE BATHROOM AND BACK USING A WALKER. PAIN WELL CONTROLLED. GOOD NEUROVASCULAR CHECKS. PATIENT HAD A GOOD BOWEL MOVEMENT. THIS NURSE REMOVED PATIENT'S BERNABE CATHETER AROUND 1015. PATIENT UNABLE TO VOID. THIS NURSE BLADDER SCANNED PATIENT AND PATIENT HAD OVER 500ML IN. THIS NURSE CONTACTED DR. MONTOYA AND A ONE TIME STRAIGHT CATH WAS ORDERED. THIS NURSE RECEIVED 450ML OUT. PATIENT HAS BEEN ABLE TO VOID WITHOUT DIFFICULTY SINCE. CURRENTLY RESTING IN BED. NO COMPLAINTS AT THIS TIME.
[2020-05-30 20:26] LABS: Glucose Point of Care 209 mg/dL (70-110)
[2020-05-30 20:39] LABS: Glucose Point of Care 188 mg/dL (70-110)
[2020-05-31] VITALS (7 sets, daily range): BP systolic 102–194; BP diastolic 61–98; PULSE 82–94; RESP 16–20; TEMP 36.7–37.1; O2SAT 93–98
--- NOTE | 2020-05-31 03:47 | PC.NURSE ---
Pt has been resting well throughout the night. No fevers have been reported by BUILDING CODE ADMINISTRATOR's. Pt has requested oxy IR one time throughout entire shift, all neurovascular checks have been WNL. No other needs voiced at this time. Will continue to monitor.
[2020-05-31 05:51] LABS: Basophils # 0.1 10^3/uL (0.0-0.1); Basophils % 0.9 %; Eosinophils # 0.3 10^3/uL (0.0-0.8); Eosinophils % 4.5 %; Hematocrit 25.1 % (42.0-52.0); Hemoglobin 7.6 g/dL (11.7-16.6); Lymphocytes # 1.3 10^3/uL (0.8-4.8); Lymphocytes % 20.1 %; Mean Corpuscular HGB Conc 30.3 g/dL (30.0-36.0); Mean Corpuscular Hemoglobin 27.8 pg (28.0-34.0); Mean Corpuscular Volume 91.9 fL (80-94); Mean Platelet Volume 9.3 fL (7.4-10.4); Monocytes # 0.7 10^3/uL (0.2-0.9); Neutrophils # 4.09 10^3/uL (1.8-7.7); Neutrophils % 63.1 %; Nucleated Red Blood Cells % 0 %; Platelet Count 354 10^3/cmm (130-400); Red Blood Count 2.73 10^6/uL (4.1-5.3); Red Cell Distribution Width 14.7 % (12.1-15.1); White Blood Count 6.5 10^3/uL (4.0-10.0)
[2020-05-31 06:48] LABS: Glucose Point of Care 118 mg/dL (70-110)
[2020-05-31] MEDS: allopurinol 300 mg Tablet PO (08:17)
[2020-05-31] MEDS: iron polysaccharide complex 150 mg Capsule PO ×2 (08:17→17:04)
[2020-05-31] MEDS: FUROsemide 40 mg Tablet 60 MG PO (08:17)
[2020-05-31] MEDS: multivitamin therapeutic Tablet 1 TAB PO (08:17)
[2020-05-31] MEDS: polyethylene glycol 3350 Pkt 17 gm PO (08:17)
[2020-05-31] MEDS: pantoprazole DR 40 mg Tablet PO (08:17)
[2020-05-31] MEDS: oxyCODONE 5 mg IR Tab/Cap 10 MG PO (08:18)
[2020-05-31] MEDS: calcium carbonate 500 mg Chew Tablet 1000 MG PO ×2 (08:18→17:04)
[2020-05-31] MEDS: gabapentin 300 mg Capsule PO ×2 (08:18→17:04)
[2020-05-31] MEDS: atorvastatin 40 mg Tablet 20 MG PO (08:18)
[2020-05-31] MEDS: amlodipine 10 mg Tablet PO (08:18)
[2020-05-31] MEDS: metoprolol succinate ER (24 HR) 100 mg Tablet PO (08:18)
[2020-05-31] MEDS: cholecalciferol (vitamin D3) 1,000 unit Tablet 1000 UNIT PO (08:18)
[2020-05-31] MEDS: oxybutynin chloride XL 5 MG TABLET 10 MG PO (08:18)
[2020-05-31] MEDS: sennosides-docusate Tablet 2 TAB PO ×2 (08:18→17:04)
[2020-05-31] MEDS: spironolactone 25 mg Tablet PO (08:19)
[2020-05-31] MEDS: mupirocin oint 22 gm 1 APPLIC NASAL ×2 (08:19→17:05)
[2020-05-31] MEDS: lisinopril 20 mg Tablet 40 MG PO (08:19)
[2020-05-31] MEDS: montelukast sodium 10 mg Tablet PO (08:19)
[2020-05-31] MEDS: chlorhexidine gluconate 0.12% Btl 473 mL 30 ML MUCOUS MEM ×4 (08:19→21:39)
[2020-05-31 10:58] LABS: Glucose Point of Care 150 mg/dL (70-110)
[2020-05-31 16:32] LABS: Glucose Point of Care 159 mg/dL (70-110)
--- NOTE | 2020-05-31 16:47 | P.PN_ITS ---
Subjective Subjective: Interval history: No acute overnight events. Fever curve is improving. 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 Const: COMMON NORMALS: no acute distress, average body habitus, patient oriented x3, no limitations, healthy appearing, alert and well nourished HENMT: COMMON NORMALS: normocephalic and atraumatic HEAD & SCALP: normocephalic and atraumatic Eye: COMMON NORMALS: Equal, round and reactive pupils present, EOMs intact bilaterally, conjunctivae normal and no scleral icterus CONJUNCTIVA: Yes conjunctivae normal PUPIL: Yes Equal, round and reactive pupils present Neck/C-Spine: COMMON NORMALS: no JVD Resp: COMMON NORMALS: normal respiratory effort, No retractions, No use of accessory muscles, clear to auscultation bilaterally and percussion normal AUSCULTATION: clear to auscultation bilaterally PERCUSSION: percussion normal Cardio: COMMON NORMALS: no JVD, regular rate, regular rhythm, S1 normal heart sound present, S2 normal heart sound present, No gallops present (Cardio), No clicks present (Cardio), No murmurs present (Cardio), No rub (Cardio) and Peripheral pulses 2+ throughout RATE: regular rate RHYTHM: regular rhythm HEART SOUNDS: S1 normal heart sound present and S2 normal heart sound present PERIPHERAL PULSES: Peripheral pulses 2+ throughout GI: COMMON NORMALS: Normal to inspection, nondistended, normoactive bowel sounds present, Soft to palpation, non-tender, No hepatosplenomegaly present, no masses and no bruits PALPATION: Yes Soft to palpation and Yes No hepatosplenomegaly present Extremity: COMMON NORMALS: normal to inspection, full ROM, capillary refill normal, no joint enlargement, no clubbing, cyanosis or edema, no calf tenderness and no pedal edema Neuro: COMMON NORMALS: patient oriented x3, CN's II-XII intact bilaterally, moves all extremities, no focal motor deficits, no sensory deficits noted, deep tendon reflexes 2+ bilaterally and gait normal SENSORIUM/ORIENTATION: Yes alert Psych: COMMON NORMALS: mental status grossly normal, Normal thought process present, cooperative, normal affect, speech normal, activity/motor behavior normal, denies hallucinations, denies homicidal ideation and denies suicidal ideation SPEECH: Yes normal speech THOUGHT PROCESS: Normal thought process present Skin: COMMON NORMALS: no rashes or lesions noted, no wounds, turgor normal, no jaundice, no petechiae and no mottling GENERAL SKIN EXAM: no rashes or lesions noted and turgor normal Urinary Catheter Management^: F: Cath Placed During This Visit: yes, but has since been removed by the nurse Reason for Continuing Indwelling Catheter: Decision to DC Catheter Urinary Catheter Date of Insertion: 05/27/20 Urinary Catheter Time of Insertion: 07:25 Date Urinary Catheter Removed: 05/30/20 Time Urinary Catheter Discontinued: 10:13 Data : 05/31/20 05:36 05/30/20 05:52 Micro: Microbiology 05/27/20 08:00 Gram Stain - Final Knee - Left Anaerobic Culture - Preliminary Wound Culture - Final 05/30/20 13:21 Occult Blood (FIT) - Final Stool Routine Collection A&P Assessment and plan (1) Infection of total left knee replacement: Status: Acute Qualifiers: Encounter type: subsequent encounter Qualified Code(s): T84.54XD - Infection and inflammatory reaction due to internal left knee prosthesis, subsequent encounter (2) Status post total left knee replacement: Status: Acute (3) Hyperlipidemia: Status: Chronic Qualifiers: Hyperlipidemia type: unspecified Qualified Code(s): E78.5 - Hyperlipidemia, unspecified (4) Hypertension: Status: Chronic Qualifiers: Hypertension type: essential hypertension Qualified Code(s): I10 - Essential (primary) hypertension (5) Type 2 diabetes mellitus: Status: Chronic Qualifiers: Diabetes mellitus ferry terminal supervisor insulin use: without ferry terminal supervisor use Diabetes mellitus complication status: without complication Qualified Code(s): E11.9 - Type 2 diabetes mellitus without complications (6) Osteoarthritis of knees, bilateral: Status: Resolved Qualifiers: Osteoarthritis type: primary Qualified Code(s): M17.0 - Bilateral primary osteoarthritis of knee Additional A&P Information 74-year-old male status post recent left total knee replacement on April 27, then readmitted 05/13- for sepsis, PJI of left knee and MSSA bacteremia. Status post I&D of the infected joint with retention of hardware on 05/13. Discharged on May 20 after clearance of bacteremia and improvement around the knee joint. Followed up in outpatient with orthopedics and found to have a remnant swelling around the knee joint, and purulent discharge along with fever. Taken back to the OR 05/27 and found to have sinus tract and communication with the hardware. He is now undergoing a two-stage exchange. All of his existing hardware has been removed and a antibiotic impregnated spacer device has been placed with plan for reimplantation of definitive hardware about 6 weeks down the line. 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 - Status post removal of all existing hardware - Continue cefazolin 2 g IV every 8 hours for organism directed therapy Over the next 6 weeks (05/27-07/08) - Culture from the OR 05/27 is with no organisms on Gram stain so far. -Rifampin has been discontinued since existing hardware has all been removed. - blood cultures from current admission remain negative to date. Appears to be improving. Last ESR from 05/26 is at 94. Continue to monitor every 2 weeks. - CXR with minor blunting of the left costophrenic angle reflecting pleural effusion or pleural thickening. O2 sat transient drop to 87%, may represent atelectasis. given Lasix on Monday with some improvement. Discontinue IV fluids today. Of note, patient has other hardware by way of R TKR and spinal hardware per history # Hypertension: Continue home dose of amlodipine, lisinopril, metoprolol. Added hydralazine prn for SBP >180 #Hyperlipidemia. Continue statin # Type 2 diabetes. Sliding scale insulin as needed. Blood sugars are currently well controlled. History of prostate cancer History of gout. Obesity Thank you for this consult and allowing us to participate in the patient's care. We will follow-up the patient in office in the next 3 to 4 weeks. Attestations Medical Necessity Statement*: Per admitting team Coding Level of Care Code Acute Public Address Announcer for [facility] Fwd Diagnoses Infection of total left knee replacement T84.54XD Encounter type: subsequent encounter Status post total left knee replacement Z96.652 Hyperlipidemia E78.5 Hyperlipidemia type: unspecified Hypertension I10 Hypertension type: essential hypertension Type 2 diabetes mellitus E11.9 Diabetes mellitus longterm insulin use: without ferry terminal supervisor use Diabetes mellitus complication status: without complication Osteoarthritis of knees, bilateral M17.0 Osteoarthritis type: primary
[2020-05-31 20:28] LABS: Glucose Point of Care 186 mg/dL (70-110)
[2020-06-01] VITALS: BP 177/85; PULSE 87; RESP 18; TEMP 36.9; O2SAT 94
[2020-06-01 04:00] VITALS: BP 153/77; PULSE 81; RESP 18; TEMP 37; O2SAT 92
[2020-06-01 04:17] LABS: Basophils # 0.1 10^3/uL (0.0-0.1); Basophils % 0.8 %; Eosinophils # 0.3 10^3/uL (0.0-0.8); Eosinophils % 4.3 %; Hematocrit 25.5 % (42.0-52.0); Hemoglobin 7.6 g/dL (11.7-16.6); Lymphocytes # 1.4 10^3/uL (0.8-4.8); Lymphocytes % 18.6 %; Mean Corpuscular HGB Conc 29.8 g/dL (30.0-36.0); Mean Corpuscular Hemoglobin 27.3 pg (28.0-34.0); Mean Corpuscular Volume 91.7 fL (80-94); Mean Platelet Volume 9.4 fL (7.4-10.4); Monocytes # 0.6 10^3/uL (0.2-0.9); Monocytes % 8.6 %; Neutrophils # 4.77 10^3/uL (1.8-7.7); Neutrophils % 65.9 %; Nucleated Red Blood Cells % 0 %; Platelet Count 375 10^3/cmm (130-400); Red Blood Count 2.78 10^6/uL (4.1-5.3); Red Cell Distribution Width 14.6 % (12.1-15.1); White Blood Count 7.2 10^3/uL (4.0-10.0)
[2020-06-01 06:51] LABS: Glucose Point of Care 136 mg/dL (70-110)
[2020-06-01 07:04] VITALS: BP 152/79; PULSE 87; RESP 18; TEMP 36.8; O2SAT 92
[2020-06-01] MEDS: amlodipine 10 mg Tablet PO (08:22)
[2020-06-01] MEDS: FUROsemide 40 mg Tablet 60 MG PO (08:22)
[2020-06-01] MEDS: pantoprazole DR 40 mg Tablet PO (08:22)
[2020-06-01] MEDS: sennosides-docusate Tablet 2 TAB PO ×2 (08:23→18:05)
[2020-06-01] MEDS: allopurinol 300 mg Tablet PO (08:23)
[2020-06-01] MEDS: atorvastatin 40 mg Tablet 20 MG PO (08:23)
[2020-06-01] MEDS: oxybutynin chloride XL 5 MG TABLET 10 MG PO (08:23)
[2020-06-01] MEDS: gabapentin 300 mg Capsule PO ×2 (08:23→18:05)
[2020-06-01] MEDS: montelukast sodium 10 mg Tablet PO (08:23)
[2020-06-01] MEDS: lisinopril 20 mg Tablet 40 MG PO (08:23)
[2020-06-01] MEDS: cholecalciferol (vitamin D3) 1,000 unit Tablet 1000 UNIT PO (08:23)
[2020-06-01] MEDS: multivitamin therapeutic Tablet 1 TAB PO (08:23)
[2020-06-01] MEDS: calcium carbonate 500 mg Chew Tablet 1000 MG PO ×2 (08:23→18:05)
[2020-06-01] MEDS: metoprolol succinate ER (24 HR) 100 mg Tablet PO (08:23)
[2020-06-01] MEDS: iron polysaccharide complex 150 mg Capsule PO ×2 (08:23→18:05)
[2020-06-01] MEDS: spironolactone 25 mg Tablet PO (08:23)
[2020-06-01] MEDS: polyethylene glycol 3350 Pkt 17 gm PO (08:25)
[2020-06-01] MEDS: chlorhexidine gluconate 0.12% Btl 473 mL 30 ML MUCOUS MEM ×3 (08:28→18:04)
[2020-06-01] MEDS: mupirocin oint 22 gm 1 APPLIC NASAL ×2 (08:28→18:05)
[2020-06-01 09:18] LABS: Iron 28 ug/dL (59-158)
--- NOTE | 2020-06-01 09:30 | PC.SOCIAL ---
IMM Updated Page 2 of IMM updated and given to patient. Initialed, dated, and timed and placed back in chart.
--- NOTE | 2020-06-01 10:26 | PC.CHAP ---
Pastoral Care Encounter/Spiritual Assessment Type of Contact [] Declined automotive window tinter visit [] Patient/Family/Request visit [] Outpatient visit [] Follow-up visit [] Physician referral [] Code/Alert [x] Routine visit [] Staff referral [] Actively dying [] Patient sleeping [] Family support [] [] Out of room [] Palliative care [] [] Receiving care in room [] Pre-surgical visit [] Trauma [x] Long length of stay [] ICU visit [] Other: Relational/Emotional Strength [x] Patient feels connected with others/family/visitors/staff [] Distress [] Loneliness/isolation [] Abandonment Spirituality of Patient [x] Person of Aleja [x] Attends Yazidi of their Aleja [x] Believes in Prayer [] Reads Bible or Anglican materials [] There are Spiritual issues to be addressed Scrap Shear Operator Interventions [x] Prayer [x] Active listening [x] Non-anxious presence [x] Spiritual/emotional support [] Crisis/trauma care [x] Spiritual counseling [] Bereavement support [] Provided bereavement packet [] Provided Bible/devotional materials [] Provided toy/stuffed animal, coloring book to patient or family member [] Provided Communion [] Anointing/[place] [] Salvation [] Completed spiritual assessment [] Other: Impact on Illness or Injury [] Angry [] Fearful [x] Anxious [] Often cries [] Exhaustion walk/stand [] Unable to read [x] Unable to drive [] Unable to eat/drink [] Unable to sleep [] Unable to be with family [] Patient intubated [] Other: Summary Patient stated he is ready to go home. He has had three surgeries on his left knee in the last thirty days. Stated he has a lot of apprehension about his scheduled return in two months for another knee replacement procedure. 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 Prayed with patient and his . Patient visited by Scrap Shear Operator Stephen Hobbs. Time spent with patient 18 minutes
[2020-06-01 10:55] LABS: Glucose Point of Care 226 mg/dL (70-110)
[2020-06-01 12:00] VITALS: BP 134/77; PULSE 89; RESP 18; TEMP 36.9; O2SAT 94
--- NOTE | 2020-06-01 12:40 | PC.OT ---
OT tx attempted. Pt declines need for OT services at this time as he is going home later today. Pt and have no questions regarding return home as they state we have been through all this before . Pt plans to return home with assist of spouse and home health services.
[2020-06-01 16:00] VITALS: BP 137/78; PULSE 70; RESP 18; TEMP 36.9; O2SAT 94
[2020-06-01 16:49] LABS: Glucose Point of Care 156 mg/dL (70-110)
[2020-06-01 20:15] VITALS: BP 137/78; PULSE 70; RESP 18; TEMP 36.9; O2SAT 94
--- NOTE | 2020-06-01 20:16 | PC.NURSE ---
DISCHARGE NOTE Patient discharged to home via wheelchair with spouse. Patient and spouse was educated on wound vac. He is going home on home health, they will be using [facility] through [facility]. All vitals stable, no pain noted, no other questions or concerns noted.
--- NOTE | 2020-06-02 16:54 | PM.DCS ---
Discharge Providers Date of Admission: 05/27/20 11:20 Date of Discharge: June 02, 2020 Attending Provider at Admission: Luigi Yoder MD Attending Provider at Discharge: Charly Blackman Primary Care Provider: LIZZETH Stoll Diagnoses at Discharge Discharge Diagnosis (1) Infection of total left knee replacement: Status: Acute Qualifiers: Encounter type: subsequent encounter Qualified Code(s): T84.54XD - Infection and inflammatory reaction due to internal left knee prosthesis, subsequent encounter (2) Status post total left knee replacement: Status: Acute (3) Hyperlipidemia: Status: Chronic Qualifiers: Hyperlipidemia type: unspecified Qualified Code(s): E78.5 - Hyperlipidemia, unspecified (4) Hypertension: Status: Chronic Qualifiers: Hypertension type: essential hypertension Qualified Code(s): I10 - Essential (primary) hypertension (5) Type 2 diabetes mellitus: Status: Chronic Qualifiers: Diabetes mellitus halfway insulin use: without exterminator helper termite use Diabetes mellitus complication status: without complication Qualified Code(s): E11.9 - Type 2 diabetes mellitus without complications (6) Osteoarthritis of knees, bilateral: Status: Resolved Qualifiers: Osteoarthritis type: primary Qualified Code(s): M17.0 - Bilateral primary osteoarthritis of knee Reason for Visit Reason for Visit: Brief History: Mr. Malloy is a 74-year-old male who underwent left total knee arthroplasty for osteoarthritis on 04/27/2020. He developed fevers and drainage from his knee. He was taken back to the operating room on 05/13/2020 after an aspirate revealed grossly purulent fluid within the knee. He underwent aggressive debridement of the knee with ultimate cultures showing a staph aureus species. He was begun on IV nafcillin and rifampin under the guidance of the infectious disease service however continued to have pain swelling and low-grade fevers. He was seen again by me with a persistent swelling and drainage from his knee and plans were made for admission to the hospital for aggressive irrigation debridement and possible component removal. Hospital Course Hospital Course: He was taken back to the operating room on 05/27/2020 for removal of his knee components and antibiotic spacer placement. These were placed for articulating antibiotic spacer components on 05/29/2020. Thereafter the patient remained afebrile and made steady progress. His hemoglobin released a level of 7.6 where it was stable. He was continued on IV nafcillin and rifampin. A wound VAC was placed over his knee to facilitate healing slightly inferior incision. By 06/01/2020 he was up with therapy and doing better. Plans were made for discharge home with IV antibiotics. Physical Exam Narrative: EXAM NARRATIVE: On the day of discharge he had less swelling in his left knee. A wound VAC was placed over the incision it was not directly visualized Urinary Catheter Management^: F: Cath Placed During This Visit: yes, but has since been removed by the nurse Reason for Continuing Indwelling Catheter: Decision to DC Catheter Urinary Catheter Date of Insertion: 05/27/20 Urinary Catheter Time of Insertion: 07:25 Date Urinary Catheter Removed: 05/30/20 Time Urinary Catheter Discontinued: 10:13 Discharge Data Data Completed and Pending: Completed Studies During Hospitalization Category Date Time Status XR chest 1V zoë ble [id number] Routine Exams 05/28/20 17:09 Completed XR knee LT 1-2V 7 3560 Routine Exams 05/29/20 11:02 Completed Pending at discharge Category Date Time Status Blood Culture AM LABS Lab 05/29/20 01:41 Results Vitals: Last Vital Signs Temp 98.4 F 06/01/20 20:15 Pulse 70 06/01/20 20:15 Resp 18 06/01/20 20:15 BP 137/78 06/01/20 20:15 Pulse Ox 94 06/01/20 20:15 Discharge Plan Discharge Patient Disposition: Home Health Service Condition: Stable Prescriptions: New Ferrex 150 150 mg iron Capsule 150 mg PO BIDWM 30 Days Qty: 60 RF: 0 oxycodone 5 mg Tablet 10 mg PO Q4H PRN (Reason: Severe Pain) 7 Days Qty: 30 RF: 0 Continued gabapentin 300 mg capsule 300 mg PO BID RF: 0 omeprazole 20 mg capsule,delayed release(DR/EC) 20 mg PO DAILY RF: 0 Trulicity 1.5 mg/0.5 mL pen injector 1.5 mg SUBCUT Q7D RF: 0 furosemide 40 mg tablet 60 mg PO DAILY RF: 0 montelukast 10 mg tablet 10 mg PO DAILY RF: 0 meloxicam 15 mg tablet 15 mg PO DAILY RF: 0 Hold Instructions: Resume on 05/13/20. metoprolol succinate 100 mg tablet extended release 24 hr 100 mg PO DAILY RF: 0 lisinopril 40 mg tablet 40 mg PO DAILY RF: 0 amlodipine 10 mg tablet 10 mg PO DAILY RF: 0 oxybutynin chloride 10 mg tablet extended release 24hr 10 mg PO DAILY RF: 0 simvastatin 40 mg tablet 40 mg PO DAILY RF: 0 allopurinol 300 mg tablet 300 mg PO DAILY RF: 0 polyethylene glycol 3350 17 gram Powder In Packet 17 g PO DAILY 30 Days Qty: 30 RF: 0 polysaccharide iron complex [Ferrex 150] 150 mg iron Capsule 150 mg PO BIDWM 30 Days Qty: 30 RF: 0 rifampin 300 mg Capsule 300 mg PO BID 42 Days Qty: 84 RF: 0 chlorhexidine gluconate 0.12 % Mouthwash 30 ml mucous membrane QID PRN (Reason: mouth irritation) Qty: 118 RF: 0 cholecalciferol (vitamin D3) 25 mcg (1,000 unit) Tablet 1,000 unit PO DAILY 30 Days Qty: 30 RF: 0 Thera 400 mcg Tablet 1 tab PO DAILY 30 Days Qty: 30 RF: 0 sennosides-docusate sodium 8.6-50 mg Tablet 2 tab PO BID 30 Days Qty: 120 RF: 0 spironolactone 25 mg Tablet 25 mg PO DAILY 30 Days Qty: 30 RF: 0 Levemir U-100 Insulin 100 unit/mL solution 8 unit SUBCUT QPM 30 Days Qty: 10 RF: 0 insulin aspart U-100 [Novolog Flexpen U-100 Insulin] 100 unit/mL (3 mL) insulin pen See Rx Instructions .ROUTE .COMPLEX Qty: 15 RF: 0 cefazolin in dextrose (iso-os) 2 gram/50 mL Piggyback 2 g continuous IV infusion Q8H 42 Days Qty: 6300 RF: 0 Discharge Orders: Discharge Order (Routine); Ordered 06/01/20 Ordered By: Luigi Yoder Referrals: [facility] [Other] (This is the company that provides your IV medication.) [employer] [Other] (This is the company that is providing your wound vac and supplies. If you have any questions regarding the wound vac, you may call them at the phone number provided.) [facility] ([facility]) [Outside] (Your home health company will likely be out to your house tomorrow to change your wound vac dressing.) Bartolome Lyman MD [Physician] - 06/30/20 1:20 pm (Dr. Shell will be the office June 30. You are scheduled at 1:20 in the afternoon. If this is not a good time please call and reschedule. She is only in the office 2 times in the month of June.) Luigi Yoder MD [Physician] - 06/16/20 11:30 am (You have a appointment on June 16 at 11:30am) Discharge Diet: Advance as tolerated Discharge Activity: Use walker/crutches as instructed Patient Instructions: Iron Supplements (By mouth), Oxycodone, Rapid Release (By mouth), Acute Wound Care (DC) Activity Restrictions/Additional Instructions: Weight-bear as tolerated left knee. Her motion only from 0 to 45 degrees until wound healed. Home health wound care will change wound VAC twice a week IV antibiotics per medicine Discharge Date/Time: 06/01/20 20:00 Discharge Attestations Time Spent in Discharge Care*: other Quality Metrics Clinical Quality Measures During this hospital stay, did patient experience: None Coding Level of Care Code Acute Imaging Specialist for [facility] Fwd Diagnoses Infection of total left knee replacement T84.54XD Encounter type: subsequent encounter Status post total left knee replacement Z96.652 Hyperlipidemia E78.5 Hyperlipidemia type: unspecified Hypertension I10 Hypertension type: essential hypertension Type 2 diabetes mellitus E11.9 Diabetes mellitus exterminator helper termite insulin use: without exterminator helper termite use Diabetes mellitus complication status: without complication Osteoarthritis of knees, bilateral M17.0 Osteoarthritis type: primary
== END 2020-06-01 20:00 | disposition home health service (06) | DRG 464 ==
LOC: MEDSURG 14:56
PROVIDERS: Student in an Organized Health Care Education/Training Program; Admitting Provider Orthopaedic Surgery; PCP Nurse Practitioner Family; Visit Provider Internal Medicine
PROC: 0SPD0JC Removal of Synthetic Substitute from Left Knee Joint, Patellar Surface, Open Approach (ICD-10-PCS; principal; 2020-05-27 07:00)
PROC: 0SBD0ZZ Excision of Left Knee Joint, Open Approach (ICD-10-PCS; principal; 2020-05-29 07:00)
DX: T84.54XA Infection and inflammatory reaction due to internal left knee prosthesis, initial encounter (principal); J90 Pleural effusion, not elsewhere classified; J98.11 Atelectasis; E78.5 Hyperlipidemia, unspecified; I10 Essential (primary) hypertension; E11.9 Type 2 diabetes mellitus without complications; Z48.89 Encounter for other specified surgical aftercare; M17.0 Bilateral primary osteoarthritis of knee; Z96.652 Presence of left artificial knee joint; Z79.4 Long term (current) use of insulin; X58.XXXA Exposure to other specified factors, initial encounter
CPT/HCPCS: 12345; 36415; 36416; 51702; 51798; 71045; 73560; 80048; 80053; 82274; 82962; 83540; 83880; 85025; 86850; 86900; 87040; 87070; 87075; 87205; 96372; 96375; 97110; 97116; 97162; 97165; 97530; 97535; C1776; J0131; J0690; J1100; J1580; J1815; J1940; J2270; J2370; J2405; J2704; J2795; J3010; J3370; J3490; J7030

== ENCOUNTER 2020-06-02 14:52 | Outpatient (CLI) | payer OTHER, MEDICARE, SELFPAY ==
[2020-06-02 15:23] LABS: Basophils % 0.6 %; Eosinophils # 0.3 10^3/uL (0.0-0.8); Eosinophils % 4.7 %; Hematocrit 26.3 % (42.0-52.0); Hemoglobin 7.8 g/dL (11.7-16.6); Lymphocytes % 14.7 %; Mean Corpuscular HGB Conc 29.7 g/dL (30.0-36.0); Mean Corpuscular Volume 94.3 fL (80-94); Mean Platelet Volume 9.8 fL (7.4-10.4); Monocytes # 0.6 10^3/uL (0.2-0.9); Monocytes % 9.1 %; Neutrophils # 4.59 10^3/uL (1.8-7.7); Neutrophils % 69.4 %; Nucleated Red Blood Cells % 0 %; Platelet Count 369 10^3/cmm (130-400); Red Blood Count 2.79 10^6/uL (4.1-5.3); Red Cell Distribution Width 14.6 % (12.1-15.1); White Blood Count 6.6 10^3/uL (4.0-10.0)
[2020-06-02 15:42] LABS: Alanine Aminotransferase 6 U/L (0-41); Alkaline Phosphatase 92 IU/L (40-130); Anion Gap 15.9 (5-19); Aspartate Amino Transferase 20 U/L (0-40); Blood Urea Nitrogen 16 mg/dL (8-23); C Reactive Protein 43.1 mg/L (0.0-4.9); Calcium 8.2 mg/dL (8.5-10.5); Carbon Dioxide 27 mmol/L (22-29); Chloride 101 mmol/L (98-107); Globulin 3.5 g/dL (1.3-4.6); Glucose 179 mg/dL (65-115); Osmolality Calculated 296 mOsm/kg (285-295); Potassium 3.9 mmol/L (3.5-5.1); Sodium 140 mmol/L (136-145); Total Bilirubin 0.2 mg/dL (0.15-1.2); Total Protein 6.5 g/dL (6.6-8.7)
[2020-06-02 16:17] LABS: Erythrocyte Sedimentation Rate > 120 mm/hr (0-10)
== END 2020-06-02 14:53 | disposition home or self-care (01) ==
LOC: LAB 14:56
PROVIDERS: PCP Nurse Practitioner Family; Visit Provider Internal Medicine
DX: M00.862 Arthritis due to other bacteria, left knee (principal); Z96.652 Presence of left artificial knee joint
CPT/HCPCS: 80053; 85025; 85651; 86140

== ENCOUNTER 2020-06-09 16:33 | Outpatient (CLI) | payer OTHER, MEDICARE, SELFPAY ==
[2020-06-09 17:27] LABS: Basophils % 0.7 %; Eosinophils # 0.3 10^3/uL (0.0-0.8); Eosinophils % 4.4 %; Hematocrit 28.6 % (42.0-52.0); Hemoglobin 8.1 g/dL (11.7-16.6); Lymphocytes % 16.8 %; Mean Corpuscular HGB Conc 28.3 g/dL (30.0-36.0); Mean Corpuscular Hemoglobin 27.8 pg (28.0-34.0); Mean Corpuscular Volume 98.3 fL (80-94); Mean Platelet Volume 9.3 fL (7.4-10.4); Monocytes # 0.4 10^3/uL (0.2-0.9); Monocytes % 7.1 %; Neutrophils # 4.12 10^3/uL (1.8-7.7); Neutrophils % 69.2 %; Nucleated Red Blood Cells % 0.3 %; Platelet Count 363 10^3/cmm (130-400); Red Blood Count 2.91 10^6/uL (4.1-5.3); Red Cell Distribution Width 16.2 % (12.1-15.1)
[2020-06-09 17:44] LABS: Alanine Aminotransferase < 5 U/L (0-41); Albumin Level 3.3 g/dL (3.5-5.2); Alkaline Phosphatase 165 IU/L (40-130); Anion Gap 15.9 (5-19); Aspartate Amino Transferase 18 U/L (0-40); Blood Urea Nitrogen 10 mg/dL (8-23); C Reactive Protein 10.1 mg/L (0.0-4.9); Calcium 8.4 mg/dL (8.5-10.5); Carbon Dioxide 27 mmol/L (22-29); Chloride 101 mmol/L (98-107); Globulin 2.7 g/dL (1.3-4.6); Glucose 104 mg/dL (65-115); Osmolality Calculated 289 mOsm/kg (285-295); Potassium 3.9 mmol/L (3.5-5.1); Sodium 140 mmol/L (136-145); Total Bilirubin 0.2 mg/dL (0.15-1.2)
[2020-06-09 18:58] LABS: Erythrocyte Sedimentation Rate 60 mm/hr (0-10)
== END 2020-06-09 16:34 | disposition home or self-care (01) ==
LOC: LAB 16:37
PROVIDERS: PCP Nurse Practitioner Family; Visit Provider Orthopaedic Surgery
DX: Z47.1 Aftercare following joint replacement surgery (principal)
CPT/HCPCS: 80053; 85025; 85651; 86140

== ENCOUNTER 2020-06-19 11:05 | Outpatient (CLI) | payer OTHER, MEDICARE, SELFPAY ==
[2020-06-19 11:23] LABS: Basophils % 0.5 %; Eosinophils # 0.3 10^3/uL (0.0-0.8); Eosinophils % 6.7 %; Hematocrit 31.9 % (42.0-52.0); Hemoglobin 9.2 g/dL (11.7-16.6); Lymphocytes % 24.1 %; Mean Corpuscular HGB Conc 28.8 g/dL (30.0-36.0); Mean Corpuscular Hemoglobin 28.2 pg (28.0-34.0); Mean Corpuscular Volume 97.9 fL (80-94); Mean Platelet Volume 9.9 fL (7.4-10.4); Monocytes # 0.4 10^3/uL (0.2-0.9); Monocytes % 10.3 %; Neutrophils # 2.43 10^3/uL (1.8-7.7); Neutrophils % 57.9 %; Nucleated Red Blood Cells % 0 %; Platelet Count 247 10^3/cmm (130-400); Red Blood Count 3.26 10^6/uL (4.1-5.3); Red Cell Distribution Width 17.1 % (12.1-15.1); White Blood Count 4.2 10^3/uL (4.0-10.0)
[2020-06-19 12:12] LABS: Erythrocyte Sedimentation Rate 48 mm/hr (0-10)
[2020-06-19 12:14] LABS: Alanine Aminotransferase 8 U/L (0-41); Albumin Level 3.5 g/dL (3.5-5.2); Alkaline Phosphatase 173 IU/L (40-130); Anion Gap 11.9 (5-19); Aspartate Amino Transferase 25 U/L (0-40); Blood Urea Nitrogen 10 mg/dL (8-23); C Reactive Protein 6.8 mg/L (0.0-4.9); Calcium 8.2 mg/dL (8.5-10.5); Carbon Dioxide 28 mmol/L (22-29); Chloride 105 mmol/L (98-107); Globulin 2.5 g/dL (1.3-4.6); Glucose 94 mg/dL (65-115); Osmolality Calculated 291 mOsm/kg (285-295); Potassium 3.9 mmol/L (3.5-5.1); Sodium 141 mmol/L (136-145); Total Bilirubin 0.2 mg/dL (0.15-1.2)
== END 2020-06-19 11:06 | disposition home or self-care (01) ==
LOC: LAB 11:08
PROVIDERS: PCP Nurse Practitioner Family; Visit Provider Orthopaedic Surgery
DX: Z47.1 Aftercare following joint replacement surgery (principal)
CPT/HCPCS: 80053; 85025; 85651; 86140

== ENCOUNTER 2020-06-23 19:49 | Outpatient (CLI) | payer OTHER, MEDICARE, SELFPAY ==
[2020-06-23 20:11] LABS: Basophils % 0.5 %; Eosinophils # 0.4 10^3/uL (0.0-0.8); Eosinophils % 6.1 %; Hemoglobin 10.1 g/dL (11.7-16.6); Lymphocytes # 1.2 10^3/uL (0.8-4.8); Lymphocytes % 19.5 %; Mean Corpuscular HGB Conc 28.9 g/dL (30.0-36.0); Mean Corpuscular Hemoglobin 28.6 pg (28.0-34.0); Mean Corpuscular Volume 99.2 fL (80-94); Monocytes # 0.5 10^3/uL (0.2-0.9); Monocytes % 8.5 %; Neutrophils # 3.85 10^3/uL (1.8-7.7); Neutrophils % 65.1 %; Nucleated Red Blood Cells % 0 %; Platelet Count 257 10^3/cmm (130-400); Red Blood Count 3.53 10^6/uL (4.1-5.3); Red Cell Distribution Width 16.8 % (12.1-15.1); White Blood Count 5.9 10^3/uL (4.0-10.0)
[2020-06-23 20:27] LABS: Alanine Aminotransferase < 5 U/L (0-41); Albumin Level 3.9 g/dL (3.5-5.2); Alkaline Phosphatase 157 IU/L (40-130); Anion Gap 14.7 (5-19); Aspartate Amino Transferase 17 U/L (0-40); Blood Urea Nitrogen 16 mg/dL (8-23); C Reactive Protein 7.6 mg/L (0.0-4.9); Calcium 8.6 mg/dL (8.5-10.5); Carbon Dioxide 27 mmol/L (22-29); Chloride 102 mmol/L (98-107); Globulin 2.4 g/dL (1.3-4.6); Glucose 110 mg/dL (65-115); Osmolality Calculated 292 mOsm/kg (285-295); Potassium 3.7 mmol/L (3.5-5.1); Sodium 140 mmol/L (136-145); Total Bilirubin 0.2 mg/dL (0.15-1.2); Total Protein 6.3 g/dL (6.6-8.7)
[2020-06-23 21:01] LABS: Erythrocyte Sedimentation Rate 39 mm/hr (0-10)
== END 2020-06-23 19:50 | disposition home or self-care (01) ==
LOC: LAB 19:50
PROVIDERS: PCP Nurse Practitioner Family; Visit Provider Orthopaedic Surgery
DX: Z47.1 Aftercare following joint replacement surgery (principal)
CPT/HCPCS: 80053; 85025; 85651; 86140

== ENCOUNTER 2020-06-30 12:52 | Outpatient (CLI) | payer OTHER, MEDICARE, SELFPAY ==
[2020-06-30 13:09] LABS: Basophils # 0.1 10^3/uL (0.0-0.1); Basophils % 1.1 %; Eosinophils # 0.4 10^3/uL (0.0-0.8); Hematocrit 36.9 % (42.0-52.0); Hemoglobin 10.9 g/dL (11.7-16.6); Lymphocytes # 1.1 10^3/uL (0.8-4.8); Lymphocytes % 24.2 %; Mean Corpuscular HGB Conc 29.5 g/dL (30.0-36.0); Mean Corpuscular Hemoglobin 28.3 pg (28.0-34.0); Mean Corpuscular Volume 95.8 fL (80-94); Mean Platelet Volume 10.6 fL (7.4-10.4); Monocytes # 0.4 10^3/uL (0.2-0.9); Neutrophils # 2.38 10^3/uL (1.8-7.7); Neutrophils % 54.5 %; Nucleated Red Blood Cells % 0 %; Platelet Count 271 10^3/cmm (130-400); Red Blood Count 3.85 10^6/uL (4.1-5.3); Red Cell Distribution Width 15.7 % (12.1-15.1); White Blood Count 4.4 10^3/uL (4.0-10.0)
[2020-06-30 13:50] LABS: Alanine Aminotransferase < 5 U/L (0-41); Alkaline Phosphatase 148 IU/L (40-130); Anion Gap 14.5 (5-19); Aspartate Amino Transferase 17 U/L (0-40); Blood Urea Nitrogen 16 mg/dL (8-23); Carbon Dioxide 26 mmol/L (22-29); Chloride 103 mmol/L (98-107); Globulin 2.7 g/dL (1.3-4.6); Glucose 102 mg/dL (65-115); Osmolality Calculated 289 mOsm/kg (285-295); Potassium 4.5 mmol/L (3.5-5.1); Sodium 139 mmol/L (136-145); Total Bilirubin 0.2 mg/dL (0.15-1.2); Total Protein 6.7 g/dL (6.6-8.7)
[2020-06-30 14:06] LABS: C Reactive Protein 2.9 mg/L (0.0-4.9)
[2020-06-30 14:22] LABS: Erythrocyte Sedimentation Rate 27 mm/hr (0-10)
== END 2020-06-30 12:53 | disposition home or self-care (01) ==
LOC: LAB 12:55
PROVIDERS: PCP Nurse Practitioner Family; Visit Provider Orthopaedic Surgery
DX: Z47.1 Aftercare following joint replacement surgery (principal)
CPT/HCPCS: 80053; 85025; 85651; 86140

== ENCOUNTER 2020-07-08 17:26 | Outpatient (CLI) | payer OTHER, MEDICARE, SELFPAY ==
[2020-07-08 17:54] LABS: Basophils # 0.1 10^3/uL (0.0-0.1); Basophils % 0.9 %; Eosinophils # 0.7 10^3/uL (0.0-0.8); Eosinophils % 12.4 %; Hematocrit 35.8 % (42.0-52.0); Hemoglobin 10.8 g/dL (11.7-16.6); Lymphocytes # 1.2 10^3/uL (0.8-4.8); Lymphocytes % 21.8 %; Mean Corpuscular HGB Conc 30.2 g/dL (30.0-36.0); Mean Corpuscular Hemoglobin 28.6 pg (28.0-34.0); Mean Corpuscular Volume 94.7 fL (80-94); Mean Platelet Volume 10.3 fL (7.4-10.4); Monocytes # 0.5 10^3/uL (0.2-0.9); Monocytes % 8.7 %; Neutrophils # 3.15 10^3/uL (1.8-7.7); Neutrophils % 55.8 %; Nucleated Red Blood Cells % 0 %; Platelet Count 241 10^3/cmm (130-400); Red Blood Count 3.78 10^6/uL (4.1-5.3); Red Cell Distribution Width 15.3 % (12.1-15.1); White Blood Count 5.6 10^3/uL (4.0-10.0)
[2020-07-08 18:13] LABS: Alanine Aminotransferase < 5 U/L (0-41); Albumin Level 4.4 g/dL (3.5-5.2); Alkaline Phosphatase 124 IU/L (40-130); Anion Gap 15.8 (5-19); Aspartate Amino Transferase 14 U/L (0-40); Blood Urea Nitrogen 18 mg/dL (8-23); C Reactive Protein 4.9 mg/L (0.0-4.9); Carbon Dioxide 26 mmol/L (22-29); Chloride 103 mmol/L (98-107); Globulin 2.3 g/dL (1.3-4.6); Glucose 88 mg/dL (65-115); Osmolality Calculated 293 mOsm/kg (285-295); Potassium 3.8 mmol/L (3.5-5.1); Sodium 141 mmol/L (136-145); Total Bilirubin 0.2 mg/dL (0.15-1.2); Total Protein 6.7 g/dL (6.6-8.7)
[2020-07-08 22:29] LABS: Erythrocyte Sedimentation Rate 22 mm/hr (0-10)
== END 2020-07-08 17:27 | disposition home or self-care (01) ==
LOC: LAB 17:27
PROVIDERS: PCP Nurse Practitioner Family; Visit Provider Orthopaedic Surgery
DX: M00.9 Pyogenic arthritis, unspecified (principal)
CPT/HCPCS: 80053; 85025; 85651; 86140

== ENCOUNTER 2020-07-15 15:59 | Outpatient (CLI) | payer OTHER, MEDICARE, SELFPAY ==
[2020-07-15 16:39] LABS: Hematocrit 35.4 % (42.0-52.0); Hemoglobin 10.5 g/dL (11.7-16.6); Mean Corpuscular HGB Conc 29.7 g/dL (30.0-36.0); Mean Corpuscular Hemoglobin 27.9 pg (28.0-34.0); Mean Corpuscular Volume 94.1 fL (80-94); Mean Platelet Volume 10.4 fL (7.4-10.4); Platelet Count 190 10^3/cmm (130-400); Red Blood Count 3.76 10^6/uL (4.1-5.3); White Blood Count 2.9 10^3/uL (4.0-10.0)
[2020-07-15 16:58] LABS: C Reactive Protein 23.6 mg/L (0.0-4.9)
[2020-07-15 20:21] LABS: Total Cells Counted 100 (0-100)
[2020-07-15 20:28] LABS: Absolute Neutrophil 1.7 10^3/cmm (1.4-6.5); Absolute Segmented Neutrophil 1.7 10/cmm (1.6-7.1); Anisocytosis Trace; Eosinophils 1 %; Lymphocytes 23 %; Monocytes Absolute 0.4 10^3/cmm (0.1-0.6); Platelet Estimate Normal (Normal); Segmented Neutrophils 57 %
[2020-07-15 23:11] LABS: Erythrocyte Sedimentation Rate 38 mm/hr (0-10)
== END 2020-07-15 16:00 | disposition home or self-care (01) ==
LOC: LAB 16:06
PROVIDERS: PCP Nurse Practitioner Family; Visit Provider Orthopaedic Surgery
DX: Z96.652 Presence of left artificial knee joint; T84.54XA Infection and inflammatory reaction due to internal left knee prosthesis, initial encounter; X58.XXXA Exposure to other specified factors, initial encounter
CPT/HCPCS: 36415; 85007; 85027; 85651; 86140; 87040

== ENCOUNTER 2020-07-23 03:52 | Emergency (ER) | payer OTHER, MEDICARE, SELFPAY ==
[2020-07-23] VITALS (8 sets, daily range): BP systolic 143–172; BP diastolic 65–99; PULSE 83–104; RESP 17–28; TEMP 36.9; O2SAT 85–95; BMI 31.9
--- NOTE | 2020-07-23 04:15 | ECG_ITS ---
[facility] Test Date: 2020-07-23 Pat Name: Ludwig Malloy Department: Room: Gender: Male Care Director: : 1945 Requested By: Allyson Hood Order Number: [id number] Lyn MD: Christiano Adan M.D. Measurements Intervals [place] Rate: 95 P: 2 NC: 149 QRS: 17 QRSD: 117 T: 24 QT: 355 QTc: 447 Interpretive Statements SINUS RHYTHM MODERATE INTRAVENTRICULAR CONDUCTION DELAY [110+ ms QRS DURATION] Compared to ECG 05/12/2020 23:11:31 Intraventricular conduction delay now present Sinus tachycardia no longer present Electronically Signed On 07-24-2020 20:08:31 ALIGNING CHECKER by Christiano Adan M.D. [id number]
--- NOTE | 2020-07-23 04:15 | XR_ITS ---
WS: [id number] Portable AP upright chest, 07/23/2020 Clinical Data: Dyspnea Comparison: Portable chest, 05/28/2020. Findings: Bilateral lung opacities are seen in the lower lobes most consistent with acute pneumonia. The heart is enlarged. No nodules or masses are seen. Monitor leads on the chest wall. XR/XR chest 1V portable [id number] Impression: 1. Bilateral lower lobe lung opacities most consistent with pneumonia. 2. Cardiomegaly.
--- NOTE | 2020-07-23 04:17 | ED_ITS ---
Documented by User: Allyson Kitchen 07/23/20 18:43 HPI - COVID General: Chief Complaint: COVID symptoms Stated Complaint: covid + Time Seen by Provider: 07/23/20 03:56 Source: patient Mode of arrival: ambulatory Limitations: no limitations Triage information: Has fever, cough or shortness of breath . Exposure to COVID + person last 14 days History of Present Illness: HPI Narrative: Ludwig is a very nice 74-year-old male who comes in complaining of shortness of breath. Patient states he had a positive Covid test or was notified about a positive Covid test on July 15. He states he has since been called by the [facility] and told him that he was cleared. Patient states that he was feeling well until tonight when he got much more short of breath with a sore throat. Patient does not have a history of lung problems according to him but did arrive here significantly hypoxic on room air. He states overall he cannot feels like he has the flu. He denies any chest pain. He denies any back pain, urinary symptoms or skin rashes. Of note the patient has had a history of an infected knee replacement. He states that feels fine at this time. COVID 19 common symptoms: positive fever(s), chills, non-productive cough, dyspnea, fatigue and body aches; negative productive cough, headache(s), throat pain, nausea, vomiting or diarrhea COVID 19 other sytmptoms: negative chest pain or confusion COVID Results: SARS-CoV-2 Antigen (Rapid) Positive (Negative) H 07/23/20 04:41 07/23/20 Nasal/Oral Coronavirus 2019 PCR Negative 04/24/20 14:06 04/24/20 Review of Systems Const: Reports: fever(s), chills, body aches, fatigue and malaise Eyes: Denies: change in vision, blurry vision, photophobia, eye discomfort, eye discharge, eye redness or yellow eyes ENMT: Denies: throat pain, odynophagia, hoarseness, swelling of lips/tongue, ear or mastoid pain, ear discharge, change in hearing or nasal discharge Card: Denies: chest pain, palpitations, irregular heart rhythm, edema, lightheadedness, syncope, pre-syncope, dyspnea on exertion or orthopnea Resp: Reports: dyspnea and non-productive cough; Denies: productive cough, wheezing, hemoptysis or chest congestion GI: Denies: abdominal pain, nausea, vomiting, hematemesis, coffee ground emesis, heartburn, diarrhea, constipation, GI cramping, hematochezia or melena : Denies: flank pain, dysuria, urinary frequency, urinary urgency or hematuria Musc: Denies: neck pain, back pain, extremity pain, extremity swelling, joint pain, joint swelling, joint redness, joint warmth or joint stiffness Skin/Breast: Denies: rash, pruritus, erythema, skin pain or skin tenderness Neuro: Denies: headache(s), numbness in extremities, weakness in extremities, sensory changes, lack of coordination, difficulty walking, dizziness, vertigo, confusion, Slurred speech present or seizure-like activity George/Lymph: Denies: easy bruising, easy bleeding, petechiae, purpura or enlarged lymph nodes All/Imm: Denies: urticaria, throat swelling, tongue swelling, facial swelling or acute wheezing PFSH ED PFSH: Medical History (Updated 07/27/20 @ 12:44 by Yayo Christina DO) Bladder neck stricture Erectile dysfunction GERD (gastroesophageal reflux disease) Gout Gross hematuria Hyperlipidemia Hypertension Male urinary stress incontinence Osteoarthritis of knees, bilateral Personal history of malignant neoplasm of prostate treated with radiation in 2010 Prostate cancer Type 2 diabetes mellitus Surgical History H/O nasal septoplasty H/O prostatectomy History of appendectomy History of carpal tunnel surgery BILATERAL History of lumbar laminectomy History of sinus surgery Family History Family/Other Cancer Lung disease Hypertension CAD (coronary artery disease) Stroke Denies family history of Diabetes Social History Smoking and tobacco status: never smoked Alcohol intake: never Adopted: No Caregiver/support person: No Lives independently: No Household members: spouse Marital status: Current occupational status: retired History of recent travel: Yes (lives in [facility]) Physical Exam Const: COMMON NORMALS: no acute distress, patient oriented x3, no limitations and alert GENERAL APPEARANCE: cooperative HENMT: COMMON NORMALS: normocephalic, atraumatic, external ears normal, EAC's normal and Normal external nose present HEAD & SCALP: normal to inspection, normocephalic and atraumatic FACE & SINUS: normal facial exam and face symmetric NOSE: Normal external nose present and Normal nares present EXTE RNAL EAR: Yes external ears normal EXTERNAL AUDITORY CANAL: EAC's normal MOUTH: Normal oral and palatal mucosa present, lip normal and tongue normal Eye: COMMON NORMALS: Equal, round and reactive pupils present and conjunctivae normal GENERAL EYE: appearance normal, both eyes and all related structures ALIGNMENT: Yes alignment normal PERIORBITAL: periorbital findings normal EYELID: eyelids normal CONJUNCTIVA: Yes conjunctivae normal SCLERA: s clerae normal PUPIL: Yes Equal, round and reactive pupils present Neck/C-Spine: COMMON NORMALS: full ROM, no lymphadenopathy, supple, no meningeal signs and no JVD GENERAL: Yes normal visual inspection and Yes trachea midline Chest: COMMONS NORMALS: normal inspection of the chest and normal palpation of entire chest wall Resp: COMMON NORMALS: normal respiratory effort, No retractions, No use of accessory muscles and clear to auscultation bilaterally EFFORT & INSPECTION: Yes able to speak in complete sentences and Yes symmetric chest movement AUSCULTATION: clear to auscultation bilaterally, no crackles, no rales, no rhonchi and wheezes Cardio: COMMON NORMALS: no JVD, regular rate, regular rhythm, S1 normal heart sound present and S2 normal heart sound present RATE: regular rate RHYTHM: regular rhythm HEART SOUNDS: S1 normal heart sound present, S2 normal heart sound present, no click, no gallops, no murmurs and no rubs GI: COMMON NORMALS: Soft to palpation and No hepatosplenomegaly present PA LPATION: Yes Soft to palpation, No Tenderness to palpation present (GI), No Guarding due to palpation present (GI), No Rigid due to palpation, Yes No hepatosplenomegaly present, No Hernia present, No Palpable mass present and No Pulsatile mass present : COMMON NORMALS: Yes no CVA tenderness BLADDER/KIDNEY EXAM: Yes no CVA tenderness Back/Pelvis: COMMON NORMALS: no CVA tenderness, thoracic and lumbar spine no rmal to inspection, no thoracic nor lumbar tenderness and thoraco-lumbar ROM normal Extremity: COMMON NORMALS: normal to inspection, full ROM, capillary refill normal, no joint enlargement, no clubbing, cyanosis or edema and no calf tenderness Neuro: COMMON NORMALS: patient oriented x3, CN's II-XII intact bilaterally, moves all extremities, no focal motor deficits and no sensory deficits noted SENSORIUM/ORIENTATION: Yes alert MENINGEAL SIGNS: Yes no meningeal signs SPEECH: speech normal Psych: COMMON NORMALS: mental status grossly normal, Normal thought process present, cooperative, normal affect, speech normal and activity/motor behavior normal SPEECH: Yes normal speech THOUGHT PROCESS: Normal thought process present Skin: COMMON NORMALS: no rashes or lesions noted, turgor normal, no jaundice, no petechiae and no mottling GENERAL SKIN EXAM: no rashes or lesions noted and turgor normal Course 2 Vital Signs: Vital signs: Vital Signs Temperature 98.5 F 07/23/20 04:07 Pulse Rate 98 07/23/20 10:40 Respiratory Rate 18 07/23/20 10:40 Blood Pressure 172/99 07/23/20 10:40 Pulse Oximetry 95 07/23/20 10:40 MDM - COVID MDM Narrative Medical decision making narrative: 0600 - Case turned over to Dr. Christina at change of shift. Lab Data Attestation: I reviewed the patient's lab results. Result diagrams: 07/23/20 04:22 07/23/20 04:22 Labs: Lab Results 07/23/20 07/23/20 07/23/20 Range/Units 04:22 04:22 04:22 WBC 11.6 H (4.0-10.0) 10^3/uL RBC 4.26 (4.1-5.3) 10^6/uL Hgb 11.9 (11.7-16.6) g/dL Hct 38.1 L (42.0-52.0) % MCV 89.4 (80-94) fL MCH 27.9 L (28.0-34.0) pg MCHC 31.2 (30.0-36.0) g/dL RDW 15.0 (12.1-15.1) % Plt Count 270 (130-400) 10^3/cmm MPV 10.7 H (7.4-10.4) fL Neut % (Auto) 89.1 % Lymph % (Auto) 5.5 % Spencer % (Auto) 2.9 % Eos % (Auto) 0.0 % Baso % (Auto) 0.2 % Neut # (Auto) 10.28 H (1.8-7.7) 10^3/uL Lymph # (Auto) 0.6 L (0.8-4.8) 10^3/uL Spencer # (Auto) 0.3 (0.2-0.9) 10^3/uL Eos # (Auto) 0.0 (0.0-0.8) 10^3/uL Baso # (Auto) 0.0 (0.0-0.1) 10^3/uL Nucleated RBC % (auto) 0 % Nucleated RBCs # 0.0 /100WBC PT 14.50 (12.1-14.9) SECONDS INR 1.10 (0.8-1.2) APTT 30.8 (23.9-36.7) SECONDS Fibrinogen 720 H (174-498) mg/dL D-Dimer 1.95 H (0-0.59) ug/mIFEU Specimen Type Sample Site ABG pH (7.35-7.45) ABG pCO2 (35-45) mmHg ABG pO2 (80.0-100.0) mmHg ABG HCO3 (22-26) mmol/L ABG Base Excess (-2.0-2.0) mmol/L Patrice Test Hematocrit (42-52) % O2 Delivery Device O2 Liters/Min % Conversion Developer ID Sodium 134 L (136-145) mmol/L Potassium 3.9 (3.5-5.1) mmol/L Chloride 94 L (98-107) mmol/L Carbon Dioxide 29 (22-29) mmol/L Anion Gap 14.9 (5-19) BUN 18 (8-23) mg/dL Creatinine 1.0 (0.7-1.2) mg/dL GFR Calculation Not Reportable Glucose 245 H (65-115) mg/dL Calculated Osmolality 288 (285-295) mOsm/kg Lactic Acid (0.5-2.2) mmol/L Calcium 8.3 L (8.5-10.5) mg/dL Magnesium 1.9 (1.7-2.3) mg/dL Total Bilirubin 0.4 (0.15-1.2) mg/dL AST 12 (0-40) U/L ALT 12 (0-41) U/L Alkaline Phosphatase 91 (40-130) IU/L Lactate Dehydrogenase 290 H (135-225) U/L Troponin T Gen 5 ng/L (0-15) ng/L C-Reactive Protein 270.3 H (0.0-4.9) mg/L Total Protein 6.1 L (6.6-8.7) g/dL Albumin 4.0 (3.5-5.2) g/dL Globulin 2.1 (1.3-4.6) g/dL Procalcitonin 0.92 H (0-0.5) ng/mL Urine Color (Yellow) Urine Appearance (CLEAR) Urine pH (5-7) Ur Specific [place] (1.005-1.030) Urine Protein (Negative) Urine Glucose (UA) (Normal) Urine Ketones (Negative) Urine Blood (Negative) Urine Nitrate (Negative) Urine Bilirubin (Negative) Urine Urobilinogen (Negative) mg/dL Ur Leukocyte Esterase (Negative) Urine RBC (0-2) /hpf Urine WBC (0-5) /hpf Ur Squamous Epith Cells (0-5) /hpf Amorphous Sediment Urine Bacteria (NONE) /hpf Urine Mucus /hpf Influenza Type A Ag (Negative) Influenza Type B Ag (Negative) SARS-CoV-2 Ag (Rapid) (Negative) 07/23/20 07/23/20 07/23/20 Range/Units 04:22 04:22 04:30 WBC (4.0-10.0) 10^3/uL RBC (4.1-5.3) 10^6/uL Hgb (11.7-16.6) g/dL Hct (42.0-52.0) % MCV (80-94) fL MCH (28.0-34.0) pg MCHC (30.0-36.0) g/dL RDW (12.1-15.1) % Plt Count (130-400) 10^3/cmm MPV (7.4-10.4) fL Neut % (Auto) % Lymph % (Auto) % Spencer % (Auto) % Eos % (Auto) % Baso % (Auto) % Neut # (Auto) (1.8-7.7) 10^3/uL Lymph # (Auto) (0.8-4.8) 10^3/uL Spencer # (Auto) (0.2-0.9) 10^3/uL Eos # (Auto) (0.0-0.8) 10^3/uL Baso # (Auto) (0.0-0.1) 10^3/uL Nucleated RBC % (auto) % Nucleated RBCs # /100WBC PT (12.1-14.9) SECONDS INR (0.8-1.2) APTT (23.9-36.7) SECONDS Fibrinogen (174-498) mg/dL D-Dimer (0-0.59) ug/mIFEU Specimen Type Arterial Sample Site Radial, right ABG pH 7.48 H (7.35-7.45) ABG pCO2 36.2 (35-45) mmHg ABG pO2 72.8 L (80.0-100.0) mmHg ABG HCO3 27.2 H (22-26) mmol/L ABG Base Excess 3.7 H (-2.0-2.0) mmol/L Patrice Test Pos Hematocrit 37.4 L (42-52) % O2 Delivery Device Nc O2 Liters/Min 3.0 % Conversion Developer ID Hinja Sodium (136-145) mmol/L Potassium (3.5-5.1) mmol/L Chloride (98-107) mmol/L Carbon Dioxide (22-29) mmol/L Anion Gap (5-19) BUN (8-23) mg/dL Creatinine (0.7-1.2) mg/dL GFR Calculation Glucose (65-115) mg/dL Calculated Osmolality (285-295) mOsm/kg Lactic Acid 1.3 (0.5-2.2) mmol/L Calcium (8.5-10.5) mg/dL Magnesium (1.7-2.3) mg/dL Total Bilirubin (0.15-1.2) mg/dL AST (0-40) U/L ALT (0-41) U/L Alkaline Phosphatase (40-130) IU/L Lactate Dehydrogenase (135-225) U/L Troponin T Gen 5 ng/L 33 H (0-15) ng/L C-Reactive Protein (0.0-4.9) mg/L Total Protein (6.6-8.7) g/dL Albumin (3.5-5.2) g/dL Globulin (1.3-4.6) g/dL Procalcitonin (0-0.5) ng/mL Urine Color (Yellow) Urine Appearance (CLEAR) Urine pH (5-7) Ur Specific [place] (1.005-1.030) Urine Protein (Negative) Urine Glucose (UA) (Normal) Urine Ketones (Negative) Urine Blood (Negative) Urine Nitrate (Negative) Urine Bilirubin (Negative) Urine Urobilinogen (Negative) mg/dL Ur Leukocyte Esterase (Negative) Urine RBC (0-2) /hpf Urine WBC (0-5) /hpf Ur Squamous Epith Cells (0-5) /hpf Amorphous Sediment Urine Bacteria (NONE) /hpf Urine Mucus /hpf Influenza Type A Ag (Negative) Influenza Type B Ag (Negative) SARS-CoV-2 Ag (Rapid) (Negative) 07/23/20 07/23/20 07/23/20 Range/Units 04:41 04:41 07:20 WBC (4.0-10.0) 10^3/uL RBC (4.1-5.3) 10^6/uL Hgb (11.7-16.6) g/dL Hct (42.0-52.0) % MCV (80-94) fL MCH (28.0-34.0) pg MCHC (30.0-36.0) g/dL RDW (12.1-15.1) % Plt Count (130-400) 10^3/cmm MPV (7.4-10.4) fL Neut % (Auto) % Lymph % (Auto) % Spencer % (Auto) % Eos % (Auto) % Baso % (Auto) % Neut # (Auto) (1.8-7.7) 10^3/uL Lymph # (Auto) (0.8-4.8) 10^3/uL Spencer # (Auto) (0.2-0.9) 10^3/uL Eos # (Auto) (0.0-0.8) 10^3/uL Baso # (Auto) (0.0-0.1) 10^3/uL Nucleated RBC % (auto) % Nucleated RBCs # /100WBC PT (12.1-14.9) SECONDS INR (0.8-1.2) APTT (23.9-36.7) SECONDS Fibrinogen (174-498) mg/dL D-Dimer (0-0.59) ug/mIFEU Specimen Type Sample Site ABG pH (7.35-7.45) ABG pCO2 (35-45) mmHg ABG pO2 (80.0-100.0) mmHg ABG HCO3 (22-26) mmol/L ABG Base Excess (-2.0-2.0) mmol/L Patrice Test Hematocrit (42-52) % O2 Delivery Device O2 Liters/Min % Conversion Developer ID Sodium (136-145) mmol/L Potassium (3.5-5.1) mmol/L Chloride (98-107) mmol/L Carbon Dioxide (22-29) mmol/L Anion Gap (5-19) BUN (8-23) mg/dL Creatinine (0.7-1.2) mg/dL GFR Calculation Glucose (65-115) mg/dL Calculated Osmolality (285-295) mOsm/kg Lactic Acid (0.5-2.2) mmol/L Calcium (8.5-10.5) mg/dL Magnesium (1.7-2.3) mg/dL Total Bilirubin (0.15-1.2) mg/dL AST (0-40) U/L ALT (0-41) U/L Alkaline Phosphatase (40-130) IU/L Lactate Dehydrogenase (135-225) U/L Troponin T Gen 5 ng/L (0-15) ng/L C-Reactive Protein (0.0-4.9) mg/L Total Protein (6.6-8.7) g/dL Albumin (3.5-5.2) g/dL Globulin (1.3-4.6) g/dL Procalcitonin (0-0.5) ng/mL Urine Color Yellow (Yellow) Urine Appearance Clear (CLEAR) Urine pH 6.5 (5-7) Ur Specific [place] 1.005 (1.005-1.030) Urine Protein 1+ H (Negative) Urine Glucose (UA) Trace H (Normal) Urine Ketones Negative (Negative) Urine Blood 2+ H (Negative) Urine Nitrate Negative (Negative) Urine Bilirubin Neg (Negative) Urine Urobilinogen Norm (Negative) mg/dL Ur Leukocyte Esterase Negative (Negative) Urine RBC 5-10 H (0-2) /hpf Urine WBC 0-4 H (0-5) /hpf Ur Squamous Epith Cells 0-4 H (0-5) /hpf Amorphous Sediment Not Reportable Urine Bacteria 1+ H (NONE) /hpf Urine Mucus Trace /hpf Influenza Type A Ag Negative (Negative) Influenza Type B Ag Negative (Negative) SARS-CoV-2 Ag (Rapid) Positive H (Negative) COVID Results: SARS-CoV-2 Antigen (Rapid) Positive (Negative) H 07/23/20 04:41 07/23/20 Nasal/Oral Coronavirus 2019 PCR Negative 04/24/20 14:06 04/24/20 EKG Data EKG 1: Attestation: I personally reviewed and interpreted this EKG as follows: EKG interpretation date: 07/23/20 EKG interpretation time: 04:26 Interpretation: Normal sinus rhythm at 95 beats a minute, normal axis, nonspecific interventricular conduction delay, no acute ST or T wave changes. Discharge Plan Discharge Patient Disposition: Transfer to ED Clinical Impression: COVID-19, Type 2 diabetes mellitus, Hypertension Prescriptions: No Action gabapentin 300 mg capsule 300 mg PO BID RF: 0 omeprazole 20 mg capsule,delayed release(DR/EC) 20 mg PO DAILY RF: 0 Trulicity 1.5 mg/0.5 mL pen injector 1.5 mg SUBCUT Q7D RF: 0 furosemide 40 mg tablet 60 mg PO DAILY RF: 0 montelukast 10 mg tablet 10 mg PO DAILY RF: 0 meloxicam 15 mg tablet 15 mg PO DAILY RF: 0 Hold Instructions: Resume on 05/13/20. metoprolol succinate 100 mg tablet extended release 24 hr 100 mg PO DAILY RF: 0 lisinopril 40 mg tablet 40 mg PO DAILY RF: 0 amlodipine 10 mg tablet 10 mg PO DAILY RF: 0 oxybutynin chloride 10 mg tablet extended release 24hr 10 mg PO DAILY RF: 0 simvastatin 40 mg tablet 40 mg PO DAILY RF: 0 allopurinol 300 mg tablet 300 mg PO DAILY RF: 0 ondansetron HCl [Zofran] 4 mg tablet 4 mg PO Q8H PRN (Reason: nausea and vomiting) Qty: 20 RF: 0 metformin 500 mg Tablet 500 mg PO BID RF: 0 doxycycline hyclate 100 mg Capsule 100 mg PO BID RF: 0 Referrals: Cary Sanders FNP [Primary Care Provider] - Sign Out Sign Out Data: Patient Sign Out occurred on 07/23/20 at 06:09. Patient's care was discussed, and care was transferred from to Yayo Christina DO. Coding Level of Care Code ED Etched [employer] Processor for Chg Fwd Exam Comprehensive Documented by User: Yayo Christina DO 07/27/20 12:46 HPI - COVID General: Chief Complaint: COVID symptoms Stated Complaint: covid + Time Seen by Provider: 07/23/20 03:56 COVID Results: SARS-CoV-2 Antigen (Rapid) Positive (Negative) H 07/23/20 04:41 07/23/20 Nasal/Oral Coronavirus 2019 PCR Negative 04/24/20 14:06 04/24/20 PFSH ED PFSH: Medical History (Updated 07/27/20 @ 12:44 by Yayo Christina DO) Bladder neck stricture Erectile dysfunction GERD (gastroesophageal reflux disease) Gout Gross hematuria Hyperlipidemia Hypertension Male urinary stress incontinence Osteoarthritis of knees, bilateral Personal history of malignant neoplasm of prostate treated with radiation in 2010 Prostate cancer Type 2 diabetes mellitus Surgical History H/O nasal septoplasty H/O prostatectomy History of appendectomy History of carpal tunnel surgery BILATERAL History of lumbar laminectomy History of sinus surgery Family History Family/Other Cancer Lung disease Hypertension CAD (coronary artery disease) Stroke Denies family history of Diabetes Social History Smoking and tobacco status: never smoked Alcohol intake: never Adopted: No Caregiver/support person: No Lives independently: No Household members: spouse Marital status: Current occupational status: retired History of recent travel: Yes (lives in [facility]) Course Vital Signs: Vital signs: Vital Signs Temperature 98.5 F 07/23/20 04:07 Pulse Rate 98 07/23/20 10:40 Respiratory Rate 18 07/23/20 10:40 Blood Pressure 172/99 07/23/20 10:40 Pulse Oximetry 95 07/23/20 10:40 MDM - COVID MDM Narrative Medical decision making narrative: PT has COVID 19. Disucssed with pt recommend admission. THere are no beds avaialable here at [facility]. Will transfer pt to [facility]. Lab Data Result diagrams: 07/23/20 04:22 07/23/20 04:22 Labs: Lab Results 07/23/20 07/23/20 07/23/20 Range/Units 04:22 04:22 04:22 WBC 11.6 H (4.0-10.0) 10^3/uL RBC 4.26 (4.1-5.3) 10^6/uL Hgb 11.9 (11.7-16.6) g/dL Hct 38.1 L (42.0-52.0) % MCV 89.4 (80-94) fL MCH 27.9 L (28.0-34.0) pg MCHC 31.2 (30.0-36.0) g/dL RDW 15.0 (12.1-15.1) % Plt Count 270 (130-400) 10^3/cmm MPV 10.7 H (7.4-10.4) fL Neut % (Auto) 89.1 % Lymph % (Auto) 5.5 % Spencer % (Auto) 2.9 % Eos % (Auto) 0.0 % Baso % (Auto) 0.2 % Neut # (Auto) 10.28 H (1.8-7.7) 10^3/uL Lymph # (Auto) 0.6 L (0.8-4.8) 10^3/uL Spencer # (Auto) 0.3 (0.2-0.9) 10^3/uL Eos # (Auto) 0.0 (0.0-0.8) 10^3/uL Baso # (Auto) 0.0 (0.0-0.1) 10^3/uL Nucleated RBC % (auto) 0 % Nucleated RBCs # 0.0 /100WBC PT 14.50 (12.1-14.9) SECONDS INR 1.10 (0.8-1.2) APTT 30.8 (23.9-36.7) SECONDS Fibrinogen 720 H (174-498) mg/dL D-Dimer 1.95 H (0-0.59) ug/mIFEU Specimen Type Sample Site ABG pH (7.35-7.45) ABG pCO2 (35-45) mmHg ABG pO2 (80.0-100.0) mmHg ABG HCO3 (22-26) mmol/L ABG Base Excess (-2.0-2.0) mmol/L Patrice Test Hematocrit (42-52) % O2 Delivery Device O2 Liters/Min % Conversion Developer ID Sodium 134 L (136-145) mmol/L Potassium 3.9 (3.5-5.1) mmol/L Chloride 94 L (98-107) mmol/L Carbon Dioxide 29 (22-29) mmol/L Anion Gap 14.9 (5-19) BUN 18 (8-23) mg/dL Creatinine 1.0 (0.7-1.2) mg/dL GFR Calculation Not Reportable Glucose 245 H (65-115) mg/dL Calculated Osmolality 288 (285-295) mOsm/kg Lactic Acid (0.5-2.2) mmol/L Calcium 8.3 L (8.5-10.5) mg/dL Magnesium 1.9 (1.7-2.3) mg/dL Total Bilirubin 0.4 (0.15-1.2) mg/dL AST 12 (0-40) U/L ALT 12 (0-41) U/L Alkaline Phosphatase 91 (40-130) IU/L Lactate Dehydrogenase 290 H (135-225) U/L Troponin T Gen 5 ng/L (0-15) ng/L C-Reactive Protein 270.3 H (0.0-4.9) mg/L Total Protein 6.1 L (6.6-8.7) g/dL Albumin 4.0 (3.5-5.2) g/dL Globulin 2.1 (1.3-4.6) g/dL Procalcitonin 0.92 H (0-0.5) ng/mL Urine Color (Yellow) Urine Appearance (CLEAR) Urine pH (5-7) Ur Specific [place] (1.005-1.030) Urine Protein (Negative) Urine Glucose (UA) (Normal) Urine Ketones (Negative) Urine Blood (Negative) Urine Nitrate (Negative) Urine Bilirubin (Negative) Urine Urobilinogen (Negative) mg/dL Ur Leukocyte Esterase (Negative) Urine RBC (0-2) /hpf Urine WBC (0-5) /hpf Ur Squamous Epith Cells (0-5) /hpf Amorphous Sediment Urine Bacteria (NONE) /hpf Urine Mucus /hpf Influenza Type A Ag (Negative) Influenza Type B Ag (Negative) SARS-CoV-2 Ag (Rapid) (Negative) 07/23/20 07/23/20 07/23/20 Range/Units 04:22 04:22 04:30 WBC (4.0-10.0) 10^3/uL RBC (4.1-5.3) 10^6/uL Hgb (11.7-16.6) g/dL Hct (42.0-52.0) % MCV (80-94) fL MCH (28.0-34.0) pg MCHC (30.0-36.0) g/dL RDW (12.1-15.1) % Plt Count (130-400) 10^3/cmm MPV (7.4-10.4) fL Neut % (Auto) % Lymph % (Auto) % Spencer % (Auto) % Eos % (Auto) % Baso % (Auto) % Neut # (Auto) (1.8-7.7) 10^3/uL Lymph # (Auto) (0.8-4.8) 10^3/uL Spencer # (Auto) (0.2-0.9) 10^3/uL Eos # (Auto) (0.0-0.8) 10^3/uL Baso # (Auto) (0.0-0.1) 10^3/uL Nucleated RBC % (auto) % Nucleated RBCs # /100WBC PT (12.1-14.9) SECONDS INR (0.8-1.2) APTT (23.9-36.7) SECONDS Fibrinogen (174-498) mg/dL D-Dimer (0-0.59) ug/mIFEU Specimen Type Arterial Sample Site Radial, right ABG pH 7.48 H (7.35-7.45) ABG pCO2 36.2 (35-45) mmHg ABG pO2 72.8 L (80.0-100.0) mmHg ABG HCO3 27.2 H (22-26) mmol/L ABG Base Excess 3.7 H (-2.0-2.0) mmol/L Patrice Test Pos Hematocrit 37.4 L (42-52) % O2 Delivery Device Nc O2 Liters/Min 3.0 % Conversion Developer ID Hinja Sodium (136-145) mmol/L Potassium (3.5-5.1) mmol/L Chloride (98-107) mmol/L Carbon Dioxide (22-29) mmol/L Anion Gap (5-19) BUN (8-23) mg/dL Creatinine (0.7-1.2) mg/dL GFR Calculation Glucose (65-115) mg/dL Calculated Osmolality (285-295) mOsm/kg Lactic Acid 1.3 (0.5-2.2) mmol/L Calcium (8.5-10.5) mg/dL Magnesium (1.7-2.3) mg/dL Total Bilirubin (0.15-1.2) mg/dL AST (0-40) U/L ALT (0-41) U/L Alkaline Phosphatase (40-130) IU/L Lactate Dehydrogenase (135-225) U/L Troponin T Gen 5 ng/L 33 H (0-15) ng/L C-Reactive Protein (0.0-4.9) mg/L Total Protein (6.6-8.7) g/dL Albumin (3.5-5.2) g/dL Globulin (1.3-4.6) g/dL Procalcitonin (0-0.5) ng/mL Urine Color (Yellow) Urine Appearance (CLEAR) Urine pH (5-7) Ur Specific [place] (1.005-1.030) Urine Protein (Negative) Urine Glucose (UA) (Normal) Urine Ketones (Negative) Urine Blood (Negative) Urine Nitrate (Negative) Urine Bilirubin (Negative) Urine Urobilinogen (Negative) mg/dL Ur Leukocyte Esterase (Negative) Urine RBC (0-2) /hpf Urine WBC (0-5) /hpf Ur Squamous Epith Cells (0-5) /hpf Amorphous Sediment Urine Bacteria (NONE) /hpf Urine Mucus /hpf Influenza Type A Ag (Negative) Influenza Type B Ag (Negative) SARS-CoV-2 Ag (Rapid) (Negative) 07/23/20 07/23/20 07/23/20 Range/Units 04:41 04:41 07:20 WBC (4.0-10.0) 10^3/uL RBC (4.1-5.3) 10^6/uL Hgb (11.7-16.6) g/dL Hct (42.0-52.0) % MCV (80-94) fL MCH (28.0-34.0) pg MCHC (30.0-36.0) g/dL RDW (12.1-15.1) % Plt Count (130-400) 10^3/cmm MPV (7.4-10.4) fL Neut % (Auto) % Lymph % (Auto) % [place] % (Auto) % Eos % (Auto) % Baso % (Auto) % Neut # (Auto) (1.8-7.7) 10^3/uL Lymph # (Auto) (0.8-4.8) 10^3/uL Spencer # (Auto) (0.2-0.9) 10^3/uL Eos # (Auto) (0.0-0.8) 10^3/uL Baso # (Auto) (0.0-0.1) 10^3/uL Nucleated RBC % (auto) % Nucleated RBCs # /100WBC PT (12.1-14.9) SECONDS INR (0.8-1.2) APTT (23.9-36.7) SECONDS Fibrinogen (174-498) mg/dL D-Dimer (0-0.59) ug/mIFEU Specimen Type Sample Site ABG pH (7.35-7.45) ABG pCO2 (35-45) mmHg ABG pO2 (80.0-100.0) mmHg ABG HCO3 (22-26) mmol/L ABG Base Excess (-2.0-2.0) mmol/L Patrice Test Hematocrit (42-52) % O2 Delivery Device O2 Liters/Min % Conversion Developer ID Sodium (136-145) mmol/L Potassium (3.5-5.1) mmol/L Chloride (98-107) mmol/L Carbon Dioxide (22-29) mmol/L Anion Gap (5-19) BUN (8-23) mg/dL Creatinine (0.7-1.2) mg/dL GFR Calculation Glucose (65-115) mg/dL Calculated Osmolality (285-295) mOsm/kg Lactic Acid (0.5-2.2) mmol/L Calcium (8.5-10.5) mg/dL Magnesium (1.7-2.3) mg/dL Total Bilirubin (0.15-1.2) mg/dL AST (0-40) U/L ALT (0-41) U/L Alkaline Phosphatase (40-130) IU/L Lactate Dehydrogenase (135-225) U/L Troponin T Gen 5 ng/L (0-15) ng/L C-Reactive Protein (0.0-4.9) mg/L Total Protein (6.6-8.7) g/dL Albumin (3.5-5.2) g/dL Globulin (1.3-4.6) g/dL Procalcitonin (0-0.5) ng/mL Urine Color Yellow (Yellow) Urine Appearance Clear (CLEAR) Urine pH 6.5 (5-7) Ur Specific [place] 1.005 (1.005-1.030) Urine Protein 1+ H (Negative) Urine Glucose (UA) Trace H (Normal) Urine Ketones Negative (Negative) Urine Blood 2+ H (Negative) Urine Nitrate Negative (Negative) Urine Bilirubin Neg (Negative) Urine Urobilinogen Norm (Negative) mg/dL Ur Leukocyte Esterase Negative (Negative) Urine RBC 5-10 H (0-2) /hpf Urine WBC 0-4 H (0-5) /hpf Ur Squamous Epith Cells 0-4 H (0-5) /hpf Amorphous Sediment Not Reportable Urine Bacteria 1+ H (NONE) /hpf Urine Mucus Trace /hpf Influenza Type A Ag Negative (Negative) Influenza Type B Ag Negative (Negative) SARS-CoV-2 Ag (Rapid) Positive H (Negative) COVID Results: SARS-CoV-2 Antigen (Rapid) Positive (Negative) H 07/23/20 04:41 07/23/20 Nasal/Oral Coronavirus 2019 PCR Negative 04/24/20 14:06 04/24/20 Discharge Plan Discharge Patient Disposition: Transfer to ED Clinical Impression: COVID-19, Type 2 diabetes mellitus, Hypertension Prescriptions: No Action gabapentin 300 mg capsule 300 mg PO BID RF: 0 omeprazole 20 mg capsule,delayed release(DR/EC) 20 mg PO DAILY RF: 0 Trulicity 1.5 mg/0.5 mL pen injector 1.5 mg SUBCUT Q7D RF: 0 furosemide 40 mg tablet 60 mg PO DAILY RF: 0 montelukast 10 mg tablet 10 mg PO DAILY RF: 0 meloxicam 15 mg tablet 15 mg PO DAILY RF: 0 Hold Instructions: Resume on 05/13/20. metoprolol succinate 100 mg tablet extended release 24 hr 100 mg PO DAILY RF: 0 lisinopril 40 mg tablet 40 mg PO DAILY RF: 0 amlodipine 10 mg tablet 10 mg PO DAILY RF: 0 oxybutynin chloride 10 mg tablet extended release 24hr 10 mg PO DAILY RF: 0 simvastatin 40 mg tablet 40 mg PO DAILY RF: 0 allopurinol 300 mg tablet 300 mg PO DAILY RF: 0 ondansetron HCl [Zofran] 4 mg tablet 4 mg PO Q8H PRN (Reason: nausea and vomiting) Qty: 20 RF: 0 metformin 500 mg Tablet 500 mg PO BID RF: 0 doxycycline hyclate 100 mg Capsule 100 mg PO BID RF: 0 Referrals: Cary Sanders FNP [Primary Care Provider] - Sign Out Sign Out Data: Patient Sign Out occurred on 07/23/20 at 06:09. Patient's care was discussed, and care was transferred from to Yayo Christina DO. Coding Level of Care Code ED Etched Circuit Processor for Chg Fwd Exam Comprehensive
[2020-07-23 04:33] LABS: ABG PCO2 36.2 mmHg (35-45); ABG PH Result 7.48 (7.35-7.45); Arterial Blood Gas Hematocrit 37.4 % (42-52); Base Excess ABG 3.7 mmol/L (-2.0-2.0); Blood Gas Allen Test Pos; Blood Gas Sample Site Radial, right; Blood Gas Sample Type Arterial; HCO3 ABG 27.2 mmol/L (22-26); Oxygen Device NC; PO2 ABG 72.8 mmHg (80.0-100.0)
[2020-07-23] MEDS: dexamethasone 4 mg/mL INJ 6 MG IVP (04:44)
[2020-07-23] MEDS: sodium chloride 0.9% 1,000 ML 100 ML IV (04:44)
[2020-07-23 04:52] LABS: Basophils % 0.2 %; Hematocrit 38.1 % (42.0-52.0); Hemoglobin 11.9 g/dL (11.7-16.6); Lymphocytes # 0.6 10^3/uL (0.8-4.8); Lymphocytes % 5.5 %; Mean Corpuscular HGB Conc 31.2 g/dL (30.0-36.0); Mean Corpuscular Hemoglobin 27.9 pg (28.0-34.0); Mean Corpuscular Volume 89.4 fL (80-94); Mean Platelet Volume 10.7 fL (7.4-10.4); Monocytes # 0.3 10^3/uL (0.2-0.9); Monocytes % 2.9 %; Neutrophils # 10.28 10^3/uL (1.8-7.7); Neutrophils % 89.1 %; Nucleated Red Blood Cells % 0 %; Platelet Count 270 10^3/cmm (130-400); Red Blood Count 4.26 10^6/uL (4.1-5.3); White Blood Count 11.6 10^3/uL (4.0-10.0)
[2020-07-23 05:03] LABS: Partial Thromboplastin Time 30.8 SECONDS (23.9-36.7)
[2020-07-23 05:04] LABS: Fibrinogen 720 mg/dL (174-498)
[2020-07-23 05:07] LABS: D Dimer 1.95 ug/mIFEU (0-0.59)
--- NOTE | 2020-07-23 05:08 | CTR_ITS ---
PROCEDURE INFORMATION: Exam: CT Angiography Chest With Contrast Exam date and time: 07/23/2020 5:29 AM Age: 74 years old Clinical indication: Cough and shortness of breath; Patient HX: Cough, SOB, elevated d dimer; Additional info: Dyspnea, positive d-dimer TECHNIQUE: Imaging protocol: Computed tomographic angiography of the chest with intravenous contrast. 3D rendering (Not supervised by radiologist): MIP and/or 3D reconstructed images were created by the technologist. Radiation optimization: All CT scans at this facility use at least one of these dose optimization techniques: automated exposure control; mA and/or kV adjustment per patient size (includes targeted exams where dose is matched to clinical indication); or iterative reconstruction. Contrast material: OMNI 350; Contrast volume: 66 ml; Contrast route: INTRAVENOUS (IV); COMPARISON: CR XR chest 1V portable [id number] 07/23/2020 5:34 AM RADIATION DOSE METRICS: Total DLP (mGy-cm): 514.34 FINDINGS: Pulmonary arteries: No pulmonary embolus or aortic dissection. Aorta: Unremarkable. No aortic aneurysm. No aortic dissection. Lungs: Bilateral geographic ground-glass opacities, right greater than left with some crazy paving, most consistent with moderate to severe bilateral Covid-19 pneumonia versus other viral pneumonia. Pleural space: Unremarkable. No pneumothorax. No pleural effusion. Heart: Severe calcified coronary artery disease. Lymph nodes: Calcified bilateral hilar nodes and/or mediastinal nodes and/or lung granulomas consistent with old granulomatous disease. Bones/joints: Large flowing multilevel hypertrophic vertebral body osteophytes consistent with diffuse idiopathic skeletal hyperostosis (DISH) syndrome. Soft tissues: Unremarkable. CT/CT angio chest [facility] [id number] IMPRESSION: 1. Bilateral geographic ground-glass opacities, right greater than left with some crazy paving, most consistent with moderate to severe bilateral Covid-19 pneumonia versus other viral pneumonia. 2. Severe calcified coronary artery disease. 3. No pulmonary embolus or aortic dissection. Radiation Dose CTDIVOL = (mGy): DLP = 514.34 (mGy-cm)
[2020-07-23 05:22] LABS: Lactic Sepsis W/Reflex 1.3 mmol/L (0.5-2.2); Troponin T (5th) Once 33 ng/L (0-15)
[2020-07-23 05:23] LABS: Alanine Aminotransferase 12 U/L (0-41); Alkaline Phosphatase 91 IU/L (40-130); Anion Gap 14.9 (5-19); Aspartate Amino Transferase 12 U/L (0-40); Blood Urea Nitrogen 18 mg/dL (8-23); C Reactive Protein 270.3 mg/L (0.0-4.9); Calcium 8.3 mg/dL (8.5-10.5); Carbon Dioxide 29 mmol/L (22-29); Chloride 94 mmol/L (98-107); Globulin 2.1 g/dL (1.3-4.6); Glucose 245 mg/dL (65-115); Lactate Dehydrogenase 290 U/L (135-225); Magnesium 1.9 mg/dL (1.7-2.3); Osmolality Calculated 288 mOsm/kg (285-295); Potassium 3.9 mmol/L (3.5-5.1); Sodium 134 mmol/L (136-145); Total Bilirubin 0.4 mg/dL (0.15-1.2); Total Protein 6.1 g/dL (6.6-8.7)
--- NOTE | 2020-07-23 05:38 | PC.NURSE ---
Asked patient if he felt like he could give us a urine sample. Patient stated he wears a depends all the time and is incontinent.
[2020-07-23 05:48] LABS: SARS Covid-2 Antigen Positive (Negative)
[2020-07-23 05:49] LABS: Influenza A by IFA Negative (Negative); Influenza B by IFA Negative (Negative)
[2020-07-23] MEDS: iohexol 350 mg/mL 100 mL Btl IV (05:57)
[2020-07-23 05:58] LABS: Procalcitonin 0.92 ng/mL (0-0.5)
[2020-07-23 08:22] LABS: Add Urine Microscopic? YES; Bilirubin Urine Neg (Negative); Blood Urine 2+ (Negative); Glucose Urine UA Trace (Normal); Ketones Urine Negative (Negative); Leukocyte Esterase Urine Negative (Negative); Nitrate Urine Negative (Negative); Protein Urine 1+ (Negative); Specific Gravity, Urine 1.005 (1.005-1.030); Urine Appearance Clear (CLEAR); Urine Color Yellow (Yellow); Urobilinogen Urine Norm (Negative); pH Urine 6.5 (5-7)
[2020-07-23 08:31] LABS: Add Urine Culture? No; Bacteria Urine 1+ /hpf; Mucus Urine TRACE /hpf; Squamous Epithelial Cell Urine 0-4 /hpf (0-5); WBC Urine 0-4 /hpf (0-5)
== END 2020-07-23 10:48 ==
PROVIDERS: Emergency Medicine; Emergency Provider Family Medicine; PCP Nurse Practitioner Family
DX: U07.1 COVID-19 (principal); E11.9 Type 2 diabetes mellitus without complications; I10 Essential (primary) hypertension; Z79.84 Long term (current) use of oral hypoglycemic drugs
CPT/HCPCS: 12345; 36600; 71045; 71275; 80053; 81001; 82803; 83605; 83615; 83735; 84145; 84484; 85025; 85378; 85384; 85610; 85730; 86140; 87040; 87426; 87804; 93005; 96361; 96365; 96375; 99283; 99285; J1100; J7030; Q9967

== ENCOUNTER → 2020-08-20 10:12 | Outpatient (BNVA) | payer OTHER, MEDICARE, SELFPAY | PROVIDERS: PCP Nurse Practitioner Family; Visit Provider Podiatrist Foot & Ankle Surgery | DX: L81.9 Disorder of pigmentation, unspecified (principal) | CPT/HCPCS: 88305 ==

== ENCOUNTER 2020-08-31 15:02 | Emergency (ER) | payer OTHER, MEDICARE, SELFPAY ==
[2020-08-31 15:35] VITALS: BP 110/72; PULSE 99; RESP 14; TEMP 36.9; O2SAT 99; BMI 29.3
--- NOTE | 2020-08-31 16:32 | W.ED.GENADLT ---
HPI - General Adult General: Chief complaint: General Medical Stated complaint: POSS EAR INFECTION, WEAK, H/A Time Seen by Provider: 08/31/20 16:29 Source: patient Mode of arrival: ambulatory Limitations: no limitations History of Present Illness: HPI narrative: Mr. Malloy is a nice 74-year-old male who comes in complaining of left ear pain. Patient states the pains been present for the about 3 weeks. Today he feels as though his eardrum may have ruptured and fluid leaked out. He denies any dizziness, fever, pain behind his ear, vomiting or visual changes. Patient is unaware of anything makes his symptoms better or worse. He did see his primary care provider at the beginning of this illness and was placed on amoxicillin but he states it did not improve anything. Associated symptoms: Deny chest pain, dyspnea, headache(s), nausea, rash, palpitations, syncope or vomiting Review of Systems Const: Denies: fever(s) Eyes: Denies: change in vision or blurry vision ENMT: Reports: ear or mastoid pain and ear discharge; Denies: throat pain, hoarseness or swelling of lips/tongue Card: Denies: chest pain, palpitations, syncope, pre-syncope or dyspnea on exertion Resp: Denies: dyspnea, productive cough, non-productive cough, wheezing, change in phlegm color or hemoptysis GI: Denies: abdominal pain, nausea, vomiting or diarrhea : Denies: flank pain, dysuria, urinary frequency or urinary urgency Musc: Denies: neck pain, back pain or extremity pain Skin/Breast: Denies: rash or pruritus Neuro: Denies: headache(s), numbness in extremities, weakness in extremities or dizziness George/Lymph: Denies: easy bruising, easy bleeding, petechiae or purpura All/Imm: Denies: urticaria or throat swelling PFSH ED PFSH: Medical History Bladder neck stricture Erectile dysfunction GERD (gastroesophageal reflux disease) Gout Gross hematuria Hyperlipidemia Hypertension Male urinary stress incontinence Osteoarthritis of knees, bilateral Personal history of malignant neoplasm of prostate treated with radiation in 2010 Prostate cancer Type 2 diabetes mellitus Surgical History H/O nasal septoplasty H/O prostatectomy History of appendectomy History of carpal tunnel surgery BILATERAL History of lumbar laminectomy History of sinus surgery Family History Family/Other Cancer Lung disease Hypertension CAD (coronary artery disease) Stroke Denies family history of Diabetes Social History Smoking and tobacco status: never smoked Alcohol intake: never Adopted: No Caregiver/support person: No Lives independently: No Household members: spouse Marital status: Current occupational status: retired History of recent travel: Yes (lives in [facility]) Physical Exam Const: COMMON NORMALS: no acute distress, patient oriented x3, no limitations and alert GENERAL APPEARANCE: cooperative HENMT: COMMON NORMALS: normocephalic, atraumatic, external ears normal, EAC's normal and Normal external nose present HEAD & SCALP: normal to inspection, normocephalic and atraumatic FACE & SINUS: normal facial exam and face symmetric NOSE: Normal external nose present and Normal nares present EXTERNAL EAR: Yes external ears normal EXTERNAL AUDITORY CANAL: EAC's normal TYMPANIC MEMBRANE: TM abnormal TM laterality: left Details: erythematous and perforation Details: with bloody discharge and purulent discharge MOUTH: Normal oral and palatal mucosa present, lip normal and tongue normal Eye: COMMON NORMALS: Equal, round and reactive pupils present and conjunctivae normal GENERAL EYE: appearance normal, both eyes and all related structures ALIGNMENT: Yes alignment normal PERIORBITAL: periorbital findings normal EYELID: eyelids normal CONJUNCTIVA: Yes conjunctivae normal SCLERA: sclerae normal PUPIL: Yes Equal, round and reactive pupils present Neck/C-Spine: COMMON NORMALS: full ROM, no lymphadenopathy, supple, no meningeal signs and no JVD GENERAL: Yes normal visual inspection and Yes trachea midline Chest: COMMONS NORMALS: normal inspection of the chest and normal palpation of entire chest wall Resp: COMMON NORMALS: normal respiratory effort, No retractions, No use of accessory muscles and clear to auscultation bilaterally EFFORT & INSPECTION: Yes able to speak in complete sentences and Yes symmetric chest movement AUSCULTATION: clear to auscultation bilaterally, no crackles, no rales, no rhonchi and no wheezes Cardio: COMMON NORMALS: no JVD, regular rate, regular rhythm, S1 normal heart sound present and S2 normal heart sound present RATE: regular rate RHYTHM: regular rhythm HEART SOUNDS: S1 normal heart sound present, S2 normal heart sound present, no click, no gallops, no murmurs and no rubs GI: COMMON NORMALS: Soft to palpation and No hepatosplenomegaly present PALPATION: Yes Soft to palpation, No Tenderness to palpation present (GI), No Guarding due to palpation present (GI), No Rigid due to palpation, Yes No hepatosplenomegaly present, No Hernia present, No Palpable mass present and No Pulsatile mass present : COMMON NORMALS: Yes no CVA tenderness BLADDER/KIDNEY EXAM: Yes no CVA tenderness Back/Pelvis: COMMON NORMALS: no CVA tenderness, thoracic and lumbar spine normal to inspection, no thoracic nor lumbar tenderness and thoraco-lumbar ROM normal Extremity: COMMON NORMALS: normal to inspection, full ROM, capillary refill normal, no joint enlargement, no clubbing, cyanosis or edema and no calf tenderness Neuro: COMMON NORMALS: patient oriented x3, CN's II-XII intact bilaterally, moves all extremities, no focal motor deficits and no sensory deficits noted SENSORIUM/ORIENTATION: Yes alert MENINGEAL SIGNS: Yes no meningeal signs SPEECH: speech normal Psych: COMMON NORMALS: mental status grossly normal, Normal thought process present, cooperative, normal affect, speech normal and activity/motor behavior normal SPEECH: Yes normal speech THOUGHT PROCESS: Normal thought process present Skin: COMMON NORMALS: no rashes or lesions noted, turgor normal, no jaundice, no petechiae and no mottling GENERAL SKIN EXAM: no rashes or lesions noted and turgor normal Course Vital Signs: Vital signs: Vital Signs Temperature 98.4 F 08/31/20 15:35 Pulse Rate 75 08/31/20 16:43 Respiratory Rate 16 08/31/20 16:43 Blood Pressure 140/85 08/31/20 16:43 Pulse Oximetry 97 08/31/20 16:43 MDM - General Adult MDM Narrative: Medical decision making narrative: Mr. Malloy is a nice 74-year-old male who comes in complaining of left ear pain for 3 weeks. Today it appears as though his eardrum may have ruptured. I have instructed him on to keep his ear clean and dry and all water out of his ear. Place on antibiotics and something for pain. Patient shows no sign of mastoiditis, perichondritis or otherwise. Patient agrees to take the antibiotics I prescribed them and I will give him something for pain and nausea. The nausea medicines to prevent any vomiting from the medicines he is been given. He agrees to return should his symptoms change or worsen. Discharge Plan Discharge Patient Disposition: Home Clinical Impression: Otitis media Qualifiers: Otitis media type: suppurative Chronicity: acute Laterality: left Recurrence: non-recurrent Spontaneous tympanic membrane rupture: with spontaneous rupture Qualified Code(s): H66.012 - Acute suppurative otitis media with spontaneous rupture of ear drum, left ear Condition: Stable Prescriptions: [place] 5-325 mg tablet 1 tab PO Q6H PRN (Reason: pain) 5 Days Qty: 10 RF: 0 Zofran 4 mg tablet 4 mg PO Q6H PRN (Reason: nausea and vomiting) Qty: 20 RF: 0 Augmentin 875-125 mg tablet 1 tab PO BID 10 Days Qty: 20 RF: 0 No Action gabapentin 300 mg capsule 300 mg PO BID RF: 0 omeprazole 20 mg capsule,delayed release(DR/EC) 20 mg PO DAILY RF: 0 Trulicity 1.5 mg/0.5 mL pen injector 1.5 mg SUBCUT Q7D RF: 0 furosemide 40 mg tablet 60 mg PO DAILY RF: 0 montelukast 10 mg tablet 10 mg PO DAILY RF: 0 meloxicam 15 mg tablet 15 mg PO DAILY RF: 0 Hold Instructions: Resume on 05/13/20. metoprolol succinate 100 mg tablet extended release 24 hr 100 mg PO DAILY RF: 0 lisinopril 40 mg tablet 40 mg PO DAILY RF: 0 amlodipine 10 mg tablet 10 mg PO DAILY RF: 0 oxybutynin chloride 10 mg tablet extended release 24hr 10 mg PO DAILY RF: 0 simvastatin 40 mg tablet 40 mg PO DAILY RF: 0 allopurinol 300 mg tablet 300 mg PO DAILY RF: 0 ondansetron HCl [Zofran] 4 mg tablet 4 mg PO Q8H PRN (Reason: nausea and vomiting) Qty: 20 RF: 0 lidocaine (PF) 10 mg/mL (1 %) solution 10 mg SUBCUT ONCE Qty: 1 RF: 0 metformin 500 mg Tablet 500 mg PO BID RF: 0 doxycycline hyclate 100 mg Capsule 100 mg PO BID RF: 0 Discharge Orders: Discharge ED (Routine); Ordered 08/31/20 Ordered By: Allyson Kitchen Referrals: Cary Sanders FNP [Primary Care Provider] - 1-3 days Discharge Diet: Advance as tolerated Discharge Activity: Increase activity as tolerated Patient Instructions: Ruptured Eardrum (ED), Otitis Media (ED) Activity Restrictions/Additional Instructions: Please return to the ER immediately for any of the signs or symptoms listed on your discharge instruction sheets, worsening/changing of your symptoms, you are not getting better as quickly as expected, or for ANY other cause or concerns. Keep your ear clean and dry and do not let any water in it until seen and evaluated by Dr. Street. Return to the ER for dizziness, vomiting, fever, headache, or for any other cause for concern. Coding Level of Care Code ED Clinical Implementation Specialist for Chg Fwd Exam Comprehensive
[2020-08-31 16:43] VITALS: BP 140/85; PULSE 75; RESP 16; O2SAT 97
[2020-08-31] MEDS: HYDROcodone-acetaminophen 5-325 mg Tablet 1 TAB PO (16:44)
[2020-08-31] MEDS: cefTRIAXone 1,000 MG in lidocaine 1% 2.1 ML 100 MG IM (16:44)
== END 2020-08-31 16:45 | disposition home or self-care (01) ==
PROVIDERS: Emergency Provider Emergency Medicine; PCP Nurse Practitioner Family
DX: H66.012 Acute suppurative otitis media with spontaneous rupture of ear drum, left ear (principal); E78.5 Hyperlipidemia, unspecified; I10 Essential (primary) hypertension; E11.9 Type 2 diabetes mellitus without complications; Z85.46 Personal history of malignant neoplasm of prostate
CPT/HCPCS: 12345; 96372; 96374; 99281; 99283; J0696

== ENCOUNTER 2020-09-02 10:12 | Outpatient (CLI) | payer OTHER, MEDICARE, SELFPAY ==
--- NOTE | 2020-09-02 10:21 | CT_ITS ---
WS: [id number] CT HEAD TECHNIQUE: Noncontrast CT of the head obtained from the skullbase to the vertex. CLINICAL INFORMATION: HEAD PAIN COMPARISON: MRI October 2009 DLP: 992.[address] scans at [facility] use at least one of these dose optimization techniques: automat ed exposure control; mA and/or kV adjustment per patient size (includes targeted exams where dose is matched to clinical indication); or iterative reconstruction. FINDINGS: No evidence of intracranial hemorrhage or mass effect. Ventricular system and basal cisterns are carey nt. Mild small vessel changes with moderate parenchymal volume loss. No extra-axial fluid collections . No evidence of mass or mass effect. Normal hollingsworth-white differentiation. Partial opacification the mastoid air cells bilaterally. Opacification of the left middle ear. Opacif ication of the left greater than right maxillary sinuses with layering fluid with air-fluid levels. O pacification right greater than left sphenoid sinus and posterior ethmoid air cells consistent with s inusitis. CT/CT head wo con* [id number] IMPRESSION: 1. No evidence of intracranial hemorrhage or mass effect. 2. Mild small vessel changes. Moderate parenchymal volume loss. 3. Partial opacification of the mastoid air cells bilaterally left greater shannon n right and left middle ear consistent with otomastoiditis. 4. Paranasal sinusitis described above
== END 2020-09-02 10:13 | disposition home or self-care (01) ==
PROVIDERS: PCP Nurse Practitioner Family; Visit Provider Nurse Practitioner Family
DX: R51.9 Headache, unspecified (principal); J32.8 Other chronic sinusitis
CPT/HCPCS: 70450

== ENCOUNTER 2020-10-02 09:35 | Outpatient (CLI) | payer OTHER, MEDICARE, SELFPAY ==
--- NOTE | 2020-10-02 09:42 | CT_ITS ---
WS: [id number] CT TEMPORAL BONES TECHNIQUE: Noncontrast CT of the temporal bones with coronal and sagittal reformatted images. CLINICAL INFORMATION: OTALGIA LEFT EAR COMPARISON: None. DLP: 747.[address] scans at [facility] use at least one of these dose optimization techniques: automat ed exposure control; mA and/or kV adjustment per patient size (includes targeted exams where dose is matched to clinical indication); or iterative reconstruction. FINDINGS: Inspissated secretions opacification of the left maxillary sinus. Opacification the right s phenoid sinus locule. Mild mucosal thickening in the posterior ethmoid air cells. Small amount of flu id right maxillary sinus. Findings are compatible with sinusitis. RIGHT: Right mastoid air cells well aerated. Normal external auditory canal. Ossicles are normal in appearan ce. Middle ear is well aerated. Normal tegmen tympani. Semicircular canals and cochlea are normal in appearance. Prussak's space is normal. Normal inner ear structures. Normal vestibular aqueduct. Facia l nerve recess is normal. LEFT: Opacification left mastoid air cells and left middle ear. Scutum is intact. Opacification of the epit ympanum mesial tympanum. Thickening of the tympanic membrane. Normal external auditory canal. Ossicle s are normal in appearance. Normal tegmen tympani. Semicircular canals and cochlea are normal in appe arance. Normal inner ear structures. Normal vestibular aqueduct. Facial nerve recess is normal. Visualized intracranial contents and posterior fossa are normal. CT/CT temporal bone wo con* [id number] IMPRESSION: 1. Opacification left mastoid air cells and left middle ear. Scutum is intact. Thickening of the tympanic membrane. Findings compatible with otomastoiditis. 2. Right mastoid air cells and middle ear well aerated. 3. Sinusitis with opacification of the left maxillary sinus with inspissated s ecretions. Opacification right sphenoid sinus locule. Fluid within the right m axillary sinus.
[2020-10-02 11:21] LABS: Basophils % 0.6 %; Eosinophils # 0.2 10^3/uL (0.0-0.8); Eosinophils % 3.2 %; Hematocrit 35.4 % (42.0-52.0); Hemoglobin 10.9 g/dL (11.7-16.6); Lymphocytes # 1.3 10^3/uL (0.8-4.8); Lymphocytes % 18.5 %; Mean Corpuscular HGB Conc 30.8 g/dL (30.0-36.0); Mean Corpuscular Hemoglobin 27.9 pg (28.0-34.0); Mean Corpuscular Volume 90.8 fL (80-94); Mean Platelet Volume 10.4 fL (7.4-10.4); Monocytes # 0.6 10^3/uL (0.2-0.9); Neutrophils # 4.76 10^3/uL (1.8-7.7); Neutrophils % 68.3 %; Nucleated Red Blood Cells % 0 %; Platelet Count 303 10^3/cmm (130-400); Red Cell Distribution Width 17.3 % (12.1-15.1)
[2020-10-02 11:37] LABS: Alanine Aminotransferase 38 U/L (0-41); Albumin Level 4.1 g/dL (3.5-5.2); Alkaline Phosphatase 224 IU/L (40-130); Anion Gap 15.1 (5-19); Aspartate Amino Transferase 29 U/L (0-40); Blood Urea Nitrogen 18 mg/dL (8-23); Calcium 9.3 mg/dL (8.5-10.5); Carbon Dioxide 28 mmol/L (22-29); Chloride 103 mmol/L (98-107); Glucose 115 mg/dL (65-115); Osmolality Calculated 297 mOsm/kg (285-295); Potassium 4.1 mmol/L (3.5-5.1); Sodium 142 mmol/L (136-145); Total Bilirubin 0.2 mg/dL (0.15-1.2); Total Protein 7.1 g/dL (6.6-8.7)
[2020-10-02 11:59] LABS: Erythrocyte Sedimentation Rate 79 mm/hr (0-10)
== END 2020-10-02 09:36 | disposition home or self-care (01) ==
PROVIDERS: PCP Nurse Practitioner Family; Visit Provider Specialist
DX: H90.3 Sensorineural hearing loss, bilateral (principal); H92.02 Otalgia, left ear
CPT/HCPCS: 36415; 70480; 80053; 85025; 85651

== ENCOUNTER 2020-10-09 07:54 | Outpatient (CLI) | payer OTHER, MEDICARE, SELFPAY ==
--- NOTE | 2020-10-09 08:04 | NM_ITS ---
WS: [id number] NUCLEAR MEDICINE THREE-PHASE BONE SCAN Radiopharmaceutical: 24.7 Tc-99m MDP mCi IV Injection site: Right antecubital Postinjection imaging delay: 2 hr CLINICAL INFORMATION: OTALGIA L EAR/ATTN:TO LEFT MASTOID COMPARISON: CT temporal October 02, 2020 FINDINGS: 3 phase bone scan. Correlation to recent temporal bone CT October 02, 2020. Normal blood fl ow and blood pool images. No asymmetric mastoid activity. Normal activity in the dural sinuses. No ab normal asymmetric foci of uptake on the delayed bone imaging. No evidence of bony osteomyelitis Soft tissue contours: Normal. Kidneys: Normal. Other findings: Bilateral TKAs with normal postoperative uptake. Degenerative uptake involving both A C joints and sternoclavicular joints. NM/NM bone 3 phase [id number] IMPRESSION: No evidence of bony mastoid osteomyelitis
== END 2020-10-09 07:55 | disposition home or self-care (01) ==
LOC: RAD 07:58
PROVIDERS: PCP Nurse Practitioner Family; Visit Provider Specialist
DX: H92.02 Otalgia, left ear (principal)
CPT/HCPCS: 78315; A9561

== ENCOUNTER 2020-10-15 07:42 | Outpatient (CLI) | payer OTHER, MEDICARE, SELFPAY ==
--- NOTE | 2020-10-15 07:51 | MR_ITS ---
WS: [id number] MRI BRAIN WITH HIGH-RESOLUTION IMAGING THROUGH THE INTERNAL AUDITORY CANALS WITHOUT AND WITH CONTRAST HISTORY: OTALGIA LEFT EAR COMPARISON: 10/23/[address] 10/02/2010. TECHNIQUE: Multiplanar, multisequence imaging is performed through the brain. Additional 3 mm imaging performed in multiple planes through the internal auditory canal. Postcontrast imaging with 17 ml's of MultiHance. No acute intracranial hemorrhage, midline shift, edema or mass effect. There are a few scattered T2 and FLAIR signal hyperintensities in the white matter and subcortical wh ite matter. Only mild cerebral atrophy. No prior infarct. Ventricles and extra-axial spaces are normal. No inferior displacement of cerebellar tonsils. Clivus and pituitary gland are normal. Internal and external auditory canals: Unremarkable. Cranial nerves VII and VIII complexes: Unremarkable. No enhancement or mass. Cerebellopontine angles: Normal. Paranasal sinuses: Complete opacification of the LEFT maxillary sinus with peripheral enhancement. Th ere is a additional sinusitis involving the RIGHT sphenoid and posterior LEFT ethmoid air cells. Smal l air-fluid level in the RIGHT maxillary sinus. Mastoid air cells: Bilateral mastoid air cell disease. Calvarium and scalp: Normal. There is a significant acute inflammatory process surrounding the LEFT mandibular condyle. This proce ss is centered in the temporomandibular joint. There is soft tissue thickening with increased T2 and FLAIR signal and enhancement. There is synovial thickening of the joint and there is inflammatory dorothy nges extending into the adjacent pterygoid muscles and the masseter muscle. Mild extension into the L EFT masseter space. No erosions are identified. No definite enhancement within the condyle but there is widening of the TM joint due to the significant inflammatory process. There is acute process does not appear contiguous with the soft tissue changes in the LEFT inner ear which were better seen on th e temporal bone CT. Visualized [place] and dural venous sinuses demonstrate no abnormality. MR/MR iac's wo/w con* [id number] IMPRESSION: 1. Significant inflammatory process with marked synovial thickening, enhanceme nt and TM joint space widening on the LEFT. Changes in the TM joint may be rela nieves to inflammatory arthropathy such as rheumatoid arthritis, CPPD, gout and ps oriatic arthritis. Septic arthritis should be considered as a possible etiology . There is no abscess or erosion at this time. 2. Sinusitis. Most significant involvement of the LEFT maxillary, posterior LE FT ethmoid and RIGHT sphenoid sinuses. 3. No abnormality at the internal auditory canals or cerebellopontine angles i dentified. The soft tissue surrounding the LEFT inner ear ossicles was better s een on by temporal bone CT.
[2020-10-15] MEDS: gadobenate dimeglumine 20 mL vial IV (08:53)
== END 2020-10-15 07:43 | disposition home or self-care (01) ==
LOC: RADSHAW 07:44
PROVIDERS: PCP Nurse Practitioner Family; Visit Provider Specialist
DX: H92.02 Otalgia, left ear (principal); J32.9 Chronic sinusitis, unspecified
CPT/HCPCS: 70553; A9577

== ENCOUNTER → 2020-12-22 13:34 | Outpatient (BNVA) | payer OTHER, MEDICARE, SELFPAY | PROVIDERS: PCP Nurse Practitioner Family; Visit Provider Student in an Organized Health Care Education/Training Program | DX: T84.54XD Infection and inflammatory reaction due to internal left knee prosthesis, subsequent encounter (principal) | CPT/HCPCS: 85651; 86140 ==

== ENCOUNTER → 2020-12-31 09:41 | Outpatient (BNVA) | payer OTHER, MEDICARE, SELFPAY | PROVIDERS: PCP Nurse Practitioner Family; Visit Provider Internal Medicine | DX: M26.649 Arthritis of unspecified temporomandibular joint (principal); M19.90 Unspecified osteoarthritis, unspecified site; M1A.9XX0 Chronic gout, unspecified, without tophus (tophi); Z79.899 Other long term (current) drug therapy; Z11.59 Encounter for screening for other viral diseases; Z11.1 Encounter for screening for respiratory tuberculosis | CPT/HCPCS: 99204 ==

== ENCOUNTER 2020-12-31 11:27 | Outpatient (CLI) | payer OTHER, MEDICARE, SELFPAY ==
--- NOTE | 2020-12-31 11:47 | XR_ITS ---
WS: [id number] RIGHT HAND: 2 VIEW(S) TECHNIQUE: PA and lateral. HISTORY: M19.90 - Unspecified osteoarthritis, unspecified site COMPARISON: None available. No acute fracture or dislocation. Severe interphalangeal joint space narrowing. Mild hypertrophic bone formation with joint space narro wing and mild asymmetry. No erosive changes. There is additional degenerative joint disease with hype rtrophic bone formation involving the first, second and third metacarpal phalangeal joints. Severe hy pertrophic bone formation and joint space narrowing at the first CMC and STT joints. Mild narrowing o f the distal radial ulnar joint. XR/XR hand RT 2V [id number] IMPRESSION: Advanced changes of osteoarthritis at the wrist and hand.
--- NOTE | 2020-12-31 11:47 | XR_ITS ---
WS: [id number] RIGHT FOOT: 2 VIEW(S) TECHNIQUE: AP and lateral. HISTORY: M25.50 - Pain in unspecified joint COMPARISON: None available. Moderate hallux valgus deformity. No erosions in the first metatarsal head. Hammertoe deformities. Mi ld narrowing in the tarsal articulations. Normal tarsal/metatarsal alignment. Large calcaneal spur. Enthesopathy at the Achilles tendon. XR/XR foot RT 2V [id number] IMPRESSION: Moderate osteoarthritic changes with a moderate size calcaneal spur.
--- NOTE | 2020-12-31 11:47 | XR_ITS ---
WS: [id number] LEFT HAND: 2 VIEW(S) TECHNIQUE: PA and lateral. HISTORY: M19.90 - Unspecified osteoarthritis, unspecified site COMPARISON: None available. No acute fracture or dislocation. Moderate diffuse interphalangeal joint space narrowing. Hypertrophic bone formation with joint space narrowing. No definite erosions. Hypertrophic bone formation and joint space narrowing is also modera te at the second and third metacarpal phalangeal joints. Moderate osteoarthritic changes at the first CMC joint and the STT joint. Additional mild narrowing of the radiocarpal joint and the radial ulnar joint. XR/XR hand LT 2V [id number] IMPRESSION: Severe changes of osteoarthritis as described above.
--- NOTE | 2020-12-31 11:47 | XR_ITS ---
WS: [id number] SACROILIAC JOINTS TECHNIQUE: AP and oblique imaging is submitted. HISTORY: L40.9 - Psoriasis, unspecified COMPARISON: 05/29/2019 Mild narrowing of the SI joints. Slightly greater narrowing and sclerosis on the RIGHT. No definite w idening or erosions noted by radiograph. Additional hypertrophic bone formation involving the superio r pubic rami which may be related to prior trauma. Similar to the prior examination. Moderate narrowi ng of the hips bilaterally. XR/XR sacroiliac jts m 3V [id number] IMPRESSION: Moderate bilateral SI joint and hip joint osteoarthritis. Mild progression sinc e 05/29/2019.
--- NOTE | 2020-12-31 11:47 | XR_ITS ---
WS: [id number] LEFT FOOT: 2 VIEW(S) TECHNIQUE: AP and lateral. HISTORY: M25.50 - Pain in unspecified joint COMPARISON: None available. No acute fracture or dislocation. Normal tarsal/metatarsal alignment. Very mild interphalangeal joint space narrowing and mild hallux valgus deformity. Large calcaneal spu r and enthesopathy at the Achilles. XR/XR foot LT 2V [id number] IMPRESSION: Mild changes of osteoarthritis and large calcaneal spur.
== END 2020-12-31 11:28 | disposition home or self-care (01) ==
PROVIDERS: Visit Provider Internal Medicine
DX: M19.90 Unspecified osteoarthritis, unspecified site (principal); M25.50 Pain in unspecified joint; L40.9 Psoriasis, unspecified; Z11.59 Encounter for screening for other viral diseases
CPT/HCPCS: 36415; 72202; 73120; 73620; 80053; 84550; 85025; 85651; 86160; 86162; 86235; 86255; 86376; 86431; 86704; 86803; 87340

== ENCOUNTER → 2021-01-29 09:45 | Outpatient (BNVA) | payer OTHER, MEDICARE, SELFPAY | PROVIDERS: PCP Nurse Practitioner Family; Visit Provider Internal Medicine | DX: M19.90 Unspecified osteoarthritis, unspecified site (principal); M53.3 Sacrococcygeal disorders, not elsewhere classified; R70.0 Elevated erythrocyte sedimentation rate | CPT/HCPCS: 99213 ==

== ENCOUNTER → 2021-05-12 13:54 | Outpatient (BNVA) | payer OTHER, MEDICARE, SELFPAY | PROVIDERS: PCP Nurse Practitioner Family; Visit Provider Internal Medicine | DX: M25.50 Pain in unspecified joint (principal); M19.90 Unspecified osteoarthritis, unspecified site; M26.649 Arthritis of unspecified temporomandibular joint; Z79.899 Other long term (current) drug therapy | CPT/HCPCS: 36415; 80053; 85025; 85651; 86140 ==

== ENCOUNTER → 2021-05-19 10:29 | Outpatient (BNVA) | payer OTHER, MEDICARE, SELFPAY | PROVIDERS: PCP Nurse Practitioner Family; Visit Provider Internal Medicine | DX: M53.3 Sacrococcygeal disorders, not elsewhere classified (principal); M1A.9XX0 Chronic gout, unspecified, without tophus (tophi); M19.90 Unspecified osteoarthritis, unspecified site; R93.89 Abnormal findings on diagnostic imaging of other specified body structures | CPT/HCPCS: 99213; 99214 ==

== ENCOUNTER 2022-06-20 10:00 | Outpatient (CLI) | payer OTHER, MEDICARE, SELFPAY | END 2022-06-20 10:01 | disposition home or self-care (01) | LOC: SLEEP 06-21 11:33 | PROVIDERS: PCP Nurse Practitioner Family; Visit Provider Nurse Practitioner Family | DX: G47.10 Hypersomnia, unspecified (principal); G47.33 Obstructive sleep apnea (adult) (pediatric) | CPT/HCPCS: G0399 ==

== ENCOUNTER 2022-07-18 07:13 | Outpatient (CLI) | payer OTHER, MEDICARE, SELFPAY ==
[2022-07-18 08:24] LABS: Alanine Aminotransferase 15 U/L (0-41); Albumin Level 4.4 g/dL (3.5-5.2); Alkaline Phosphatase 97 U/L (40-130); Anion Gap 14.3 (5-19); Aspartate Amino Transferase 12 U/L (0-40); Blood Urea Nitrogen 28 mg/dL (8-23); Calcium 8.9 mg/dL (8.5-10.5); Carbon Dioxide 23 mmol/L (22-29); Chloride 109 mmol/L (98-107); Glucose 119 mg/dL (65-115); Osmolality Calculated 301 mOsm/kg (285-295); Potassium 4.3 mmol/L (3.5-5.1); Sodium 142 mmol/L (136-145); Total Bilirubin 0.3 mg/dL (0.15-1.2); Total Protein 6.4 g/dL (6.6-8.7); Uric Acid 3.9 mg/dL (3.4-7.0)
[2022-07-18 09:28] LABS: Basophils # 0.1 10^3/uL (0.0-0.1); Eosinophils # 0.4 10^3/uL (0.0-0.8); Eosinophils % 5.9 %; Hematocrit 40.7 % (42.0-52.0); Hemoglobin 13.1 g/dL (11.7-16.6); Lymphocytes # 1.6 10^3/uL (0.8-4.8); Lymphocytes % 25.4 %; Mean Corpuscular HGB Conc 32.2 g/dL (30.0-36.0); Mean Corpuscular Hemoglobin 30.5 pg (28.0-34.0); Mean Corpuscular Volume 94.7 fl (80-94); Mean Platelet Volume 10.4 fL (7.4-10.4); Monocytes # 0.5 10^3/uL (0.2-0.9); Monocytes % 8.1 %; Neutrophils # 3.71 10^3/uL (1.8-7.7); Neutrophils % 58.8 %; Nucleated Red Blood Cells % 0 %; Platelet Count 219 10^3/cmm (130-400); Red Cell Distribution Width 13.8 % (12.1-15.1); White Blood Count 6.3 10^3/uL (4.0-10.0)
[2022-07-18 09:48] LABS: Erythrocyte Sedimentation Rate 10 mm/hr (0-10)
== END 2022-07-18 07:14 | disposition home or self-care (01) ==
LOC: LAB 07:17
PROVIDERS: PCP Nurse Practitioner Family; Visit Provider Internal Medicine
DX: M10.9 Gout, unspecified (principal); M25.50 Pain in unspecified joint; M53.3 Sacrococcygeal disorders, not elsewhere classified; Z79.899 Other long term (current) drug therapy
CPT/HCPCS: 36415; 80053; 84550; 85025; 85651; 86140

== ENCOUNTER → 2022-07-20 12:42 | Outpatient (BNVA) | payer OTHER, MEDICARE, SELFPAY | PROVIDERS: PCP Nurse Practitioner Family; Visit Provider Internal Medicine | DX: M53.3 Sacrococcygeal disorders, not elsewhere classified (principal); Z79.899 Other long term (current) drug therapy; N17.9 Acute kidney failure, unspecified; I95.9 Hypotension, unspecified | CPT/HCPCS: 99213 ==

== ENCOUNTER → 2022-07-26 08:02 | Outpatient (BNVA) | payer OTHER, MEDICARE, SELFPAY | PROVIDERS: PCP Nurse Practitioner Family; Visit Provider Podiatrist Foot & Ankle Surgery | DX: E11.8 Type 2 diabetes mellitus with unspecified complications (principal); E11.69 Type 2 diabetes mellitus with other specified complication; L60.3 Nail dystrophy; M20.41 Other hammer toe(s) (acquired), right foot; M20.42 Other hammer toe(s) (acquired), left foot; M21.41 Flat foot [pes planus] (acquired), right foot; M21.42 Flat foot [pes planus] (acquired), left foot | CPT/HCPCS: 11721 ==

== ENCOUNTER 2022-08-09 20:00 | Outpatient (CLI) | payer OTHER, MEDICARE, SELFPAY | END 2022-08-09 20:01 | disposition home or self-care (01) | LOC: SLEEP 08-10 08:25 | PROVIDERS: PCP Nurse Practitioner Family; Visit Provider Nurse Practitioner Family | DX: G47.33 Obstructive sleep apnea (adult) (pediatric) (principal) | CPT/HCPCS: 95811 ==

== ENCOUNTER 2022-10-21 11:21 | Outpatient (CLI) | payer OTHER, MEDICARE, SELFPAY ==
--- NOTE | 2022-10-21 11:33 | US_ITS ---
WS: [id number] RENAL ULTRASOUND HISTORY: STAGE 3B CHRONIC KIDNEY DZ COMPARISON: None available. TECHNIQUE: 2-D and color Doppler imaging of the kidney submitted. Right kidney: 10.0 cm x 4.5 cm x 5.0 cm. Normal echogenicity with no hydronephrosis or mass. No cortical thinning. Cortex measures 1.1 cm. Left kidney: 10.8 cm x 3.6 cm x 4.3 cm. Normal echogenicity with no hydronephrosis or mass. Cortex measures 1.5 cm. Aorta: Normal. Urinary Bladder: Minimally distended. US/US renal BI* [id number] IMPRESSION: Normal renal ultrasound.
== END 2022-10-21 11:22 | disposition home or self-care (01) ==
LOC: RAD 11:29
PROVIDERS: PCP Nurse Practitioner Family; Visit Provider Internal Medicine Nephrology
DX: N18.32 Chronic kidney disease, stage 3b (principal)
CPT/HCPCS: 76770

== ENCOUNTER → 2022-11-15 08:01 | Outpatient (BNVA) | payer OTHER, MEDICARE, SELFPAY | PROVIDERS: PCP Nurse Practitioner Family; Visit Provider Podiatrist Foot & Ankle Surgery | DX: E11.69 Type 2 diabetes mellitus with other specified complication (principal); L60.3 Nail dystrophy; M20.41 Other hammer toe(s) (acquired), right foot; M20.42 Other hammer toe(s) (acquired), left foot; M21.41 Flat foot [pes planus] (acquired), right foot; M21.42 Flat foot [pes planus] (acquired), left foot; E11.8 Type 2 diabetes mellitus with unspecified complications; L03.031 Cellulitis of right toe; Z79.84 Long term (current) use of oral hypoglycemic drugs | CPT/HCPCS: 11721; 11730 ==

== ENCOUNTER → 2022-11-30 10:23 | Outpatient (BNVA) | payer OTHER, MEDICARE, SELFPAY | PROVIDERS: PCP Nurse Practitioner Family; Visit Provider Internal Medicine | DX: E11.8 Type 2 diabetes mellitus with unspecified complications (principal); E11.69 Type 2 diabetes mellitus with other specified complication; L60.3 Nail dystrophy; M20.41 Other hammer toe(s) (acquired), right foot; M20.42 Other hammer toe(s) (acquired), left foot; M21.41 Flat foot [pes planus] (acquired), right foot; M21.42 Flat foot [pes planus] (acquired), left foot; L03.031 Cellulitis of right toe; Z79.84 Long term (current) use of oral hypoglycemic drugs; M53.3 Sacrococcygeal disorders, not elsewhere classified; N17.9 Acute kidney failure, unspecified; M25.50 Pain in unspecified joint | CPT/HCPCS: 36415; 80053; 81003; 82784; 85025; 85651; 86140; 99213 ==

== ENCOUNTER → 2023-02-07 08:15 | Outpatient (BNVA) | payer OTHER, MEDICARE, SELFPAY | PROVIDERS: PCP Nurse Practitioner Family; Visit Provider Podiatrist Foot & Ankle Surgery | DX: E11.69 Type 2 diabetes mellitus with other specified complication (principal); L60.3 Nail dystrophy; M20.41 Other hammer toe(s) (acquired), right foot; M20.42 Other hammer toe(s) (acquired), left foot; M21.41 Flat foot [pes planus] (acquired), right foot; M21.42 Flat foot [pes planus] (acquired), left foot; Z79.84 Long term (current) use of oral hypoglycemic drugs | CPT/HCPCS: 11721 ==

== ENCOUNTER 2023-02-07 08:51 | Outpatient (CLI) | payer OTHER, MEDICARE, SELFPAY ==
[2023-02-07 09:25] LABS: Basophils # 0.1 10^3/uL (0.0-0.1); Basophils % 0.8 %; Eosinophils # 0.4 10^3/uL (0.0-0.8); Eosinophils % 6.7 %; Hematocrit 38.1 % (42.0-52.0); Hemoglobin 12.1 g/dL (11.7-16.6); Lymphocytes # 1.3 10^3/uL (0.8-4.8); Lymphocytes % 20.8 %; Mean Corpuscular HGB Conc 31.8 g/dL (30.0-36.0); Mean Corpuscular Hemoglobin 30.6 pg (28.0-34.0); Mean Corpuscular Volume 96.2 fl (80-94); Mean Platelet Volume 9.2 fL (7.4-10.4); Monocytes # 0.5 10^3/uL (0.2-0.9); Monocytes % 7.8 %; Neutrophils # 4.07 10^3/uL (1.8-7.7); Nucleated Red Blood Cells % 0 %; Platelet Count 214 10^3/cmm (130-400); Red Blood Count 3.96 10^6/uL (4.1-5.3); Red Cell Distribution Width 13.9 % (12.1-15.1); White Blood Count 6.5 10^3/uL (4.0-10.0)
[2023-02-07 09:41] LABS: Alanine Aminotransferase 12 U/L (0-41); Albumin Level 4.2 g/dL (3.5-5.2); Alkaline Phosphatase 93 U/L (40-130); Aspartate Amino Transferase 12 U/L (0-40); Blood Urea Nitrogen 31 mg/dL (8-23); C Reactive Protein 3.7 mg/L (0.0-4.9); Calcium 8.1 mg/dL (8.5-10.5); Carbon Dioxide 25 mmol/L (22-29); Chloride 107 mmol/L (98-107); Globulin 2.2 g/dL (1.3-4.6); Glucose 123 mg/dL (65-115); Osmolality Calculated 302 mOsm/kg (285-295); Sodium 142 mmol/L (136-145); Total Bilirubin 0.2 mg/dL (0.15-1.2); Total Protein 6.4 g/dL (6.6-8.7)
[2023-02-07 09:45] LABS: Erythrocyte Sedimentation Rate 20 mm/hr (0-10)
== END 2023-02-07 08:52 | disposition home or self-care (01) ==
LOC: LAB 09:00
PROVIDERS: PCP Nurse Practitioner Family; Visit Provider Internal Medicine
DX: M25.50 Pain in unspecified joint (principal)
CPT/HCPCS: 36415; 80053; 85025; 85651; 86140

== ENCOUNTER → 2023-02-21 09:07 | Outpatient (BNVA) | payer OTHER, MEDICARE, SELFPAY | PROVIDERS: PCP Nurse Practitioner Family; Visit Provider Internal Medicine | DX: M53.3 Sacrococcygeal disorders, not elsewhere classified (principal); M25.50 Pain in unspecified joint; M19.90 Unspecified osteoarthritis, unspecified site; N17.9 Acute kidney failure, unspecified; R76.8 Other specified abnormal immunological findings in serum | CPT/HCPCS: 99214 ==

== ENCOUNTER 2023-02-27 07:54 | Outpatient (CLI) | payer OTHER, MEDICARE, SELFPAY ==
[2023-02-27 08:32] LABS: Basophils # 0.1 10^3/uL (0.0-0.1); Basophils % 0.9 %; Eosinophils # 0.5 10^3/uL (0.0-0.8); Eosinophils % 8.5 %; Hemoglobin 12.2 g/dL (11.7-16.6); Lymphocytes # 1.3 10^3/uL (0.8-4.8); Lymphocytes % 22.6 %; Mean Corpuscular HGB Conc 31.3 g/dL (30.0-36.0); Mean Corpuscular Volume 96.1 fl (80-94); Mean Platelet Volume 9.5 fL (7.4-10.4); Monocytes # 0.4 10^3/uL (0.2-0.9); Monocytes % 7.3 %; Neutrophils # 3.48 10^3/uL (1.8-7.7); Nucleated Red Blood Cells % 0 %; Platelet Count 204 10^3/cmm (130-400); Red Blood Count 4.06 10^6/uL (4.1-5.3); Red Cell Distribution Width 14.5 % (12.1-15.1); White Blood Count 5.8 10^3/uL (4.0-10.0)
[2023-02-27 08:51] LABS: Albumin Level 4.5 g/dL (3.5-5.2); Anion Gap 15.1 (5-19); Blood Urea Nitrogen 33 mg/dL (8-23); Calcium 8.6 mg/dL (8.5-10.5); Carbon Dioxide 24 mmol/L (22-29); Chloride 109 mmol/L (98-107); Glucose 162 mg/dL (65-115); Potassium 5.1 mmol/L (3.5-5.1); Sodium 143 mmol/L (136-145)
[2023-02-27 08:57] LABS: Parathyroid Hormone 105.6 pg/mL (15-65)
[2023-02-27 09:05] LABS: 25 Hydroxy Vitamin D 26 ng/mL (30-100)
[2023-02-27 09:14] LABS: Add Urine Culture? Yes; Add Urine Microscopic? YES; Bacteria Urine TRACE /hpf; Bilirubin Urine Neg (Negative); Blood Urine Neg (Negative); Glucose Urine UA Norm (Normal); Ketones Urine Negative (Negative); Leukocyte Esterase Urine 2+ (Negative); Nitrate Urine Negative (Negative); Protein Urine Neg (Negative); RBC Urine 0-4 /hpf (0-2); Specific Gravity, Urine 1.015 (1.005-1.030); Squamous Epithelial Cell Urine 0-4 /hpf (0-5); Urine Appearance Hazy (CLEAR); Urine Color Yellow (Yellow); Urobilinogen Urine Norm (Negative); WBC Urine 25-40 /hpf (0-5); pH Urine 5 (5-7)
[2023-02-27 09:15] LABS: Creatinine Urine, Random 114 mg/dL (39-259); Microalbum Creatinine Ratio Ur 9 mg/dL (0-20); Microalbumin Random Urine 1 ug/dL (0-20)
== END 2023-02-27 07:55 | disposition home or self-care (01) ==
LOC: LAB 07:59
PROVIDERS: PCP Nurse Practitioner Family; Visit Provider Internal Medicine Nephrology
DX: N18.32 Chronic kidney disease, stage 3b (principal); N25.81 Secondary hyperparathyroidism of renal origin
CPT/HCPCS: 36415; 80069; 81001; 82044; 82306; 82310; 83970; 85025; 87077; 87086; 87186

== ENCOUNTER 2023-06-12 08:47 | Outpatient (CLI) | payer OTHER, MEDICARE, SELFPAY ==
[2023-06-12 09:30] LABS: Basophils # 0.1 10^3/uL (0.0-0.1); Basophils % 1.2 %; Eosinophils # 0.5 10^3/uL (0.0-0.8); Eosinophils % 10.2 %; Hematocrit 38.1 % (37-53); Lymphocytes # 1.3 10^3/uL (0.8-4.8); Lymphocytes % 24.6 %; Mean Corpuscular HGB Conc 31.8 g/dL (30-55); Mean Corpuscular Hemoglobin 30.6 pg (27-33); Mean Corpuscular Volume 96.5 fl (82-101); Mean Platelet Volume 9.9 fL (7.4-10.4); Monocytes # 0.4 10^3/uL (0.2-0.9); Monocytes % 8.7 %; Neutrophils # 2.79 10^3/uL (1.8-7.7); Neutrophils % 54.9 %; Nucleated Red Blood Cells % 0 %; Platelet Count 198 10^3/cmm (157-399); Red Blood Count 3.95 10^6/uL (3.85-5.65); Red Cell Distribution Width 13.9 % (12.1-15.1); White Blood Count 5.08 10^3/uL (3.29-11.43)
[2023-06-12 09:44] LABS: Erythrocyte Sedimentation Rate 12 mm/hr (0-10)
[2023-06-12 09:55] LABS: Alanine Aminotransferase 12 U/L (0-41); Alkaline Phosphatase 109 U/L (40-130); Anion Gap 16.5 (5-19); Aspartate Amino Transferase 14 U/L (0-40); Blood Urea Nitrogen 47 mg/dL (8-23); C Reactive Protein 4.1 mg/L (0.0-4.9); Calcium 8.5 mg/dL (8.5-10.5); Carbon Dioxide 23 mmol/L (22-29); Chloride 108 mmol/L (98-107); Globulin 2.3 g/dL (1.3-4.6); Glucose 187 mg/dL (65-115); Osmolality Calculated 313 mOsm/kg (285-295); Potassium 4.5 mmol/L (3.5-5.1); Sodium 143 mmol/L (136-145); Total Bilirubin 0.2 mg/dL (0.15-1.2); Total Protein 6.3 g/dL (6.6-8.7)
== END 2023-06-12 08:48 | disposition home or self-care (01) ==
PROVIDERS: PCP Nurse Practitioner Family; Visit Provider Internal Medicine
DX: M19.90 Unspecified osteoarthritis, unspecified site (principal); M25.50 Pain in unspecified joint; M53.3 Sacrococcygeal disorders, not elsewhere classified; Z79.899 Other long term (current) drug therapy
CPT/HCPCS: 36415; 80053; 85025; 85651; 86140

== ENCOUNTER 2024-03-06 07:43 | Outpatient (CLI) | payer OTHER, MEDICARE, SELFPAY ==
[2024-03-06 08:31] LABS: Basophils # 0.1 10^3/uL (0.0-0.1); Basophils % 1.3 %; Eosinophils # 0.4 10^3/uL (0.0-0.8); Eosinophils % 8.1 %; Hematocrit 39.1 % (37-53); Lymphocytes # 1.2 10^3/uL (0.8-4.8); Lymphocytes % 26.6 %; Mean Corpuscular HGB Conc 32.7 g/dL (30-55); Mean Corpuscular Hemoglobin 31.1 pg (27-33); Mean Corpuscular Volume 95.1 fl (82-101); Mean Platelet Volume 10.7 fL (7.4-10.4); Monocytes # 0.5 10^3/uL (0.2-0.9); Monocytes % 10.5 %; Neutrophils # 2.43 10^3/uL (1.8-7.7); Neutrophils % 53.1 %; Nucleated Red Blood Cells % 0 %; Platelet Count 192 10^3/cmm (157-399); Red Blood Count 4.11 10^6/uL (3.85-5.65); Red Cell Distribution Width 13.9 % (12.1-15.1); White Blood Count 4.58 10^3/uL (3.29-11.43)
[2024-03-06 08:49] LABS: Creatinine Urine, Random 80 mg/dL (39-259); Microalbum Creatinine Ratio Ur 13 mg/dL (0-20); Microalbumin Random Urine 1 ug/dL (0-20)
[2024-03-06 08:55] LABS: Calcium 8.9 mg/dL (8.5-10.5)
[2024-03-06 08:56] LABS: Albumin Level 4.4 g/dL (3.5-5.2); Anion Gap 14.3 (5-19); Blood Urea Nitrogen 31 mg/dL (8-23); Calcium 8.8 mg/dL (8.5-10.5); Carbon Dioxide 24 mmol/L (22-29); Chloride 111 mmol/L (98-107); Glucose 161 mg/dL (65-115); Phosphorus 3.1 mg/dL (2.5-4.5); Potassium 5.3 mmol/L (3.5-5.1); Sodium 144 mmol/L (136-145)
[2024-03-06 09:10] LABS: 25 Hydroxy Vitamin D 26 ng/mL (30-100)
== END 2024-03-06 07:44 | disposition home or self-care (01) ==
LOC: LAB 07:46
PROVIDERS: PCP Nurse Practitioner Family; Visit Provider Registered Nurse
DX: E55.9 Vitamin D deficiency, unspecified (principal); N18.32 Chronic kidney disease, stage 3b; N25.81 Secondary hyperparathyroidism of renal origin
CPT/HCPCS: 80069; 82044; 82306; 82310; 83970; 85025

== ENCOUNTER 2024-04-05 07:02 | Emergency (ER) | payer OTHER, MEDICARE, SELFPAY ==
[2024-04-05 07:06] VITALS: BP 170/81; PULSE 73; RESP 16; TEMP 36.8; O2SAT 95; BMI 35.7
--- NOTE | 2024-04-05 07:09 | ED_ITS ---
HPI - Back Pain/Injury 2 General: Chief Complaint: Back Pain/Injury Stated Complaint: back pain Time Seen by Provider: 04/05/24 07:09 History of Present Illness: 78-year-old male presents emergency room complaining of back pain. Does have chronic back pain states he has been doing quite a bit of bending lately. Relates pain being at the level of his belt and his low back. He has a history of kidney stones states this does not feel like a kidney stone he has had in the past. He denies any hematuria. Denies any dysuria urgency or frequency no diarrhea. No hematochezia or melena. No direct blow or injury. No fever sweats or chills. He has a remote history of prostate cancer which was treated has not had any recurrence that he is aware of. Pertinent past history: prior back pain, kidney stones, back surgery and cancer (Prostate cancer) Onset (ago): day(s) (1) Severity: moderate Location: lumbar spine (LS junction) Exacerbating factors: movement, sitting upright and walking Relieving factors: supine Associated symptoms: Deny abdominal pain, chills, dysuria, fever(s) or urinary urgency Review of Systems 2 Const: Denies: fever(s) or chills Card: Denies: chest pain Resp: Denies: dyspnea GI: Denies: abdominal pain : Denies: dysuria, urinary frequency or urinary urgency Musc: Reports: back pain; Denies: neck pain or extremity pain Skin/Breast: Denies: rash PFSH ED 2 PFSH: Medical History Low immunoglobulin level Prostate cancer GERD (gastroesophageal reflux disease) Gout Hyperlipidemia Hypertension Type 2 diabetes mellitus Osteoarthritis of knees, bilateral Erectile dysfunction Personal history of malignant neoplasm of prostate treated with radiation in 2010 Male urinary stress incontinence Gross hematuria Bladder neck stricture Surgical History History of sinus surgery H/O nasal septoplasty History of appendectomy History of carpal tunnel surgery BILATERAL History of lumbar laminectomy H/O prostatectomy Family History Family/Other Cancer Lung disease Hypertension CAD (coronary artery disease) Stroke Denies family history of Diabetes Social History Smoking and tobacco/nicotine status: former use of tobacco/nicotine Quit status (tobacco/nicotine): has quit using Former quit date comment: 57 years ago Alcohol intake: never Substance/Drug Use: never Adopted: No Caregiver/support person: No Lives independently: No Household members: spouse Marital status: Current occupational status: retired Physical Exam 2 Const: GENERAL APPEARANCE: cooperative and comfortable O RIENTATION/CONSCIOUSNESS: Yes awake, Yes oriented to person, Yes oriented to place and Yes oriented to time HENMT: COMMON NORMALS: normocephalic, atraumatic and hearing grossly normal bilaterally HEAD & SCALP: normocephalic and atraumatic Resp: COMMON NORMALS: normal respiratory effort, No retractions, No use of accessory muscles and clear to auscultation bilaterally AUSCULTATION: clear to auscultation bilaterally Cardio: COMMON NORMALS: regular rate, regular rhythm and No murmurs present (Cardio) RATE: regular rate RHYTHM: regular rhythm GI: COMMON NORMALS: Soft to palpation and No hepatosplenomegaly present A USCULTATION: Yes normoactive bowel sounds PALPATION: Yes Soft to palpation, No Tenderness to palpation present (GI), No Guarding due to palpation present (GI) and Yes No hepatosplenomegaly present Extremity: COMMON NORMALS: normal to inspection, capillary refill normal, no clubbing, cyanosis or edema, no calf tenderness and no pedal edema Neuro: SENSORIUM/ORIENTATION: Yes oriented to person, Yes oriented to place and Yes oriented to time Skin: COMMON NORMALS: no rashes or lesions noted GENERAL SKIN EXAM: no rashes or lesions noted Course 2 Vital Signs: Vital signs: Vital Signs Temperature 98.2 F 04/05/24 07:06 Pulse Rate 73 04/05/24 07:06 Respiratory Rate 16 04/05/24 07:06 Blood Pressure 170/81 04/05/24 07:06 Pulse Oximetry 97 04/05/24 07:13 Oxygen Delivery Me thod Room Air 04/05/24 07:13 MDM - Back Pain/Injury Medical Decision Making Musculoskeletal low back pain. X-ray low back does not show any sclerotic lesions alk phos is normal is no sign or metastasis from his prostate cancer. He does not relate any specific traumatic injury. He had been doing some more bending and lifting. No other red flag symptoms. He has chronic loss of urinary continence which remains unchanged. He has no signs of bladder infection or nephrolithiasis. Urine today did not show blood or signs of pyuria. Will discharge home with steroid taper diclofenac and tizanidine to follow-up with primary care if not improving Differential Diagnosis Likely lumbar radiculopathy Medical Records I reviewed the patient's medical records. Labs 04/05/24 07:20 04/05/24 07:20 Radiology Impressions Lumbar Spine X-Ray 04/05/24 07:50 IMPRESSION: Postoperative spine with extensive changes of degenerative spondylosis. No focal bone lesion. Laboratory Results WBC 5.34 10^3/uL (3.29-11.43) 04/05/24 07:20 RBC 4.23 10^6/uL (3.85-5.65) 04/05/24 07:20 Hgb 13.00 g/dL (11.27-16.99) 04/05/24 07:20 Hct 41.2 % (37-53) 04/05/24 07:20 MCV 97.4 fl (82-101) 04/05/24 07:20 MCH 30.7 pg (27-33) 04/05/24 07:20 MCHC 31.6 g/dL (30-55) 04/05/24 07:20 RDW 14.0 % (12.1-15.1) 04/05/24 07:20 Plt Count 177 10^3/cmm (157-399) 04/05/24 07:20 MPV 10.0 fL (7.4-10.4) 04/05/24 07:20 Neut % (Auto) 56.4 % 04/05/24 07:20 Lymph % (Auto) 24.3 % 04/05/24 07:20 [place] % (Auto) 11.8 % 04/05/24 07:20 Eos % (Auto) 5.6 % 04/05/24 07:20 Baso % (Auto) 1.3 % 04/05/24 07:20 Neut # (Auto) 3.01 10^3/uL (1.8-7.7) 04/05/24 07:20 Lymph # (Auto) 1.3 10^3/uL (0.8-4.8) 04/05/24 07:20 [place] # (Auto) 0.6 10^3/uL (0.2-0.9) 04/05/24 07:20 Eos # (Auto) 0.3 10^3/uL (0.0-0.8) 04/05/24 07:20 Baso # (Auto) 0.1 10^3/uL (0.0-0.1) 04/05/24 07:20 Nucleated RBC % (auto) 0 % 04/05/24 07:20 Nucleated RBCs # 0.0 /100WBC 04/05/24 07:20 Sodium 140 mmol/L (136-145) 04/05/24 07:20 Potassium 4.9 mmol/L (3.5-5.1) 04/05/24 07:20 Chloride 109 mmol/L (98-107) H 04/05/24 07:20 Carbon Dioxide 19 mmol/L (22-29) L 04/05/24 07:20 Anion Gap 16.9 (5-19) 04/05/24 07:20 BUN 28 mg/dL (8-23) H 04/05/24 07:20 Creatinine 1.6 mg/dL (0.7-1.2) H 04/05/24 07:20 GFR Calculation Not Reportable 04/05/24 07:20 Glucose 135 mg/dL (65-115) H 04/05/24 07:20 Calculated Osmolality 298 mOsm/kg (285-295) H 04/05/24 07:20 Calcium 8.6 mg/dL (8.5-10.5) 04/05/24 07:20 Total Bilirubin 0.2 mg/dL (0.15-1.2) 04/05/24 07:20 AST 16 U/L (0-40) 04/05/24 07:20 ALT 18 U/L (0-41) 04/05/24 07:20 Alkaline Phosphatase 110 U/L (40-130) 04/05/24 07:20 Total Protein 6.5 g/dL (6.6-8.7) L 04/05/24 07:20 Albumin 4.1 g/dL (3.5-5.2) 04/05/24 07:20 Globulin 2.4 g/dL (1.3-4.6) 04/05/24 07:20 Urine Color Yellow (Yellow) 04/05/24 08:07 Urine Appearance Clear (CLEAR) 04/05/24 08:07 Urine pH 6 (5-7) 04/05/24 08:07 Ur Specific [place] 1.010 (1.005-1.030) 04/05/24 08:07 Urine Protein Neg (Negative) 04/05/24 08:07 Urine Glucose (UA) Norm (Normal) 04/05/24 08:07 Urine Ketones Negative (Negative) 04/05/24 08:07 Urine Blood Neg (Negative) 04/05/24 08:07 Urine Nitrate Negative (Negative) 04/05/24 08:07 Urine Bilirubin Neg (Negative) 04/05/24 08:07 Urine Urobilinogen Norm mg/dL (Negative) 04/05/24 08:07 Ur Leukocyte Esterase Negative (Negative) 04/05/24 08:07 All radiology interpretation(s) finalized by discharge Discharge Plan Discharge Patient Disposition: Home Clinical Impression: Strain of lumbar region Condition: Stable Prescriptions: New tizanidine 4 mg tablet 4 mg PO Q6H PRN (Reason: muscle spasticity) Qty: 20 0RF Rx Instructions: do not exceed 3 doses per 24 hrs diclofenac sodium 75 mg tablet,delayed release (DR/EC) 75 mg PO Q12H PRN (Reason: pain) Qty: 20 0RF Medrol (Gerardo) 4 mg tablets,dose pack See Rx Instructions .ROUTE .COMPLEX Qty: 21 0RF Rx Instructions: orally per package directions No Action gabapentin 300 mg capsule 300 mg PO BID omeprazole 20 mg capsule,delayed release(DR/EC) 20 mg PO DAILY Trulicity 1.5 mg/0.5 mL pen injector 1.5 mg SUBCUT Q7D Rx Instructions: (ON WEDNESDAYS) furosemide 40 mg tablet 60 mg PO DAILY montelukast 10 mg tablet 10 mg PO DAILY metoprolol succinate 100 mg tablet extended release 24 hr 100 mg PO DAILY lisinopril 40 mg tablet 40 mg PO DAILY amlodipine 10 mg tablet 10 mg PO DAILY oxybutynin chloride 10 mg tablet extended release 24hr 10 mg PO DAILY simvastatin 40 mg tablet 40 mg PO DAILY allopurinol 300 mg tablet 300 mg PO DAILY (DME) DIABETIC SHOES See Rx Instructions .ROUTE .MEDSUPPLY Qty: 1 0RF Rx Instructions: As directed by [facility] with 3 inserts. cholecalciferol (vitamin D3) 50 mcg (2,000 unit) capsule 50 mcg PO DAILY Qty: 60 0RF hydroxychloroquine 200 mg tablet 200 mg PO BID Qty: 180 1RF prednisone 5 mg tablet 5 mg PO DAILY Qty: 30 0RF mupirocin 2 % ointment 1 applic topical BID Qty: 15 0RF diclofenac sodium 1 % gel 2 g topical QID Qty: 100 0RF Rx Instructions: apply to single elbow, wrist or hand; for hand includes palm/fingers/back of hand metformin 500 mg Tablet 500 mg PO BID Discharge Orders: Discharge ED (Routine); Ordered 04/05/24 Ordered By: Yayo Christina Referrals: Cary Sanders FNP [Primary Care Provider] - Discharge Diet: Usual diet Discharge Activity: Increase activity as tolerated Patient Instructions: Acute Low Back Pain (ED), Opioid Safety, Pain Management Activity Restrictions/Additional Instructions: Thank you for choosing [facility] for your healthcare needs today. It is very important that you follow up as instructed or that you return to the Emergency Department should you have concerns or if your condition changes or worsens in any way. You were seen today for complaint of low back pain. Suspect this is musculoskeletal in nature. X-rays your back did not show any signs of acute fractures or abnormal changes of the bone. Your laboratory tests were normal as well. If your symptoms persist follow-up with your primary care doctor. Coding Level of Care Code ED Appeals Board Referee for Ladan De Jesus
[2024-04-05 07:13] VITALS: O2SAT 97
[2024-04-05 07:26] LABS: Basophils # 0.1 10^3/uL (0.0-0.1); Basophils % 1.3 %; Eosinophils # 0.3 10^3/uL (0.0-0.8); Eosinophils % 5.6 %; Hematocrit 41.2 % (37-53); Lymphocytes # 1.3 10^3/uL (0.8-4.8); Lymphocytes % 24.3 %; Mean Corpuscular HGB Conc 31.6 g/dL (30-55); Mean Corpuscular Hemoglobin 30.7 pg (27-33); Mean Corpuscular Volume 97.4 fl (82-101); Monocytes # 0.6 10^3/uL (0.2-0.9); Monocytes % 11.8 %; Neutrophils # 3.01 10^3/uL (1.8-7.7); Neutrophils % 56.4 %; Nucleated Red Blood Cells % 0 %; Platelet Count 177 10^3/cmm (157-399); Red Blood Count 4.23 10^6/uL (3.85-5.65); White Blood Count 5.34 10^3/uL (3.29-11.43)
[2024-04-05 07:42] LABS: Alanine Aminotransferase 18 U/L (0-41); Albumin Level 4.1 g/dL (3.5-5.2); Alkaline Phosphatase 110 U/L (40-130); Aspartate Amino Transferase 16 U/L (0-40); Blood Urea Nitrogen 28 mg/dL (8-23); Calcium 8.6 mg/dL (8.5-10.5); Carbon Dioxide 19 mmol/L (22-29); Chloride 109 mmol/L (98-107); Creatinine Clr Calc Pharmacy 43.5821; Globulin 2.4 g/dL (1.3-4.6); Glucose 135 mg/dL (65-115); Osmolality Calculated 298 mOsm/kg (285-295); Sodium 140 mmol/L (136-145); Total Bilirubin 0.2 mg/dL (0.15-1.2); Total Protein 6.5 g/dL (6.6-8.7)
[2024-04-05 07:48] LABS: Anion Gap 16.9 (5-19); Potassium 4.9 mmol/L (3.5-5.1)
--- NOTE | 2024-04-05 07:50 | XR_ITS ---
WS: [id number] XR lumbar spine 2-3V* [id number] REASON FOR EXAM: back pain, hx prostate CA FINDINGS: Relatively normal lumbar spine curvatures. Posterior decompression with bilateral pedicle screws and interconnecting rods L4-L5. Surgical applia nces are intact and in proper position and alignment. Fused lateral bony fusion masses. No focal vertebral body abnormality. Significant bridging osteophytosis at T12-L1 and L2-L4. Mild narrowing of the L3-L4 and L4-L5 disc spaces. Significant narrowing of the L5-S1 disc space with significant endplate sclerosis and osteophytosis. XR/XR lumbar spine 2-3V* [id number] IMPRESSION: Postoperative spine with extensive changes of degenerative spondylosis. No focal bone lesion.
[2024-04-05 08:13] LABS: Add Urine Microscopic? NO; Charge for UA Resulting for Rev
[2024-04-05 08:20] LABS: Bilirubin Urine Neg (Negative); Blood Urine Neg (Negative); Glucose Urine UA Norm (Normal); Ketones Urine Negative (Negative); Leukocyte Esterase Urine Negative (Negative); Nitrate Urine Negative (Negative); Protein Urine Neg (Negative); Urine Appearance Clear (CLEAR); Urine Color Yellow (Yellow); Urobilinogen Urine Norm (Negative); pH Urine 6 (5-7)
[2024-04-05] MEDS: dexamethasone 10 mg/mL INJ IM (08:55)
[2024-04-05] MEDS: ketorolac 30 mg/mL INJ IVP (08:56)
[2024-04-05 09:05] VITALS: O2SAT 98
== END 2024-04-05 09:06 | disposition home or self-care (01) ==
PROVIDERS: Emergency Provider Family Medicine; PCP Nurse Practitioner Family
DX: S39.012A Strain of muscle, fascia and tendon of lower back, initial encounter (principal); Z79.85 Long-term (current) use of injectable non-insulin antidiabetic drugs; Z79.84 Long term (current) use of oral hypoglycemic drugs; Z87.891 Personal history of nicotine dependence; Z85.46 Personal history of malignant neoplasm of prostate; E78.5 Hyperlipidemia, unspecified; I10 Essential (primary) hypertension; E11.9 Type 2 diabetes mellitus without complications; X50.1XXA Overexertion from prolonged static or awkward postures, initial encounter
CPT/HCPCS: 36415; 72100; 80053; 81003; 85025; 96372; 96374; 99284; J1100; J1885

== ENCOUNTER → 2024-10-24 08:41 | Outpatient (BNVA) | payer MEDICARE, OTHER, SELFPAY | PROVIDERS: PCP Nurse Practitioner Family; Visit Provider Podiatrist Foot & Ankle Surgery | DX: E11.69 Type 2 diabetes mellitus with other specified complication (principal); L60.3 Nail dystrophy; Z79.84 Long term (current) use of oral hypoglycemic drugs | CPT/HCPCS: 99213 ==

== ENCOUNTER 2024-11-21 16:40 | Emergency (ER) | payer OTHER, MEDICARE, SELFPAY ==
[2024-11-21] VITALS (8 sets, daily range): BP systolic 150–183; BP diastolic 73–91; PULSE 96–113; RESP 16; TEMP 38.8; O2SAT 90–94; BMI 31.0
--- NOTE | 2024-11-21 20:01 | W.ED.NAVMDI ---
Documented by User: Prakash HorvathDO 11/21/24 21:46 HPI - Nausea/Vomiting/Diarrhea General: Chief complaint: Nausea/Vomiting/Diarrhea Stated complaint: fever,ams, nausea, weak Time Seen by Provider: 11/21/24 19:57 History of Present Illness: Patient presents to the ER with complaints of nausea vomiting diarrhea generalized weakness. She cannot keep anything down. This started yesterday. Upon arrival to the ER pulse was 96 with a temperature 101.9, patient is mildly confused, patient's said he gets this way when he gets a UTI or dehydration. He does happen a couple times in the past. His started yesterday. Related Data Home Medications ?Medication ?Instructions ?Recorded ?Confirmed allopurinol 300 mg tablet 300 mg PO DAILY 10/04/19 10/24/24 amlodipine 10 mg tablet 10 mg PO DAILY 10/04/19 10/24/24 dulaglutide 1.5 mg/0.5 mL 1.5 mg SUBCUT Q7D 10/04/19 10/24/24 subcutaneous pen injector (Trulicity) furosemide 40 mg tablet 60 mg PO DAILY 10/04/19 10/24/24 gabapentin 300 mg capsule 300 mg PO BID 10/04/19 10/24/24 lisinopril 40 mg tablet 40 mg PO DAILY 10/04/19 10/24/24 metoprolol succinate 100 mg 100 mg PO DAILY 10/04/19 10/24/24 tablet,extended release 24 hr montelukast 10 mg tablet 10 mg PO DAILY 10/04/19 10/24/24 omeprazole 20 mg capsule,delayed 20 mg PO DAILY 10/04/19 10/24/24 release oxybutynin chloride 10 mg 10 mg PO DAILY 10/04/19 10/24/24 tablet,extended release 24 hr simvastatin 40 mg tablet 40 mg PO DAILY 10/04/19 10/24/24 metformin 500 mg tablet 500 mg PO BID 07/23/20 10/24/24 Previous Rx's ?Medication ?Instructions ?Recorded DIABETIC SHOES #1 ea 03/02/21 diclofenac sodium 1 % topical gel 2 g topical QID #100 grams 08/03/21 mupirocin 2 % topical ointment 1 applic topical BID #15 grams 11/15/22 cholecalciferol (vitamin D3) 50 50 mcg PO DAILY #60 caps 06/13/23 mcg (2,000 unit) capsule hydroxychloroquine 200 mg tablet 200 mg PO BID #180 tabs 06/13/23 prednisone 5 mg tablet 5 mg PO DAILY #30 tabs 06/13/23 diclofenac sodium 75 mg 75 mg PO Q12H PRN pain #20 tabs 04/05/24 tablet,delayed release methylprednisolone 4 mg tablets in See Rx Instructions PO .COMPLEX 04/05/24 a dose pack (Medrol (Gerardo)) #21 ea tizanidine 4 mg tablet 4 mg PO Q6H PRN muscle spasticity 04/05/24 #20 tabs ondansetron 4 mg disintegrating 4 mg PO Q4H PRN nausea and 11/21/24 tablet vomiting #20 tabs Allergies Allergy/AdvReac Type Severity Reaction Status Date / Time No Known Allergies Allergy Verified 10/24/24 08:47 Review of Systems General: Reports: 10 or more systems reviewed and unremarkable except in HPI and below PFSH ED PFSH: Medical History Low immunoglobulin level Prostate cancer GERD (gastroesophageal reflux disease) Gout Hyperlipidemia Hypertension Type 2 diabetes mellitus Osteoarthritis of knees, bilateral Erectile dysfunction Personal history of malignant neoplasm of prostate treated with radiation in 2010 Male urinary stress incontinence Gross hematuria Bladder neck stricture Surgical History History of sinus surgery H/O nasal septoplasty History of appendectomy History of carpal tunnel surgery BILATERAL History of lumbar laminectomy H/O prostatectomy Family History Family/Other Cancer Lung disease Hypertension CAD (coronary artery disease) Stroke Denies family history of Diabetes Social History Smoking and tobacco/nicotine status: former use of tobacco/nicotine Quit status (tobacco/nicotine): has quit using Former quit date comment: 57 years ago Alcohol intake: never Substance/Drug Use: never Adopted: No Caregiver/support person: No Lives independently: No Household members: spouse Marital status: Current occupational status: retired Physical Exam Const: COMMON NORMALS: no acute distress, average body habitus, no limitations, healthy appearing, alert and well nourished HENMT: COMMON NORMALS: normocephalic, atraumatic, hearing grossly normal bilaterally, external ears normal, moist oral mucous membranes and oropharynx normal HEAD & SCALP: normocephalic and atraumatic EXTERNAL EAR: Yes external ears normal Neck/C-Spine: COMMON NORMALS: no JVD Chest: COMMONS NORMALS: normal inspection of the chest and normal palpation of entire chest wall Resp: COMMON NORMALS: normal respiratory effort, No retractions, No use of accessory muscles and clear to auscultation bilaterally AUSCULTATION: clear to auscultation bilaterally Cardio: COMMON NORMALS: no JVD, regular rate, regular rhythm, S1 normal heart sound present, S2 normal heart sound present, No gallops present (Cardio), No clicks present (Cardio), No murmurs present (Cardio) and No rub (Cardio) RATE: regular rate RHYTHM: regular rhythm HEART SOUNDS: S1 normal heart sound present and S2 normal heart sound present GI: COMMON NORMALS: Normal to inspection, nondistended, normoactive bowel sounds present, Soft to palpation, non-tender, No hepatosplenomegaly present and no masses PALPATION: Yes Soft to palpation and Yes No hepatosplenomegaly present Neuro: SENSORIUM/ORIENTATION: Yes alert Course Vital Signs: Vital signs: Vital Signs Temperature 101.9 F H 11/21/24 16:50 Pulse Rate 113 H 11/21/24 19:56 Respiratory Rate 16 11/21/24 19:56 Blood Pressure 167/80 11/21/24 22:41 Pulse Oximetry 91 11/21/24 22:41 Oxygen Delivery Me thod Room Air 11/21/24 16:50 MDM - Nausea/Vomiting/Diarrhea Medical Records I reviewed the patient's medical records. Lab Data I reviewed the patient's lab results. 11/21/24 20:30 11/21/24 20:30 Laboratory Results WBC 13.87 10^3/uL (3.29-11.43) H 11/21/24 20:30 RBC 3.94 10^6/uL (3.85-5.65) 11/21/24 20:30 Hgb 12.20 g/dL (11.27-16.99) 11/21/24 20:30 Hct 37.9 % (37-53) 11/21/24 20:30 MCV 96.2 fl (82-101) 11/21/24 20:30 MCH 31.0 pg (27-33) 11/21/24 20:30 MCHC 32.2 g/dL (30-55) 11/21/24 20: RDW 14.8 % (12.1-15.1) 11/21/24 20:30 Plt Count 155 10^3/cmm (157-399) L 11/21/24 20:30 MPV 10.5 fL (7.4-10.4) H 11/21/24 20:30 Neut % (Auto) 86.9 % 11/21/24 20: Lymph % (Auto) 3.0 % 11/21/24 20:30 Casey % (Auto) 8.9 % 11/21/24 20: Eos % (Auto) 0.0 % 11/21/24: Baso % (Auto) 0.3 % 11/21/24 20:30 Neut # (Auto) 12.06 10^3/uL (1.8-7.7) H 11/21/24 20: Lymph # (Auto) 0.4 10^3/uL (0.8-4.8) L 11/21/24 20:30 Casey # (Auto) 1.2 10^3/uL (0.2-0.9) H 11/21/24 20:30 Eos # (Auto) 0.0 10^3/uL (0.0-0.8) 11/21/24 20:30 Baso # (Auto) 0.0 10^3/uL (0.0-0.1) 11/21/24 20: Nucleated RBC % (auto) 0 % 11/21/24: Nucleated RBCs # 0.0 /100WBC 11/21/24 20:30 Sodium 136 mmol/L (136-145) 11/21/24 20:30 Potassium 4.1 mmol/L (3.5-5.1) 11/21/24 20: Chloride 100 mmol/L (98-107) 11/21/24 20: Carbon Dioxide 20 mmol/L (22-29) L 11/21/24 20:30 Anion Gap 20.1 (5-19) H 11/21/24 20:30 BUN 23 mg/dL (8-23) 11/21/24 20:30 Creatinine 1.6 mg/dL (0.7-1.2) H 11/21/24 20:30 GFR Calculation Not Reportable 11/21/24 20: Glucose 171 mg/dL (65-115) H 11/21/24 20:30 Calculated Osmolality 290 mOsm/kg (285-295) 11/21/24 20: Calcium 8.6 mg/dL (8.5-10.5) 11/21/24: Magnesium 1.8 mg/dL (1.7-2.3) 11/21/24 20: Total Bilirubin 0.5 mg/dL (0.15-1.2) 11/21/24 20: AST 14 U/L (0-40) 11/21/24: ALT 9 U/L (0-41) 11/21/24 20: Alkaline Phosphatase 104 U/L (40-130) 11/21/24 20: Total Protein 6.8 g/dL (6.6-8.7) 11/21/24 20: Albumin 3.9 g/dL (3.5-5.2) 11/21/24 20: Globulin 2.9 g/dL (1.3-4.6) 11/21/24 20: Lipase 9 U/L (13-60) L 11/21/24 20: Urine Color Yellow (Yellow) 11/21/24 22: Urine Appearance Cloudy (CLEAR) A 11/21/24 22: Urine pH 5.5 (5-7) 11/21/24 22: Ur Specific [place] 1.019 (1.005-1.030) 11/21/24 22: Urine Protein 2+ (Negative) A 11/21/24 22: Urine Glucose (UA) Negative (Normal) 11/21/24 22: Urine Ketones 1+ (Negative) H 11/21/24 22: Urine Blood Negative (Negative) 11/21/24 22: Urine Nitrate Negative (Negative) 11/21/24 22: Urine Bilirubin Negative (Negative) 11/21/24 22: Urine Urobilinogen 1.0 mg/dL (Negative) 11/21/24 22: Ur Leukocyte Esterase 1+ (Negative) A 11/21/24 22: Urine RBC 0-2 /hpf (0-2) 11/21/24 22:01 Urine WBC 6-10 /hpf (0-5) 11/21/24 22:01 Ur Squamous Epith Cells 0-5 /hpf (0-5) 11/21/24 22:01 Amorphous Sediment 2+ /hpf 11/21/24 22:01 Urine Bacteria None seen /hpf (NONE) 11/21/24 22:01 Hyaline Casts 81.08 /lpf 11/21/24 22:01 Urine Mucus 2+ /hpf 11/21/24 22:01 Influenza A (PCR) Negative (Negative) 11/21/24 20:44 Influenza Type B (PCR) Negative (Negative) 11/21/24 20:44 RSV (PCR) Negative (Negative) 11/21/24 20:44 SARS-CoV-2 (PCR) Negative (Negative) 11/21/24 20:44 All radiology interpretation(s) finalized by discharge Discharge Plan Discharge Patient Disposition: Home Clinical Impression: Gastroenteritis Condition: Stable Prescriptions: New ondansetron 4 mg tablet,disintegrating 4 mg PO Q4H PRN (Reason: nausea and vomiting) Qty: 20 0RF No Action gabapentin 300 mg capsule 300 mg PO BID omeprazole 20 mg capsule,delayed release(DR/EC) 20 mg PO DAILY Trulicity 1.5 mg/0.5 mL pen injector 1.5 mg SUBCUT Q7D Rx Instructions: (ON WEDNESDAYS) furosemide 40 mg tablet 60 mg PO DAILY montelukast 10 mg tablet 10 mg PO DAILY metoprolol succinate 100 mg tablet extended release 24 hr 100 mg PO DAILY lisinopril 40 mg tablet 40 mg PO DAILY amlodipine 10 mg tablet 10 mg PO DAILY oxybutynin chloride 10 mg tablet extended release 24hr 10 mg PO DAILY simvastatin 40 mg tablet 40 mg PO DAILY allopurinol 300 mg tablet 300 mg PO DAILY (DME) DIABETIC SHOES See Rx Instructions .ROUTE .MEDSUPPLY Qty: 1 0RF Rx Instructions: As directed by [facility] with 3 inserts. cholecalciferol (vitamin D3) 50 mcg (2,000 unit) capsule 50 mcg PO DAILY Qty: 60 0RF hydroxychloroquine 200 mg tablet 200 mg PO BID Qty: 180 1RF prednisone 5 mg tablet 5 mg PO DAILY Qty: 30 0RF mupirocin 2 % ointment 1 applic topical BID Qty: 15 0RF diclofenac sodium 1 % gel 2 g topical QID Qty: 100 0RF Rx Instructions: apply to single elbow, wrist or hand; for hand includes palm/fingers/back of hand metformin 500 mg Tablet 500 mg PO BID tizanidine 4 mg tablet 4 mg PO Q6H PRN (Reason: muscle spasticity) Qty: 20 0RF Rx Instructions: do not exceed 3 doses per 24 hrs diclofenac sodium 75 mg tablet,delayed release (DR/EC) 75 mg PO Q12H PRN (Reason: pain) Qty: 20 0RF Medrol (Gerardo) 4 mg tablets,dose pack See Rx Instructions .ROUTE .COMPLEX Qty: 21 0RF Rx Instructions: orally per package directions Discharge Orders: Discharge ED (Routine); Ordered 11/21/24 Ordered By: Geovanni Olson Referrals: Cary Sanders FNP [Primary Care Provider] - Patient Instructions: Gastroenteritis (ED) Activity Restrictions/Additional Instructions: Take the Zofran as prescribed. Push clear liquids only until symptoms subside. Take Tylenol and/or ibuprofen for fever, aches and pains. Follow-up with primary care physician early next week for recheck. Return to the emergency department if condition worsens. Print Language: Sinhala Coding Level of Care Code ED Dispenser Operator for Chg Fwd Documented by User: Geovanni Olson MD 11/21/24 22:44 HPI - Nausea/Vomiting/Diarrhea General: Chief complaint: Nausea/Vomiting/Diarrhea Stated complaint: fever,ams, nausea, weak Time Seen by Provider: 11/21/24 19:57 Related Data Home Medications ?Medication ?Instructions ?Recorded ?Confirmed allopurinol 300 mg tablet 300 mg PO DAILY 10/04/19 10/24/24 amlodipine 10 mg tablet 10 mg PO DAILY 10/04/19 10/24/24 dulaglutide 1.5 mg/0.5 mL 1.5 mg SUBCUT Q7D 10/04/19 10/24/24 subcutaneous pen injector (Trulicity) furosemide 40 mg tablet 60 mg PO DAILY 10/04/19 10/24/24 gabapentin 300 mg capsule 300 mg PO BID 10/04/19 10/24/24 lisinopril 40 mg tablet 40 mg PO DAILY 10/04/19 10/24/24 metoprolol succinate 100 mg 100 mg PO DAILY 10/04/19 10/24/24 tablet,extended release 24 hr montelukast 10 mg tablet 10 mg PO DAILY 10/04/19 10/24/24 omeprazole 20 mg capsule,delayed 20 mg PO DAILY 10/04/19 10/24/24 release oxybutynin chloride 10 mg 10 mg PO DAILY 10/04/19 10/24/24 tablet,extended release 24 hr simvastatin 40 mg tablet 40 mg PO DAILY 10/04/19 10/24/24 metformin 500 mg tablet 500 mg PO BID 07/23/20 10/24/24 Previous Rx's ?Medication ?Instructions ?Recorded DIABETIC SHOES #1 ea 03/02/21 diclofenac sodium 1 % topical gel 2 g topical QID #100 grams 08/03/21 mupirocin 2 % topical ointment 1 applic topical BID #15 grams 11/15/22 cholecalciferol (vitamin D3) 50 50 mcg PO DAILY #60 caps 06/13/23 mcg (2,000 unit) capsule hydroxychloroquine 200 mg tablet 200 mg PO BID #180 tabs 06/13/23 prednisone 5 mg tablet 5 mg PO DAILY #30 tabs 06/13/23 diclofenac sodium 75 mg 75 mg PO Q12H PRN pain #20 tabs 04/05/24 tablet,delayed release methylprednisolone 4 mg tablets in See Rx Instructions PO .COMPLEX 04/05/24 a dose pack (Medrol (Gerardo)) #21 ea tizanidine 4 mg tablet 4 mg PO Q6H PRN muscle spasticity 04/05/24 #20 tabs ondansetron 4 mg disintegrating 4 mg PO Q4H PRN nausea and 11/21/24 tablet vomiting #20 tabs Allergies Allergy/AdvReac Type Severity Reaction Status Date / Time No Known Allergies Allergy Verified 10/24/24 08:47 PFS ED PFSH: Medical History Low immunoglobulin level Prostate cancer GERD (gastroesophageal reflux disease) Gout Hyperlipidemia Hypertension Type 2 diabetes mellitus Osteoarthritis of knees, bilateral Erectile dysfunction Personal history of malignant neoplasm of prostate treated with radiation in 2010 Male urinary stress incontinence Gross hematuria Bladder neck stricture Surgical History History of sinus surgery H/O nasal septoplasty History of appendectomy History of carpal tunnel surgery BILATERAL History of lumbar laminectomy H/O prostatectomy Family History Family/Other Cancer Lung disease Hypertension CAD (coronary artery disease) Stroke Denies family history of Diabetes Social History Smoking and tobacco/nicotine status: former use of tobacco/nicotine Quit status (tobacco/nicotine): has quit using Former quit date comment: 57 years ago Alcohol intake: never Substance/Drug Use: never Adopted: No Caregiver/support person: No Lives independently: No Household members: spouse Marital status: Current occupational status: retired Course Vital Signs: Vital signs: Vital Signs Temperature 101.9 F H 11/21/24 16:50 Pulse Rate 113 H 11/21/24 19:56 Respiratory Rate 16 11/21/24 19:56 Blood Pressure 167/80 11/21/24 22:41 Pulse Oximetry 91 11/21/24 22:41 Oxygen Delivery Me thod Room Air 11/21/24 16:50 MDM - Nausea/Vomiting/Diarrhea Medical Decision Making I assumed care of this patient at shift change from Dr. Horvath. Urine analysis was pending. The patient presented with nausea, vomiting, diarrhea and fever. He was given IV fluids and Zofran. He is feeling significantly better. He was also given Tylenol. He does feel well enough to go home. He appears to have gastroenteritis. I did prescribe Zofran for home use. Recommended he push clear liquids only until symptoms subside then advance diet slowly. Follow-up with primary care provider early next week for recheck. Return to the emergency department if condition worsens. He was discharged in stable condition with his . Lab Data 11/21/24 20:30 11/21/24 20:30 Laboratory Results WBC 13.87 10^3/uL (3.29-11.43) H 11/21/24 20:30 RBC 3.94 10^6/uL (3.85-5.65) 11/21/24 20:30 Hgb 12.20 g/dL (11.27-16.99) 11/21/24 20:30 Hct 37.9 % (37-53) 11/21/24 20:30 MCV 96.2 fl (82-101) 11/21/24 20:30 MCH 31.0 pg (27-33) 11/21/24 20: MCHC 32.2 g/dL (30-55) 11/21/24: RDW 14.8 % (12.1-15.1) 11/21/24 20: Plt Count 155 10^3/cmm (157-399) L 11/21/24: MPV 10.5 fL (7.4-10.4) H 11/21/24 20:30 Neut % (Auto) 86.9 % 11/21/24 20:30 Lymph % (Auto) 3.0 % 11/21/24 20: Casey % (Auto) 8.9 % 11/21/24: Eos % (Auto) 0.0 % 11/21/24 20: Baso % (Auto) 0.3 % 11/21/24 20:30 Neut # (Auto) 12.06 10^3/uL (1.8-7.7) H 11/21/24 20: Lymph # (Auto) 0.4 10^3/uL (0.8-4.8) L 11/21/24 20:30 Casey # (Auto) 1.2 10^3/uL (0.2-0.9) H 11/21/24 20: Eos # (Auto) 0.0 10^3/uL (0.0-0.8) 11/21/24 20:30 Baso # (Auto) 0.0 10^3/uL (0.0-0.1) 11/21/24: Nucleated RBC % (auto) 0 % 11/21/24 20: Nucleated RBCs # 0.0 /100WBC 11/21/24 20:30 Sodium 136 mmol/L (136-145) 11/21/24 20:30 Potassium 4.1 mmol/L (3.5-5.1) 11/21/24:30 Chloride 100 mmol/L (98-107) 11/21/24 20:30 Carbon Dioxide 20 mmol/L (22-29) L 11/21/24 20:30 Anion Gap 20.1 (5-19) H 11/21/24 20:30 BUN 23 mg/dL (8-23) 11/21/24 20: Creatinine 1.6 mg/dL (0.7-1.2) H 11/21/24 20:30 GFR Calculation Not Reportable 11/21/24 20: Glucose 171 mg/dL (65-115) H 11/21/24 20:30 Calculated Osmolality 290 mOsm/kg (285-295) 11/21/24 20: Calcium 8.6 mg/dL (8.5-10.5) 11/21/24: Magnesium 1.8 mg/dL (1.7-2.3) 11/21/24 20: Total Bilirubin 0.5 mg/dL (0.15-1.2) 11/21/24 20: AST 14 U/L (0-40) 11/21/24 20: ALT 9 U/L (0-41) 11/21/24 20:30 Alkaline Phosphatase 104 U/L (40-130) 11/21/24 20:30 Total Protein 6.8 g/dL (6.6-8.7) 11/21/24 20: Albumin 3.9 g/dL (3.5-5.2) 11/21/24 20:30 Globulin 2.9 g/dL (1.3-4.6) 11/21/24 20:30 Lipase 9 U/L (13-60) L 11/21/24 20:30 Urine Color Yellow (Yellow) 11/21/24 22: Urine Appearance Cloudy (CLEAR) A 11/21/24 22: Urine pH 5.5 (5-7) 11/21/24 22: Ur Specific [place] 1.019 (1.005-1.030) 11/21/24 22: Urine Protein 2+ (Negative) A 11/21/24 22: Urine Glucose (UA) Negative (Normal) 11/21/24 22: Urine Ketones 1+ (Negative) H 11/21/24 22: Urine Blood Negative (Negative) 11/21/24 22:01 Urine Nitrate Negative (Negative) 11/21/24 22:01 Urine Bilirubin Negative (Negative) 11/21/24 22:01 Urine Urobilinogen 1.0 mg/dL (Negative) 11/21/24 22:01 Ur Leukocyte Esterase 1+ (Negative) A 11/21/24 22:01 Urine RBC 0-2 /hpf (0-2) 11/21/24 22:01 Urine WBC 6-10 /hpf (0-5) 11/21/24 22:01 Ur Squamous Epith Cells 0-5 /hpf (0-5) 11/21/24 22:01 Amorphous Sediment 2+ /hpf 11/21/24 22:01 Urine Bacteria None seen /hpf (NONE) 11/21/24 22:01 Hyaline Casts 81.08 /lpf 11/21/24 22:01 Urine Mucus 2+ /hpf 11/21/24 22:01 Influenza A (PCR) Negative (Negative) 11/21/24 20:44 Influenza Type B (PCR) Negative (Negative) 11/21/24 20:44 RSV (PCR) Negative (Negative) 11/21/24 20:44 SARS-CoV-2 (PCR) Negative (Negative) 11/21/24 20:44 Discharge Plan Discharge Patient Disposition: Home Clinical Impression: Gastroenteritis Condition: Stable Prescriptions: New ondansetron 4 mg tablet,disintegrating 4 mg PO Q4H PRN (Reason: nausea and vomiting) Qty: 20 0RF No Action gabapentin 300 mg capsule 300 mg PO BID omeprazole 20 mg capsule,delayed release(DR/EC) 20 mg PO DAILY Trulicity 1.5 mg/0.5 mL pen injector 1.5 mg SUBCUT Q7D Rx Instructions: (ON WEDNESDAYS) furosemide 40 mg tablet 60 mg PO DAILY montelukast 10 mg tablet 10 mg PO DAILY metoprolol succinate 100 mg tablet extended release 24 hr 100 mg PO DAILY lisinopril 40 mg tablet 40 mg PO DAILY amlodipine 10 mg tablet 10 mg PO DAILY oxybutynin chloride 10 mg tablet extended release 24hr 10 mg PO DAILY simvastatin 40 mg tablet 40 mg PO DAILY allopurinol 300 mg tablet 300 mg PO DAILY (DME) DIABETIC SHOES See Rx Instructions .ROUTE .MEDSUPPLY Qty: 1 0RF Rx Instructions: As directed by [facility] with 3 inserts. cholecalciferol (vitamin D3) 50 mcg (2,000 unit) capsule 50 mcg PO DAILY Qty: 60 0RF hydroxychloroquine 200 mg tablet 200 mg PO BID Qty: 180 1RF prednisone 5 mg tablet 5 mg PO DAILY Qty: 30 0RF mupirocin 2 % ointment 1 applic topical BID Qty: 15 0RF diclofenac sodium 1 % gel 2 g topical QID Qty: 100 0RF Rx Instructions: apply to single elbow, wrist or hand; for hand includes palm/fingers/back of hand metformin 500 mg Tablet 500 mg PO BID tizanidine 4 mg tablet 4 mg PO Q6H PRN (Reason: muscle spasticity) Qty: 20 0RF Rx Instructions: do not exceed 3 doses per 24 hrs diclofenac sodium 75 mg tablet,delayed release (DR/EC) 75 mg PO Q12H PRN (Reason: pain) Qty: 20 0RF Medrol (Gerardo) 4 mg tablets,dose pack See Rx Instructions .ROUTE .COMPLEX Qty: 21 0RF Rx Instructions: orally per package directions Discharge Orders: Discharge ED (Routine); Ordered 11/21/24 Ordered By: Geovanni Olson Referrals: Cary Sanders FNP [Primary Care Provider] - Patient Instructions: Gastroenteritis (ED) Activity Restrictions/Additional Instructions: Take the Zofran as prescribed. Push clear liquids only until symptoms subside. Take Tylenol and/or ibuprofen for fever, aches and pains. Follow-up with primary care physician early next week for recheck. Return to the emergency department if condition worsens. Print Language: Sinhala Coding Level of Care Code ED Dispenser Operator for Ladan De Jesus
[2024-11-21] MEDS: acetaminophen 500 mg Tablet 1000 MG PO (20:29)
[2024-11-21] MEDS: sodium chloride 0.9% 1,000 ML 999 ML IV (20:39)
[2024-11-21 21:03] LABS: Basophils % 0.3 %; Hematocrit 37.9 % (37-53); Lymphocytes # 0.4 10^3/uL (0.8-4.8); Mean Corpuscular HGB Conc 32.2 g/dL (30-55); Mean Corpuscular Volume 96.2 fl (82-101); Mean Platelet Volume 10.5 fL (7.4-10.4); Monocytes # 1.2 10^3/uL (0.2-0.9); Monocytes % 8.9 %; Neutrophils # 12.06 10^3/uL (1.8-7.7); Neutrophils % 86.9 %; Nucleated Red Blood Cells % 0 %; Platelet Count 155 10^3/cmm (157-399); Red Blood Count 3.94 10^6/uL (3.85-5.65); Red Cell Distribution Width 14.8 % (12.1-15.1); White Blood Count 13.87 10^3/uL (3.29-11.43)
[2024-11-21 21:26] LABS: Influenza A NEGATIVE (Negative); Influenza B NEGATIVE (Negative); Respiratory Syncytial Virus Ce NEGATIVE (Negative); SARS-CoV-2 PCR NEGATIVE (Negative)
[2024-11-21 21:31] LABS: Alanine Aminotransferase 9 U/L (0-41); Albumin Level 3.9 g/dL (3.5-5.2); Alkaline Phosphatase 104 U/L (40-130); Anion Gap 20.1 (5-19); Aspartate Amino Transferase 14 U/L (0-40); Blood Urea Nitrogen 23 mg/dL (8-23); Calcium 8.6 mg/dL (8.5-10.5); Carbon Dioxide 20 mmol/L (22-29); Chloride 100 mmol/L (98-107); Creatinine Clr Calc Pharmacy 41.2394; Globulin 2.9 g/dL (1.3-4.6); Glucose 171 mg/dL (65-115); Lipase 9 U/L (13-60); Magnesium 1.8 mg/dL (1.7-2.3); Osmolality Calculated 290 mOsm/kg (285-295); Potassium 4.1 mmol/L (3.5-5.1); Sodium 136 mmol/L (136-145); Total Bilirubin 0.5 mg/dL (0.15-1.2); Total Protein 6.8 g/dL (6.6-8.7)
[2024-11-21 22:08] LABS: Bilirubin Urine Negative (Negative); Blood Urine Negative (Negative); Glucose Urine UA Negative (Normal); Ketones Urine 1+ (Negative); Leukocyte Esterase Urine 1+ (Negative); Nitrate Urine Negative (Negative); Protein Urine 2+ (Negative); Specific Gravity, Urine 1.019 (1.005-1.030); Urine Appearance Cloudy (CLEAR); Urine Color Yellow (Yellow); pH Urine 5.5 (5-7)
[2024-11-21 22:13] LABS: Add Urine Microscopic? YES; Bacteria Urine None Seen /hpf; Hyaline Casts Urine 81.08 /lpf; RBC Urine 0-2 /hpf (0-2); Squamous Epithelial Cell Urine 0-5 /hpf (0-5)
[2024-11-21] MEDS: ondansetron 2 mg/ML SDV 2 mL 4 MG IVP (22:14)
[2024-11-21 22:33] LABS: Add Urine Culture? No; Amorphous Sediment Urine 2+ /hpf; Mucus Urine 2+ /hpf; UA Slide Review UA Slide Review Perf
== END 2024-11-21 22:49 | disposition home or self-care (01) ==
PROVIDERS: Emergency Medicine; Emergency Provider Emergency Medicine; PCP Nurse Practitioner Family
DX: K52.9 Noninfective gastroenteritis and colitis, unspecified (principal); Z11.52 Encounter for screening for COVID-19; Z87.891 Personal history of nicotine dependence; E78.5 Hyperlipidemia, unspecified; I10 Essential (primary) hypertension; E11.9 Type 2 diabetes mellitus without complications; Z85.46 Personal history of malignant neoplasm of prostate
CPT/HCPCS: 36415; 80053; 81001; 83690; 83735; 85025; 87637; 96374; 99284; J2405; J7030; J9999

== ENCOUNTER → 2024-12-24 07:40 | Outpatient (BNVA) | payer MEDICARE, OTHER, SELFPAY | PROVIDERS: PCP Nurse Practitioner Family; Visit Provider Podiatrist Foot & Ankle Surgery | DX: E11.69 Type 2 diabetes mellitus with other specified complication (principal); L60.3 Nail dystrophy; Z79.84 Long term (current) use of oral hypoglycemic drugs | CPT/HCPCS: 11721 ==

== ENCOUNTER → 2025-03-25 13:01 | Outpatient (BNVA) | payer MEDICARE, OTHER, SELFPAY | PROVIDERS: PCP Nurse Practitioner Family; Visit Provider Podiatrist Foot & Ankle Surgery | DX: E11.69 Type 2 diabetes mellitus with other specified complication (principal); L60.3 Nail dystrophy; E11.8 Type 2 diabetes mellitus with unspecified complications; Z79.84 Long term (current) use of oral hypoglycemic drugs | CPT/HCPCS: 11721 ==

== ENCOUNTER → 2025-07-01 09:25 | Outpatient (BNVA) | payer MEDICARE, OTHER, SELFPAY | PROVIDERS: PCP Nurse Practitioner Family; Visit Provider Podiatrist Foot & Ankle Surgery | DX: E11.69 Type 2 diabetes mellitus with other specified complication (principal); L60.3 Nail dystrophy; Z79.84 Long term (current) use of oral hypoglycemic drugs; E11.8 Type 2 diabetes mellitus with unspecified complications | CPT/HCPCS: 11721 ==